=== PATIENT | male | born 1935 | race Caucasian/White ===

== ENCOUNTER → 2016-04-15 | Outpatient (CLI) | payer BC ==
[~2016-04-15] MED LIST: CHOL100010 PO; CHOL4POW14 PO; DTR5 PO; FAMO20TA11 PO; LOVA20TA4 PO; MECL1TAB42 PO; SENN-91 PO; SODI1TAB17 PO; TRAM-10 PO; TRIA37.5 PO
--- NOTE | 2016-04-15 12:41 | DIAGNOSTIC IMAGING REPORT ---
CERVICAL SPINE MRI HISTORY: Cervical pain CERVICALGIA TECHNIQUE: Multiplanar multisequence MRI of the cervical spine was performed without the use of contrast. COMPARISON STUDY: None. FINDINGS: Significant degenerative intervertebral disc change primarily at C4-C5 and C5-C7. Signal characteristics of the cervical cord in the sagittal images appear unremarkable. C2-C3: No significant central canal or neural foraminal narrowing. C3-C4: Minimal broad-based disc bulge. Mild osteophytic narrowing of the neuroforamina bilaterally. C4-C5: Broad-based bulging disc combined with moderate posterior osteophytic formation. Mild impact anterior cervical cord. Moderate narrowing of the neuroforamina bilaterally C5-C6: Broad-based bulging disc with no significant impact upon the cervical cord. Moderate osteophytic narrowing of the neuroforamina bilaterally C6-C7: Minimal broad-based disc bulge again with no significant impact upon the cervical cord. Moderate narrowing left neuroforamina. C7-T1: No significant central canal or neural foraminal narrowing. IMPRESSION: 1. Moderate to significant degenerative disc change primarily from C4 through C6. 2. Multilevel bulging disc findings with mild posterior osteophytic reaction. Impact upon the cervical cord is minimal to mild 3. Moderate osteophytic narrowing of multiple neural foramina bilaterally.. 4. No evidence for major disc herniation or significant component of spinal stenosis Electronically signed by: Mt Heck M.D. 04/15/2016 12:40 PM Dictated Date/Time: 04/15/2016 12:36 PM
== END | disposition home or self-care (01) ==
LOC: C.MRIBC 11:38
PROVIDERS: ATTEND Anesthesiology
DX: M54.2 Cervicalgia (principal); M48.02 Spinal stenosis, cervical region; M50.321 Other cervical disc degeneration at C4-C5 level; M50.322 Other cervical disc degeneration at C5-C6 level

== ENCOUNTER → 2016-04-28 | Outpatient (CLI) | payer BC ==
[~2016-04-28] MED LIST changes: -SENN-91 PO
[2016-04-28 13:48] LABS: ALT/SGPT 28 U/L (12-78); BLOOD UREA NITROGEN 21 mg/dl (7-18); BUN/CREATININE RATIO 17.3 (10-20); CALCIUM 9.3 mg/dl (8.5-10.1); CARBON DIOXIDE 21 mmol/L (21-32); CHLORIDE 107 mmol/L (98-107); CHOLESTEROL 188 mg/dl (0-200); GLUCOSE 119 mg/dl (70-99); POTASSIUM 3.9 mmol/L (3.5-5.1); SODIUM 140 mmol/L (136-145); TRIGLYCERIDES 119 mg/dl (0-150); VERY LOW DENSITY LIPOPROT CALC 24 mg/dl
[2016-04-28 13:52] LABS: ALB/GLOB RATIO 1.1 (0.9-2); ALKALINE PHOSPHATASE 78 U/L (45-117); AST/SGOT 18 U/L (15-37); CHOLESTEROL/HDL RATIO 2.4; HDL CHOLESTEROL 78 mg/dl; LDL CHOLESTEROL CALCULATED 86 mg/dl
[2016-04-28 14:10] LABS: ESTIMATED AVERAGE GLUCOSE 131 mg/dl; HA1C FLAG Normal (Normal)
== END | disposition home or self-care (01) ==
LOC: C.LABMFLN 08:34
PROVIDERS: ATTEND Family Medicine
DX: I10 Essential (primary) hypertension (principal); E78.5 Hyperlipidemia, unspecified; R73.03 Prediabetes; R73.09 Other abnormal glucose

== ENCOUNTER → 2016-04-29 | Outpatient (CLI) | payer BC ==
[~2016-04-29] MED LIST changes: +REGADENOSON 0.4 MG/5 ML SYR ONE
--- NOTE | 2016-04-29 14:12 | MYOCARDIAL PERFUSION SCAN ---
ONE-DAY NUCLEAR MEDICINE TECHNETIUM-99M CARDIOLITE MYOCARDIAL PERFUSION SCAN CLINICAL HISTORY: The patient has a history of fatigue and exertional dyspnea. Baseline EKG is abnormal. COMPARISON: None. TECHNIQUE: For the stress portion of the study, 32.0 mCi of Technetium 99 m Cardiolite IV was injected at 11:45 a.m. on 04/29/2016. Thirty minutes following the injection, imaging of the heart was performed in multiple projection. For the rest portion of the study, 11.0 mCi of Technetium 99 m Cardiolite was injected IV at 9:45 a.m. One hour following the injection, imaging of the heart was performed in the same projections. For the stress portion of the study, 0.4 mg of Lexiscan was injected intravenously as per protocol. The patient tolerated the procedure well. He did not experience chest discomfort nor EKG changes over the baseline abnormality. FINDINGS: The short axis, vertical long axis, and horizontal long axis images were reviewed in detail. There is no evidence of a prior myocardial infarction or stress induced myocardial ischemia. Tracer uptake is normal at both stress and rest. The left ventricle demonstrates normal systolic function without segmental wall motion abnormalities. An estimated left ventricular ejection fraction is 68%. IMPRESSION: 1. No scintigraphic evidence of a myocardial infarction or stress induced myocardial ischemia. 2. No Lexiscan induced chest pain. 3. No Lexiscan induced EKG changes. 4. Normal left ventricular systolic function with an ejection fraction of 68%. There are no wall motion abnormalities.
== END | disposition home or self-care (01) ==
LOC: C.NUCL 08:43
PROVIDERS: ATTEND Family Medicine
DX: R07.89 Other chest pain (principal)

== ENCOUNTER → 2016-09-18 | Outpatient (CLI) | payer BC ==
[~2016-09-18] MED LIST changes: -REGADENOSON 0.4 MG/5 ML SYR ONE
[2016-09-18 17:54] LABS: BASO % 0.4 %; BASO ABS # 0.04 K/uL (0-0.2); COMPLETE YES; EOS % 5.2 %; IG% 0.2 %; LYMPH % 15.9 %; LYMPH ABS # 1.66 K/uL (1.2-3.4); MEAN CELL VOLUME 91.3 fL (80-100); MEAN CORPUSCULAR HEMOGLOBIN 30.1 pg (25-34); MEAN CORPUSCULAR HGB CONC 32.9 g/dl (32-36); MEAN PLATELET VOLUME 11.1 fL (7.4-10.4); MONO % 14.8 %; NEUT % 63.5 %; PLATELET COUNT 225 K/uL (130-400); RED BLOOD COUNT 4.49 M/uL (4.7-6.1); WHITE BLOOD COUNT 10.41 K/uL (4.8-10.8)
== END | disposition home or self-care (01) ==
LOC: C.LABMFLN 16:13
PROVIDERS: ATTEND Family Medicine
DX: K92.1 Melena (principal)

== ENCOUNTER → 2016-11-14 | Outpatient (CLI) | payer BC ==
[2016-11-14 17:56] LABS: ALT/SGPT 32 U/L (12-78); AST/SGOT 26 U/L (15-37); BLOOD UREA NITROGEN 28 mg/dl (7-18); BUN/CREATININE RATIO 21.6 (10-20); CALCIUM 9.5 mg/dl (8.5-10.1); CARBON DIOXIDE 24 mmol/L (21-32); CHLORIDE 107 mmol/L (98-107); GLUCOSE 94 mg/dl (70-99); POTASSIUM 3.8 mmol/L (3.5-5.1); SODIUM 140 mmol/L (136-145)
[2016-11-14 17:59] LABS: BASO % 0.2 %; BASO ABS # 0.02 K/uL (0-0.2); COMPLETE YES; EOS % 6.6 %; IG% 0.2 %; LYMPH % 16.9 %; LYMPH ABS # 1.91 K/uL (1.2-3.4); MEAN CELL VOLUME 91.1 fL (80-100); MEAN CORPUSCULAR HEMOGLOBIN 29.7 pg (25-34); MEAN CORPUSCULAR HGB CONC 32.6 g/dl (32-36); MEAN PLATELET VOLUME 10.8 fL (7.4-10.4); MONO % 14.6 %; NEUT % 61.5 %; PLATELET COUNT 277 K/uL (130-400); RED BLOOD COUNT 4.72 M/uL (4.7-6.1); WHITE BLOOD COUNT 11.27 K/uL (4.8-10.8)
[2016-11-14 18:07] LABS: ALB/GLOB RATIO 1.2 (0.9-2); ALKALINE PHOSPHATASE 85 U/L (45-117)
[2016-11-14 18:08] LABS: URINE APPEARANCE CLEAR (CLEAR); URINE BILIRUBIN NEG (NEG); URINE COLOR YELLOW; URINE NITRITE NEG (NEG); URINE SPECIFIC GRAVITY 1.019 (1.000-1.030); UROBILINOGEN NEG (NEG)
[2016-11-14 18:21] LABS: MANUAL MICROSCOPIC REQUIRED? NO; REVIEW REQ? NO
== END | disposition home or self-care (01) ==
LOC: C.LABMFLN 12:06
PROVIDERS: ATTEND Family Medicine
DX: R41.3 Other amnesia (principal)

== ENCOUNTER → 2016-11-17 | Outpatient (CLI) | payer BC ==
[2016-11-17 14:03] LABS: ALT/SGPT 33 U/L (12-78); AST/SGOT 26 U/L (15-37); BLOOD UREA NITROGEN 26 mg/dl (7-18); BUN/CREATININE RATIO 21.7 (10-20); CALCIUM 9.7 mg/dl (8.5-10.1); CARBON DIOXIDE 20 mmol/L (21-32); CHLORIDE 109 mmol/L (98-107); CHOLESTEROL 170 mg/dl (0-200); GLUCOSE 128 mg/dl (70-99); POTASSIUM 3.7 mmol/L (3.5-5.1); SODIUM 140 mmol/L (136-145)
[2016-11-17 14:07] LABS: CHOLESTEROL/HDL RATIO 2.5; HDL CHOLESTEROL 68 mg/dl; LDL CHOLESTEROL CALCULATED 80 mg/dl; TRIGLYCERIDES 112 mg/dl (0-150); VERY LOW DENSITY LIPOPROT CALC 22 mg/dl
[2016-11-18 06:06] LABS: ESTIMATED AVERAGE GLUCOSE 131 mg/dl; HA1C FLAG Normal (Normal)
== END | disposition home or self-care (01) ==
LOC: C.LABMFLN 08:27
PROVIDERS: ATTEND Family Medicine
DX: I10 Essential (primary) hypertension (principal); E78.5 Hyperlipidemia, unspecified; R73.03 Prediabetes

== ENCOUNTER → 2016-11-25 | Outpatient (CLI) | payer BC ==
--- NOTE | 2016-11-25 15:57 | DIAGNOSTIC IMAGING REPORT ---
ORBITS FOR MRI CLINICAL HISTORY: 81 years-old Male presenting with R41.3 Memory [id number]. TECHNIQUE: 3 views of the orbits were obtained. COMPARISON: None. FINDINGS: No radiopaque foreign body projects over the orbits. Bony orbits grossly intact. Paranasal sinuses grossly clear. Visualized portion of the calvarium intact. IMPRESSION: No intraorbital metallic foreign body to preclude MRI exam. Electronically signed by: Ck Calderon M.D. 11/25/2016 3:56 PM Dictated Date/Time: 11/25/2016 3:55 PM
--- NOTE | 2016-11-25 16:50 | DIAGNOSTIC IMAGING REPORT ---
MRI OF THE BRAIN WITHOUT IV CONTRAST CLINICAL HISTORY: Memory loss. Change in mental status. Dizziness. COMPARISON STUDY: No priors. TECHNIQUE: MRI of the brain was performed utilizing various T1 and T2-weighted sequences in the axial, sagittal, and coronal planes. IV contrast was not administered for this examination. FINDINGS: Brain parenchyma: There are age-related involutional changes noting moderate patchy subcortical and periventricular microangiopathic disease. There is no hemorrhage or mass effect. There is no restricted diffusion to suggest acute ischemia. Galvan-white matter differentiation is preserved. No extra-axial fluid collection is seen. The cerebellar tonsils are normal in configuration. Ventricles, sulci, and cisterns: Prominent secondary to involutional change. Pituitary and sella: Unremarkable. Intracranial vasculature: Normal flow voids are maintained at the skull base. Orbits: The bony orbits are grossly intact. Orbital contents are normal in appearance noting bilateral ocular lens implants. Sinuses and mastoids: Clear. Calvarium: Unremarkable. Cervical cord: Partially visualized cervical spinal cord is normal in morphology and signal intensity. IMPRESSION: No acute intracranial abnormality. Electronically signed by: Deuce Gallardo M.D. 11/25/2016 4:49 PM Dictated Date/Time: 11/25/2016 4:47 PM
== END | disposition home or self-care (01) ==
LOC: C.RAD 15:03
PROVIDERS: ATTEND Family Medicine
DX: R41.3 Other amnesia (principal)

== ENCOUNTER → 2017-02-09 | Outpatient (CLI) | payer BC ==
[2017-02-09 12:29] LABS: BASO % 0.6 %; BASO ABS # 0.05 K/uL (0-0.2); COMPLETE YES; HEMATOCRIT 39.4 % (42-52); IG% 0.2 %; LYMPH % 19.1 %; LYMPH ABS # 1.69 K/uL (1.2-3.4); MEAN CELL VOLUME 92.1 fL (80-100); MEAN CORPUSCULAR HEMOGLOBIN 30.8 pg (25-34); MEAN CORPUSCULAR HGB CONC 33.5 g/dl (32-36); MEAN PLATELET VOLUME 10.8 fL (7.4-10.4); MONO % 14.2 %; NEUT % 57.9 %; PLATELET COUNT 246 K/uL (130-400); RED BLOOD COUNT 4.28 M/uL (4.7-6.1); WHITE BLOOD COUNT 8.85 K/uL (4.8-10.8)
[2017-02-09 13:31] LABS: THYROID STIMULATING HORMONE 7.06 uIu/ml (0.300-4.500)
== END | disposition home or self-care (01) ==
LOC: C.LABMFLN 08:45
PROVIDERS: ATTEND Family Medicine
DX: D72.829 Elevated white blood cell count, unspecified (principal); R94.6 Abnormal results of thyroid function studies

== ENCOUNTER → 2017-02-18 | Outpatient (CLI) | payer BC ==
[~2017-02-18] MED LIST changes: +AMOX1TAB43 PO; +CHOL200010 PO; +LEVO50TA6 PO; +LPR25 PO; +MEMA1TAB4 PO; +MVC20 PO; +NAPR-1161 PO; +PRLSR20 PO; +XPNINS INH; +ZLF/100 PO
== END | disposition home or self-care (01) ==
LOC: C.LABMFLN 10:40
PROVIDERS: ATTEND Physician Assistant
DX: J02.9 Acute pharyngitis, unspecified (principal)

== ENCOUNTER 2017-05-29 18:52 | Inpatient (IN) | payer BC, OTHER ==
[~2017-05-29] VITALS: Ht 180.3 cm; Wt 98.6 kg
[~2017-05-29 18:52] MED LIST changes: -AMOX1TAB43 PO; -CHOL200010 PO; -LEVO50TA6 PO; -LPR25 PO; -MEMA1TAB4 PO; -MVC20 PO; -NAPR-1161 PO; -PRLSR20 PO; -XPNINS INH; -ZLF/100 PO
[2017-05-29] MEDS ORDERED: ALBUT/IPRATROP 3MG/0.5MG NEB 3 ML VIAL INH ONE (19:30)
--- NOTE | 2017-05-29 19:38 | EMERGENCY ROOM VISIT NOTE ---
History Report prepared by Bret: Theo Beverly Under the Supervision of: Dr. Dany Reese M.D. First contact with patient: 19:23 Chief Complaint: RESPIRATORY PROBLEMS Stated Complaint: BAD COLD, FEVER 103, LOW O2- REFERRED History of Present Illness The patient is an 82 year old male who presents to the Emergency Room with complaints of a worsening cough beginning two weeks ago. The patient states his cough was constant for the past two weeks and recently became painful. He reports he was evaluated by his PCP and was told to come here. The patient notes he is also severely short of breath and his symptoms worsen upon exertion. He states he already takes water pills and has not missed a dose of his medication. The patient reports he developed a fever of 103 degrees today. Source of History: patient Onset: two weeks ago Quality: other (cough) Timing: worsening Modifying Factors (Worsening): exertion Associated Symptoms: + fevers (103), + SOB Review of Systems See HPI for pertinent positives & negatives. A total of 10 systems reviewed and were otherwise negative. Past Medical & Surgical Medical Problems: (1) Depression (2) HTN (hypertension) (3) Hyperlipidemia Family History Cancer Social History Smoking Status: Never Smoker Smokeless Tobacco Use: No Alcohol Use: none Marital Status: Occupation Status: retired Current/Historical Medications Scheduled Cholecalciferol (Vitamin D), 2,000 UNITS PO DAILY Levothyroxine Sodium (Levothyroxine Sodium), 50 MCG PO DAILY Lovastatin (Lovastatin), 20 MG PO DAILY Memantine HCl (Memantine HCl), 10 MG PO BID Omeprazole (Prilosec), 20 MG PO BID Oxybutynin Chloride (Oxybutynin Chloride), 5 MG PO DAILY Sertraline HCl (Sertraline HCl), 100 MG PO DAILY Scheduled PRN Cholestyramine Light (Questran Light), 1 PACK PO DAILY PRN for Meclizine Hcl (Meclizine Hcl), 25 MG PO TID PRN for Dizziness or Vertigo Naproxen Sodium (Naproxen Sodium Ds), 550 MG PO BID PRN for Pain Allergies Coded Allergies: Hydrocodone (Verified Adverse Reaction, Unknown, HALLUCINATIONS, 05/18/14) Physical Exam Vital Signs Date Time Temp Pulse Resp B/P (MAP) Pulse Ox O2 Delivery O2 Flow Rate FiO2 05/29/17 23:09 128 05/29/17 23:06 134 28 99/64 94 Nasal Cannula 3.0 05/29/17 22:05 123 31 93 05/29/17 22:01 145/77 05/29/17 21:05 98 27 95 05/29/17 21:00 94 29 95 Nebulizer 05/29/17 20:41 149/63 05/29/17 20:38 95 Mask 5.0 05/29/17 20:30 109 21 97 Nebulizer 05/29/17 20:24 91 27 93 Room Air 05/29/17 20:23 92 Room Air 05/29/17 19:49 92 05/29/17 19:17 36.9 96 24 151/70 90 Room Air Physical Exam GENERAL: Awake, alert, well-appearing, in no acute distress HENT: Normocephalic, atraumatic. Oropharynx unremarkable. EYES: Normal conjunctiva. Sclera non-icteric. NECK: Supple. No nuchal rigidity. FROM. No JVD. RESPIRATORY: Rales at the bases bilaterally. CARDIAC: Regular rate, normal rhythm. Extremities warm and well perfused. Pulses equal. ABDOMEN: Soft, non-distended. No tenderness to palpation. No rebound or guarding. No masses. RECTAL: Deferred. MUSCULOSKELETAL: Chest examination reveals no tenderness. The back is symmetrical on inspection without obvious abnormality. There is no CVA tenderness to palpation. No joint edema. LOWER EXTREMITIES: Calves are equal size bilaterally and non-tender. No edema. No discoloration. NEURO: Normal sensorium. No sensory or motor deficits noted. SKIN: No rash or jaundice noted. Medical Decision & Procedures ER Provider Diagnostic Interpretation: X-ray results as stated below per interpretation by me and the radiologist: CHEST ONE VIEW PORTABLE CLINICAL HISTORY: Sepsis COMPARISON STUDY: April 24, 2014 FINDINGS: The heart is enlarged. There is left lower lobe pulmonary consolidation with an associated left pleural effusion. There is mild central vascular prominence. Postsurgical changes are present within the spine.[ IMPRESSION: Left lower lobe pulmonary consolidation with an associated pleural effusion Electronically signed by: Armando Santos M.D. 05/29/2017 8:00 PM Dictated Date/Time: 05/29/2017 7:59 PM Laboratory Results 05/29/17 20:31 Red Blood Count 4.15, Mean Corpuscular Volume 89.9, Mean Corpuscular Hemoglobin 31.6, Mean Corpuscular Hemoglobin Concent 35.1, Mean Platelet Volume 11.5, Neutrophils (%) (Auto) 89.2, Lymphocytes (%) (Auto) 2.1, Monocytes (%) (Auto) 7.2, Eosinophils (%) (Auto) 0.2, Basophils (%) (Auto) 0.1, Neutrophils # (Auto) 31.42, Lymphocytes # (Auto) 0.74, Monocytes # (Auto) 2.52, Eosinophils # (Auto) 0.07, Basophils # (Auto) 0.03 05/29/17 20:31 Test 05/29/17 20:01 05/29/17 20:31 05/29/17 20:34 Influenza Type A Antigen Neg for Influ A (NEG) Influenza Type B Antigen Neg for Influ B (NEG) White Blood Count 35.22 K/uL (4.8-10.8) Red Blood Count 4.15 M/uL (4.7-6.1) Hemoglobin 13.1 g/dL (14.0-18.0) Hematocrit 37.3 % (42-52) Mean Corpuscular Volume 89.9 fL (80-100) Mean Corpuscular Hemoglobin 31.6 pg (25-34) Mean Corpuscular Hemoglobin Concent 35.1 g/dl (32-36) Platelet Count 260 K/uL (130-400) Mean Platelet Volume 11.5 fL (7.4-10.4) Neutrophils (%) (Auto) 89.2 % Lymphocytes (%) (Auto) 2.1 % Monocytes (%) (Auto) 7.2 % Eosinophils (%) (Auto) 0.2 % Basophils (%) (Auto) 0.1 % Neutrophils # (Auto) 31.42 K/uL (1.4-6.5) Lymphocytes # (Auto) 0.74 K/uL (1.2-3.4) Monocytes # (Auto) 2.52 K/uL (0.11-0.59) Eosinophils # (Auto) 0.07 K/uL (0-0.5) Basophils # (Auto) 0.03 K/uL (0-0.2) RDW Standard Deviation 49.1 fL (36.4-46.3) RDW Coefficient of Variation 14.9 % (11.5-14.5) Immature Granulocyte % (Auto) 1.2 % Immature Granulocyte # (Auto) 0.44 K/uL (0.00-0.02) Echinocytes 1+ Acanthocytes 1+ Prothrombin Time 11.9 SECONDS (9.0-12.0) Prothromb Time International Ratio 1.1 (0.9-1.1) Activated Partial Thromboplast Time 40.1 SECONDS (21.0-31.0) Partial Thromboplastin Ratio 1.5 Anion Gap 9.0 mmol/L (3-11) Est Creatinine Clear Calc Drug Dose 32.1 ml/min Estimated GFR () 33.5 Estimated GFR (Non- 28.9 BUN/Creatinine Ratio 29.9 (10-20) Calcium Level 8.8 mg/dl (8.5-10.1) Total Bilirubin 1.1 mg/dl (0.2-1) Aspartate Amino Transf (AST/SGOT) 20 U/L (15-37) Alanine Aminotransferase (ALT/SGPT) 18 U/L (12-78) Alkaline Phosphatase 132 U/L (45-117) Total Creatine Kinase 35 U/L (39-308) Creatine Kinase MB 0.7 ng/ml (0.5-3.6) Creatine Kinase MB Ratio 2.0 (0-3.0) Troponin I < 0.015 ng/ml (0-0.045) Total Protein 6.9 gm/dl (6.4-8.2) Albumin 2.6 gm/dl (3.4-5.0) Globulin 4.3 gm/dl (2.5-4.0) Albumin/Globulin Ratio 0.6 (0.9-2) Bedside Lactic Acid Venous 1.02 mmol/L (0.90-1.70) Labs reviewed by ED physician. Medications Administered Medications (Trade) Dose Ordered Sig/Estuardo Route Start Time Stop Time Status Last Admin Dose Admin Albuterol/ Ipratropium (Duoneb) 12 ml ONE ONCE INH 05/29/17 19:30 05/29/17 19:31 DC 05/29/17 19:30 12 ML Piperacillin Sod/ Tazobactam Sod (Zosyn Iv) 4.5 gm NOW STAT IV 05/29/17 20:19 05/29/17 20:21 DC 05/29/17 20:19 4.5 GM Levofloxacin (Levaquin / D5W) 750 mg NOW ONCE IV 05/29/17 20:30 05/29/17 20:31 DC 05/29/17 21:07 750 MG Vancomycin HCl 2000 mg/Sodium Chloride 540 ml @ 200 mls/hr NOW STAT IV 05/29/17 23:36 05/30/17 02:17 05/29/17 23:54 200 MLS/HR ECG Per My Interpretation Indication: SOB/dyspnea Rate (beats per minute): 90 Rhythm: normal sinus Findings: RBBB (Incomplete), other (No ST elevation or depression) ED Course 1734: Past medical records reviewed. The patient was evaluated in room A02. A complete history and physical examination was performed. 0: Ordered Duoneb 12ml INH 2018: Ordered Zosyn Iv 4.5gm IV 2030: Ordered Levofloxacin 750mg IV 2125: Upon reexamination the patient is resting comfortably. I discussed results and treatment plan with the patient. He verbalizes agreement and understanding. The patient will be evaluated for further management. 2147: I spoke with Dr. Stoddard from the [facility] Hospitalist Service. The patient will be evaluated for further management. Medical Decision Etiologies such as infections, reactive airway disease, pneumonia, pneumothorax , COPD, CHF, cardiac ischemia, pulmonary embolism, musculoskeletal, gastrointestinal, as well as others were entertained. This is an 82-year-old male who presents the emergency department complaining of hypoxia. She was he was sent in by his primary care physician. Patient has pneumonia on chest x-ray and has a very large elevation in his white blood cell count. Due to previous surgery a fungal culture was obtained along with blood cultures. The patient was started on broad-spectrum antibiotics and sent for CAT scan of the chest and spine. I did discuss the case with the hospitalist service who agreed to admit the patient. Patient and family were in agreement with the treatment plan. Medication Reconcilliation Current Medication List: was personally reviewed by me Blood Pressure Screening Patient's blood pressure: Normal blood pressure Blood pressure disposition: Did not require urgent referral Consults Time Called: 2125 Consulting Physician: Dr. Stoddard from the [facility] Hospitalist Service Returned Call: [address] Stoddard from the [facility] Hospitalist Service. The patient will be evaluated for further management. Impression Primary Impression: Hypoxia Additional Impression: PNA (pneumonia) Scribe Attestation The scribe's documentation has been prepared under my direction and personally reviewed by me in its entirety. I confirm that the note above accurately reflects all work, treatment, procedures, and medical decision making performed by me. Departure Information Dispostion Being Evaluated By Hospitalist Deuce Rios M.D. (PCP) Patient Instructions My [facility] Problem Qualifiers Additional Impression: PNA (pneumonia) Pneumonia type: due to unspecified organism Laterality: unspecified laterality Lung location: unspecified part of lung Qualified Codes: J18.9 - Pneumonia, unspecified organism
--- NOTE | 2017-05-29 20:02 | DIAGNOSTIC IMAGING REPORT ---
CHEST ONE VIEW PORTABLE CLINICAL HISTORY: Sepsis COMPARISON STUDY: April 24, 2014 FINDINGS: The heart is enlarged. There is left lower lobe pulmonary consolidation with an associated left pleural effusion. There is mild central vascular prominence. Postsurgical changes are present within the spine.[ IMPRESSION: Left lower lobe pulmonary consolidation with an associated pleural effusion Electronically signed by: Armando Santos M.D. 05/29/2017 8:00 PM Dictated Date/Time: 05/29/2017 7:59 PM
[2017-05-29] MEDS ORDERED: PIPERACILLIN/TAZOBACTAM 4.5 GM/100ML D5W IV STA (20:19)
[2017-05-29 20:24] VITALS: PULSE 91; O2SAT 93
[2017-05-29 20:28] LABS: INFLUENZA B ANTIGEN Neg for Influ B (NEG)
[2017-05-29] MEDS ORDERED: LEVAQUIN 750MG / 150ML D5W IV ONE (20:30)
[2017-05-29 21:16] LABS: HEMATOCRIT 37.3 % (42-52); HEMOGLOBIN 13.1 g/dL (14.0-18.0); MEAN CELL VOLUME 89.9 fL (80-100); MEAN CORPUSCULAR HEMOGLOBIN 31.6 pg (25-34); MEAN CORPUSCULAR HGB CONC 35.1 g/dl (32-36); MEAN PLATELET VOLUME 11.5 fL (7.4-10.4); PLATELET COUNT 260 K/uL (130-400); RED CELL DISTRIBUTION WIDTH CV 14.9 % (11.5-14.5); RED CELL DISTRIBUTION WIDTH SD 49.1 fL (36.4-46.3); WHITE BLOOD COUNT 35.22 K/uL (4.8-10.8)
[2017-05-29 21:17] LABS: INR 1.1 (0.9-1.1); PTT PATIENT 40.1 SECONDS (21.0-31.0)
[2017-05-29 21:19] LABS: ALBUMIN 2.6 gm/dl (3.4-5.0); ALT/SGPT 18 U/L (12-78); AST/SGOT 20 U/L (15-37); BLOOD UREA NITROGEN 62 mg/dl (7-18); CALCIUM 8.8 mg/dl (8.5-10.1); CARBON DIOXIDE 22 mmol/L (21-32); CREATININE 2.06 mg/dl (0.60-1.40); GLUCOSE 157 mg/dl (70-99); POTASSIUM 3.6 mmol/L (3.5-5.1); SODIUM 140 mmol/L (136-145)
[2017-05-29 21:24] LABS: ALKALINE PHOSPHATASE 132 U/L (45-117); CKMB 0.7 ng/ml (0.5-3.6); TOTAL PROTEIN 6.9 gm/dl (6.4-8.2)
[2017-05-29 21:25] LABS: BASO % 0.1 %; BASO ABS # 0.03 K/uL (0-0.2); EOS % 0.2 %; EOS ABS # 0.07 K/uL (0-0.5); IG# 0.44 K/uL (0.00-0.02); LYMPH % 2.1 %; LYMPH ABS # 0.74 K/uL (1.2-3.4); MONO % 7.2 %; MONO ABS # 2.52 K/uL (0.11-0.59); NEUT % 89.2 %; NEUT ABS # 31.42 K/uL (1.4-6.5)
[2017-05-29] MEDS ORDERED: MEMA1TAB4 PO (22:42)
[2017-05-29] MEDS ORDERED: LEVO50TA6 PO (22:42)
[2017-05-29] MEDS ORDERED: ZLF/100 PO (22:42)
[2017-05-29] MEDS ORDERED: CHOL200010 PO (22:42)
[2017-05-29] MEDS ORDERED: MVC20 PO (22:42)
[2017-05-29] MEDS ORDERED: NAPR-1161 PO (22:42)
[2017-05-29] MEDS ORDERED: PRLSR20 PO (22:42)
[2017-05-29] MEDS ORDERED: DTR5 PO (22:42)
--- NOTE | 2017-05-29 22:46 | DIAGNOSTIC IMAGING REPORT ---
(CHEST) THORAX WITHOUT CLINICAL HISTORY: Left-sided chest pain. Abnormal chest x-ray. COMPARISON STUDY: Chest x-ray dated 05/29/2017 CT DOSE: TECHNIQUE: CT of the thorax was performed from the thoracic inlet to the lung bases. Images are reviewed in the axial, sagittal, and coronal planes. IV contrast was not administered for this examination. A dose lowering technique was utilized adhering to the principles of ALARA. FINDINGS: Thyroid: There is a 5 mm left lobe thyroid nodule. Thoracic aorta: The thoracic aorta is normal in course and caliber, noting standard 3 vessel arch anatomy. Heart: The heart is normal in size and configuration, without pericardial effusion. Lungs and pleural spaces: There is dense left lower lobe pulmonary consolidation, suspicious for pneumonia. There is associated small left pleural effusion. There are minimal dependent atelectatic changes within the right lower lobe. There is moderate respiratory motion artifact. Mediastinum: Mediastinal lymph nodes are the upper limits of normal in size. Vivien: Evaluation is difficult due to the lack of intravenous contrast. There is narrowing of the left lower lobe bronchus. A central mass or adenopathy cannot be excluded. Short-term follow-up subsequent antibiotic therapy is recommended. Axilla: Clear. Upper abdomen: Partially visualized upper abdominal viscera is within normal limits. Skeletal structures: Postsurgical changes are present within the spine. IMPRESSION: 1. Dense left lower lobe consolidation with air bronchograms, consistent with pneumonia 2. Small left pleural effusion with areas of loculated fluid superiorly 3. Prominent left hilum with narrowing of the left lower lobe bronchus. A central mass cannot be excluded. Follow-up imaging subsequent antibiotic therapy is recommended. If a repeat CT scan is performed, this should be obtained with intravenous contrast. Electronically signed by: Armando Santos M.D. 05/29/2017 10:45 PM Dictated Date/Time: 05/29/2017 10:40 PM
--- NOTE | 2017-05-29 22:52 | DIAGNOSTIC IMAGING REPORT ---
CT LUMBAR SPINE WITHOUT CT DOSE: 1186.85 mGy.cm CLINICAL HISTORY: Back pain status post spinal surgery TECHNIQUE: Helical images were acquired in transverse plane. Reformatted sagittal and coronal images were reviewed. A dose lowering technique was utilized adhering to the principles of ALARA. CONTRAST: No contrast was administered COMPARISON STUDY: Postmyelogram study performed in 2006 FINDINGS: L1-2 level: There are postsurgical changes of a discectomy and interbody fusion. There is a posterior laminectomy defect. There is no foraminal narrowing. There is no significant spinal stenosis L2-3 level: There is a circumferential disc bulge present. There is disc narrowing. There is no significant spinal stenosis. There is no significant foraminal narrowing L3-4 level: There are postsurgical changes of a discectomy and interbody fusion. Posterior laminectomy changes are evident. There is no significant foraminal stenosis. There is no significant spinal stenosis L4-5 level: There is a posterior laminectomy defect. There is no significant spinal stenosis. There is mild bilateral foraminal narrowing. L5-S1 level: There are postsurgical changes of a discectomy and interbody fusion. There is a posterior laminectomy. There is mild bilateral foraminal narrowing. There is no significant spinal stenosis. There are postsurgical changes of a posterior spinal fusion with pedicle screw fixation. Pedicle screws are visualized at the S1 L5 L3 L2 L1 and T12 levels. The study is limited from a technical standpoint due to artifact from the spinal hardware. Old L4 pedicle screw tracks are visualized IMPRESSION: 1. Extensive postsurgical changes present within the lumbar spine 2. No acute fractures 3. No evidence of significant spinal stenosis 4. Mild bilateral foraminal narrowing at the L4-5, and L5-S1 levels. 5. Probable cholelithiasis Electronically signed by: Armando Santos M.D. 05/29/2017 10:51 PM Dictated Date/Time: 05/29/2017 10:46 PM
[2017-05-29] MEDS ORDERED: VANCOMYCIN IV 1,000 MG in SODIUM CHLORIDE 0.9% 250ML 250 ML IV STA (23:16)
[2017-05-29] MEDS ORDERED: VANCOMYCIN CONSULT ACTIVE PRN (23:30)
[2017-05-29] MEDS ORDERED: VANCOMYCIN IV 2,000 MG in SODIUM CHLORIDE 0.9% 500ML 500 ML IV STA (23:36)
[2017-05-29] MEDS ORDERED: POLYETHYLENE (MIRALAX) 17 GM PACK PO PRN (23:45)
[2017-05-29] MEDS ORDERED: ALUMINUM/MAGNESIUM/SIMETH (MAALOX MAX) 30 ML UDC PO PRN (23:45)
[2017-05-29] MEDS ORDERED: MAGNESIUM HYDROXIDE SUSP 30 ML UDC PO PRN (23:45)
[2017-05-29] MEDS ORDERED: ONDANSETRON INJ 2 MG/ML 2 ML VIAL IV PRN (23:45)
--- NOTE | 2017-05-29 23:48 | History and Physical ---
History & Physical Date & Time of Service: May 29, 2017 at 23:48 Chief Complaint: Bad Cold, Fever 103, Low O2- Referred Primary Care Physician: Deuce Ferreira M.D. History of Present Illness Source: patient, hospital records, friend 89 yo M with 3 wk history of productive cough without hemoptysis , subjective fever, chills, SOB weakness, lightheadedness, headache. He denies rhinorrhea or sore throat. He went to PCP Dr. Ferreira today in [facility] and was advised to come to Emergency Department for further evaluation. He denies N/V, abdominal pain, diarrhea, urinary symptoms. He tried multiple days of cold/ flu over the counter medication without any relief. he did receive the Flu vaccine this season. Past Medical/Surgical History Medical Problems: (1) Depression (2) HTN (hypertension) (3) Hyperlipidemia (4) Lumbar stenosis with neurogenic claudication Family History Cancer Social History Smoking Status: Never Smoker Smokeless Tobacco Use: No Alcohol Use: none Drug Use: none Marital Status: Occupational Status: retired Immunizations History of Influenza Vaccine: Yes History of Tetanus Vaccine?: Yes History of Pneumococcal: Yes History of Hepatitis B Vaccine: No Allergies Coded Allergies: Hydrocodone (Verified Adverse Reaction, Unknown, HALLUCINATIONS, 05/18/14) Home Medications Scheduled Cholecalciferol (Vitamin D), 2,000 UNITS PO DAILY Levothyroxine Sodium (Levothyroxine Sodium), 50 MCG PO DAILY Lovastatin (Lovastatin), 20 MG PO DAILY Memantine HCl (Memantine HCl), 10 MG PO BID Omeprazole (Prilosec), 20 MG PO BID Oxybutynin Chloride (Oxybutynin Chloride), 5 MG PO DAILY Sertraline HCl (Sertraline HCl), 100 MG PO DAILY Scheduled PRN Cholestyramine Light (Questran Light), 1 PACK PO DAILY PRN for Meclizine Hcl (Meclizine Hcl), 25 MG PO TID PRN for Dizziness or Vertigo Naproxen Sodium (Naproxen Sodium Ds), 550 MG PO BID PRN for Pain Review of Systems Constitutional: + fever, + chills, + weakness Respiratory: + cough, + sputum, + shortness of breath Cardiovascular: No chest pain Abdomen: No pain, No nausea, No vomiting Genitourinary - Male: No hematuria, No dysuria, No urinary frequency Neurologic: No numbness/tingling, No vertigo Integumentary: No rash, No itch Physical Exam Vital Signs Date Time Temp Pulse Resp B/P (MAP) Pulse Ox O2 Delivery O2 Flow Rate FiO2 05/29/17 23:09 128 05/29/17 23:06 134 28 99/64 94 Nasal Cannula 3.0 05/29/17 22:05 123 31 93 05/29/17 22:01 145/77 05/29/17 21:05 98 27 95 05/29/17 21:00 94 29 95 Nebulizer 05/29/17 20:41 149/63 05/29/17 20:38 95 Mask 5.0 05/29/17 20:30 109 21 97 Nebulizer 05/29/17 20:24 91 27 93 Room Air 05/29/17 20:23 92 Room Air 05/29/17 19:49 92 05/29/17 19:17 36.9 96 24 151/70 90 Room Air General Appearance: WD/WN, no apparent distress Head: normocephalic, atraumatic Eyes: normal inspection, PERRL, EOMI Neck: supple, no adenopathy, trachea midline Respiratory/Chest: chest non-tender, no respiratory distress, no accessory muscle use, + crackles, + wheezing Cardiovascular: regular rate, rhythm, no edema, no murmur, normal peripheral pulses Abdomen/GI: normal bowel sounds, non tender, soft Back: normal inspection, normal range of motion Extremities/Musculoskelatal: no calf tenderness, no pedal edema Neurologic/Psych: alert, normal mood/affect Skin: normal color, warm/dry Diagnostics Laboratory Results Results Past 24 Hours Test 05/29/17 20:01 05/29/17 20:31 05/29/17 20:34 Range/Units Influenza Type A Antigen Neg for Influ A NEG Influenza Type B Antigen Neg for Influ B NEG White Blood Count 35.22 4.8-10.8 K/uL Red Blood Count 4.15 4.7-6.1 M/uL Hemoglobin 13.1 14.0-18.0 g/dL Hematocrit 37.3 42-52 % Mean Corpuscular Volume 89.9 80-100 fL Mean Corpuscular Hemoglobin 31.6 25-34 pg Mean Corpuscular Hemoglobin Concent 35.1 32-36 g/dl Platelet Count 260 130-400 K/uL Mean Platelet Volume 11.5 7.4-10.4 fL Neutrophils (%) (Auto) 89.2 % Lymphocytes (%) (Auto) 2.1 % Monocytes (%) (Auto) 7.2 % Eosinophils (%) (Auto) 0.2 % Basophils (%) (Auto) 0.1 % Neutrophils # (Auto) 31.42 1.4-6.5 K/uL Lymphocytes # (Auto) 0.74 1.2-3.4 K/uL Monocytes # (Auto) 2.52 0.11-0.59 K/uL Eosinophils # (Auto) 0.07 0-0.5 K/uL Basophils # (Auto) 0.03 0-0.2 K/uL RDW Standard Deviation 49.1 36.4-46.3 fL RDW Coefficient of Variation 14.9 11.5-14.5 % Immature Granulocyte % (Auto) 1.2 % Immature Granulocyte # (Auto) 0.44 0.00-0.02 K/uL Echinocytes 1+ Acanthocytes 1+ Prothrombin Time 11.9 9.0-12.0 SECONDS Prothromb Time International Ratio 1.1 0.9-1.1 Activated Partial Thromboplast Time 40.1 21.0-31.0 SECONDS Partial Thromboplastin Ratio 1.5 Sodium Level 140 136-145 mmol/L Potassium Level 3.6 3.5-5.1 mmol/L Chloride Level 109 98-107 mmol/L Carbon Dioxide Level 22 21-32 mmol/L Anion Gap 9.0 3-11 mmol/L Blood Urea Nitrogen 62 7-18 mg/dl Creatinine 2.06 0.60-1.40 mg/dl Est Creatinine Clear Calc Drug Dose 32.1 ml/min Estimated GFR () 33.5 Estimated GFR (Non- 28.9 BUN/Creatinine Ratio 29.9 10-20 Random Glucose 157 70-99 mg/dl Calcium Level 8.8 8.5-10.1 mg/dl Total Bilirubin 1.1 0.2-1 mg/dl Aspartate Amino Transf (AST/SGOT) 20 15-37 U/L Alanine Aminotransferase (ALT/SGPT) 18 12-78 U/L Alkaline Phosphatase 132 45-117 U/L Total Creatine Kinase 35 39-308 U/L Creatine Kinase MB 0.7 0.5-3.6 ng/ml Creatine Kinase MB Ratio 2.0 0-3.0 Troponin I < 0.015 0-0.045 ng/ml Total Protein 6.9 6.4-8.2 gm/dl Albumin 2.6 3.4-5.0 gm/dl Globulin 4.3 2.5-4.0 gm/dl Albumin/Globulin Ratio 0.6 0.9-2 Bedside Lactic Acid Venous 1.02 0.90-1.70 mmol/L Microbiology Results 05/29/17 Fungal Smear, Ordered Pending 05/29/17 Fungal Culture, Ordered Pending 05/29/17 Blood Culture, Received Pending 05/29/17 Blood Culture, Received Pending Diagnostic Radiology CHEST ONE VIEW PORTABLE CLINICAL HISTORY: Sepsis COMPARISON STUDY: April 24, 2014 FINDINGS: The heart is enlarged. There is left lower lobe pulmonary consolidation with an associated left pleural effusion. There is mild central vascular prominence. Postsurgical changes are present within the spine.[ IMPRESSION: Left lower lobe pulmonary consolidation with an associated pleural effusion (CHEST) THORAX WITHOUT CLINICAL HISTORY: Left-sided chest pain. Abnormal chest x-ray. COMPARISON STUDY: Chest x-ray dated 05/29/2017 CT DOSE: TECHNIQUE: CT of the thorax was performed from the thoracic inlet to the lung bases. Images are reviewed in the axial, sagittal, and coronal planes. IV contrast was not administered for this examination. A dose lowering technique was utilized adhering to the principles of ALARA. FINDINGS: Thyroid: There is a 5 mm left lobe thyroid nodule. Thoracic aorta: The thoracic aorta is normal in course and caliber, noting standard 3 vessel arch anatomy. Heart: The heart is normal in size and configuration, without pericardial effusion. Lungs and pleural spaces: There is dense left lower lobe pulmonary consolidation, suspicious for pneumonia. There is associated small left pleural effusion. There are minimal dependent atelectatic changes within the right lower lobe. There is moderate respiratory motion artifact. Mediastinum: Mediastinal lymph nodes are the upper limits of normal in size. Vivien: Evaluation is difficult due to the lack of intravenous contrast. There is narrowing of the left lower lobe bronchus. A central mass or adenopathy cannot be excluded. Short-term follow-up subsequent antibiotic therapy is recommended. Axilla: Clear. Upper abdomen: Partially visualized upper abdominal viscera is within normal limits. Skeletal structures: Postsurgical changes are present within the spine. IMPRESSION: 1. Dense left lower lobe consolidation with air bronchograms, consistent with pneumonia 2. Small left pleural effusion with areas of loculated fluid superiorly 3. Prominent left hilum with narrowing of the left lower lobe bronchus. A central mass cannot be excluded. Follow-up imaging subsequent antibiotic therapy is recommended. If a repeat CT scan is performed, this should be obtained with intravenous contrast. (CHEST) THORAX WITHOUT CLINICAL HISTORY: Left-sided chest pain. Abnormal chest x-ray. COMPARISON STUDY: Chest x-ray dated 05/29/2017 CT DOSE: TECHNIQUE: CT of the thorax was performed from the thoracic inlet to the lung bases. Images are reviewed in the axial, sagittal, and coronal planes. IV contrast was not administered for this examination. A dose lowering technique was utilized adhering to the principles of ALARA. FINDINGS: Thyroid: There is a 5 mm left lobe thyroid nodule. Thoracic aorta: The thoracic aorta is normal in course and caliber, noting standard 3 vessel arch anatomy. Heart: The heart is normal in size and configuration, without pericardial effusion. Lungs and pleural spaces: There is dense left lower lobe pulmonary consolidation, suspicious for pneumonia. There is associated small left pleural effusion. There are minimal dependent atelectatic changes within the right lower lobe. There is moderate respiratory motion artifact. Mediastinum: Mediastinal lymph nodes are the upper limits of normal in size. Vivien: Evaluation is difficult due to the lack of intravenous contrast. There is narrowing of the left lower lobe bronchus. A central mass or adenopathy cannot be excluded. Short-term follow-up subsequent antibiotic therapy is recommended. Axilla: Clear. Upper abdomen: Partially visualized upper abdominal viscera is within normal limits. Skeletal structures: Postsurgical changes are present within the spine. IMPRESSION: 1. Dense left lower lobe consolidation with air bronchograms, consistent with pneumonia 2. Small left pleural effusion with areas of loculated fluid superiorly 3. Prominent left hilum with narrowing of the left lower lobe bronchus. A central mass cannot be excluded. Follow-up imaging subsequent antibiotic therapy is recommended. If a repeat CT scan is performed, this should be obtained with intravenous contrast. [~ rep ct add3]] CT LUMBAR SPINE WITHOUT CT DOSE: 1186.85 mGy.cm CLINICAL HISTORY: Back pain status post spinal surgery TECHNIQUE: Helical images were acquired in transverse plane. Reformatted sagittal and coronal images were reviewed. A dose lowering technique was utilized adhering to the principles of ALARA. CONTRAST: No contrast was administered COMPARISON STUDY: Postmyelogram study performed in 2006 FINDINGS: L1-2 level: There are postsurgical changes of a discectomy and interbody fusion. There is a posterior laminectomy defect. There is no foraminal narrowing. There is no significant spinal stenosis L2-3 level: There is a circumferential disc bulge present. There is disc narrowing. There is no significant spinal stenosis. There is no significant foraminal narrowing L3-4 level: There are postsurgical changes of a discectomy and interbody fusion. Posterior laminectomy changes are evident. There is no significant foraminal stenosis. There is no significant spinal stenosis L4-5 level: There is a posterior laminectomy defect. There is no significant spinal stenosis. There is mild bilateral foraminal narrowing. L5-S1 level: There are postsurgical changes of a discectomy and interbody fusion. There is a posterior laminectomy. There is mild bilateral foraminal narrowing. There is no significant spinal stenosis. There are postsurgical changes of a posterior spinal fusion with pedicle screw fixation. Pedicle screws are visualized at the S1 L5 L3 L2 L1 and T12 levels. The study is limited from a technical standpoint due to artifact from the spinal hardware. Old L4 pedicle screw tracks are visualized IMPRESSION: 1. Extensive postsurgical changes present within the lumbar spine 2. No acute fractures 3. No evidence of significant spinal stenosis 4. Mild bilateral foraminal narrowing at the L4-5, and L5-S1 levels. 5. Probable cholelithiasis Impression Assessment and Plan 82 yo M presenting with 3 wk history of cough, CXR, CT Chest consistent with LLL Pneumonia LLL Pneumonia -afebrile, Leukocytosis ( WBC Ct 35) CXR, CT Chest consistent with LLL Pneumonia -Tachypneic -Start vancomycin, Zosyn, Levaquin - IV Solumedrol 40 q8 -Xopenex Atrovent nebs -Sputum Gram stain cx -Blood cx pending -Guaifenesin DVT ppx: Lovenox Hypothyroidism -Synthroid Dementia - Memantine GERD -Protonix HLD - Lovastatin Code status: FULL No Mech Ventilation Acute respiratory failure with hypoxia/left lower lobe pneumonia-- Vancomycin IV per pharmacokinetic monitoring Zosyn 3.375 mg IV every 8 hours Levofloxacin 500 mg IV every 24 hours Xopenex/Atrovent nebulizers every 6 Nydegger hours while awake and every 2 hours when necessary. Solu-Medrol 40 mg IV every 8 hours Guaifenesin extended release 600 mg by mouth twice a day Nasal cannula oxygen titrate to keep pulse ox greater than or equal to 92% Sputum Gram stain and culture. Other medications as above Advanced Directives Existing Advance Directive: Yes Existing Living Will: Yes Existing Power of Wicker Worker: No Resuscitation Status VTE Prophylaxis Will order VTE Prophylaxis: Yes Note Total Time: Critical Care 30 - 74 minutes Resident Tracking Resident Involvement: Resident Care Provided Care Provided: Adult Hospital Medicine
[2017-05-30] VITALS (10 sets, daily range): BP systolic 135–157; BP diastolic 66–86; PULSE 88–109; TEMP 36.4–36.9; O2SAT 91–96; Ht 180.3 cm; Wt 98.6 kg
[2017-05-30] MEDS: METHYLPREDNISOLONE IV 40 MG in SYRINGE 0 ML IV SCH ×3 (01:52→18:24)
[2017-05-30] MEDS: IPRATROPIUM BROMIDE NEB SOLN 0.02% 2.5 ML VIAL INH SCH ×4 (03:00→19:07)
[2017-05-30] MEDS: LEVALBUTEROL 0.63MG/3 ML NEB INH SCH ×4 (03:00→19:07)
[2017-05-30] MEDS ORDERED: LEVALBUTEROL/IPRATROPIUM NEB INH SCH (03:00)
[2017-05-30] MEDS ORDERED: VANCOMYCIN IV 1,000 MG in SODIUM CHLORIDE 0.9% 250ML 250 ML IV STA (05:16)
[2017-05-30] MEDS ORDERED: PIPERACILL/TAZOBAC CONSULT ACTIVE PRN (05:30)
[2017-05-30] MEDS ORDERED: LEVOFLOXACIN / D5W 500 MG in PREMIXED IN D5W 100 ML IV SCH (05:30)
[2017-05-30] MEDS ORDERED: LEVOFLOXACIN CONSULT ACTIVE PRN (05:30)
[2017-05-30] MEDS ORDERED: VANCOMYCIN CONSULT ACTIVE PRN (05:30)
[2017-05-30] MEDS ORDERED: PIPERACILL/TAZOBAC IV 3.375 GM in NSS 100 ML IV ONE (05:30)
[2017-05-30] MEDS ORDERED: PIPERACILL/TAZOBAC IV 3.375 GM in DEXTROSE 5% 100ML 100 ML IV SCH (06:00)
[2017-05-30 08:26] LABS: HEMATOCRIT 32.8 % (42-52); HEMOGLOBIN 11.4 g/dL (14.0-18.0); MEAN CELL VOLUME 89.6 fL (80-100); MEAN CORPUSCULAR HEMOGLOBIN 31.1 pg (25-34); MEAN CORPUSCULAR HGB CONC 34.8 g/dl (32-36); MEAN PLATELET VOLUME 10.9 fL (7.4-10.4); PLATELET COUNT 282 K/uL (130-400); RED CELL DISTRIBUTION WIDTH SD 49.4 fL (36.4-46.3)
[2017-05-30 08:44] LABS: BASO % 0.1 %; BASO ABS # 0.03 K/uL (0-0.2); IG# 0.57 K/uL (0.00-0.02); LYMPH % 1.5 %; LYMPH ABS # 0.57 K/uL (1.2-3.4); MONO % 3.1 %; MONO ABS # 1.19 K/uL (0.11-0.59); NEUT % 93.8 %; NEUT ABS # 36.54 K/uL (1.4-6.5)
[2017-05-30 08:48] LABS: CALCIUM 9.3 mg/dl (8.5-10.1); CREATININE 1.62 mg/dl (0.60-1.40); POTASSIUM 3.8 mmol/L (3.5-5.1)
--- NOTE | 2017-05-30 09:31 | Family Medicine Progress Note ---
Progress Note Date of Service May 30, 2017. Subjective Pt evaluation today including: conversation w/ patient, chart review, lab review Found patient sitting up in the bed, conversational in near-full sentences but has a rattling voice and cough. Says that he overall feels a bit better than yesterday. Says his chest hurts if he coughs a lot, but denies otherwise. Only other current c/o pain is related to his chronic chest pain. No other acute patient concerns. Constitutional: No fever, No chills Respiratory: + cough, + shortness of breath Cardiovascular: + chest pain (with cough), No edema Abdomen: No pain, No nausea, No vomiting Medications Current Inpatient Medications Medications (Trade) Dose Ordered Sig/Estuardo Route Start Time Stop Time Status Last Admin Dose Admin Miscellaneous Information (Consult) 1 ea UD PRN N/A 05/29/17 23:30 06/28/17 23:29 Enoxaparin Sodium (Lovenox Inj) 40 mg Q24H SQ 05/30/17 09:00 06/29/17 08:59 Acetaminophen (Tylenol Tab) 650 mg Q4H PRN PO 05/29/17 23:45 06/28/17 23:44 Al Hydrox/Mg Hydrox/Simethicone (Maalox Max Susp) 15 ml Q4H PRN PO 05/29/17 23:45 06/28/17 23:44 Magnesium Hydroxide (Milk Of Magnesia Susp) 30 ml Q6H PRN PO 05/29/17 23:45 06/28/17 23:44 Polyethylene (Miralax Powder Packet) 17 gm DAILY PRN PO 05/29/17 23:45 06/28/17 23:44 Ondansetron HCl (Zofran Inj) 4 mg Q6H PRN IV 05/29/17 23:45 06/28/17 23:44 Guaifenesin (Organidin Nr Tab) 600 mg BID PO 05/30/17 09:00 06/29/17 08:59 Methylprednisolone Sodium Succinate 40 mg/Syringe 0.64 ml @ 1.5 mls/min Q8H IV 05/30/17 02:00 06/29/17 01:59 05/30/17 01:52 1.5 MLS/MIN Ipratropium Gans (Atrovent 0.02% 0.5MG/2.5ML Neb) 0.5 mg Q6R INH 05/30/17 03:00 06/29/17 02:59 05/30/17 07:25 0.5 MG Levalbuterol (Xopenex 0.63 Mg/ 3 Ml Neb) 0.63 mg Q6R INH 05/30/17 03:00 06/29/17 02:59 05/30/17 07:25 0.63 MG Miscellaneous Information (Consult) 1 ea UD PRN N/A 05/30/17 05:30 06/29/17 05:29 Piperacillin Sod/ Tazobactam Sod 3.375 gm/Sodium Chloride 115 ml @ 28.75 mls/ hr Q8H IV 05/30/17 10:00 06/06/17 09:59 Levofloxacin (Consult) 1 ea UD PRN N/A 05/30/17 05:30 06/29/17 05:29 Levofloxacin 750 mg/Prmx 150 ml @ 100 mls/hr Q48H IV 05/31/17 21:00 06/05/17 23:59 Levothyroxine Sodium (Synthroid Tab) 50 mcg DAILYBB PO 05/30/17 08:00 06/29/17 07:59 Lovastatin (Mevacor Tab) 20 mg DAILY PO 05/30/17 09:00 06/29/17 08:59 Memantine (Namenda Tab) 10 mg BID PO 05/30/17 09:00 06/29/17 08:59 Oxybutynin Chloride (Ditropan Tab) 5 mg DAILY PO 05/30/17 09:00 06/29/17 08:59 Sertraline HCl (Zoloft Tab) 100 mg DAILY PO 05/30/17 09:00 06/29/17 08:59 Objective Vital Signs Date Time Temp Pulse Resp B/P (MAP) Pulse Ox O2 Delivery O2 Flow Rate FiO2 05/30/17 07:54 36.4 104 20 138/72 (94) 93 Nasal Cannula 2.0 05/30/17 07:25 103 18 96 Nasal Cannula 2.0 05/30/17 04:23 Nasal Cannula 2.0 05/30/17 04:23 36.4 109 20 141/70 (93) 94 Nasal Cannula 2.0 05/30/17 03:56 89 19 96 Nasal Cannula 05/30/17 01:00 36.6 109 22 149/82 93 Nasal Cannula 2.0 05/30/17 00:22 36.7 120 26 128/86 94 Nasal Cannula 3.0 05/29/17 23:09 128 05/29/17 23:06 134 28 99/64 94 Nasal Cannula 3.0 05/29/17 22:05 123 31 93 05/29/17 22:01 145/77 05/29/17 21:05 98 27 95 05/29/17 21:00 94 29 95 Nebulizer 05/29/17 20:41 149/63 05/29/17 20:38 95 Mask 5.0 05/29/17 20:30 109 21 97 Nebulizer 05/29/17 20:24 91 27 93 Room Air 05/29/17 20:23 92 Room Air 05/29/17 19:49 92 05/29/17 19:17 36.9 96 24 151/70 90 Room Air Physical Exam Notes: General Appearance: Awake, alert & oriented, comfortable in general but has an ongoing rattling cough, NAD. CV: +S1S2 regular tachycardia, no murmur. Pulm: Rales at bilateral bases. + NC in place. Abdomen: +BS, soft, non-tender, non-distended. Extremities: No pedal edema or calf tenderness. Moving all extremities naturally and easily. Neuro: No gross neuro deficits. Lines: PIV. Laboratory Results 05/30/17 08:07 Red Blood Count 3.66, Mean Corpuscular Volume 89.6, Mean Corpuscular Hemoglobin 31.1, Mean Corpuscular Hemoglobin Concent 34.8, Mean Platelet Volume 10.9, Neutrophils (%) (Auto) 93.8, Lymphocytes (%) (Auto) 1.5, Monocytes (%) (Auto) 3.1, Eosinophils (%) (Auto) 0.0, Basophils (%) (Auto) 0.1, Neutrophils # (Auto) 36.54, Lymphocytes # (Auto) 0.57, Monocytes # (Auto) 1.19, Eosinophils # (Auto) 0.00, Basophils # (Auto) 0.03 05/30/17 08:07 Test 05/29/17 20:01 05/29/17 20:31 05/29/17 20:34 05/30/17 08:07 Influenza Type A Antigen Neg for Influ A (NEG) Influenza Type B Antigen Neg for Influ B (NEG) Acanthocytes 1+ Prothrombin Time 11.9 SECONDS (9.0-12.0) Prothromb Time International Ratio 1.1 (0.9-1.1) Activated Partial Thromboplast Time 40.1 SECONDS (21.0-31.0) Partial Thromboplastin Ratio 1.5 Total Bilirubin 1.1 mg/dl (0.2-1) Aspartate Amino Transf (AST/SGOT) 20 U/L (15-37) Alanine Aminotransferase (ALT/SGPT) 18 U/L (12-78) Alkaline Phosphatase 132 U/L (45-117) Total Creatine Kinase 35 U/L (39-308) Creatine Kinase MB 0.7 ng/ml (0.5-3.6) Creatine Kinase MB Ratio 2.0 (0-3.0) Troponin I < 0.015 ng/ml (0-0.045) Total Protein 6.9 gm/dl (6.4-8.2) Albumin 2.6 gm/dl (3.4-5.0) Globulin 4.3 gm/dl (2.5-4.0) Albumin/Globulin Ratio 0.6 (0.9-2) Bedside Lactic Acid Venous 1.02 mmol/L (0.90-1.70) White Blood Count 38.90 K/uL (4.8-10.8) Red Blood Count 3.66 M/uL (4.7-6.1) Hemoglobin 11.4 g/dL (14.0-18.0) Hematocrit 32.8 % (42-52) Mean Corpuscular Volume 89.6 fL (80-100) Mean Corpuscular Hemoglobin 31.1 pg (25-34) Mean Corpuscular Hemoglobin Concent 34.8 g/dl (32-36) Platelet Count 282 K/uL (130-400) Mean Platelet Volume 10.9 fL (7.4-10.4) Neutrophils (%) (Auto) 93.8 % Lymphocytes (%) (Auto) 1.5 % Monocytes (%) (Auto) 3.1 % Eosinophils (%) (Auto) 0.0 % Basophils (%) (Auto) 0.1 % Neutrophils # (Auto) 36.54 K/uL (1.4-6.5) Lymphocytes # (Auto) 0.57 K/uL (1.2-3.4) Monocytes # (Auto) 1.19 K/uL (0.11-0.59) Eosinophils # (Auto) 0.00 K/uL (0-0.5) Basophils # (Auto) 0.03 K/uL (0-0.2) RDW Standard Deviation 49.4 fL (36.4-46.3) RDW Coefficient of Variation 15.0 % (11.5-14.5) Immature Granulocyte % (Auto) 1.5 % Immature Granulocyte # (Auto) 0.57 K/uL (0.00-0.02) Echinocytes 1+ Anion Gap 12.0 mmol/L (3-11) Est Creatinine Clear Calc Drug Dose 41.6 ml/min Estimated GFR () 44.8 Estimated GFR (Non- 38.7 BUN/Creatinine Ratio 32.2 (10-20) Calcium Level 9.3 mg/dl (8.5-10.1) Chemistry Specimen Hemolysis Assessment and Plan 89 yo male admitted late on [id number] for ongoing cough and SOB. PMH: HTN, HLD, lumbar stenosis with neurogenic claudication, depression, hypothyroidism, GERD, vertigo, ? dementia PSH: T11-S1 posterior spinal fusion in , Mohs surgery, appendectomy, herniorrhaphy. Left lower lobe pneumonia and complex parapneumonic effusion: 2-3 week history of same. CXR and CT chest concerning for LLL PNA and small pleural effusion. Influenza negative. Noted leukocytosis 35. 07Apr BCx x2 pending. 07Apr fungal studies pending. 06Apr started on vancomycin, zosyn, and levaquin in the ED. Also on atrovent q6h estuardo and xopenex q6h estuardo. On methylprednisolone 40 mg q8h. Currently okay SpO2 on 2L NC. - Will only give 24 hours of steroids. Continue antibiotics as above for now. - Pulmonology consulted (see full note). Considering need for chest tube in near future. Tachycardia: Likely related to above PNA. Improving. TnI negative. Admit EKG NSR 90 with incomplete RBBB and LAFB. Monitoring. Acute kidney injury: Current Cr 1.62 (admit Cr 2.06, comparison in late 2014 is Cr 1.1). Likely pre-renal. Ongoing medical issues: - Chronic mid-thoracic back pain: S/p T11-S1 posterior spinal fusion in . - Hypothyroidism: On home synthroid. - Hyperlipidemia: On home lovastatin. - GERD: At home on prilosec, on protonix here. - Depression: On home sertraline. - Dementia: On memantine. - ? Bladder issues: On ditropan. CT chest findings: Noted question of prominent left hilar mass. Noted probable cholelithiasis. Code status: Full code but no mechanical ventilation. Diet: Regular. DVT prophy: Lovenox q24h. PT/OT: Deferred. Dispo: Admit to telemetry. Resident Physician Supervision Note: I interviewed and examined the patient. Discussed with Dr. Shepherd and agree with findings and plan as documented in the note. Any exceptions or clarifications are listed here: None Documented By: Cj Alanis feeling ok still pain L lower chest vitals noted nad L lung quiet and scattered rales no rhonchi good effort pneumonia w sepsis (severe sepsis given elevation in creatinine/ARF) and hypoxia complex effusion present on admissino -abx, supportive care, fluids, possible thoracic drainage otherwise as above Resident Tracking Resident Involvement: Resident Care Provided Care Provided: Adult Hospital Medicine (inpatient)
--- NOTE | 2017-05-30 10:00 | Pharmacy Progress Note ---
Pharmacy Antibiotic Consult Date of Service: May 30, 2017. Pharmacy Dosing Scope Pharmacy is consulted to initiate vancomycin, Zosyn, and Levaquin IV dosing therapy, order appropriate labs and adjust drug dose/frequency. Subjective The patient is a 82 year old male admitted on May 30, 2017 at 00:10 with 3 wk history of productive cough without hemoptysis , subjective fever, chills, SOB weakness, lightheadedness, headache. Chest X-ray suggests LLL PNX. Objective Height (Feet): 5 Height (Inches): 11.00 Weight (Kilograms): 100.000 Lab Results (24hrs): Test 05/29/17 20:01 05/29/17 20:31 05/29/17 20:34 05/30/17 08:07 Influenza Type A Antigen Neg for Influ A (NEG) Influenza Type B Antigen Neg for Influ B (NEG) White Blood Count 35.22 K/uL (4.8-10.8) 38.90 K/uL (4.8-10.8) Red Blood Count 4.15 M/uL (4.7-6.1) 3.66 M/uL (4.7-6.1) Hemoglobin 13.1 g/dL (14.0-18.0) 11.4 g/dL (14.0-18.0) Hematocrit 37.3 % (42-52) 32.8 % (42-52) Mean Corpuscular Volume 89.9 fL (80-100) 89.6 fL (80-100) Mean Corpuscular Hemoglobin 31.6 pg (25-34) 31.1 pg (25-34) Mean Corpuscular Hemoglobin Concent 35.1 g/dl (32-36) 34.8 g/dl (32-36) Platelet Count 260 K/uL (130-400) 282 K/uL (130-400) Mean Platelet Volume 11.5 fL (7.4-10.4) 10.9 fL (7.4-10.4) Neutrophils (%) (Auto) 89.2 % 93.8 % Lymphocytes (%) (Auto) 2.1 % 1.5 % Monocytes (%) (Auto) 7.2 % 3.1 % Eosinophils (%) (Auto) 0.2 % 0.0 % Basophils (%) (Auto) 0.1 % 0.1 % Neutrophils # (Auto) 31.42 K/uL (1.4-6.5) 36.54 K/uL (1.4-6.5) Lymphocytes # (Auto) 0.74 K/uL (1.2-3.4) 0.57 K/uL (1.2-3.4) Monocytes # (Auto) 2.52 K/uL (0.11-0.59) 1.19 K/uL (0.11-0.59) Eosinophils # (Auto) 0.07 K/uL (0-0.5) 0.00 K/uL (0-0.5) Basophils # (Auto) 0.03 K/uL (0-0.2) 0.03 K/uL (0-0.2) RDW Standard Deviation 49.1 fL (36.4-46.3) 49.4 fL (36.4-46.3) RDW Coefficient of Variation 14.9 % (11.5-14.5) 15.0 % (11.5-14.5) Immature Granulocyte % (Auto) 1.2 % 1.5 % Immature Granulocyte # (Auto) 0.44 K/uL (0.00-0.02) 0.57 K/uL (0.00-0.02) Echinocytes 1+ 1+ Acanthocytes 1+ Prothrombin Time 11.9 SECONDS (9.0-12.0) Prothromb Time International Ratio 1.1 (0.9-1.1) Activated Partial Thromboplast Time 40.1 SECONDS (21.0-31.0) Partial Thromboplastin Ratio 1.5 Sodium Level 140 mmol/L (136-145) 139 mmol/L (136-145) Potassium Level 3.6 mmol/L (3.5-5.1) 3.8 mmol/L (3.5-5.1) Chloride Level 109 mmol/L (98-107) 108 mmol/L (98-107) Carbon Dioxide Level 22 mmol/L (21-32) 20 mmol/L (21-32) Anion Gap 9.0 mmol/L (3-11) 12.0 mmol/L (3-11) Blood Urea Nitrogen 62 mg/dl (7-18) 52 mg/dl (7-18) Creatinine 2.06 mg/dl (0.60-1.40) 1.62 mg/dl (0.60-1.40) Est Creatinine Clear Calc Drug Dose 32.1 ml/min 41.6 ml/min Estimated GFR () 33.5 44.8 Estimated GFR (Non- 28.9 38.7 BUN/Creatinine Ratio 29.9 (10-20) 32.2 (10-20) Random Glucose 157 mg/dl (70-99) 195 mg/dl (70-99) Calcium Level 8.8 mg/dl (8.5-10.1) 9.3 mg/dl (8.5-10.1) Total Bilirubin 1.1 mg/dl (0.2-1) Aspartate Amino Transf (AST/SGOT) 20 U/L (15-37) Alanine Aminotransferase (ALT/SGPT) 18 U/L (12-78) Alkaline Phosphatase 132 U/L (45-117) Total Creatine Kinase 35 U/L (39-308) Creatine Kinase MB 0.7 ng/ml (0.5-3.6) Creatine Kinase MB Ratio 2.0 (0-3.0) Troponin I < 0.015 ng/ml (0-0.045) Total Protein 6.9 gm/dl (6.4-8.2) Albumin 2.6 gm/dl (3.4-5.0) Globulin 4.3 gm/dl (2.5-4.0) Albumin/Globulin Ratio 0.6 (0.9-2) Bedside Lactic Acid Venous 1.02 mmol/L (0.90-1.70) Chemistry Specimen Hemolysis Micro Results: Blood cx x 2 are pending Fungal swab pending Assessment & Plan Vancomycin: Renal fx improved today (1.62ml/min down from 2.0 last night). Baseline ~1.2 so dosing may require adjustment before trough obtained. Loading dose: 2000 mg IV X 1 dose (19.5mg/kg) then: 1500 mg IV every 24 hours. Goal trough level estimate: between 15 - 20 mcg/mL. Peak and trough or random level has been ordered for: 06/01 prior to 2000 dose. Levaquin 750mg IV q 48h for CrCl 20-49ml/min. Zosyn 4.5gm x 1 in ER, then 3.375gm IV q8h extended infusion for CrCl> 20ml/min. Pharmacy will continue to follow and will adjust dose/frequency as necessary. Thank you
[2017-05-30] MEDS: ENOXAPARIN 40 MG/0.4 ML SYR SQ SCH (10:20)
[2017-05-30] MEDS: PIPERACILL/TAZOBAC IV 3.375 GM in NSS 100ML IV SCH ×2 (10:20→18:24)
[2017-05-30] MEDS: OXYBUTYNIN CHLORIDE 5 MG TAB PO SCH (10:20)
[2017-05-30] MEDS: MEMANTINE 10 MG TAB PO SCH ×2 (10:21→20:37)
[2017-05-30] MEDS: LOVASTATIN 20 MG TAB PO SCH (10:21)
[2017-05-30] MEDS: SERTRALINE HCL 100 MG TAB PO SCH (10:21)
[2017-05-30] MEDS: GUAIFENESIN 200 MG TAB PO SCH ×2 (10:21→20:36)
[2017-05-30] MEDS: LEVOTHYROXINE 50 MCG TAB PO SCH (10:21)
--- NOTE | 2017-05-30 10:25 | Pulmonary Consultation ---
History General Date of Service: May 30, 2017. Stated Complaint: Pneumonia HPI Dear Dr. Bingham: Thank you for the kind referral Mr. Doherty to pulmonary service. This is 82-year- old gentleman with history of hypertension, hyperlipidemia, lumbar stenosis, presented to the hospital with 3 weeks of not feeling well accompanied with increasing cough. The patient was seen by his primary care physician in [place]. And the patient was found to have left lower lobe pneumonia. The patient was sent to the ED where he was admitted to the hospital with diagnosis of left lower lobe pneumonia. The patient continued to have cough and not feeling well. He denies any hemoptysis, no sputum production, no orthopnea no paroxysmal nocturnal dyspnea. His level of activity has been reduced for the past 3 weeks but he denies any immobility. No chest pain was reported except when he coughs. No increased swelling in his lower extremities and no pain in his calves. He denies any travel, no recent sick contacts, he appeared very pleasant but he is bothered with a cough and inability to raise his sputum. No nausea or vomiting, he does not recall whether he had an evidence of aspiration or an event of choking, and it might have been according to him. He is non- smoker lifetime and he did not work in an industrial job. He lives with his . He never had pneumonia, does not use any inhalers, he is not on home oxygen, no weight loss was reported. The rest of his review of system was unremarkable. Review of his chest x-ray and CAT scan which I reviewed personally, revealed complex pneumonia in the left lower lobe and lingula accompanied with complex parapneumonic effusion. There is no lymphadenopathy, no cardiomegaly and minimal amount of loculated pleural effusion was noted. Leukocytosis was in the range of 35,000. Historian: patient, other (Records) Review of Systems Constitutional: denies: no symptoms, as stated in HPI, chills, diaphoresis, fever, malaise, weakness, weight gain, weight loss, other ENT: denies: no symptoms, as stated in HPI, ear pain, ear discharge, loss of hearing, tinnitus, nasal pain, nasal congestion, rhinorrhea, epistaxis, sore throat, stridor, throat swelling, mouth pain, mouth swelling, dental pain, gum swelling, other Cardiovascular: reports: chest pain Respiratory: reports: cough, shortness of breath Genitourinary - Male: denies: no symptoms, as stated in HPI, dysuria, hematuria , hesitancy, impotence, itching, penile discharge, rash, urinary frequency, urinary incontinence, urinary retention, urinary urgency, other Musculoskeletal: denies: no symptoms, as stated in HPI, arthralgias, neck pain , back pain, joint pain, joint swelling, deformity, myalgias, muscle spasms, other Integumentary: denies: no symptoms, as stated in HPI, rash, redness, warmth, itching, dryness, lesions, lumps, change in color, change in hair/nails, other Neurologic: denies: no symptoms, as stated in HPI, headache, dizziness, general weakness, focal weakness, numbness, tingling, paresthesia, pre-existing deficit, tremors, tics, vertigo, seizure, lethargy, memory loss, other Psychiatric: denies: no symptoms, as stated in HPI, anxiety, depression, suicidal ideation, homicidal ideation, visual hallucinations, auditory hallucinations, mood changes, alcohol abuse, drug abuse, other Allergic / Immunologic: denies: no symptoms, as stated in HPI, eczema, environmental allergies, frequent infections, hives, multiple food allergies, seasonal allergies, pet sensitivities, poor healing, prolonged convalescence, other Past Medical History Past Medical History: As above in the first section. Family History Cancer Social History Hx Tobacco Use In Past Year?: No Smoking Status: Unknown if Ever Smoked Marital status: Occupational Status: retired Immunizations History of Influenza Vaccine: Yes History of Tetanus Vaccine?: Yes History of Pneumococcal: Yes History of Hepatitis B Vaccine: No Allergies Coded Allergies: Hydrocodone (Verified Adverse Reaction, Unknown, HALLUCINATIONS, 05/18/14) Current Medications Reported Home Medications Medications Dose Route/Sig Max Daily Dose Days Date Category Dose Instructions Prilosec (Omeprazole) 20 Mg Capcr 20 Mg PO BID 05/29/17 Reported Sertraline HCl 100 Mg Tab 100 Mg PO DAILY 05/29/17 Reported Oxybutynin Chloride 5 Mg Tab 5 Mg PO DAILY 05/29/17 Reported Lovastatin 20 Mg Tab 20 Mg PO DAILY 05/29/17 Reported Levothyroxine Sodium 50 Mcg Tab 50 Mcg PO DAILY 05/29/17 Reported Naproxen Sodium Ds (Naproxen Sodium) 550 Mg Tab 550 Mg PO BID PRN 05/29/17 Reported Memantine HCl 10 Mg Tab 10 Mg PO BID 05/29/17 Reported Vitamin D (Cholecalciferol) 2,000 Unit Cap 2,000 Units PO DAILY 05/29/17 Reported Meclizine Hcl 25 Mg Tab 25 Mg PO TID PRN 09/10/12 Reported PRN VERTIGO Questran Light (Cholestyramine Light) 4 Gm/Dose Pow 1 Pack PO DAILY PRN 09/10/12 Reported PRN IRRITABLE BOWEL SYMPTOMS Physical Physical Exam Vital Signs: Date Time Temp Pulse Resp B/P (MAP) Pulse Ox O2 Delivery O2 Flow Rate FiO2 05/30/17 07:54 36.4 104 20 138/72 (94) 93 Nasal Cannula 2.0 05/30/17 07:25 103 18 96 Nasal Cannula 2.0 05/30/17 04:23 Nasal Cannula 2.0 05/30/17 04:23 36.4 109 20 141/70 (93) 94 Nasal Cannula 2.0 05/30/17 03:56 89 19 96 Nasal Cannula 05/30/17 01:00 36.6 109 22 149/82 93 Nasal Cannula 2.0 05/30/17 00:22 36.7 120 26 128/86 94 Nasal Cannula 3.0 05/29/17 23:09 128 05/29/17 23:06 134 28 99/64 94 Nasal Cannula 3.0 05/29/17 22:05 123 31 93 05/29/17 22:01 145/77 05/29/17 21:05 98 27 95 05/29/17 21:00 94 29 95 Nebulizer 05/29/17 20:41 149/63 05/29/17 20:38 95 Mask 5.0 05/29/17 20:30 109 21 97 Nebulizer 05/29/17 20:24 91 27 93 Room Air 05/29/17 20:23 92 Room Air 05/29/17 19:49 92 05/29/17 19:17 36.9 96 24 151/70 90 Room Air General Appearance: uncomfortable Eyes: PERRLA, EOMI ENT: NORMAL THROAT EXAM Neck: NO TENDERNESS Respiratory: other (Decreased breath sounds on the left side.) Abdomen: NON TENDER, NO MASSES Back: NO MIDLINE TENDERNESS Upper Extremities: NO EDEMA Neuro: ALERT, ORIENTED x 3, NORMAL MOTOR EXAM, other (Hard of hearing) Psychiatric: NORMAL AFFECT Diagnostics Labs Results Past 24 Hours Test 05/29/17 20:01 05/29/17 20:31 05/29/17 20:34 05/30/17 08:07 Range/Units Influenza Type A Antigen Neg for Influ A NEG Influenza Type B Antigen Neg for Influ B NEG White Blood Count 35.22 38.90 4.8-10.8 K/uL Red Blood Count 4.15 3.66 4.7-6.1 M/uL Hemoglobin 13.1 11.4 14.0-18.0 g/dL Hematocrit 37.3 32.8 42-52 % Mean Corpuscular Volume 89.9 89.6 80-100 fL Mean Corpuscular Hemoglobin 31.6 31.1 25-34 pg Mean Corpuscular Hemoglobin Concent 35.1 34.8 32-36 g/dl Platelet Count 260 282 130-400 K/uL Mean Platelet Volume 11.5 10.9 7.4-10.4 fL Neutrophils (%) (Auto) 89.2 93.8 % Lymphocytes (%) (Auto) 2.1 1.5 % Monocytes (%) (Auto) 7.2 3.1 % Eosinophils (%) (Auto) 0.2 0.0 % Basophils (%) (Auto) 0.1 0.1 % Neutrophils # (Auto) 31.42 36.54 1.4-6.5 K/uL Lymphocytes # (Auto) 0.74 0.57 1.2-3.4 K/uL Monocytes # (Auto) 2.52 1.19 0.11-0.59 K/uL Eosinophils # (Auto) 0.07 0.00 0-0.5 K/uL Basophils # (Auto) 0.03 0.03 0-0.2 K/uL RDW Standard Deviation 49.1 49.4 36.4-46.3 fL RDW Coefficient of Variation 14.9 15.0 11.5-14.5 % Immature Granulocyte % (Auto) 1.2 1.5 % Immature Granulocyte # (Auto) 0.44 0.57 0.00-0.02 K/uL Echinocytes 1+ 1+ Acanthocytes 1+ Prothrombin Time 11.9 9.0-12.0 SECONDS Prothromb Time International Ratio 1.1 0.9-1.1 Activated Partial Thromboplast Time 40.1 21.0-31.0 SECONDS Partial Thromboplastin Ratio 1.5 Sodium Level 140 139 136-145 mmol/L Potassium Level 3.6 3.8 3.5-5.1 mmol/L Chloride Level 109 108 98-107 mmol/L Carbon Dioxide Level 22 20 21-32 mmol/L Anion Gap 9.0 12.0 3-11 mmol/L Blood Urea Nitrogen 62 52 7-18 mg/dl Creatinine 2.06 1.62 0.60-1.40 mg/dl Est Creatinine Clear Calc Drug Dose 32.1 41.6 ml/min Estimated GFR () 33.5 44.8 Estimated GFR (Non- 28.9 38.7 BUN/Creatinine Ratio 29.9 32.2 10-20 Random Glucose 157 195 70-99 mg/dl Calcium Level 8.8 9.3 8.5-10.1 mg/dl Total Bilirubin 1.1 0.2-1 mg/dl Aspartate Amino Transf (AST/SGOT) 20 15-37 U/L Alanine Aminotransferase (ALT/SGPT) 18 12-78 U/L Alkaline Phosphatase 132 45-117 U/L Total Creatine Kinase 35 39-308 U/L Creatine Kinase MB 0.7 0.5-3.6 ng/ml Creatine Kinase MB Ratio 2.0 0-3.0 Troponin I < 0.015 0-0.045 ng/ml Total Protein 6.9 6.4-8.2 gm/dl Albumin 2.6 3.4-5.0 gm/dl Globulin 4.3 2.5-4.0 gm/dl Albumin/Globulin Ratio 0.6 0.9-2 Bedside Lactic Acid Venous 1.02 0.90-1.70 mmol/L Chemistry Specimen Hemolysis Microbiology Results 05/30/17 Fungal Smear, Received Pending 05/30/17 Fungal Culture, Received Pending 05/29/17 Blood Culture, Received Pending 05/29/17 Blood Culture, Received Pending Diagnostic Radiology CAT scan and chest x-ray reviewed personally as mentioned above in the first section. Labs as well. Impression Assessment and Plan 1. Severe community-acquired pneumonia. 2. Complex parapneumonic effusion. Possible empyema. 3. Cough secondary to above. Plan: 1. No need for bronchoscopy. 2. Ultrasound was done at the bedside, the amount of pleural effusion still minimal. I expected to increase to the point where a chest tube will be needed. I will reimage his chest periodically daily. 3. Continue broad-spectrum antibiotics. 4. No need for n.p.o. 5. Incentive spirometry. 6. Plan for chest tube placement was the amount of pleural effusion is adequate. Thank you, will follow.
[2017-05-30] MEDS ORDERED: VANCOMYCIN IV 1,500 MG in SODIUM CHLORIDE 0.9% 500ML 500 ML IV SCH (20:00)
[2017-05-31] VITALS (13 sets, daily range): BP systolic 121–136; BP diastolic 60–103; PULSE 82–157; TEMP 36.4–37.1; O2SAT 90–95
[2017-05-31] MEDS: LEVALBUTEROL 0.63MG/3 ML NEB INH SCH ×4 (01:53→19:15)
[2017-05-31] MEDS: IPRATROPIUM BROMIDE NEB SOLN 0.02% 2.5 ML VIAL INH SCH ×4 (01:53→19:15)
[2017-05-31] MEDS: PIPERACILL/TAZOBAC IV 3.375 GM in NSS 100ML IV SCH ×3 (01:55→17:33)
[2017-05-31] MEDS ORDERED: DILTIAZEM BOLUS / DRIP IV STA (02:50)
[2017-05-31] MEDS ORDERED: SODIUM CHLORIDE 0.9% 1000ML 1,000 ML IV SCH (03:15)
[2017-05-31] MEDS ORDERED: DILTIAZEM HCL 5 MG/ML 5 ML VIAL ONE (03:17)
[2017-05-31] MEDS: DILTIAZEM HCL INJ 125 MG in DEXTROSE 5% 100ML IV PRN ×3 (03:29→04:43)
[2017-05-31 04:41] LABS: HEMATOCRIT 31.9 % (42-52); HEMOGLOBIN 11.1 g/dL (14.0-18.0); MEAN CELL VOLUME 89.4 fL (80-100); MEAN CORPUSCULAR HEMOGLOBIN 31.1 pg (25-34); MEAN CORPUSCULAR HGB CONC 34.8 g/dl (32-36); RED CELL DISTRIBUTION WIDTH CV 15.1 % (11.5-14.5); RED CELL DISTRIBUTION WIDTH SD 49.5 fL (36.4-46.3); WHITE BLOOD COUNT 34.18 K/uL (4.8-10.8)
[2017-05-31 04:57] LABS: BASO % 0.1 %; BASO ABS # 0.02 K/uL (0-0.2); IG# 0.65 K/uL (0.00-0.02); LYMPH % 2.6 %; LYMPH ABS # 0.88 K/uL (1.2-3.4); MEAN PLATELET VOLUME 10.5 fL (7.4-10.4); MONO % 5.3 %; NEUT % 90.1 %; NEUT ABS # 30.83 K/uL (1.4-6.5); PLATELET COUNT 304 K/uL (130-400)
[2017-05-31 05:13] LABS: CREATININE 1.5 mg/dl (0.60-1.40); POTASSIUM 3.5 mmol/L (3.5-5.1)
[2017-05-31] MEDS: LEVOTHYROXINE 50 MCG TAB PO SCH (05:23)
[2017-05-31] MEDS: GUAIFENESIN 200 MG TAB PO SCH ×2 (08:22→20:06)
[2017-05-31] MEDS: OXYBUTYNIN CHLORIDE 5 MG TAB PO SCH (08:22)
[2017-05-31] MEDS: LOVASTATIN 20 MG TAB PO SCH (08:22)
[2017-05-31] MEDS: SERTRALINE HCL 100 MG TAB PO SCH (08:22)
[2017-05-31] MEDS: ENOXAPARIN 40 MG/0.4 ML SYR SQ SCH (08:22)
[2017-05-31] MEDS: MEMANTINE 10 MG TAB PO SCH ×2 (08:28→20:06)
[2017-05-31] MEDS ORDERED: MAGNESIUM SULFATE 1GM / D5W 1 GM in PREMIXED IN D5W 100 ML IV ONE (08:57)
--- NOTE | 2017-05-31 09:10 | Family Medicine Progress Note ---
Progress Note Date of Service May 31, 2017. Subjective Pt evaluation today including: conversation w/ patient Found patient sitting up in bed. Says that his breathing feels slightly improved compared to yesterday, but that he still has some mild SOB. Notes that his heart rate increased overnight, but says that he did not seem to feel it. Denies any CP or other acute chest concerns outside of his breathing. Coughing continues. No other acute patient concerns. Constitutional: No fever, No chills Respiratory: + cough, + shortness of breath Cardiovascular: No chest pain, No edema Abdomen: No pain, No nausea, No vomiting Medications Current Inpatient Medications Medications (Trade) Dose Ordered Sig/Estuardo Route Start Time Stop Time Status Last Admin Dose Admin Miscellaneous Information (Consult) 1 ea UD PRN N/A 05/29/17 23:30 06/28/17 23:29 Enoxaparin Sodium (Lovenox Inj) 40 mg Q24H SQ 05/30/17 09:00 06/29/17 08:59 05/31/17 08:22 40 MG Acetaminophen (Tylenol Tab) 650 mg Q4H PRN PO 05/29/17 23:45 06/28/17 23:44 Al Hydrox/Mg Hydrox/Simethicone (Maalox Max Susp) 15 ml Q4H PRN PO 05/29/17 23:45 06/28/17 23:44 Magnesium Hydroxide (Milk Of Magnesia Susp) 30 ml Q6H PRN PO 05/29/17 23:45 06/28/17 23:44 Polyethylene (Miralax Powder Packet) 17 gm DAILY PRN PO 05/29/17 23:45 06/28/17 23:44 Ondansetron HCl (Zofran Inj) 4 mg Q6H PRN IV 05/29/17 23:45 06/28/17 23:44 Guaifenesin (Organidin Nr Tab) 600 mg BID PO 05/30/17 09:00 06/29/17 08:59 05/31/17 08:22 600 MG Ipratropium [place] (Atrovent 0.02% 0.5MG/2.5ML Neb) 0.5 mg Q6R INH 05/30/17 03:00 06/29/17 02:59 05/31/17 01:53 0.5 MG Levalbuterol (Xopenex 0.63 Mg/ 3 Ml Neb) 0.63 mg Q6R INH 05/30/17 03:00 06/29/17 02:59 05/31/17 01:53 0.63 MG Miscellaneous Information (Consult) 1 ea UD PRN N/A 05/30/17 05:30 06/29/17 05:29 Piperacillin Sod/ Tazobactam Sod 3.375 gm/Sodium Chloride 115 ml @ 28.75 mls/ hr Q8H IV 05/30/17 10:00 06/06/17 09:59 05/31/17 01:55 28.75 MLS/HR Levofloxacin (Consult) 1 ea UD PRN N/A 05/30/17 05:30 06/29/17 05:29 Levofloxacin 750 mg/Prmx 150 ml @ 100 mls/hr Q48H IV 05/31/17 21:00 06/05/17 23:59 Levothyroxine Sodium (Synthroid Tab) 50 mcg DAILYBB PO 05/30/17 08:00 06/29/17 07:59 05/31/17 05:23 50 MCG Lovastatin (Mevacor Tab) 20 mg DAILY PO 05/30/17 09:00 06/29/17 08:59 05/31/17 08:22 20 MG Memantine (Namenda Tab) 10 mg BID PO 05/30/17 09:00 06/29/17 08:59 05/30/17 20:37 10 MG Oxybutynin Chloride (Ditropan Tab) 5 mg DAILY PO 05/30/17 09:00 06/29/17 08:59 05/31/17 08:22 5 MG Sertraline HCl (Zoloft Tab) 100 mg DAILY PO 05/30/17 09:00 06/29/17 08:59 05/31/17 08:22 100 MG Vancomycin HCl 1500 mg/Sodium Chloride 530 ml @ 200 mls/hr Q24H IV 05/30/17 20:00 06/05/17 23:00 05/30/17 20:36 200 MLS/HR Diltiazem HCl 125 mg/Dextrose 125 ml @ 5 mls/hr Q24H PRN IV 05/31/17 03:15 06/30/17 03:14 05/31/17 04:43 15 MLS/HR Sodium Chloride 1,000 ml @ 125 mls/hr Q8H IV 05/31/17 03:15 05/31/17 11:14 05/31/17 03:25 125 MLS/HR Potassium Chloride 10 meq/ Prmx 100 ml @ 100 mls/hr Q1H IV 05/31/17 09:00 05/31/17 12:59 Magnesium Sulfate 1 gm/Prmx 100 ml @ 100 mls/hr NOW ONCE IV 05/31/17 08:57 05/31/17 09:56 Objective Vital Signs Date Time Temp Pulse Resp B/P (MAP) Pulse Ox O2 Delivery O2 Flow Rate FiO2 05/31/17 08:00 Nasal Cannula 2.0 05/31/17 07:51 37.1 115 19 121/75 (90) 92 Nasal Cannula 2.0 05/31/17 06:10 132 127/76 (93) 05/31/17 04:41 138 121/82 (95) 05/31/17 04:01 143 131/78 (95) 05/31/17 03:42 157 127/103 (111) 05/31/17 03:00 Nasal Cannula 2.0 05/31/17 02:43 36.5 142 20 131/77 (95) 92 Nasal Cannula 2.0 05/31/17 01:54 90 16 93 Nasal Cannula 2.0 05/31/17 00:12 36.5 89 19 136/73 (94) 90 Room Air 05/31/17 00:00 Nasal Cannula 2.0 05/30/17 20:37 Room Air 05/30/17 19:08 36.7 88 18 144/86 (105) 96 Room Air 05/30/17 19:07 89 18 91 Room Air 05/30/17 16:00 Nasal Cannula 2.0 05/30/17 15:31 36.9 94 18 135/66 (89) 92 Nasal Cannula 2.0 05/30/17 14:16 92 18 93 Nasal Cannula 2.0 05/30/17 12:00 Nasal Cannula 2.0 05/30/17 11:44 36.4 105 21 157/86 (109) 93 Nasal Cannula 2.0 Physical Exam Notes: General Appearance: Awake, alert & oriented, comfortable in general but has an ongoing rattling cough, NAD. CV: +S1S2 irregularly irregular tachycardia, no murmur. Pulm: Rales at bilateral bases. + NC in place. Abdomen: +BS, soft, non-tender, non-distended. Extremities: No pedal edema or calf tenderness. Moving all extremities naturally and easily. Neuro: No gross neuro deficits. Lines: PIV. Laboratory Results 05/31/17 04:24 Red Blood Count 3.57, Mean Corpuscular Volume 89.4, Mean Corpuscular Hemoglobin 31.1, Mean Corpuscular Hemoglobin Concent 34.8, Mean Platelet Volume 10.5, Neutrophils (%) (Auto) 90.1, Lymphocytes (%) (Auto) 2.6, Monocytes (%) (Auto) 5.3, Eosinophils (%) (Auto) 0.0, Basophils (%) (Auto) 0.1, Neutrophils # (Auto) 30.83, Lymphocytes # (Auto) 0.88, Monocytes # (Auto) 1.80, Eosinophils # (Auto) 0.00, Basophils # (Auto) 0.02 05/31/17 04:24 Test 05/31/17 04:24 White Blood Count 34.18 K/uL (4.8-10.8) Red Blood Count 3.57 M/uL (4.7-6.1) Hemoglobin 11.1 g/dL (14.0-18.0) Hematocrit 31.9 % (42-52) Mean Corpuscular Volume 89.4 fL (80-100) Mean Corpuscular Hemoglobin 31.1 pg (25-34) Mean Corpuscular Hemoglobin Concent 34.8 g/dl (32-36) Platelet Count 304 K/uL (130-400) Mean Platelet Volume 10.5 fL (7.4-10.4) Neutrophils (%) (Auto) 90.1 % Lymphocytes (%) (Auto) 2.6 % Monocytes (%) (Auto) 5.3 % Eosinophils (%) (Auto) 0.0 % Basophils (%) (Auto) 0.1 % Neutrophils # (Auto) 30.83 K/uL (1.4-6.5) Lymphocytes # (Auto) 0.88 K/uL (1.2-3.4) Monocytes # (Auto) 1.80 K/uL (0.11-0.59) Eosinophils # (Auto) 0.00 K/uL (0-0.5) Basophils # (Auto) 0.02 K/uL (0-0.2) RDW Standard Deviation 49.5 fL (36.4-46.3) RDW Coefficient of Variation 15.1 % (11.5-14.5) Immature Granulocyte % (Auto) 1.9 % Immature Granulocyte # (Auto) 0.65 K/uL (0.00-0.02) Echinocytes 1+ Anion Gap 11.0 mmol/L (3-11) Est Creatinine Clear Calc Drug Dose 44.9 ml/min Estimated GFR () 49.2 Estimated GFR (Non- 42.4 BUN/Creatinine Ratio 36.1 (10-20) Calcium Level 9.0 mg/dl (8.5-10.1) Magnesium Level 1.9 mg/dl (1.8-2.4) Date/Time Source Procedure Growth Status 05/30/17 15:18 Nasal MRSA DNA Surveillance Screen - Final Specimen Negative for MRSA by DNA Probe Complete Assessment and Plan 89 yo male admitted late on [id number] for ongoing cough and SOB. PMH: HTN, HLD, lumbar stenosis with neurogenic claudication, depression, hypothyroidism, GERD, vertigo, ? dementia PSH: T11-S1 posterior spinal fusion in , Mohs surgery, appendectomy, herniorrhaphy. Left lower lobe pneumonia and complex parapneumonic effusion: 2-3 week history of same. CXR and CT chest concerning for LLL PNA and small pleural effusion. Influenza negative. Noted leukocytosis 35. 07Apr BCx x2 pending. 07Apr fungal studies pending. 06Apr started on vancomycin, zosyn, and levaquin in the ED. Also on atrovent q6h estuardo and xopenex q6h estuardo. On methylprednisolone 40 mg q8h. Currently okay SpO2 on 2L NC. - Will only give 24 hours of steroids. Continue antibiotics as above for now. - Pulmonology consulted (see full note). Considering need for chest tube in near future. Atrial fibrillation with RVR: On admission, noted to have some sinus tachycardia. TnI negative. Admit EKG NSR 90 with incomplete RBBB and LAFB. Early 08Apr developed new afib with RVR, started on diltiazem IV, converted to NSR around eight hours later. Cardiology consulted (see their full note). In brief, recommended conversion to PO diltiazem, electrolyte optimization, and hold on further anticoagulation for now. Echocardiogram (TTE) today noted EF 60 -65% and some mild LVH. - Started on metoprolol tartrate 12.5 mg PO BID. Patient would benefit from long-term anticoagulation once his PNA / effusion treatment has been determined. Acute kidney injury: Current Cr 1.5 (admit Cr 2.06, comparison in late 2014 is Cr 1.1). Likely is pre-renal in origin. Ongoing medical issues: - Chronic mid-thoracic back pain: S/p T11-S1 posterior spinal fusion in . - Hypothyroidism: On home synthroid. - Hyperlipidemia: On home lovastatin. - GERD: At home on prilosec, on protonix here. - Depression: On home sertraline. - Dementia: On memantine (though patient has declined doses here). - ? Bladder issues: On ditropan. CT chest findings: Noted question of prominent left hilar mass. Noted probable cholelithiasis. Code status: Full code but no mechanical ventilation. Diet: Regular. DVT prophy: Lovenox q24h. PT/OT: Deferred. Dispo: Admit to telemetry. Resident Physician Supervision Note: I interviewed and examined the patient. Discussed with Dr. Shepherd and agree with findings and plan as documented in the note. Any exceptions or clarifications are listed here: None Documented By: Cj Alanis feeling ok breathing better just not good yet vitals noted nad but gets tachypnic w accessory msucles even with eating and conversation pneumonia w sepsis (severe sepsis given elevation in creatinine/ARF) and hypoxia complex effusion present on admission -abx (stopping vanco since MRSA nares negative), supportive care, fluids, possible thoracic drainage (peripneumonic effusion not layering flat on CT chest concerning, but still not overtly loculated, continue to follow, likely to need repeat imaging in ~1-2 days) new onset afib RVR -highly likely w age and comorbidities to have PAF at home hold full anticoagulation now given his possible chest tube in the near future, but would 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
[2017-05-31] MEDS: POTASSIUM CHLR 10 MEQ / WTR 10 MEQ in PREMIXED WATER 100 ML IV SCH ×4 (09:28→12:32)
--- NOTE | 2017-05-31 10:11 | ECHOCARDIOGRAM REPORT ---
*NOTICE TO RECEIVING REPUBLICAN AGENCY This information is strictly Confidential and protected under [place] law. [place] law prohibits you from making any further disclosure of this information unless further disclosure is expressly permitted by the written consent of the person to whom it pertains or is authorized by law. A general authorization for the release of medical or other information is not sufficient for this purpose. Hospital accepts no responsibility if the information is made available to any other person, INCLUDING THE PATIENT. Interpretation Summary * Name: CINDY ANDRE Study Date: 05/31/2017 06:38 AM BP: 121/82 mmHg * Patient Location: [id number].2E\[id number]\E208\S\1 HR: 122 * : 1935 (M/d/yyyy) Gender: Male Height: 71 in * Age: 82 yrs Ethnicity: CA Weight: 220 lb * Ordering Physician: Abraham Bingham * Referring Physician: Deuce Ferreira * Performed By: Josh Manrique RDCS * * Reason For Study: A-fib * BSA: 2.2 m2 * -- Conclusions -- * No prior study available for comparison. * The left ventricle is normal in size. * There is mild concentric left ventricular hypertrophy. * Focal thickening of the basal septum with no evidence of left ventricular outflow obstruction. * The left ventricular wall motion is normal. * Left ventricular systolic function is normal. * Ejection Fraction = 60-65%. * The right ventricle is normal in size and function. * There is mild mitral annular calcification. * There is trace mitral regurgitation. * The inferior vena cava is moderately dilated. Procedure Details * A complete two-dimensional transthoracic echocardiogram was performed (2D, M-mode, Doppler and color flow Doppler). * The study was technically adequate. Left Ventricle * The left ventricle is normal in size. * There is mild concentric left ventricular hypertrophy. * Focal thickening of the basal septum with no evidence of left ventricular outflow obstruction. * Left ventricular systolic function is normal. * Ejection Fraction = 60-65%. * The left ventricular wall motion is normal. Right Ventricle * The right ventricle is normal size. * The right ventricle is normal in size and function. * There is normal right ventricular wall thickness. Atria * The left atrium is moderately dilated. * Right atrial size is normal. * The interatrial septum is intact with no evidence for an atrial septal defect. Mitral Valve * There is mild mitral annular calcification. * There is no mitral valve stenosis. * There is trace mitral regurgitation. Tricuspid Valve * The tricuspid valve is normal in structure and function. * Significant tricuspid regurgitation is absent. Aortic Valve * The aortic valve is trileaflet. * The aortic valve opens well. * There is no significant aortic regurgitation. Pulmonic Valve * The pulmonic valve is not well visualized. * There is no significant pulmonary regurgitation. Great Vessels * The aortic root is normal size. * No obvious dissection could be visualized. * The pulmonary artery is not well visualized, but is probably normal size. Pericardium/Pleural * There is no pericardial effusion. Right Ventricle * The right ventricular wall motion is normal. Great Vessels * The inferior vena cava is moderately dilated. MMode 2D Measurements and Calculations IVSd 1.4 cm IVSs 2.0 cm LVIDd 4.4 cm LVIDs 2.8 cm LVPWd 1.4 cm LVPWs 2.0 cm IVS/LVPW 10 FS 35.7 % EDV(Teich) 88.1 ml ESV(Teich) 30.5 ml EF(Teich) 65.4 % EDV(cubed) 85.6 ml ESV(cubed) 22.8 ml EF(cubed) 73.4 % % IVS thick 41.5 % % LVPW thick 47.6 % LV mass(C)d 237.2 grams LV mass(C)dI 108.0 grams/m\S\2 LV mass(C)s 247.9 grams LV mass(C)sI 112.9 grams/m\S\2 SV(Teich) 57.6 ml SI(Teich) 26.2 ml/m\S\2 SV(cubed) 62.9 ml SI(cubed) 28.6 ml/m\S\2 EPSS 0.78 cm Ao root diam 3.7 cm Ao root area 10.6 cm\S\2 ACS 2.0 cm LA dimension 4.0 cm asc Aorta Diam 3.9 cm LA/Ao 1.1 LVOT diam 2.2 cm LVOT area 3.7 cm\S\2 LVAd ap4 25.6 cm\S\2 LVLd ap4 7.8 cm EDV(MOD-sp4) 66.5 ml EDV(sp4-el) 71.3 ml LVAs ap4 15.7 cm\S\2 LVLs ap4 6.3 cm ESV(MOD-sp4) 31.0 ml ESV(sp4-el) 33.1 ml EF(MOD-sp4) 53.4 % EF(sp4-el) 53.6 % LVAd ap2 21.0 cm\S\2 LVLd ap2 7.1 cm EDV(MOD-sp2) 48.7 ml EDV(sp2-el) 52.3 ml LVAs ap2 13.4 cm\S\2 LVLs ap2 6.3 cm ESV(MOD-sp2) 22.6 ml ESV(sp2-el) 24.2 ml EF(MOD-sp2) 53.5 % EF(sp2-el) 53.6 % LVLd %diff -9.51 % EDV(MOD-bp) 58.3 ml LVLs %diff -0.26 % ESV(MOD-bp) 26.6 ml EF(MOD-bp) 54.3 % SV(MOD-sp4) 35.5 ml SI(MOD-sp4) 16.2 ml/m\S\2 SV(MOD-sp2) 26.0 ml SI(MOD-sp2) 11.8 ml/m\S\2 SV(MOD-bp) 31.7 ml SI(MOD-bp) 14.4 ml/m\S\2 SV(sp4-el) 38.2 ml SI(sp4-el) 17.4 ml/m\S\2 SV(sp2-el) 28.0 ml SI(sp2-el) 12.8 ml/m\S\2 Doppler Measurements and Calculations MV E max kvng 110.3 cm/sec MV dec time 0.18 sec Ao V2 max 115.6 cm/sec Ao max PG 5.3 mmHg Ao max PG (full) 1.9 mmHg INDRA(V,A) 3.0 cm\S\2 INDRA(V,D) 3.0 cm\S\2 LV V1 max PG 3.5 mmHg LV V1 max 93.1 cm/sec PA V2 max 89.7 cm/sec PA max PG 3.2 mmHg
--- NOTE | 2017-05-31 13:02 | Cardiology Consultation ---
Cardiology Consultation Date of Service May 31, 2017. Cardiology Consultation CARDIOLOGY CONSULTATION DATE OF CONSULTATION: May 31, 2017 REFERRING PHYSICIAN: Abraham Bingham MD REASON FOR CONSULT: New onset atrial fibrillation with rapid ventricular response. HISTORY OF PRESENT ILLNESS: 82-year-old man with history of dementia and hypertension, no prior cardiac history, who was admitted 05/30/2017. Evaluation by Dr. Amaya suggest a complex pneumonia which may require a chest tube at some point. Overnight, the patient developed paroxysmal atrial fibrillation with rapid ventricular response lasting approximately 6 hours before reverting to sinus rhythm this morning. The patient notes a generally nonproductive cough, he denies chest pain at any time. During the tachydysrhythmia overnight, he did not note palpitations, lightheadedness, or any other symptoms. He feels fairly good this morning. MEDICATIONS: Diltiazem infusion overnight for rate control of his atrial fibrillation Enoxaparin 40 mg daily Guaifenesin Atrovent may have Xopenex neb Levofloxacin Lovastatin Magnesium hydroxide Namenda ditropan Zosyn IV potassium chloride Sertraline Vancomycin ALLERGIES: Hydrocodone PAST MEDICAL HISTORY: Dementia Chronic diarrhea GERD Dyslipidemia Hypertension Hypothyroidism Pre diabetes Thoracic compression fracture Zenker's diverticulum Depression PAST SURGICAL HISTORY: Lumbar spinal surgery Repair of Zenker's diverticulum SOCIAL HISTORY: . Never smoked. No alcohol. Retired. FAMILY HISTORY: Noncontributory given advanced age REVIEW OF SYSTEMS: Generally unremarkable. No chronic cardiopulmonary complaints. He did complain of blood in stool last summer, but hemoccults were negative. Colonoscopy was scheduled but not yet pursued. PHYSICAL EXAMINATION: No distress, appeared fairly comfortable. Vitals: Afebrile throughout his stay. BP 124/84, pulse 88 and regular, respirations 20 but unlabored. Skin: No unusual lesions or ecchymosis. HEENT: Unremarkable. Neck: Jugular venous pulse at the clavicle at 90, no carotid bruits. Lungs: Decreased breath sounds lower left lung field, generally clear with no wheezing or crackles. No accessory muscle use, abdominal paradox, or nasal flaring. Cardiac: Regular rhythm with normal S1 and S2. No obvious murmur or gallop. Abdomen: Benign. Extremities: Nontender without edema. Intact peripheral pulses. Neurologic: Engaging affect but seems to lack insight,, nonfocal DATA: Initial ECG showed sinus rhythm with left anterior fascicular block and nonspecific interventricular conduction delay, rate 90 bpm. Subsequent ECG showed atrial fibrillation with rapid ventricular response and minor ST T wave rate related changes. ECG this morning again showed sinus rhythm at 81 ppm, no significant ST abnormalities. Chest CT with left lower lobe consolidation and small left pleural effusion. Prominent left hilum. CT of the spine showed postsurgical changes. Chest x-ray was similar to CT of the chest. White count today was 34.18 with a stable hemoglobin 11.1 and a normal platelet count. Normal baseline coagulation studies. Potassium 3.5, magnesium 1.9, other electrolytes normal, BUN 54, creatinine 1.5 (52/1.62 yesterday). Cardiac enzymes x1 negative. Echocardiogram today showed normal left ventricular systolic function (EF 60-65 %), with mild LVH most prominent in the septum, trivial valvular disease. No regional wall motion abnormalities. Unremarkable right heart. IMPRESSION: 1. New onset proximal atrial fibrillation with rapid ventricular response, reverted to sinus rhythm this morning. 2. No prior cardiac history. 3. Left lower lobe pneumonia. 4, History of hypertension, normotensive currently. 5. Apparent dementia, mild DISCUSSION: Patient with no significant cardiac history developed paroxysmal atrial fibrillation with rapid ventricular response in the context of hospital admission for left lower lobe pneumonia. Fortunately, he was asymptomatic despite significant tachycardia, suggesting a low likelihood of concurrent myocardial ischemia/obstructive coronary disease. Could switch from IV to oral diltiazem, initially at low dose since despite his apparent history of hypertension he is not on vasoactive medication routine ( 120 milligram total daily dose, could then be converted to long-acting agent upon discharge). Would at least temporarily add oral potassium and magnesium supplements to ideally achieve potassium greater than or equal to 4.0 and magnesium greater than or equal to 2.0. Would hold on immediate anticoagulation beyond his low-dose enoxaparin, since he has returned to sinus rhythm and is low risk for any thromboembolic event as well as given the possibility he will require chest tube. Since his only episode of atrial fibrillation occurred in the context of hyperadrenergic state with borderline electrolytes, he may not require long-term anticoagulation. If he or caregivers are capable of reliably dosing medication and long-term anticoagulation is felt appropriate, could use Eliquis 2.5 mg b.i.d. (since his creatinine is greater than 1.5 and he is greater than 80 years of age, reduced dose is recommended). Thank you for this consultation, will follow along with you.
--- NOTE | 2017-05-31 16:20 | Pulmonology Progress Note ---
Pulmonary Progress Note Date of Service May 31, 2017. Attending Dr. Amaya Subjective The patient is clinically better, however he continued to have dry cough, no chest pain reported, no increased shortness of breath. He had a new onset A. fib which has been rate controlled. Objective Physical exam on 05/31/2017, the patient is very pleasant, not in any apparent distress, vital signs are stable, no fever, diminished breath sounds mainly on the left, abdomen is benign, no edema. Ultrasound was done at the bedside which revealed small amount of loculated pleural effusion medial to the scapula , his WBC slightly down. Assessment & Plan 1. Severe community-acquired pneumonia. 2. Complex parapneumonic effusion. 3. New onset A. fib. Plan: 1. Continue current antibiotics until further cultures are returned. 2. The pleural effusion is not amenable to thoracentesis or chest tube placement at this point. 3. Perform ultrasound daily on the left chest cavity. 4. At some point the patient will need either drainage or chest tube placement. 5. If the above is not feasible, thoracic surgery consult for VATS for complex parapneumonic effusion. 6. Treatment of A. fib as you are doing. Thank you, will follow. Data Medications: Current Inpatient Medications Medications (Trade) Dose Ordered Sig/Estuardo Route Start Time Stop Time Status Last Admin Dose Admin Miscellaneous Information (Consult) 1 ea UD PRN N/A 05/29/17 23:30 06/28/17 23:29 Enoxaparin Sodium (Lovenox Inj) 40 mg Q24H SQ 05/30/17 09:00 06/29/17 08:59 05/31/17 08:22 40 MG Acetaminophen (Tylenol Tab) 650 mg Q4H PRN PO 05/29/17 23:45 06/28/17 23:44 Al Hydrox/Mg Hydrox/Simethicone (Maalox Max Susp) 15 ml Q4H PRN PO 05/29/17 23:45 06/28/17 23:44 Magnesium Hydroxide (Milk Of Magnesia Susp) 30 ml Q6H PRN PO 05/29/17 23:45 06/28/17 23:44 Polyethylene (Miralax Powder Packet) 17 gm DAILY PRN PO 05/29/17 23:45 06/28/17 23:44 Ondansetron HCl (Zofran Inj) 4 mg Q6H PRN IV 05/29/17 23:45 06/28/17 23:44 Guaifenesin (Organidin Nr Tab) 600 mg BID PO 05/30/17 09:00 06/29/17 08:59 05/31/17 08:22 600 MG Ipratropium [place] (Atrovent 0.02% 0.5MG/2.5ML Neb) 0.5 mg Q6R INH 05/30/17 03:00 06/29/17 02:59 05/31/17 14:20 0.5 MG Levalbuterol (Xopenex 0.63 Mg/ 3 Ml Neb) 0.63 mg Q6R INH 05/30/17 03:00 06/29/17 02:59 05/31/17 14:20 0.63 MG Miscellaneous Information (Consult) 1 ea UD PRN N/A 05/30/17 05:30 06/29/17 05:29 Piperacillin Sod/ Tazobactam Sod 3.375 gm/Sodium Chloride 115 ml @ 28.75 mls/ hr Q8H IV 05/30/17 10:00 06/06/17 09:59 05/31/17 09:28 28.75 MLS/HR Levofloxacin (Consult) 1 ea UD PRN N/A 05/30/17 05:30 06/29/17 05:29 Levofloxacin 750 mg/Prmx 150 ml @ 100 mls/hr Q48H IV 05/31/17 21:00 06/05/17 23:59 Levothyroxine Sodium (Synthroid Tab) 50 mcg DAILYBB PO 05/30/17 08:00 06/29/17 07:59 05/31/17 05:23 50 MCG Lovastatin (Mevacor Tab) 20 mg DAILY PO 05/30/17 09:00 06/29/17 08:59 05/31/17 08:22 20 MG Memantine (Namenda Tab) 10 mg BID PO 05/30/17 09:00 06/29/17 08:59 05/30/17 20:37 10 MG Oxybutynin Chloride (Ditropan Tab) 5 mg DAILY PO 05/30/17 09:00 06/29/17 08:59 05/31/17 08:22 5 MG Sertraline HCl (Zoloft Tab) 100 mg DAILY PO 05/30/17 09:00 06/29/17 08:59 05/31/17 08:22 100 MG Vancomycin HCl 1500 mg/Sodium Chloride 530 ml @ 200 mls/hr Q24H IV 05/30/17 20:00 06/05/17 23:00 05/30/17 20:36 200 MLS/HR Diltiazem HCl 125 mg/Dextrose 125 ml @ 5 mls/hr Q24H PRN IV 05/31/17 03:15 06/30/17 03:14 05/31/17 04:43 15 MLS/HR I & O: 24-Hour Column 06/01/17 07:59 Intake Total 1496 ml Output Total 425 ml Balance 1071 ml Vital Signs: Date Time Temp Pulse Resp B/P (MAP) Pulse Ox O2 Delivery O2 Flow Rate FiO2 05/31/17 16:00 Nasal Cannula 2.0 05/31/17 14:20 82 16 93 Nasal Cannula 2.0 05/31/17 12:00 Nasal Cannula 2.0 05/31/17 11:42 36.4 88 20 124/85 (98) 92 Nasal Cannula 2.0 05/31/17 08:00 Nasal Cannula 2.0 05/31/17 07:51 37.1 115 19 121/75 (90) 92 Nasal Cannula 2.0 05/31/17 06:10 132 127/76 (93) 05/31/17 04:41 138 121/82 (95) 05/31/17 04:01 143 131/78 (95) 05/31/17 03:42 157 127/103 (111) 05/31/17 03:00 Nasal Cannula 2.0 05/31/17 02:43 36.5 142 20 131/77 (95) 92 Nasal Cannula 2.0 05/31/17 01:54 90 16 93 Nasal Cannula 2.0 05/31/17 00:12 36.5 89 19 136/73 (94) 90 Room Air 05/31/17 00:00 Nasal Cannula 2.0 05/30/17 20:37 Room Air 05/30/17 19:08 36.7 88 18 144/86 (105) 96 Room Air 05/30/17 19:07 89 18 91 Room Air Laboratory Results: Last 24 Hours Test 05/31/17 04:24 White Blood Count 34.18 K/uL Red Blood Count 3.57 M/uL Hemoglobin 11.1 g/dL Hematocrit 31.9 % Mean Corpuscular Volume 89.4 fL Mean Corpuscular Hemoglobin 31.1 pg Mean Corpuscular Hemoglobin Concent 34.8 g/dl Platelet Count 304 K/uL Mean Platelet Volume 10.5 fL Neutrophils (%) (Auto) 90.1 % Lymphocytes (%) (Auto) 2.6 % Monocytes (%) (Auto) 5.3 % Eosinophils (%) (Auto) 0.0 % Basophils (%) (Auto) 0.1 % Neutrophils # (Auto) 30.83 K/uL Lymphocytes # (Auto) 0.88 K/uL Monocytes # (Auto) 1.80 K/uL Eosinophils # (Auto) 0.00 K/uL Basophils # (Auto) 0.02 K/uL RDW Standard Deviation 49.5 fL RDW Coefficient of Variation 15.1 % Immature Granulocyte % (Auto) 1.9 % Immature Granulocyte # (Auto) 0.65 K/uL Echinocytes 1+ Sodium Level 140 mmol/L Potassium Level 3.5 mmol/L Chloride Level 110 mmol/L Carbon Dioxide Level 19 mmol/L Anion Gap 11.0 mmol/L Blood Urea Nitrogen 54 mg/dl Creatinine 1.50 mg/dl Est Creatinine Clear Calc Drug Dose 44.9 ml/min Estimated GFR () 49.2 Estimated GFR (Non- 42.4 BUN/Creatinine Ratio 36.1 Random Glucose 189 mg/dl Calcium Level 9.0 mg/dl Magnesium Level 1.9 mg/dl
[2017-05-31] MEDS: METOPROLOL TARTRATE 25 MG TAB PO SCH (20:05)
[2017-05-31] MEDS: LEVOFLOXACIN 750MG / D5W IV SCH (21:26)
[2017-06-01] VITALS (13 sets, daily range): BP systolic 119–148; BP diastolic 67–74; PULSE 75–92; TEMP 36.4–36.9; O2SAT 90–97
[2017-06-01] MEDS: PIPERACILL/TAZOBAC IV 3.375 GM in NSS 100ML IV SCH ×2 (01:44→10:08)
[2017-06-01] MEDS: LEVOTHYROXINE 50 MCG TAB PO SCH (05:26)
[2017-06-01 06:34] LABS: HEMATOCRIT 32.7 % (42-52); HEMOGLOBIN 11.2 g/dL (14.0-18.0); MEAN CELL VOLUME 89.8 fL (80-100); MEAN CORPUSCULAR HEMOGLOBIN 30.8 pg (25-34); MEAN CORPUSCULAR HGB CONC 34.3 g/dl (32-36); MEAN PLATELET VOLUME 10.3 fL (7.4-10.4); PLATELET COUNT 339 K/uL (130-400); RED CELL DISTRIBUTION WIDTH CV 15.7 % (11.5-14.5); RED CELL DISTRIBUTION WIDTH SD 51.1 fL (36.4-46.3); WHITE BLOOD COUNT 24.81 K/uL (4.8-10.8)
[2017-06-01 06:54] LABS: BASO % 0.1 %; BASO ABS # 0.03 K/uL (0-0.2); IG# 0.95 K/uL (0.00-0.02); LYMPH % 6.6 %; LYMPH ABS # 1.63 K/uL (1.2-3.4); MONO % 8.5 %; MONO ABS # 2.11 K/uL (0.11-0.59); NEUT ABS # 20.09 K/uL (1.4-6.5)
[2017-06-01 07:02] LABS: CREATININE 1.43 mg/dl (0.60-1.40)
[2017-06-01] MEDS: LEVALBUTEROL 0.63MG/3 ML NEB INH SCH ×3 (07:22→19:16)
[2017-06-01] MEDS: IPRATROPIUM BROMIDE NEB SOLN 0.02% 2.5 ML VIAL INH SCH ×3 (07:22→19:16)
[2017-06-01] MEDS: SERTRALINE HCL 100 MG TAB PO SCH (08:43)
[2017-06-01] MEDS: LOVASTATIN 20 MG TAB PO SCH (08:43)
[2017-06-01] MEDS: OXYBUTYNIN CHLORIDE 5 MG TAB PO SCH (08:43)
[2017-06-01] MEDS: METOPROLOL TARTRATE 25 MG TAB PO SCH ×2 (08:43→19:44)
[2017-06-01] MEDS: GUAIFENESIN 200 MG TAB PO SCH ×2 (08:45→19:43)
[2017-06-01] MEDS: ENOXAPARIN 40 MG/0.4 ML SYR SQ SCH (08:46)
[2017-06-01] MEDS: MEMANTINE 10 MG TAB PO SCH ×2 (08:46→19:43)
--- NOTE | 2017-06-01 09:31 | Cardiology Follow-Up ---
Cardiology Follow-Up Date of Service Jun 01, 2017. Cardiology Follow-Up SUBJECTIVE: 82-year-old man with history of dementia and hypertension, no prior cardiac history, who was admitted 05/30/2017. Evaluation by Dr. Amaya suggest a complex pneumonia which may require a chest tube at some point. Thursday night , the patient developed paroxysmal atrial fibrillation with rapid ventricular response lasting approximately 6 hours before reverting to sinus rhythm yesterday morning. The patient felt well this morning. He had no further tachydysrhythmias over the past 24 hours. He denies any chest pain, dyspnea, subjective palpitations, lightheadedness, presyncope, or syncope. PHYSICAL EXAMINATION: No distress, appeared fairly comfortable. Vitals: Afebrile throughout his stay. BP 145/74, pulse 83 and regular, respirations 16 and unlabored. Skin: No unusual lesions or ecchymosis. HEENT: Unremarkable. Neck: Jugular venous pulse just above the clavicle at 90, no carotid bruits. Lungs: Decreased breath sounds lower left lung field, generally clear with no wheezing or crackles. No accessory muscle use, abdominal paradox, or nasal flaring. Cardiac: Regular rhythm with normal S1 and S2. No obvious murmur or gallop. Abdomen: Benign. Extremities: Nontender without edema. Intact peripheral pulses. Neurologic: Engaging affect but seems to lack insight,, nonfocal DATA: White count 24.81 (declining), hemoglobin 11.2 (stable), normal platelet count. Normal electrolytes with potassium of 4.0 and magnesium 2.1. Renal function stable with BUN 54 creatinine 1.43. Echocardiogram yesterday showed normal left ventricular systolic function (EF 60 -65 %), with mild LVH most prominent in the septum, trivial valvular disease. No regional wall motion abnormalities. Unremarkable right heart. A nuclear study 1 year ago showed no myocardial ischemia. IMPRESSION: 1. New onset proximal atrial fibrillation with rapid ventricular response, reverted to sinus rhythm 24 hours ago. 2. No prior cardiac history. 3. Left lower lobe pneumonia. 4, History of hypertension, normotensive currently. 5. Apparent dementia, mild DISCUSSION: Patient with no significant cardiac history developed paroxysmal atrial fibrillation with rapid ventricular response in the context of hospital admission for left lower lobe pneumonia. Fortunately, he remained asymptomatic despite significant tachycardia, suggesting a low likelihood of concurrent myocardial ischemia/obstructive coronary disease. He was initiated on low-dose metoprolol, would recommend increasing dose to 25 mg twice daily to further reduce risk of recurrent tachycardic dysrhythmia. This will also help address his mildly elevated blood pressure. Electrolytes optimized. Volume status appears appropriate, no need for additional diuretic at this point. Would continue to hold on immediate anticoagulation beyond his low-dose enoxaparin, since he has returned to sinus rhythm and is low risk for any thromboembolic event as well as given the possibility he will require chest tube. Since his only episode of atrial fibrillation occurred in the context of hyperadrenergic state with borderline electrolytes, he may not require long- term anticoagulation. If he or caregivers are capable of reliably dosing medication and long-term anticoagulation is felt appropriate, could use Eliquis 2.5 mg b.i.d. (since his creatinine is greater than 1.5 and he is greater than 79 years of age, reduced dose is recommended). Will continue to follow along with you.
--- NOTE | 2017-06-01 10:20 | Pulmonology Progress Note ---
Pulmonary Progress Note Date of Service Jun 01, 2017. Attending Dr. Rivera Subjective Reports back and leg pain - improving. Cough present able to expectorate sputum yesterday. Denies any chest pain or pleuritic pain. Appetite is improving. Objective 82-yo male admitted through the ED from his PCPs office 05/29/2017 with 3-week history of cough, fevers, AMS, and hypoxia with work-up notable for LLL pneumonia with appearance of loculated pleural effusion. Prior records were reviewed. PMHx includes: hypertension, hyperlipidemia, GERD, hypothyroid, lumbar stenosis. CXR 05/29/17 LLL consolidation and left pleural effusion CT Chest without contrast 05/29/17: Dense LLL consolidation and appearance of loculated pleural effusion. Prominent hilum with narrowing of the LLL bronchi Patient evaluated with bedside ultrasound and effusion was not felt to be amendable to thoracentesis based on characteristics and size. He is treated with antibiotic (pip-tazo + levofloxacin), bronchodilators, and expectorant as well as rate control secondary to development of a.fib RVR 05/31/2017. Echocardiogram 05/31/17 notable for mild LVH with pEF. Today: - HD stable, afebrile, titrated to RA: 92-93% - WBC improved to 24.81 - BC: NGTD, sputum culture: pending Physical Exam: Constitutional: WDWN elderly male sitting at bedside - no acute distress HEENT: + facial symmetry. Pale conjunctive. Moist mucous membranes without oral lesions Respiratory: non-labored respirations and speaking freely. BS diminished at bases with bronchial BS on the right and abscent BS on the left with dullness to percussion CV: Regular rate and rhythm. No MRG. Warm and perfused peripherally. No clubbing or cyanosis Abdomen: Soft, Active bowel sounds MSK/Extremities: Moving and developed symmetrically. Trace LLE edema. Neurologic: Alert and oriented to person and place. Tangential speech. Hearing loss. Assessment & Plan 1. Severe community-acquired pneumonia: - Clinically improving on broad-spectrum antibiotic - continue - Obtain Video Swallow 2. Complex parapneumonic effusion: Bedside ultrasound today by Dr. Rivera for further recommendations Follow-up evaluation with ultrasound shows numerous small loculated effusions and some area of consolidation. Patient doing well at this time. Agree with above plan Data Medications: Current Inpatient Medications Medications (Trade) Dose Ordered Sig/Estuardo Route Start Time Stop Time Status Last Admin Dose Admin Enoxaparin Sodium (Lovenox Inj) 40 mg Q24H SQ 05/30/17 09:00 06/29/17 08:59 06/01/17 08:46 40 MG Acetaminophen (Tylenol Tab) 650 mg Q4H PRN PO 05/29/17 23:45 06/28/17 23:44 Al Hydrox/Mg Hydrox/Simethicone (Maalox Max Susp) 15 ml Q4H PRN PO 05/29/17 23:45 06/28/17 23:44 Magnesium Hydroxide (Milk Of Magnesia Susp) 30 ml Q6H PRN PO 05/29/17 23:45 06/28/17 23:44 Polyethylene (Miralax Powder Packet) 17 gm DAILY PRN PO 05/29/17 23:45 06/28/17 23:44 Ondansetron HCl (Zofran Inj) 4 mg Q6H PRN IV 05/29/17 23:45 06/28/17 23:44 Guaifenesin (Organidin Nr Tab) 600 mg BID PO 05/30/17 09:00 06/29/17 08:59 06/01/17 08:45 600 MG Ipratropium [place] (Atrovent 0.02% 0.5MG/2.5ML Neb) 0.5 mg Q6R INH 05/30/17 03:00 06/29/17 02:59 06/01/17 07:22 0.5 MG Levalbuterol (Xopenex 0.63 Mg/ 3 Ml Neb) 0.63 mg Q6R INH 05/30/17 03:00 06/29/17 02:59 06/01/17 07:22 0.63 MG Miscellaneous Information (Consult) 1 ea UD PRN N/A 05/30/17 05:30 06/29/17 05:29 Piperacillin Sod/ Tazobactam Sod 3.375 gm/Sodium Chloride 115 ml @ 28.75 mls/ hr Q8H IV 05/30/17 10:00 06/06/17 09:59 06/01/17 01:44 28.75 MLS/HR Levofloxacin (Consult) 1 ea UD PRN N/A 05/30/17 05:30 06/29/17 05:29 Levofloxacin 750 mg/Prmx 150 ml @ 100 mls/hr Q48H IV 05/31/17 21:00 06/05/17 23:59 05/31/17 21:26 100 MLS/HR Levothyroxine Sodium (Synthroid Tab) 50 mcg DAILYBB PO 05/30/17 08:00 06/29/17 07:59 06/01/17 05:26 50 MCG Lovastatin (Mevacor Tab) 20 mg DAILY PO 05/30/17 09:00 06/29/17 08:59 06/01/17 08:43 20 MG Memantine (Namenda Tab) 10 mg BID PO 05/30/17 09:00 06/29/17 08:59 06/01/17 08:46 10 MG Oxybutynin Chloride (Ditropan Tab) 5 mg DAILY PO 05/30/17 09:00 06/29/17 08:59 06/01/17 08:43 5 MG Sertraline HCl (Zoloft Tab) 100 mg DAILY PO 05/30/17 09:00 06/29/17 08:59 06/01/17 08:43 100 MG Diltiazem HCl 125 mg/Dextrose 125 ml @ 5 mls/hr Q24H PRN IV 05/31/17 03:15 06/30/17 03:14 05/31/17 04:43 15 MLS/HR Metoprolol Tartrate (Lopressor Tab) 12.5 mg BID PO 05/31/17 21:00 06/30/17 20:59 06/01/17 08:43 12.5 MG Vital Signs: Date Time Temp Pulse Resp B/P (MAP) Pulse Ox O2 Delivery O2 Flow Rate FiO2 06/01/17 07:56 36.5 83 16 145/74 (97) 92 Room Air 06/01/17 07:23 86 16 93 Room Air 06/01/17 04:02 36.9 77 18 136/72 (93) 92 06/01/17 04:00 Nasal Cannula 2.0 06/01/17 00:08 36.7 75 18 147/67 (93) 92 Room Air 05/31/17 23:59 Nasal Cannula 2.0 05/31/17 20:00 Nasal Cannula 2.0 05/31/17 19:15 87 16 93 Room Air 05/31/17 19:10 36.6 88 24 136/76 (96) 90 Room Air 05/31/17 16:00 Nasal Cannula 2.0 05/31/17 15:43 36.5 94 20 122/60 (80) 95 Nasal Cannula 2.0 05/31/17 14:20 82 16 93 Nasal Cannula 2.0 05/31/17 12:00 Nasal Cannula 2.0 05/31/17 11:42 36.4 88 20 124/85 (98) 92 Nasal Cannula 2.0 Laboratory Results: Last 24 Hours Test 06/01/17 06:05 White Blood Count 24.81 K/uL Red Blood Count 3.64 M/uL Hemoglobin 11.2 g/dL Hematocrit 32.7 % Mean Corpuscular Volume 89.8 fL Mean Corpuscular Hemoglobin 30.8 pg Mean Corpuscular Hemoglobin Concent 34.3 g/dl Platelet Count 339 K/uL Mean Platelet Volume 10.3 fL Neutrophils (%) (Auto) 81.0 % Lymphocytes (%) (Auto) 6.6 % Monocytes (%) (Auto) 8.5 % Eosinophils (%) (Auto) 0.0 % Basophils (%) (Auto) 0.1 % Neutrophils # (Auto) 20.09 K/uL Lymphocytes # (Auto) 1.63 K/uL Monocytes # (Auto) 2.11 K/uL Eosinophils # (Auto) 0.00 K/uL Basophils # (Auto) 0.03 K/uL RDW Standard Deviation 51.1 fL RDW Coefficient of Variation 15.7 % Immature Granulocyte % (Auto) 3.8 % Immature Granulocyte # (Auto) 0.95 K/uL Ovalocytes 1+ Echinocytes 1+ Sodium Level 140 mmol/L Potassium Level 4.0 mmol/L Chloride Level 111 mmol/L Carbon Dioxide Level 21 mmol/L Anion Gap 8.0 mmol/L Blood Urea Nitrogen 54 mg/dl Creatinine 1.43 mg/dl Est Creatinine Clear Calc Drug Dose 47.5 ml/min Estimated GFR () 52.1 Estimated GFR (Non- 45.0 BUN/Creatinine Ratio 38.0 Random Glucose 98 mg/dl Calcium Level 9.0 mg/dl Magnesium Level 2.1 mg/dl
--- NOTE | 2017-06-01 12:47 | DIAGNOSTIC IMAGING REPORT ---
VIDEO SWALLOW CLINICAL HISTORY: Cough. Pneumonia. COMPARISON STUDY: No previous studies for comparison. Fluoroscopy time: 2.4 minutes. FINDINGS: No aspiration was identified with thin liquids, nectar thick liquids, crackers with paste or pudding consistencies. There were significant residuals within the piriform sinuses and vallecula with multiple consistencies. Epiglottic inversion was diminished. Laryngeal elevation was diminished. IMPRESSION: 1. No tracheal aspiration. 2. Penetration with swallows of thin liquids. 3. Significant residuals within the piriform sinuses and vallecula with multiple consistencies. 4. Diminished epiglottic inversion and laryngeal elevation. 5. Full recommendations by speech pathology to follow. Electronically signed by: Alejandro Weaver M.D. 06/01/2017 12:46 PM Dictated Date/Time: 06/01/2017 12:43 PM
[2017-06-01] MEDS ORDERED: CEFEPIME CONSULT ACTIVE PRN (14:30)
--- NOTE | 2017-06-01 15:26 | Family Medicine Progress Note ---
Progress Note Date of Service Jun 01, 2017. Subjective Pt evaluation today including: conversation w/ patient, physical exam, chart review Pain: Reports chronic lower back pain PO Intake: Tolerating well Voiding: no voiding problems Patient resting comfortably this morning. Reports he feels "better" but is worn out from being in hospital. Denies chest pain or breathing difficulty. Constitutional: No fever, No chills Respiratory: + cough Abdomen: No pain, No nausea Musculoskeletal: No joint pain Neurologic: + memory loss All Other Systems: Reviewed and Negative Medications Current Inpatient Medications Medications (Trade) Dose Ordered Sig/Estuardo Route Start Time Stop Time Status Last Admin Dose Admin Enoxaparin Sodium (Lovenox Inj) 40 mg Q24H SQ 05/30/17 09:00 06/29/17 08:59 06/01/17 08:46 40 MG Acetaminophen (Tylenol Tab) 650 mg Q4H PRN PO 05/29/17 23:45 06/28/17 23:44 Al Hydrox/Mg Hydrox/Simethicone (Maalox Max Susp) 15 ml Q4H PRN PO 05/29/17 23:45 06/28/17 23:44 Magnesium Hydroxide (Milk Of Magnesia Susp) 30 ml Q6H PRN PO 05/29/17 23:45 06/28/17 23:44 Polyethylene (Miralax Powder Packet) 17 gm DAILY PRN PO 05/29/17 23:45 06/28/17 23:44 Ondansetron HCl (Zofran Inj) 4 mg Q6H PRN IV 05/29/17 23:45 06/28/17 23:44 Guaifenesin (Organidin Nr Tab) 600 mg BID PO 05/30/17 09:00 06/29/17 08:59 06/01/17 08:45 600 MG Ipratropium [place] (Atrovent 0.02% 0.5MG/2.5ML Neb) 0.5 mg Q6R INH 05/30/17 03:00 06/29/17 02:59 06/01/17 14:19 0.5 MG Levalbuterol (Xopenex 0.63 Mg/ 3 Ml Neb) 0.63 mg Q6R INH 05/30/17 03:00 06/29/17 02:59 06/01/17 14:19 0.63 MG Levofloxacin (Consult) 1 ea UD PRN N/A 05/30/17 05:30 06/29/17 05:29 Levofloxacin 750 mg/Prmx 150 ml @ 100 mls/hr Q48H IV 05/31/17 21:00 06/05/17 23:59 05/31/17 21:26 100 MLS/HR Levothyroxine Sodium (Synthroid Tab) 50 mcg DAILYBB PO 05/30/17 08:00 06/29/17 07:59 06/01/17 05:26 50 MCG Lovastatin (Mevacor Tab) 20 mg DAILY PO 05/30/17 09:00 06/29/17 08:59 06/01/17 08:43 20 MG Memantine (Namenda Tab) 10 mg BID PO 05/30/17 09:00 06/29/17 08:59 06/01/17 08:46 10 MG Oxybutynin Chloride (Ditropan Tab) 5 mg DAILY PO 05/30/17 09:00 06/29/17 08:59 06/01/17 08:43 5 MG Sertraline HCl (Zoloft Tab) 100 mg DAILY PO 05/30/17 09:00 06/29/17 08:59 06/01/17 08:43 100 MG Metoprolol Tartrate (Lopressor Tab) 25 mg BID PO 06/01/17 21:00 06/30/17 20:59 Cefepime HCl (Consult) 1 [facility] PRN N/A 06/01/17 14:30 07/01/17 14:29 Cefepime HCl 2000 mg/Syringe 20 ml @ 5 mls/min Q12@0600,1800 IV 06/01/17 18:00 06/08/17 17:59 Objective Vital Signs Date Time Temp Pulse Resp B/P (MAP) Pulse Ox O2 Delivery O2 Flow Rate FiO2 06/01/17 14:19 86 16 93 Room Air 06/01/17 12:00 Room Air 06/01/17 11:25 36.4 80 20 138/74 (95) 93 Room Air 06/01/17 08:00 Room Air 06/01/17 07:56 36.5 83 16 145/74 (97) 92 Room Air 06/01/17 07:23 86 16 93 Room Air 06/01/17 04:02 36.9 77 18 136/72 (93) 92 06/01/17 04:00 Nasal Cannula 2.0 06/01/17 00:08 36.7 75 18 147/67 (93) 92 Room Air 05/31/17 23:59 Nasal Cannula 2.0 05/31/17 20:00 Nasal Cannula 2.0 05/31/17 19:15 87 16 93 Room Air 05/31/17 19:10 36.6 88 24 136/76 (96) 90 Room Air 05/31/17 16:00 Nasal Cannula 2.0 05/31/17 15:43 36.5 94 20 122/60 (80) 95 Nasal Cannula 2.0 Physical Exam General Appearance: WD/WN, no apparent distress Eyes: normal inspection, PERRL, EOMI ENT: normal ENT inspection, + pertinent finding ([place]) Respiratory/Chest: chest non-tender, no respiratory distress, no accessory muscle use, + decreased breath sounds (LLL), + crackles (LLL) Cardiovascular: regular rate, rhythm, no edema Abdomen: normal bowel sounds, non tender, soft Neurologic/Psychiatric: flatwork feeder II-XII nml as tested, alert, normal mood/affect, oriented x 3 Skin: normal color, warm/dry Laboratory Results Last Resulted 06/01/17 06:05 Red Blood Count 3.64, Mean Corpuscular Volume 89.8, Mean Corpuscular Hemoglobin 30.8, Mean Corpuscular Hemoglobin Concent 34.3, Mean Platelet Volume 10.3, Neutrophils (%) (Auto) 81.0, Lymphocytes (%) (Auto) 6.6, Monocytes (%) (Auto) 8.5, Eosinophils (%) (Auto) 0.0, Basophils (%) (Auto) 0.1, Neutrophils # (Auto) 20.09, Lymphocytes # (Auto) 1.63, Monocytes # (Auto) 2.11, Eosinophils # (Auto) 0.00, Basophils # (Auto) 0.03 Last Resulted 06/01/17 06:05 Assessment and Plan 89 yo male admitted late on [id number] for ongoing cough and SOB. PMH: HTN, HLD, lumbar stenosis with neurogenic claudication, depression, hypothyroidism, GERD, vertigo, ?dementia PSH: T11-S1 posterior spinal fusion in , Mohs surgery, appendectomy, herniorrhaphy. Severe pneumonia LLL and complex parapneumonic effusion: 2-3 week history of cough and shortness of breath. CXR and CT chest concerning for LLL PNA and small pleural effusion. Influenza negative. Noted leukocytosis 24 improved from 35. BCx x2 , NGTD. 07Apr fungal studies pending. 06Apr started on vancomycin, zosyn, and levaquin in the ED. Also on atrovent q6h estuardo and xopenex q6h estuardo. 24 hours of methylprednisolone complete. Vacn DCd as neg MRSA swab. Currently on room air, breathing comfortably. 09April: switched zosyn to cefipime, continue levaquin and cefipime. - Antibiotics: continue antibiotics as above for now. - Pulmonology consulted (see full note). awaiting bedside ultrasound today Episode of Atrial fibrillation with RVR: On admission, noted to have some sinus tachycardia. Trop negative. Admit EKG NSR 90 with incomplete RBBB and LAFB. Early 08Apr developed new afib with RVR, started on diltiazem IV, converted to NSR around eight hours later. Cardiology consulted (see their full note). In brief, recommended conversion to PO diltiazem, electrolyte optimization, and hold on further anticoagulation for now. Echocardiogram (TTE) noted EF 60-65% and some mild LVH. - Started on metoprolol tartrate 12.5 mg PO BID, increased to 25 PO BID. Discussed long-term anticoagulation, deferred at this time. Recommend event monitor for afib as outpatient to decide on need for anticoagulation Acute kidney injury: Current Cr 1.43 (admit Cr 2.06, comparison in late 2014 is Cr 1.1). Likely is pre-renal in origin, continue to monitor Ongoing medical issues: - Chronic mid-thoracic back pain: S/p T11-S1 posterior spinal fusion in . - Hypothyroidism: On home synthroid. - Hyperlipidemia: On home lovastatin. - GERD: At home on prilosec, on protonix here. - Depression: On home sertraline. 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 First documented by PCP in July 2016 and forgetfulness, which worsened per notes over the next few months (pt forgetting long term friends, forgetting tasks , unaware of correct time of day. started on memantine in January 2017 after outpt labs and brain MRI negative. Has been A&O x 3 since admission) - ? Bladder issues: On ditropan. CT chest findings: Noted question of prominent left hilar mass. Noted probable cholelithiasis. Code status: Full code but no mechanical ventilation. Diet: Regular. DVT prophy: Lovenox q24h. PT/OT: Deferred. Dispo: telemetry for afib w RVR Resident Tracking Resident Involvement: Resident Care Provided Care Provided: Adult Hospital Medicine Reviewed: Pt Seen/Exam by Me History no concerns overnight. Constitutional: denies: fever Respiratory: negative: short of breath Cardiovascular: denies chest pain General Appearance: no apparent distress Respiratory: no respiratory distress, crackles (left base) Cardiovascular: regular rate, rhythm Neurologic/Psychiatric: alert, oriented x 3 Skin Characteristics: warm/dry Assessment/Plan Resident Physician Supervision Note: I independently interviewed and examined the patient and verified the auguste history and physical, reviewed labs and image studies, discussed the case with the resident Dr. Damon and agree with the findings and care plan.
[2017-06-01] MEDS: CEFEPIME IV 2,000 MG in SYRINGE 7.5 ML IV SCH (17:03)
[2017-06-01] MEDS ORDERED: VANCOMYCIN TROUGH ONE (19:30)
[2017-06-02] VITALS (9 sets, daily range): BP systolic 108–142; BP diastolic 63–69; PULSE 76–88; TEMP 36.4–36.5; O2SAT 91–96
[2017-06-02] MEDS: IPRATROPIUM BROMIDE NEB SOLN 0.02% 2.5 ML VIAL INH SCH ×4 (02:07→18:58)
[2017-06-02] MEDS: LEVALBUTEROL 0.63MG/3 ML NEB INH SCH ×4 (02:07→18:58)
[2017-06-02] MEDS: LEVOTHYROXINE 50 MCG TAB PO SCH (05:23)
[2017-06-02] MEDS: CEFEPIME IV 2,000 MG in SYRINGE 7.5 ML IV SCH ×2 (06:09→18:11)
[2017-06-02 07:07] LABS: HEMATOCRIT 34.9 % (42-52); MEAN CELL VOLUME 89.9 fL (80-100); MEAN CORPUSCULAR HEMOGLOBIN 30.9 pg (25-34); MEAN CORPUSCULAR HGB CONC 34.4 g/dl (32-36); MEAN PLATELET VOLUME 10.3 fL (7.4-10.4); PLATELET COUNT 358 K/uL (130-400); RED CELL DISTRIBUTION WIDTH CV 15.5 % (11.5-14.5); RED CELL DISTRIBUTION WIDTH SD 50.6 fL (36.4-46.3); WHITE BLOOD COUNT 16.16 K/uL (4.8-10.8)
[2017-06-02 07:39] LABS: CREATININE 1.26 mg/dl (0.60-1.40); POTASSIUM 4.2 mmol/L (3.5-5.1)
[2017-06-02] MEDS: GUAIFENESIN 200 MG TAB PO SCH ×2 (08:18→20:04)
[2017-06-02] MEDS: METOPROLOL TARTRATE 25 MG TAB PO SCH ×2 (08:18→20:03)
[2017-06-02] MEDS: LOVASTATIN 20 MG TAB PO SCH (08:18)
[2017-06-02] MEDS: SERTRALINE HCL 100 MG TAB PO SCH (08:18)
[2017-06-02] MEDS: MEMANTINE 10 MG TAB PO SCH ×2 (08:18→20:04)
[2017-06-02] MEDS: ENOXAPARIN 40 MG/0.4 ML SYR SQ SCH (08:19)
[2017-06-02] MEDS: OXYBUTYNIN CHLORIDE 5 MG TAB PO SCH (08:19)
--- NOTE | 2017-06-02 13:10 | Pulmonology Progress Note ---
Pulmonary Progress Note Date of Service Jun 02, 2017. Attending Dr. Rivera Subjective Patient doing well today notes minimal dyspnea with exertion Objective 82-yo male admitted through the ED from his PCPs office 05/29/2017 with 3-week history of cough, fevers, AMS, and hypoxia with work-up notable for LLL pneumonia with appearance of loculated pleural effusion. Prior records were reviewed. PMHx includes: hypertension, hyperlipidemia, GERD, hypothyroid, lumbar stenosis. CXR 05/29/17 LLL consolidation and left pleural effusion CT Chest without contrast 05/29/17: Dense LLL consolidation and appearance of loculated pleural effusion. Prominent hilum with narrowing of the LLL bronchi Swallow eval for 11/12/2017: No significant signs of aspiration Patient evaluated with bedside ultrasound and effusion was not felt to be amendable to thoracentesis based on characteristics and size. He is treated with antibiotic (pip-tazo + levofloxacin), bronchodilators, and expectorant as well as rate control secondary to development of a.fib RVR 05/31/2017. Echocardiogram 05/31/17 notable for mild LVH with pEF. Today: - HD stable, afebrile, titrated to RA: 92-93% - WBC improved to 24.81 - BC: NGTD, sputum culture: pending Physical Exam: Constitutional: WDWN elderly male sitting at bedside - no acute distress HEENT: + facial symmetry. Pale conjunctive. Moist mucous membranes without oral lesions Respiratory: non-labored respirations and speaking freely. BS diminished at bases with bronchial BS on the right and abscent BS on the left with dullness to percussion CV: Regular rate and rhythm. No MRG. Warm and perfused peripherally. No clubbing or cyanosis Abdomen: Soft, Active bowel sounds MSK/Extremities: Moving and developed symmetrically. Trace LLE edema. Neurologic: Alert and oriented to person and place. Tangential speech. Hearing loss. Assessment & Plan 1. Severe community-acquired pneumonia: Doing well on broad-spectrum antibiotics with defervescence of his white blood cell count. 2. Complex parapneumonic effusion: Bedside ultrasound shows diffuse loculated small pleural effusions and consolidations. Will require outpatient follow-up with [address] imaging. 3. left lower lobe nodule/hilar adenopathy: Patient has a left lower lobe nodule versus prominent hilar lymphadenopathy. This could be reactive or possibly even underlying malignancy. I do not have previous images to have a better understanding of the chronicity of this issue. I spoken to the patient and family at length and have emphasized the need for follow-up. This time pulmonary will sign off but suggest the patient have a 3-4 weeks clinical follow-up and after that 6 week follow-up status post a high- resolution CAT scan to help better define his lung parenchyma/adenopathy after the patient's inflammation/infection have resolved. Data Medications: Current Inpatient Medications Medications (Trade) Dose Ordered Sig/Estuardo Route Start Time Stop Time Status Last Admin Dose Admin Enoxaparin Sodium (Lovenox Inj) 40 mg Q24H SQ 05/30/17 09:00 06/29/17 08:59 06/02/17 08:19 40 MG Acetaminophen (Tylenol Tab) 650 mg Q4H PRN PO 05/29/17 23:45 06/28/17 23:44 Al Hydrox/Mg Hydrox/Simethicone (Maalox Max Susp) 15 ml Q4H PRN PO 05/29/17 23:45 06/28/17 23:44 Magnesium Hydroxide (Milk Of Magnesia Susp) 30 ml Q6H PRN PO 05/29/17 23:45 06/28/17 23:44 Polyethylene (Miralax Powder Packet) 17 gm DAILY PRN PO 05/29/17 23:45 06/28/17 23:44 Ondansetron HCl (Zofran Inj) 4 mg Q6H PRN IV 05/29/17 23:45 06/28/17 23:44 Guaifenesin (Organidin Nr Tab) 600 mg BID PO 05/30/17 09:00 06/29/17 08:59 06/02/17 08:18 600 MG Ipratropium [place] (Atrovent 0.02% 0.5MG/2.5ML Neb) 0.5 mg Q6R INH 05/30/17 03:00 06/29/17 02:59 06/02/17 07:13 0.5 MG Levalbuterol (Xopenex 0.63 Mg/ 3 Ml Neb) 0.63 mg Q6R INH 05/30/17 03:00 06/29/17 02:59 06/02/17 07:13 0.63 MG Levofloxacin (Consult) 1 ea UD PRN N/A 05/30/17 05:30 06/29/17 05:29 Levofloxacin 750 mg/Prmx 150 ml @ 100 mls/hr Q48H IV 05/31/17 21:00 06/05/17 23:59 05/31/17 21:26 100 MLS/HR Levothyroxine Sodium (Synthroid Tab) 50 mcg DAILYBB PO 05/30/17 08:00 06/29/17 07:59 06/02/17 05:23 50 MCG Lovastatin (Mevacor Tab) 20 mg DAILY PO 05/30/17 09:00 06/29/17 08:59 06/02/17 08:18 20 MG Memantine (Namenda Tab) 10 mg BID PO 05/30/17 09:00 06/29/17 08:59 06/02/17 08:18 10 MG Oxybutynin Chloride (Ditropan Tab) 5 mg DAILY PO 05/30/17 09:00 06/29/17 08:59 06/02/17 08:19 5 MG Sertraline HCl (Zoloft Tab) 100 mg DAILY PO 05/30/17 09:00 06/29/17 08:59 06/02/17 08:18 100 MG Metoprolol Tartrate (Lopressor Tab) 25 mg BID PO 06/01/17 20:00 06/30/17 20:59 06/02/17 08:18 25 MG Cefepime HCl (Consult) 1 UD PRN N/A 06/01/17 14:30 07/01/17 14:29 Cefepime HCl 2000 mg/Syringe 20 ml @ 5 mls/min Q12@0600,1800 IV 06/01/17 18:00 06/08/17 17:59 06/02/17 06:09 5 MLS/MIN Vital Signs: Date Time Temp Pulse Resp B/P (MAP) Pulse Ox O2 Delivery O2 Flow Rate FiO2 06/02/17 08:00 93 Room Air 06/02/17 07:49 36.5 78 20 142/69 (93) 93 Room Air 06/02/17 07:13 84 20 96 Room Air 06/02/17 02:07 79 20 93 Room Air 06/02/17 00:15 Room Air 06/01/17 23:30 93 Room Air 06/01/17 22:55 36.7 82 18 119/70 (86) 90 Room Air 06/01/17 22:46 75 90 Room Air 06/01/17 19:16 92 16 92 Room Air 06/01/17 17:52 92 148/71 (96) 93 Room Air 06/01/17 17:43 93 Room Air 06/01/17 16:00 Room Air 06/01/17 15:16 36.7 90 18 137/74 (95) 97 Room Air 06/01/17 14:19 86 16 93 Room Air Laboratory Results: Last 24 Hours Test 06/02/17 06:40 White Blood Count 16.16 K/uL Red Blood Count 3.88 M/uL Hemoglobin 12.0 g/dL Hematocrit 34.9 % Mean Corpuscular Volume 89.9 fL Mean Corpuscular Hemoglobin 30.9 pg Mean Corpuscular Hemoglobin Concent 34.4 g/dl RDW Standard Deviation 50.6 fL RDW Coefficient of Variation 15.5 % Platelet Count 358 K/uL Mean Platelet Volume 10.3 fL Sodium Level 136 mmol/L Potassium Level 4.2 mmol/L Chloride Level 108 mmol/L Carbon Dioxide Level 20 mmol/L Anion Gap 8.0 mmol/L Blood Urea Nitrogen 39 mg/dl Creatinine 1.26 mg/dl Est Creatinine Clear Calc Drug Dose 53.9 ml/min Estimated GFR () 60.7 Estimated GFR (Non- 52.4 BUN/Creatinine Ratio 31.2 Random Glucose 104 mg/dl Calcium Level 9.0 mg/dl
--- NOTE | 2017-06-02 17:05 | Cardiology Follow-Up ---
Cardiology Follow-Up Date of Service Jun 02, 2017. Cardiology Follow-Up SUBJECTIVE: 82-year-old man with history of dementia and hypertension, no prior cardiac history, who was admitted 05/30/2017. Evaluation by Dr. Amaya suggest a complex pneumonia which may require a chest tube at some point. Thursday night , the patient developed paroxysmal atrial fibrillation with rapid ventricular response lasting approximately 6 hours before reverting to sinus rhythm early Thursday morning. The patient felt well this morning. He had no further tachydysrhythmias over the past 48 hours. He denies any chest pain, dyspnea, subjective palpitations, lightheadedness, presyncope, or syncope. PHYSICAL EXAMINATION: No distress, appeared fairly comfortable. Vitals: Afebrile throughout his stay. BP 142/69, pulse 88 and regular, respirations 20 but unlabored. Skin: No unusual lesions or ecchymosis. HEENT: Unremarkable. Neck: Jugular venous pulse just above the clavicle at 90, no carotid bruits. Lungs: Decreased breath sounds lower left lung field, generally clear with no wheezing or crackles. No accessory muscle use, abdominal paradox, or nasal flaring. Cardiac: Regular rhythm with normal S1 and S2. No obvious murmur or gallop. Abdomen: Benign. Extremities: Nontender without edema. Intact peripheral pulses. Neurologic: Slightly distracted affect, nonfocal DATA: White count 16.16 (declining), hemoglobin 12.0 (stable), normal platelet count. Normal electrolytes with potassium of 4.2. Renal function improving with BUN 39 creatinine 1.6. Echocardiogram 05/31 showed normal left ventricular systolic function (EF 60-65 %) , with mild LVH most prominent in the septum, trivial valvular disease. No regional wall motion abnormalities. Unremarkable right heart. A nuclear study 1 year ago showed no myocardial ischemia. IMPRESSION: 1. New onset paroxysmal atrial fibrillation with rapid ventricular response, reverted to sinus rhythm over 48 hours ago. 2. No prior cardiac history. 3. Left lower lobe pneumonia. 4, History of hypertension, normotensive currently. 5. Apparent dementia, mild DISCUSSION: Patient with no significant cardiac history developed paroxysmal atrial fibrillation with rapid ventricular response in the context of hospital admission for left lower lobe pneumonia. Fortunately, he remained asymptomatic despite significant tachycardia, suggesting a low likelihood of concurrent myocardial ischemia/obstructive coronary disease. Current dose of metoprolol seems reasonable given his age and favorable hemodynamics. Electrolytes remain optimized. Volume status appears appropriate, no need for additional diuretic at this point. Given that possible future procedures are anticipated (chest tube placement, etc ) and given that his only episode of atrial fibrillation occurred in the context of hyperadrenergic state with borderline electrolytes, it would be reasonable to discharge him without anticoagulation. He will have multiple medical encounters in the near future to monitor for any recurrent atrial fibrillation, a decision can be made at that time as to the risk/benefit ratio chronic anticoagulation. If he requires no procedures and long-term anticoagulation is ultimately felt appropriate, could use Eliquis 2.5 mg b.i.d. (since his creatinine is greater than 1.5 and he is greater than 80 years of age , reduced dose is recommended). No active cardiac issues, please re-contact me if his clinical status should change. Thank you.
[2017-06-02] MEDS: LEVOFLOXACIN 750MG / D5W IV SCH (20:03)
[2017-06-02] MEDS: ACETAMINOPHEN 325 MG TAB PO PRN (20:07)
--- NOTE | 2017-06-02 21:40 | Family Medicine Progress Note ---
Progress Note Date of Service Jun 02, 2017. Subjective Pt evaluation today including: conversation w/ patient, conversation w/ family , physical exam Pain: Reports chronic back pain PO Intake: Tolerating well Voiding: no voiding problems Patient sitting upright eating breakfast this AM. No complaints, feels breathing is improving. Eager to leave hospital Constitutional: No fever, No chills Respiratory: + cough, + shortness of breath Musculoskeletal: + joint pain Neurologic: + memory loss All Other Systems: Reviewed and Negative Medications Current Inpatient Medications Medications (Trade) Dose Ordered Sig/Estuardo Route Start Time Stop Time Status Last Admin Dose Admin Enoxaparin Sodium (Lovenox Inj) 40 mg Q24H SQ 05/30/17 09:00 06/29/17 08:59 06/02/17 08:19 40 MG Acetaminophen (Tylenol Tab) 650 mg Q4H PRN PO 05/29/17 23:45 06/28/17 23:44 06/02/17 20:07 650 MG Al Hydrox/Mg Hydrox/Simethicone (Maalox Max Susp) 15 ml Q4H PRN PO 05/29/17 23:45 06/28/17 23:44 Magnesium Hydroxide (Milk Of Magnesia Susp) 30 ml Q6H PRN PO 05/29/17 23:45 06/28/17 23:44 Polyethylene (Miralax Powder Packet) 17 gm DAILY PRN PO 05/29/17 23:45 06/28/17 23:44 Ondansetron HCl (Zofran Inj) 4 mg Q6H PRN IV 05/29/17 23:45 06/28/17 23:44 Guaifenesin (Organidin Nr Tab) 600 mg BID PO 05/30/17 09:00 06/29/17 08:59 06/02/17 20:04 600 MG Ipratropium [place] (Atrovent 0.02% 0.5MG/2.5ML Neb) 0.5 mg Q6R INH 05/30/17 03:00 06/29/17 02:59 06/02/17 18:58 0.5 MG Levalbuterol (Xopenex 0.63 Mg/ 3 Ml Neb) 0.63 mg Q6R INH 05/30/17 03:00 06/29/17 02:59 06/02/17 18:58 0.63 MG Levofloxacin (Consult) 1 ea UD PRN N/A 05/30/17 05:30 06/29/17 05:29 Levofloxacin 750 mg/Prmx 150 ml @ 100 mls/hr Q48H IV 05/31/17 21:00 06/05/17 23:59 06/02/17 20:03 100 MLS/HR Levothyroxine Sodium (Synthroid Tab) 50 mcg DAILYBB PO 05/30/17 08:00 06/29/17 07:59 06/02/17 05:23 50 MCG Lovastatin (Mevacor Tab) 20 mg DAILY PO 05/30/17 09:00 06/29/17 08:59 06/02/17 08:18 20 MG Memantine (Namenda Tab) 10 mg BID PO 05/30/17 09:00 06/29/17 08:59 06/02/17 20:04 10 MG Oxybutynin Chloride (Ditropan Tab) 5 mg DAILY PO 05/30/17 09:00 06/29/17 08:59 06/02/17 08:19 5 MG Sertraline HCl (Zoloft Tab) 100 mg DAILY PO 05/30/17 09:00 06/29/17 08:59 06/02/17 08:18 100 MG Metoprolol Tartrate (Lopressor Tab) 25 mg BID PO 06/01/17 20:00 06/30/17 20:59 06/02/17 20:03 25 MG Cefepime HCl (Consult) 1 ea PRN N/A 06/01/17 14:30 07/01/17 14:29 Cefepime HCl 2000 mg/Syringe 20 ml @ 5 mls/min Q12@0600,1800 IV 06/01/17 18:00 06/08/17 17:59 06/02/17 18:11 5 MLS/MIN Objective Vital Signs Date Time Temp Pulse Resp B/P (MAP) Pulse Ox O2 Delivery O2 Flow Rate FiO2 06/02/17 18:58 78 20 96 Room Air 06/02/17 16:00 96 Room Air 06/02/17 15:09 88 20 96 Room Air 06/02/17 14:55 36.5 81 20 108/66 (80) 92 06/02/17 08:00 93 Room Air 06/02/17 07:49 36.5 78 20 142/69 (93) 93 Room Air 06/02/17 07:13 84 20 96 Room Air 06/02/17 02:07 79 20 93 Room Air 06/02/17 00:15 Room Air 06/01/17 23:30 93 Room Air 06/01/17 22:55 36.7 82 18 119/70 (86) 90 Room Air 06/01/17 22:46 75 90 Room Air Physical Exam General Appearance: WD/WN, no apparent distress ENT: + pertinent finding ([place]) Respiratory/Chest: no respiratory distress, no accessory muscle use, + decreased breath sounds (LLL), + crackles (LLL) Cardiovascular: regular rate, rhythm, no edema, no JVD Abdomen: non tender, soft Extremities: non-tender, normal inspection, no calf tenderness 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 PMH includes HTN, HLD, lumbar stenosis with neurogenic claudication, depression, hypothyroidism, GERD, vertigo, recent worsening forgetfulness, started on memantine. PSH: T11-S1 posterior spinal fusion in , Mohs surgery, appendectomy, herniorrhaphy. Severe pneumonia LLL and complex parapneumonic effusion: - CXR and CT chest show LLL PNA and small pleural effusion. - Leukocytosis 16 improved from 24. BCx x2 NGTD. Fungal studies NGTD. - Abx converted to be converted to oral augmentin. - Currently on room air, breathing comfortably. - Pulmonology consulted (see full note). 2-3 week pulm follow up with repeat CT scan in 6-8 weeks Episode of Atrial fibrillation with RVR: - On admission, developed new afib with RVR, started on diltiazem IV, converted to NSR - Started on metoprolol tartrate 12.5 mg PO BID, increased to 25 PO BID. - Discussed long-term anticoagulation, deferred at this time. Recommend event monitor for afib as outpatient to decide on need for anticoagulation - If anticoagulation required, eliquis 2.5 per cardio. Acute kidney injury: - Current Cr 1.26 - Likely is pre-renal in origin, continue to monitor Ongoing medical issues: - Chronic mid-thoracic back pain: S/p T11-S1 posterior spinal fusion in . - Hypothyroidism: On home synthroid. - Hyperlipidemia: On home lovastatin. - GERD: At home on prilosec, on protonix here. - Depression: On home sertraline. 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 First documented by PCP in July 2016 and forgetfulness, which worsened per notes over the next few months (pt forgetting [facility] friends, forgetting tasks , unaware of correct time of day. started on memantine in January 2017 after outpt labs and brain MRI negative. Has been A&O x 3 since admission) - ? Bladder issues: On ditropan. CT chest findings: Noted question of prominent left hilar mass. Noted probable cholelithiasis. Outpatient follow up. Code: Full code but no mechanical ventilation. DVTP: Lovenox q24h. Dispo: med/surg; to rehab tomorrow Resident Tracking Resident Involvement: Resident Care Provided Care Provided: Adult Hospital Medicine Reviewed: Pt Seen/Exam by Me History no new concerns. Constitutional: denies: fever Respiratory: negative: short of breath Cardiovascular: denies chest pain General Appearance: no apparent distress Respiratory: lungs clear, no respiratory distress Cardiovascular: regular rate, rhythm Neurologic/Psychiatric: alert Skin Characteristics: warm/dry Assessment/Plan Resident Physician Supervision Note: I independently interviewed and examined the patient and verified the auguste history and physical, reviewed labs and image studies, discussed the case with the resident Dr. Damon and agree with the findings and care plan.
[2017-06-03] VITALS (8 sets, daily range): BP systolic 112–136; BP diastolic 63–76; PULSE 74–80; TEMP 36.4–36.7; O2SAT 92–96
[2017-06-03] MEDS: IPRATROPIUM BROMIDE NEB SOLN 0.02% 2.5 ML VIAL INH SCH ×4 (02:38→19:10)
[2017-06-03] MEDS: LEVALBUTEROL 0.63MG/3 ML NEB INH SCH ×4 (02:38→19:10)
[2017-06-03] MEDS ORDERED: COUGH DROP (SUGAR FREE) LOZ 24 LOZ/1 BOX LOZ ONE (03:25)
[2017-06-03] MEDS: CEFEPIME IV 2,000 MG in SYRINGE 7.5 ML IV SCH (05:59)
[2017-06-03] MEDS: LEVOTHYROXINE 50 MCG TAB PO SCH (05:59)
[2017-06-03 07:02] LABS: HEMATOCRIT 34.4 % (42-52); HEMOGLOBIN 11.7 g/dL (14.0-18.0); MEAN CELL VOLUME 90.1 fL (80-100); MEAN CORPUSCULAR HEMOGLOBIN 30.6 pg (25-34); MEAN PLATELET VOLUME 10.4 fL (7.4-10.4); PLATELET COUNT 383 K/uL (130-400); RED CELL DISTRIBUTION WIDTH CV 15.4 % (11.5-14.5); RED CELL DISTRIBUTION WIDTH SD 50.6 fL (36.4-46.3); WHITE BLOOD COUNT 19.66 K/uL (4.8-10.8)
--- NOTE | 2017-06-03 08:01 | Discharge Instructions ---
Discharge Instructions Date of Service Jun 03, 2017. Admission Reason for Admission: Pneumonia Discharge Discharge Diagnosis / Problem: Pneumonia Discharge Goals Goal(s): Decrease discomfort, Improve disease control, Therapeutic intervention Activity Recommendations Activity Limitations: per Instructions/Follow-up section . Instructions / Follow-Up Instructions / Follow-Up 89 yo male admitted for ongoing cough and SOB, found to have severe LLL pna and complex parapneumonic effusion. PMH includes HTN, HLD, lumbar stenosis with neurogenic claudication, depression, hypothyroidism, GERD, vertigo, recent worsening forgetfulness, started on memantine. PSH: T11-S1 posterior spinal fusion in , Mohs surgery, appendectomy, herniorrhaphy. Severe pneumonia LLL and complex parapneumonic effusion: - CXR and CT chest showed LLL PNA and small pleural effusion. - Leukocytosis improved. BCx x2 NGTD. Fungal studies NGTD. - Abx converted to oral levaquin - Currently on room air, breathing comfortably. - Pulmonology consulted (see full note). 2-3 week pulm follow up with repeat CT scan in 6-8 weeks Episode of Atrial fibrillation with RVR: - On admission, developed new afib with RVR, started on diltiazem IV, converted to NSR - Started on metoprolol tartrate 12.5 mg PO BID, increased to 25 PO BID. - Discussed long-term anticoagulation, deferred at this time. Recommend event monitor for afib as outpatient to decide on need for anticoagulation - If anticoagulation required, eliquis 2.5 per cardio. Acute kidney injury: - Current Cr 1.26 - Likely is pre-renal in origin, continue to monitor Ongoing medical issues: - Chronic mid-thoracic back pain: S/p T11-S1 posterior spinal fusion in . - Hypothyroidism: On home synthroid. - Hyperlipidemia: On home lovastatin. - GERD: At home on prilosec, on protonix here. - Depression: On home sertraline. 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 First documented by PCP in July 2016 and forgetfulness, which worsened per notes over the next few months (pt forgetting custodial friends, forgetting tasks , unaware of correct time of day. started on memantine in January 2017 after outpt labs and brain MRI negative. Has been A&O x 3 since admission) - ? Bladder issues: On ditropan. CT chest findings: Noted question of prominent left hilar mass. Noted probable cholelithiasis. Outpatient follow up. Code: Full code but no mechanical ventilation. Current Hospital Diet Patient's current hospital diet: Regular Diet Discharge Diet Recommended Diet: Regular Diet Pending Studies Studies pending at discharge: no Medical Emergencies . Who to Call and When: Medical Emergencies: If at any time you feel your situation is an emergency, please call 911 immediately. . Non-Emergent Contact Non-Emergency issues call your: Primary Care Provider . . "Provider Documentation" section prepared by Shireen Damon. .
[2017-06-03] MEDS: SERTRALINE HCL 100 MG TAB PO SCH (08:02)
[2017-06-03] MEDS: MEMANTINE 10 MG TAB PO SCH ×2 (08:02→19:51)
[2017-06-03] MEDS: GUAIFENESIN 200 MG TAB PO SCH ×2 (08:02→19:51)
[2017-06-03] MEDS: LOVASTATIN 20 MG TAB PO SCH (08:02)
[2017-06-03] MEDS: OXYBUTYNIN CHLORIDE 5 MG TAB PO SCH (08:02)
[2017-06-03] MEDS: METOPROLOL TARTRATE 25 MG TAB PO SCH ×2 (08:03→19:51)
[2017-06-03] MEDS: ENOXAPARIN 40 MG/0.4 ML SYR SQ SCH (08:04)
--- NOTE | 2017-06-03 11:43 | Discharge Summary ---
Discharge Summary Date of Service Jun 09, 2017. Discharge Summary Admission Date: May 30, 2017 at 00:10 Discharge Date: Jun 03, 2017 Discharge Disposition: Rehab Principal Diagnosis: Pneumonia Problems/Secondary Diagnoses: Episode of Atrial fibrillation with RVR Acute kidney injury Chronic mid-thoracic back pain Hypothyroidism Hyperlipidemia GERD Depression Mild Dementia ? Bladder issues Immunizations: Have You Had Influenza Vaccine: Yes History of Tetanus Vaccine?: Yes History of Pneumococcal: Yes History of Hepatitis B Vaccine: No Procedures: Left thoracoscopy with partial decortication, pleurectomy and evacuation of pleural contents. Consultations: Pulm, Cardiothoracic surgery Medication Reconciliation New Medications: Amoxicillin & Pot Clavulanate (Amoxicillin/Clavulanate P) 1 Tab Tab 875 MG PO BIDM for 4 Days, #8 TAB Abx started 05/29/17 Levalbuterol (Levalbuterol HCl) 0.63 Mg/3 Ml Nebu 0.63 MG INH Q6H PRN for SOB/Wheezing for 10 Days, #120 ML Metoprolol Tartrate (Lopressor) 25 Mg Tab 25 MG PO BID for 30 Days, #60 TAB Continued Medications: Cholecalciferol (Vitamin D) 2,000 Unit Cap 2000 UNITS PO DAILY Cholestyramine Light (Questran Light) 4 Gm/Dose Pow 1 PACK PO DAILY PRN for PRN IRRITABLE BOWEL SYMPTOMS Levothyroxine Sodium (Levothyroxine Sodium) 50 Mcg Tab 50 MCG PO DAILY Lovastatin (Lovastatin) 20 Mg Tab 20 MG PO DAILY Meclizine Hcl (Meclizine Hcl) 25 Mg Tab 25 MG PO TID PRN for Dizziness or Vertigo PRN VERTIGO Memantine HCl (Memantine HCl) 10 Mg Tab 10 MG PO BID Naproxen Sodium (Naproxen Sodium Ds) 550 Mg Tab 550 MG PO BID PRN for Pain Omeprazole (Prilosec) 20 Mg Capcr 20 MG PO BID, CAP Oxybutynin Chloride (Oxybutynin Chloride) 5 Mg Tab 5 MG PO DAILY Sertraline HCl (Sertraline HCl) 100 Mg Tab 100 MG PO DAILY Discharge Exam Review of Systems: Constitutional: No fever, No chills ENT: + hearing loss Respiratory: + cough, + sputum, + dyspnea on exertion Abdomen: No nausea, No vomiting Musculoskeletal: + joint pain (back and rib pain with coughing) Neurologic: + memory loss Physical Exam: General Appearance: WD/WN, no apparent distress ENT: + pertinent finding ([place]) Respiratory/Chest: no respiratory distress, no accessory muscle use, + decreased breath sounds (LLL), + crackles (LLL) Cardiovascular: no murmur Abdomen / GI: non tender, soft Neurologic/Psychiatric: alert Hospital Course Mr Doherty was admitted for a LLL PNA with Pleural effusion. Med changes: - Antibiotics were started 05/29/17, he was transitioned to PO Augmentin on , was advised to finish 14 day course total. - Metoprolol tartrate 25mg BID started 06/01/17 for new onset atrial fibrillation Follow up: - Repeat CXR in 1 mo to ensure pneumonia resolution - CT chest findings: Noted question of prominent left hilar mass. Noted probable cholelithiasis. Outpatient follow up. 2-3 weeks outpatient visit, 6-8 week repeat scan Other problems as below: Episode of Atrial fibrillation with RVR: - On admission, developed new afib with RVR, started on diltiazem IV, converted to NSR - Started on metoprolol tartrate 12.5 mg PO BID, increased to 25 PO BID. 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 Recommend event monitor for afib as outpatient to decide on need for anticoagulation - If anticoagulation required, Eliquis 2.5mg per cardio. Acute kidney injury: Resolved - Likely was pre-renal in origin - Cr at discharge 0.93 - Chronic mid-thoracic back pain: S/p T11-S1 posterior spinal fusion in . - Hypothyroidism: On home synthroid. - Hyperlipidemia: On home lovastatin. - GERD: At home on prilosec, on protonix during admission. - Depression: On home sertraline. 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 First documented by PCP in July 2016 and forgetfulness, which worsened per notes over the next few months (pt forgetting snf friends, forgetting tasks , unaware of correct time of day. started on memantine in January 2017 after outpt labs and brain MRI negative. Has been A&O x 3 since admission) - ? Bladder issues: On ditropan. Resident Physician Supervision Note: I interviewed and examined the patient. Discussed with Dr. Damon and agree with findings and plan as documented in the note. Any exceptions or clarifications are listed here: None Documented By: Cj Alanis no new issues. initially insurance denied snf, called peer to peer, they were not working with accurate information when they denied. explained situation as far as lack of safety and they noted "i understand what you're saying but i still have to keep the denial" (amazingly, given that safety was not of their concern) but when updated PT notes were faxed then they approved snf. vitals noted nad breathing unlabored no pallor or icterus pneumonia/sepsis/loculated effusion - improving - as above stable for SNF/rehab emphasis - approved, discharge today Total Time Spent: Less than 30 minutes This includes examination of the patient, discharge planning, medication reconciliation, and communication with other providers. Discharge Instructions Please refer to the electronic Patient Visit Report (Discharge Instructions) for additional information. Follow-Up 1 week with Cardiothoracic Surgery 2-3 weeks with pulmonology outpatient 6-[address] weeks [address] chest CT Additional Copies To Deuce Ferreira M.D. Resident Tracking Resident Involvement: Resident Care Provided Care Provided: [facility] Medicine
[2017-06-03] MEDS: ACETAMINOPHEN 325 MG TAB PO PRN (12:13)
[2017-06-03 12:59] LABS: HEMATOCRIT 35.1 % (42-52); HEMOGLOBIN 12.1 g/dL (14.0-18.0); MEAN CORPUSCULAR HGB CONC 34.5 g/dl (32-36); MEAN PLATELET VOLUME 10.3 fL (7.4-10.4); PLATELET COUNT 381 K/uL (130-400); RED CELL DISTRIBUTION WIDTH CV 15.4 % (11.5-14.5); RED CELL DISTRIBUTION WIDTH SD 50.4 fL (36.4-46.3); WHITE BLOOD COUNT 20.37 K/uL (4.8-10.8)
[2017-06-03 13:17] LABS: BASO ABS # 0.01 K/uL (0-0.2); EOS % 1.1 %; EOS ABS # 0.23 K/uL (0-0.5); IG# 0.77 K/uL (0.00-0.02); LYMPH ABS # 1.23 K/uL (1.2-3.4); MONO % 7.8 %; MONO ABS # 1.58 K/uL (0.11-0.59); NEUT % 81.3 %; NEUT ABS # 16.55 K/uL (1.4-6.5)
[2017-06-03] MEDS ORDERED: KETOROLAC TROMETHAMINE 15 MG/ML VIAL IV. ONE (16:45)
--- NOTE | 2017-06-03 18:38 | DIAGNOSTIC IMAGING REPORT ---
(CHEST) THORAX WITHOUT CT DOSE: 581.66 mGycm CLINICAL HISTORY: 82 years-old Male with multifocal pneumonia, increasing WBC ?lung collapse. Follow-up study in a patient with pneumonia. TECHNIQUE: Multiaxial CT images of the chest were performed without contrast. A dose lowering technique was utilized adhering to the principles of ALARA. COMPARISON: CT chest 05/29/2017. FINDINGS: No dominant thyroid nodule. Evaluation for adenopathy is limited without use of IV contrast. No definite pathologically enlarged lymph nodes identified. Mild multichamber cardiac enlargement. Mural fibrofatty changes of the left ventricular apex suggest prior infarction. Coronary arterial disease. Moderate calcific plaquing of the thoracic aorta without aneurysm. Trace right pleural effusion with small loculated pleural effusion on the left redemonstrated. Left hemithorax pleural calcifications are also present. Multifocal consolidative opacities of the left lower lobe with central air bronchograms redemonstrated. Subsegmental consolidative opacities of the inferior segment lingula. Consolidation within left lower lobe appears similar to slightly progressed from comparison. Dependent subsegmental right basilar opacities suggest atelectasis. Interval development of groundglass opacities of the apical segment right upper lobe, image 51 series 4. Layering secretions are seen within the tracheobronchial tree. No definite central obstructing mass identified. Again, there is suggestion of mild narrowing involving the left lower lobe bronchus. Cholelithiasis. No acute process of the imaged upper abdomen. Mild bilateral gynecomastia. Posterior fusion hardware of the lower thoracic and lumbar spine, partially imaged. IMPRESSION: 1. Small loculated left pleural effusion with similar to slightly progressed consolidative opacities of the left lower lobe compatible with pneumonia. Additionally, there has been interval development of groundglass opacities of the apical segment right upper lobe suggesting additional site of pneumonia. 2. Trace right pleural effusion. 3. Pleural calcifications about the left hemithorax. 4. Cardiomegaly without overt pulmonary edema. 5. Cholelithiasis. Electronically signed by: Mohamud Elizabeth M.D. 06/03/2017 6:36 PM Dictated Date/Time: 06/03/2017 6:28 PM
--- NOTE | 2017-06-03 18:38 | Pulmonology Progress Note ---
Pulmonary Progress Note Date of Service Jun 03, 2017. Attending Dr. Rivera Subjective Patient notes he is having some sputum production white to yellow in nature today as well as some pleuritic type chest pain on the left hemithorax approximately the midclavicular line just below the nipple line. Objective 82-yo male admitted through the ED from his PCPs office 05/29/2017 with 3-week history of cough, fevers, AMS, and hypoxia with work-up notable for LLL pneumonia with appearance of loculated pleural effusion. Today the patient notes some minimally productive cough and some mild pleurisy. He is able to sit up in a chair with no signs of accessory muscle use or no signs of pending respiratory insufficiency. He also denies: Fever, chills, hemoptysis, classic cardiac chest pain. Prior records were reviewed. PMHx includes: hypertension, hyperlipidemia, GERD, hypothyroid, lumbar stenosis. CXR 05/29/17 LLL consolidation and left pleural effusion CT Chest without contrast 05/29/17: Dense LLL consolidation and appearance of loculated pleural effusion. Prominent hilum with narrowing of the LLL bronchi Swallow eval for 11/12/2017: No significant signs of aspiration CT thorax 06/03/2017: Signs of increasing left lower lobe pleural effusion, final read pending Patient evaluated with bedside ultrasound and effusion was not felt to be amendable to thoracentesis based on characteristics and size. He is treated with antibiotic (pip-tazo + levofloxacin), bronchodilators, and expectorant as well as rate control secondary to development of a.fib RVR 05/31/2017. Echocardiogram 05/31/17 notable for mild LVH with pEF. Today: - SaO2RA: 92-96% - WBC 20K Physical Exam: Constitutional: WDWN elderly male sitting at bedside - no acute distress HEENT: + facial symmetry. Pale conjunctive. Moist mucous membranes without oral lesions Respiratory: No signs of accessory muscle use, decreased breath sounds with dullness to percussion and rhonchi lung left hemithorax especially at the base CV: Regular rate and rhythm. No MRG. Warm and perfused peripherally. No clubbing or cyanosis Abdomen: Soft, Active bowel sounds MSK/Extremities: Moving and developed symmetrically. 1+ pitting edema Neurologic: Alert and oriented to person and place. Tangential speech. Hearing loss. Assessment & Plan 82-year-old male admitted with severe community-acquired pneumonia/sepsis 1. Severe community-acquired pneumonia: Patient is slowly progressing but notably having some increased sputum production and a mild increase in his total white blood cell count. At this time with continue on the Levaquin and continue to hold the cefepime and monitor the patient. 2. Complex parapneumonic effusion: CT performed 06/03/2017 appears to have increased pleural effusion. Will perform bedside ultrasound examination if increased effusion is noted and a good window was available then move forward with thoracentesis for evaluation of empyema versus parapneumonic effusion. 3. left lower lobe nodule/hilar adenopathy: Patient has a left lower lobe nodule versus prominent hilar lymphadenopathy. This could be reactive or possibly even underlying malignancy. I do not have previous images to have a better understanding of the chronicity of this issue. I spoken to the patient and family at length and have emphasized the need for follow-up. Data Medications: Current Inpatient Medications Medications (Trade) Dose Ordered Sig/Estuardo Route Start Time Stop Time Status Last Admin Dose Admin Enoxaparin Sodium (Lovenox Inj) 40 mg Q24H SQ 05/30/17 09:00 06/29/17 08:59 06/03/17 08:04 40 MG Acetaminophen (Tylenol Tab) 650 mg Q4H PRN PO 05/29/17 23:45 06/28/17 23:44 06/03/17 12:13 650 MG Al Hydrox/Mg Hydrox/Simethicone (Maalox Max Susp) 15 ml Q4H PRN PO 05/29/17 23:45 06/28/17 23:44 Magnesium Hydroxide (Milk Of Magnesia Susp) 30 ml Q6H PRN PO 05/29/17 23:45 06/28/17 23:44 Polyethylene (Miralax Powder Packet) 17 gm DAILY PRN PO 05/29/17 23:45 06/28/17 23:44 Ondansetron HCl (Zofran Inj) 4 mg Q6H PRN IV 05/29/17 23:45 06/28/17 23:44 Guaifenesin (Organidin Nr Tab) 600 mg BID PO 05/30/17 09:00 06/29/17 08:59 06/03/17 08:02 600 MG Ipratropium [place] (Atrovent 0.02% 0.5MG/2.5ML Neb) 0.5 mg Q6R INH 05/30/17 03:00 06/29/17 02:59 06/03/17 14:19 0.5 MG Levalbuterol (Xopenex 0.63 Mg/ 3 Ml Neb) 0.63 mg Q6R INH 05/30/17 03:00 06/29/17 02:59 06/03/17 14:19 0.63 MG Levofloxacin (Consult) 1 ea UD PRN N/A 05/30/17 05:30 06/29/17 05:29 Levofloxacin 750 mg/Prmx 150 ml @ 100 mls/hr Q48H IV 05/31/17 21:00 06/05/17 23:59 06/02/17 20:03 100 MLS/HR Levothyroxine Sodium (Synthroid Tab) 50 mcg DAILYBB PO 05/30/17 08:00 06/29/17 07:59 06/03/17 05:59 50 MCG Lovastatin (Mevacor Tab) 20 mg DAILY PO 05/30/17 09:00 06/29/17 08:59 06/03/17 08:02 20 MG Memantine (Namenda Tab) 10 mg BID PO 05/30/17 09:00 06/29/17 08:59 06/03/17 08:02 10 MG Oxybutynin Chloride (Ditropan Tab) 5 mg DAILY PO 05/30/17 09:00 06/29/17 08:59 06/03/17 08:02 5 MG Sertraline HCl (Zoloft Tab) 100 mg DAILY PO 05/30/17 09:00 06/29/17 08:59 06/03/17 08:02 100 MG Metoprolol Tartrate (Lopressor Tab) 25 mg BID PO 06/01/17 20:00 06/30/17 20:59 06/03/17 08:03 25 MG I & O: 24-Hour Column 06/04/17 08:00 Intake Total 450 ml Balance 450 ml Vital Signs: Date Time Temp Pulse Resp B/P (MAP) Pulse Ox O2 Delivery O2 Flow Rate FiO2 06/03/17 16:08 36.4 76 18 112/63 (79) 92 Room Air 06/03/17 16:00 93 Room Air 06/03/17 08:00 93 Room Air 06/03/17 07:34 75 18 93 Room Air 06/03/17 07:33 36.7 74 18 136/75 (95) 93 Room Air 06/03/17 00:25 96 Room Air 06/02/17 22:36 36.4 76 20 115/63 (80) 91 Room Air 06/02/17 18:58 78 20 96 Room Air Laboratory Results: Last 24 Hours Test 06/03/17 06:41 06/03/17 12:51 White Blood Count 19.66 K/uL 20.37 K/uL Red Blood Count 3.82 M/uL 3.90 M/uL Hemoglobin 11.7 g/dL 12.1 g/dL Hematocrit 34.4 % 35.1 % Mean Corpuscular Volume 90.1 fL 90.0 fL Mean Corpuscular Hemoglobin 30.6 pg 31.0 pg Mean Corpuscular Hemoglobin Concent 34.0 g/dl 34.5 g/dl RDW Standard Deviation 50.6 fL 50.4 fL RDW Coefficient of Variation 15.4 % 15.4 % Platelet Count 383 K/uL 381 K/uL Mean Platelet Volume 10.4 fL 10.3 fL Neutrophils (%) (Auto) 81.3 % Lymphocytes (%) (Auto) 6.0 % Monocytes (%) (Auto) 7.8 % Eosinophils (%) (Auto) 1.1 % Basophils (%) (Auto) 0.0 % Neutrophils # (Auto) 16.55 K/uL Lymphocytes # (Auto) 1.23 K/uL Monocytes # (Auto) 1.58 K/uL Eosinophils # (Auto) 0.23 K/uL Basophils # (Auto) 0.01 K/uL Immature Granulocyte % (Auto) 3.8 % Immature Granulocyte # (Auto) 0.77 K/uL Ovalocytes 1+ Echinocytes 1+
[2017-06-03] MEDS ORDERED: KETOROLAC TROMETHAMINE 15 MG/ML VIAL ONE (19:35)
--- NOTE | 2017-06-03 20:19 | Family Medicine Progress Note ---
Progress Note Date of Service Jun 03, 2017. Subjective Pt evaluation today including: conversation w/ patient, conversation w/ family , physical exam Pain: Moderate pleruitic left sided rib pain PO Intake: Tolerating well Voiding: no voiding problems Patient eager to be transported to rehab. Reports increasing left sided pleuritic chest/rib pain with coughing. concerned about him participating in rehab with pain. Constitutional: No fever, No chills ENT: + hearing loss Respiratory: + cough, + shortness of breath Cardiovascular: + chest pain (chest wall/pleuritic left sided pain) Abdomen: No pain, No nausea, No vomiting Neurologic: + memory loss All Other Systems: Reviewed and Negative Medications Current Inpatient Medications Medications (Trade) Dose Ordered Sig/Estuardo Route Start Time Stop Time Status Last Admin Dose Admin Enoxaparin Sodium (Lovenox Inj) 40 mg Q24H SQ 05/30/17 09:00 06/29/17 08:59 06/03/17 08:04 40 MG Acetaminophen (Tylenol Tab) 650 mg Q4H PRN PO 05/29/17 23:45 06/28/17 23:44 06/03/17 12:13 650 MG Al Hydrox/Mg Hydrox/Simethicone (Maalox Max Susp) 15 ml Q4H PRN PO 05/29/17 23:45 06/28/17 23:44 Magnesium Hydroxide (Milk Of Magnesia Susp) 30 ml Q6H PRN PO 05/29/17 23:45 06/28/17 23:44 Polyethylene (Miralax Powder Packet) 17 gm DAILY PRN PO 05/29/17 23:45 06/28/17 23:44 Ondansetron HCl (Zofran Inj) 4 mg Q6H PRN IV 05/29/17 23:45 06/28/17 23:44 Guaifenesin (Organidin Nr Tab) 600 mg BID PO 05/30/17 09:00 06/29/17 08:59 06/03/17 19:51 600 MG Ipratropium [place] (Atrovent 0.02% 0.5MG/2.5ML Neb) 0.5 mg Q6R INH 05/30/17 03:00 06/29/17 02:59 06/03/17 19:10 0.5 MG Levalbuterol (Xopenex 0.63 Mg/ 3 Ml Neb) 0.63 mg Q6R INH 05/30/17 03:00 06/29/17 02:59 06/03/17 19:10 0.63 MG Levofloxacin (Consult) 1 ea UD PRN N/A 05/30/17 05:30 06/29/17 05:29 Levofloxacin 750 mg/Prmx 150 ml @ 100 mls/hr Q48H IV 05/31/17 21:00 06/05/17 23:59 06/02/17 20:03 100 MLS/HR Levothyroxine Sodium (Synthroid Tab) 50 mcg DAILYBB PO 05/30/17 08:00 06/29/17 07:59 06/03/17 05:59 50 MCG Lovastatin (Mevacor Tab) 20 mg DAILY PO 05/30/17 09:00 06/29/17 08:59 06/03/17 08:02 20 MG Memantine (Namenda Tab) 10 mg BID PO 05/30/17 09:00 06/29/17 08:59 06/03/17 19:51 10 MG Oxybutynin Chloride (Ditropan Tab) 5 mg DAILY PO 05/30/17 09:00 06/29/17 08:59 06/03/17 08:02 5 MG Sertraline HCl (Zoloft Tab) 100 mg DAILY PO 05/30/17 09:00 06/29/17 08:59 06/03/17 08:02 100 MG Metoprolol Tartrate (Lopressor Tab) 25 mg BID PO 06/01/17 20:00 06/30/17 20:59 06/03/17 19:51 25 MG Objective Vital Signs Date Time Temp Pulse Resp B/P (MAP) Pulse Ox O2 Delivery O2 Flow Rate FiO2 06/03/17 19:10 80 16 92 Room Air 06/03/17 16:08 36.4 76 18 112/63 (79) 92 Room Air 06/03/17 16:00 93 Room Air 06/03/17 08:00 93 Room Air 06/03/17 07:34 75 18 93 Room Air 06/03/17 07:33 36.7 74 18 136/75 (95) 93 Room Air 06/03/17 00:25 96 Room Air 06/02/17 22:36 36.4 76 20 115/63 (80) 91 Room Air Physical Exam General Appearance: WD/WN, no apparent distress Eyes: PERRL ENT: + pertinent finding ([place]) Respiratory/Chest: no accessory muscle use, + decreased breath sounds (LLL), + crackles (LLL) Cardiovascular: regular rate, rhythm, no edema, no murmur Abdomen: normal bowel sounds, non tender, soft Extremities: non-tender, normal inspection, no pedal edema Neurologic/Psychiatric: no motor/sensory deficits, alert, normal mood/affect Skin: normal color Laboratory Results Last Resulted 06/03/17 12:51 Red Blood Count 3.90, Mean Corpuscular Volume 90.0, Mean Corpuscular Hemoglobin 31.0, Mean Corpuscular Hemoglobin Concent 34.5, Mean Platelet Volume 10.3, Neutrophils (%) (Auto) 81.3, Lymphocytes (%) (Auto) 6.0, Monocytes (%) (Auto) 7.8, Eosinophils (%) (Auto) 1.1, Basophils (%) (Auto) 0.0, Neutrophils # (Auto) 16.55, Lymphocytes # (Auto) 1.23, Monocytes # (Auto) 1.58, Eosinophils # (Auto) 0.23, Basophils # (Auto) 0.01 Last Resulted 06/02/17 06:40 Assessment and Plan 89 yo male admitted for ongoing cough and SOB, found to have severe LLL pna and complex parapneumonic effusion. PMH includes HTN, HLD, lumbar stenosis with neurogenic claudication, depression, hypothyroidism, GERD, vertigo, recent worsening forgetfulness, started on memantine. PSH: T11-S1 posterior spinal fusion in , Mohs surgery, appendectomy, herniorrhaphy. Severe pneumonia LLL and complex parapneumonic effusion: - CXR and CT chest show LLL PNA and small pleural effusion. - Leukocytosis overall improved. BCx x2 NGTD. Fungal studies NGTD. - Abx converted to oral augmentin. - Currently on room air - Reporting increased pleuritic pain, requiring one time dose of 15 mg toradol. Unable to be discharged today due to level of pain. - Repeat CT showed some progression of effusion. Continue on antibiotics, reassess tomorrow. - Pulmonology consulted (see full note). 2-3 week pulm follow up with repeat CT scan in 6-8 weeks Episode of Atrial fibrillation with RVR: - On admission, developed new afib with RVR, started on diltiazem IV, converted to NSR - Started on metoprolol tartrate 12.5 mg PO BID, increased to 25 PO BID. - Discussed long-term anticoagulation, deferred at this time. Recommend event monitor for afib as outpatient to decide on need for anticoagulation - If anticoagulation required, eliquis 2.5 per cardio. Acute kidney injury: Resolved - Current Cr 1.26 - Likely is pre-renal in origin, continue to monitor Ongoing medical issues: - Chronic mid-thoracic back pain: S/p T11-S1 posterior spinal fusion in . - Hypothyroidism: On home synthroid. - Hyperlipidemia: On home lovastatin. - GERD: At home on prilosec, on protonix here. - Depression: On home sertraline. 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 First documented by PCP in July 2016 and forgetfulness, which worsened per notes over the next few months (pt forgetting [facility] friends, forgetting tasks , unaware of correct time of day. started on memantine in January 2017 after outpt labs and brain MRI negative. Has been A&O x 3 since admission) - ? Bladder issues: On ditropan. CT chest findings: Noted question of prominent left hilar mass. Noted probable cholelithiasis. Outpatient follow up. Code: Full code but no mechanical ventilation. DVTP: Lovenox q24h. Dispo: med/surg; to rehab tomorrow Resident Tracking Resident Involvement: Resident Care Provided Care Provided: Adult Hospital Medicine Reviewed: Pt Seen/Exam by Me History coughing more since am. left side chest hurting as well. Constitutional: denies: fever Respiratory: positive: cough, negative: short of breath Cardiovascular: denies chest pain General Appearance: no apparent distress Respiratory: no respiratory distress, decreased breath sounds (left base) Cardiovascular: regular rate, rhythm Neurologic/Psychiatric: alert, oriented x 3 Assessment/Plan Resident Physician Supervision Note: I independently interviewed and examined the patient and verified the auguste history and physical, reviewed labs and image studies, discussed the case with the resident Dr. Damon and agree with the findings and care plan.
[2017-06-04] VITALS (8 sets, daily range): BP systolic 106–133; BP diastolic 63–73; PULSE 68–80; TEMP 36.5–36.7; O2SAT 92–95
[2017-06-04] MEDS: IPRATROPIUM BROMIDE NEB SOLN 0.02% 2.5 ML VIAL INH SCH ×4 (01:42→19:10)
[2017-06-04] MEDS: LEVALBUTEROL 0.63MG/3 ML NEB INH SCH ×4 (01:42→19:10)
[2017-06-04] MEDS: ACETAMINOPHEN 325 MG TAB PO PRN ×4 (02:02→20:26)
[2017-06-04] MEDS: LEVOTHYROXINE 50 MCG TAB PO SCH (06:14)
[2017-06-04 06:50] LABS: BASO % 0.2 %; BASO ABS # 0.04 K/uL (0-0.2); EOS % 1.6 %; EOS ABS # 0.35 K/uL (0-0.5); HEMATOCRIT 34.6 % (42-52); HEMOGLOBIN 11.8 g/dL (14.0-18.0); IG# 0.76 K/uL (0.00-0.02); LYMPH % 5.8 %; LYMPH ABS # 1.24 K/uL (1.2-3.4); MEAN CELL VOLUME 91.3 fL (80-100); MEAN CORPUSCULAR HEMOGLOBIN 31.1 pg (25-34); MEAN CORPUSCULAR HGB CONC 34.1 g/dl (32-36); MEAN PLATELET VOLUME 10.5 fL (7.4-10.4); MONO % 7.6 %; MONO ABS # 1.61 K/uL (0.11-0.59); NEUT % 81.2 %; NEUT ABS # 17.32 K/uL (1.4-6.5); PLATELET COUNT 406 K/uL (130-400); RED CELL DISTRIBUTION WIDTH CV 15.4 % (11.5-14.5); RED CELL DISTRIBUTION WIDTH SD 51.9 fL (36.4-46.3); WHITE BLOOD COUNT 21.32 K/uL (4.8-10.8)
[2017-06-04 07:20] LABS: CALCIUM 8.4 mg/dl (8.5-10.1); CREATININE 1.14 mg/dl (0.60-1.40); POTASSIUM 3.8 mmol/L (3.5-5.1)
[2017-06-04] MEDS: LOVASTATIN 20 MG TAB PO SCH (09:02)
[2017-06-04] MEDS: SERTRALINE HCL 100 MG TAB PO SCH (09:02)
[2017-06-04] MEDS: OXYBUTYNIN CHLORIDE 5 MG TAB PO SCH (09:02)
[2017-06-04] MEDS: MEMANTINE 10 MG TAB PO SCH ×2 (09:02→20:27)
[2017-06-04] MEDS: GUAIFENESIN 200 MG TAB PO SCH ×2 (09:02→20:26)
[2017-06-04] MEDS: METOPROLOL TARTRATE 25 MG TAB PO SCH ×2 (09:02→20:28)
[2017-06-04] MEDS: ENOXAPARIN 40 MG/0.4 ML SYR SQ SCH (09:02)
[2017-06-04] MEDS ORDERED: PIPERACILL/TAZOBAC CONSULT ACTIVE PRN (09:30)
[2017-06-04] MEDS ORDERED: PIPERACILL/TAZOBAC IV 4.5 GM in NSS 100 ML IV ONE (09:45)
--- NOTE | 2017-06-04 10:33 | Pulmonology Progress Note ---
Pulmonary Progress Note Date of Service Jun 04, 2017. Attending Dr. Rivera Subjective Patient sitting up in chair moving throughout the Room with no respiratory insufficiency Objective 82-yo male admitted through the ED from his PCPs office 05/29/2017 with 3-week history of cough, fevers, AMS, and hypoxia with work-up notable for LLL pneumonia with appearance of loculated pleural effusion. Today patient continues to note some pleurisy and decreasing sputum production and denies: Fever, chills, classic cardiac chest pain, rigors or night sweats Prior records were reviewed. PMHx includes: hypertension, hyperlipidemia, GERD, hypothyroid, lumbar stenosis. CXR 05/29/17 LLL consolidation and left pleural effusion CT Chest without contrast 05/29/17: Dense LLL consolidation and appearance of loculated pleural effusion. Prominent hilum with narrowing of the LLL bronchi Swallow eval for 11/12/2017: No significant signs of aspiration CT thorax 06/03/2017: Signs of increasing left lower lobe pleural effusion, final read pending Patient evaluated with bedside ultrasound and effusion was not felt to be amendable to thoracentesis based on characteristics and size. He is treated with antibiotic (pip-tazo + levofloxacin), bronchodilators, and expectorant as well as rate control secondary to development of a.fib RVR 05/31/2017. Echocardiogram 05/31/17 notable for mild LVH with pEF. Today: - SaO2RA: 92-93% - WBC 21K Physical Exam: Constitutional: WDWN elderly male sitting at bedside - no acute distress HEENT: + facial symmetry. Pale conjunctive. Moist mucous membranes without oral lesions Respiratory: No signs of accessory muscle use, decreased breath sounds with dullness to percussion and rhonchi lung left hemithorax especially at the base CV: Regular rate and rhythm. No MRG. Warm and perfused peripherally. No clubbing or cyanosis Abdomen: Soft, Active bowel sounds MSK/Extremities: Moving and developed symmetrically. 1+ pitting edema Neurologic: Alert and oriented to person and place. Tangential speech. Hearing loss. Thoracic ultrasound: Shows multiple loculated effusion with hyperdense fluid the Assessment & Plan 82-year-old male admitted with severe community-acquired pneumonia/sepsis 1. Severe community-acquired pneumonia: At this time I believe we should consult cardiothoracic surgery and restart the patient on anaerobic coverage such as Zosyn. Do not believe continue other antibiotics is warranted at this time. 2. Complex parapneumonic effusion: Ultrasonic evaluation as well as CT of the chest performed 06/03/2017 shows increasing pleural effusion as the patient's white blood count is rising I believe CTS consultation for decortication is warranted at this time. 3. left lower lobe nodule/hilar adenopathy: Patient has a left lower lobe nodule versus prominent hilar lymphadenopathy. This could be reactive or possibly even underlying malignancy. I do not have previous images to have a better understanding of the chronicity of this issue. I spoken to the patient and family at length and have emphasized the need for follow-up. Data Medications: Current Inpatient Medications Medications (Trade) Dose Ordered Sig/Estuardo Route Start Time Stop Time Status Last Admin Dose Admin Acetaminophen (Tylenol Tab) 650 mg Q4H PRN PO 05/29/17 23:45 06/28/17 23:44 06/04/17 09:02 650 MG Al Hydrox/Mg Hydrox/Simethicone (Maalox Max Susp) 15 ml Q4H PRN PO 05/29/17 23:45 06/28/17 23:44 Magnesium Hydroxide (Milk Of Magnesia Susp) 30 ml Q6H PRN PO 05/29/17 23:45 06/28/17 23:44 Polyethylene (Miralax Powder Packet) 17 gm DAILY PRN PO 05/29/17 23:45 06/28/17 23:44 Ondansetron HCl (Zofran Inj) 4 mg Q6H PRN IV 05/29/17 23:45 06/28/17 23:44 Guaifenesin (Organidin Nr Tab) 600 mg BID PO 05/30/17 09:00 06/29/17 08:59 06/04/17 09:02 600 MG Ipratropium [place] (Atrovent 0.02% 0.5MG/2.5ML Neb) 0.5 mg Q6R INH 05/30/17 03:00 06/29/17 02:59 06/04/17 07:10 0.5 MG Levalbuterol (Xopenex 0.63 Mg/ 3 Ml Neb) 0.63 mg Q6R INH 05/30/17 03:00 06/29/17 02:59 06/04/17 07:10 0.63 MG Levofloxacin (Consult) 1 [facility] PRN N/A 05/30/17 05:30 06/29/17 05:29 Levothyroxine Sodium (Synthroid Tab) 50 mcg DAILYBB PO 05/30/17 08:00 06/29/17 07:59 06/04/17 06:14 50 MCG Lovastatin (Mevacor Tab) 20 mg DAILY PO 05/30/17 09:00 06/29/17 08:59 06/04/17 09:02 20 MG Memantine (Namenda Tab) 10 mg BID PO 05/30/17 09:00 06/29/17 08:59 06/04/17 09:02 10 MG Oxybutynin Chloride (Ditropan Tab) 5 mg DAILY PO 05/30/17 09:00 06/29/17 08:59 06/04/17 09:02 5 MG Sertraline HCl (Zoloft Tab) 100 mg DAILY PO 05/30/17 09:00 06/29/17 08:59 06/04/17 09:02 100 MG Metoprolol Tartrate (Lopressor Tab) 25 mg BID PO 06/01/17 20:00 06/30/17 20:59 06/04/17 09:02 25 MG Levofloxacin (Levaquin Tab) 750 mg Q2D PO 06/04/17 20:00 06/05/17 19:59 Miscellaneous Information (Consult) 1 [facility] PRN N/A 06/04/17 09:30 07/04/17 09:29 Piperacillin Sod/ Tazobactam Sod 3.375 gm/Sodium Chloride 115 ml @ 28.75 mls/ hr Q8H IV 06/04/17 16:00 06/11/17 15:59 Vital Signs: Date Time Temp Pulse Resp B/P (MAP) Pulse Ox O2 Delivery O2 Flow Rate FiO2 06/04/17 07:11 70 16 93 Room Air 06/04/17 06:55 36.7 70 18 133/72 (92) 92 Room Air 06/04/17 01:42 72 16 92 Room Air 06/03/17 23:59 Room Air 06/03/17 23:00 36.5 80 18 131/76 (94) 92 Room Air 06/03/17 19:10 80 16 92 Room Air 06/03/17 16:08 36.4 76 18 112/63 (79) 92 Room Air 06/03/17 16:00 93 Room Air Laboratory Results: Last 24 Hours Test 06/03/17 12:51 06/04/17 06:00 White Blood Count 20.37 K/uL 21.32 K/uL Red Blood Count 3.90 M/uL 3.79 M/uL Hemoglobin 12.1 g/dL 11.8 g/dL Hematocrit 35.1 % 34.6 % Mean Corpuscular Volume 90.0 fL 91.3 fL Mean Corpuscular Hemoglobin 31.0 pg 31.1 pg Mean Corpuscular Hemoglobin Concent 34.5 g/dl 34.1 g/dl Platelet Count 381 K/uL 406 K/uL Mean Platelet Volume 10.3 fL 10.5 fL Neutrophils (%) (Auto) 81.3 % 81.2 % Lymphocytes (%) (Auto) 6.0 % 5.8 % Monocytes (%) (Auto) 7.8 % 7.6 % Eosinophils (%) (Auto) 1.1 % 1.6 % Basophils (%) (Auto) 0.0 % 0.2 % Neutrophils # (Auto) 16.55 K/uL 17.32 K/uL Lymphocytes # (Auto) 1.23 K/uL 1.24 K/uL Monocytes # (Auto) 1.58 K/uL 1.61 K/uL Eosinophils # (Auto) 0.23 K/uL 0.35 K/uL Basophils # (Auto) 0.01 K/uL 0.04 K/uL RDW Standard Deviation 50.4 fL 51.9 fL RDW Coefficient of Variation 15.4 % 15.4 % Immature Granulocyte % (Auto) 3.8 % 3.6 % Immature Granulocyte # (Auto) 0.77 K/uL 0.76 K/uL Ovalocytes 1+ Echinocytes 1+ Sodium Level 139 mmol/L Potassium Level 3.8 mmol/L Chloride Level 109 mmol/L Carbon Dioxide Level 23 mmol/L Anion Gap 7.0 mmol/L Blood Urea Nitrogen 33 mg/dl Creatinine 1.14 mg/dl Est Creatinine Clear Calc Drug Dose 59.6 ml/min Estimated GFR () 68.5 Estimated GFR (Non- 59.1 BUN/Creatinine Ratio 28.7 Random Glucose 124 mg/dl Calcium Level 8.4 mg/dl
[2017-06-04] MEDS ORDERED: PIPERACILL/TAZOBAC IV 3.375 GM in DEXTROSE 5% 100ML 100 ML IV SCH (12:00)
--- NOTE | 2017-06-04 14:38 | SURGICAL CONSULTATION ---
DATE OF CONSULTATION: 06/04/2017 REASON FOR CONSULTATION: Complicated left pleural effusion. 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 He also had some mild dementia and hypertension. He was admitted on 05/30/2017. He was found to have a complex pneumonia and he was converted back to a sinus rhythm after several hours. He has been treated for this complex pneumonia. His white count was elevated. Initially, his white count went down from a high of 35,000 down to 16,160 on the ; however, in the last 48 hours, has climbed back up to 21,320. He has not been febrile, but his is very concerned because she states that he has not done very that he is "sliding backwards." We had a long talk about this. I reviewed his CT scan. He actually has a bit more fluid than he had when he came in on the left. He has almost complete collapse of his left lower lobe. He does have a cough, it is not productive of much sputum. Thus far, we have not grown anything from his blood cultures or his sputum. I was asked to evaluate him for drainage and management of this complicated effusion. Dr. Rivera saw him today and after a bedside ultrasound and viewing repeat CT scans, he would like me to consider a decortication. I had a long talk with the patient, his and his sister at the bedside. PAST MEDICAL HISTORY: 1. New onset atrial fibrillation, (episodic). 2. Mild dementia. 3. Gastroesophageal reflux disease. 4. Dyslipidemia. 5. Hypothyroidism. 6. Hypertension. 7. Hyperglycemia. 8. Zenker's diverticulum. 9. Depression. 10. Chronic diarrhea. 11. 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 PAST SURGICAL HISTORY: 1. L3-S1 decompression with rodding and hardware application. 2. Decompression of L1-L3 with T11-S1 posterior spinal fusion with interbody fusion, application of interbody cage and hardware removal, L3-S1. 3. Left carpal tunnel syndrome. 4. Bilateral cataract extraction with lens implant. 5. Colonoscopy. 6. Esophageal diverticulum repair, 1996. 7. Herniorrhaphy. 8. Appendectomy. 9. Left shoulder repair, 1996. MEDICATIONS ( AN OUTPATIENT): 1. Vitamin D. 2. Questran. 3. Synthroid. 4. Lovastatin. 5. Meclizine. 6. Naprosyn. 7. Namenda. 8. Omeprazole. 9. Oxybutynin. 10. Sertraline. ALLERGIES: HYDROCODONE CAUSES CONFUSION. The patient has been on antibiotics since he was admitted and this has included cefepime, Levaquin, Zosyn. SOCIAL HISTORY: The patient lives with his who is very supportive. He has never smoked cigarettes. He has never been in the . He has not used alcohol. He is of course retired reinforcing steel worker. His is very attentive. FAMILY MEDICAL HISTORY: There is a history of cancer. His 2 children and 2 grandchildren are healthy. REVIEW OF SYSTEMS: The patient is not a very good historian. He did come in with a fever of 103 and was hypoxic and very confused. He did present with a 3-week history of a productive cough. He also had some fever and chills. Denied night sweats. He denied pharyngeal symptoms. He is normally followed by Dr. Ferreira in [place]. He has had no nausea or vomiting. He does have diarrhea chronically. He denies any dysuria or hematuria. He has had mild edema of his lower legs. His walking is impaired by his lumbar stenosis. He also has pain in his back. He denies any skin breakdown. He has had no hearing or visual loss recently, but is a bit hard of hearing. He has cataracts extracted with lens implants in the past. He denies palpitations even when he had the atrial fibrillation. PHYSICAL EXAMINATION: GENERAL: This is a very nice male who appears younger than stated age. He stands 5 feet 11 inches tall and weighs 224 pounds. He is awake, alert and oriented. HEENT: His pupils are small, but contracted. His sclerae are pale, but anicteric. He has no nasolabial flattening. His teeth are in excellent repair. He has no oropharyngeal lesions. His pharynx is clear. NECK: Supple. I really do not hear any carotid bruits. He had no lymphadenopathy. LUNGS: He has decreased breath sounds in both bases with some very mild expiratory wheezing on the right with decreased breath sounds on the left. He has a well-healed incision which goes along most of his back. HEART: Currently, he has a regular rate and rhythm of his heart. I detect no significant murmur. ABDOMEN: Obese, soft, nontender with good bowel sounds. He has no surgical incisions. He has good femoral pulses. I can palpate pedal pulses. He has trace edema bilaterally with no joint effusions. NEUROLOGICAL: He can answer questions, move all extremities to command. He does appear to be a bit confused and I believe there is some lack of cognition. His is at the bedside and was quite attentive. LABORATORY DATA: I reviewed all of his labs. He came in with a creatinine of 2.06, which has now come down to 1.14 with a GFR of 68.5 mL. He was obviously dehydrated as his BUN was 62. It is now down to 33. We have not grown anything from the cultures. His CT scan shows a bit more fluid than he had a few days ago, it is complicated and loculated. ASSESSMENT AND PLAN: Possible left chest empyema/parapneumonic effusion. I had a long talk with the patient, his and his sister. I also discussed his case with Dr. Rivera. At this point, our options would be to place a tube and perhaps institute the MIST-2 protocol. However, based on the CT scan and the chronicity of his symptoms, I believe that is going to be fruitless. I believe now it would be the time to take him to the operating room. I put him on the schedule tomorrow for a left thoracoscopy, decortication and evacuation of these contents. He and his family are agreeable. We will do this tomorrow morning. We did discuss risks and benefits including bleeding, lung injury and prolonged chest tube drainage.
--- NOTE | 2017-06-04 14:45 | Anesthesiology Progress Note ---
Anesthesia Progress Note Date of Service Jun 04, 2017. Progress Notes Mr. Doherty is scheduled for VATs decortication 06/05/[address] Chew. Allergies to hydrocodone (confusion). Patient has mild dementia at baseline but AMS changes seen on admission greatly improved. He is very hard of hearing but was able to answer questions appropriately during exam. PMH sig for severe PNA, HTN, PAF, JAMSHID, hypothyroid, prediabetes, depression. No problems with previous anesthetics. Consented for GA with possible arterial monitoring. All questions answered.
[2017-06-04] MEDS: PIPERACILL/TAZOBAC IV 3.375 GM in NSS 100ML IV SCH ×2 (16:22→23:35)
--- NOTE | 2017-06-04 19:11 | Family Medicine Progress Note ---
Progress Note Date of Service Jun 04, 2017. Subjective Pt evaluation today including: conversation w/ patient, physical exam Pain: Continues to report pleuritic left sided rib pain PO Intake: Tolerating well, NPO from midnight tonight for procedure tomorrow Voiding: no voiding problems Patient feels his breathing is improved, however continues to complain of left sided pleuritic rib pain. Constitutional: No fever, No chills Respiratory: + cough, + shortness of breath, + dyspnea on exertion Cardiovascular: + chest pain (left sided pleuritic rib pain) Abdomen: No pain, No nausea, No vomiting All Other Systems: Reviewed and Negative Medications Current Inpatient Medications Medications (Trade) Dose Ordered Sig/Estuardo Route Start Time Stop Time Status Last Admin Dose Admin Acetaminophen (Tylenol Tab) 650 mg Q4H PRN PO 05/29/17 23:45 06/28/17 23:44 06/04/17 13:45 650 MG Al Hydrox/Mg Hydrox/Simethicone (Maalox Max Susp) 15 ml Q4H PRN PO 05/29/17 23:45 06/28/17 23:44 Magnesium Hydroxide (Milk Of Magnesia Susp) 30 ml Q6H PRN PO 05/29/17 23:45 06/28/17 23:44 Polyethylene (Miralax Powder Packet) 17 gm DAILY PRN PO 05/29/17 23:45 06/28/17 23:44 Ondansetron HCl (Zofran Inj) 4 mg Q6H PRN IV 05/29/17 23:45 06/28/17 23:44 Guaifenesin (Organidin Nr Tab) 600 mg BID PO 05/30/17 09:00 06/29/17 08:59 06/04/17 09:02 600 MG Ipratropium [place] (Atrovent 0.02% 0.5MG/2.5ML Neb) 0.5 mg Q6R INH 05/30/17 03:00 06/29/17 02:59 06/04/17 14:36 0.5 MG Levalbuterol (Xopenex 0.63 Mg/ 3 Ml Neb) 0.63 mg Q6R INH 05/30/17 03:00 06/29/17 02:59 06/04/17 14:36 0.63 MG Levofloxacin (Consult) 1 ea UD PRN N/A 05/30/17 05:30 06/29/17 05:29 Levothyroxine Sodium (Synthroid Tab) 50 mcg DAILYBB PO 05/30/17 08:00 06/29/17 07:59 06/04/17 06:14 50 MCG Lovastatin (Mevacor Tab) 20 mg DAILY PO 05/30/17 09:00 06/29/17 08:59 06/04/17 09:02 20 MG Memantine (Namenda Tab) 10 mg BID PO 05/30/17 09:00 06/29/17 08:59 06/04/17 09:02 10 MG Oxybutynin Chloride (Ditropan Tab) 5 mg DAILY PO 05/30/17 09:00 06/29/17 08:59 06/04/17 09:02 5 MG Sertraline HCl (Zoloft Tab) 100 mg DAILY PO 05/30/17 09:00 06/29/17 08:59 06/04/17 09:02 100 MG Metoprolol Tartrate (Lopressor Tab) 25 mg BID PO 06/01/17 20:00 06/30/17 20:59 06/04/17 09:02 25 MG Levofloxacin (Levaquin Tab) 750 mg Q2D PO 06/04/17 20:00 06/05/17 19:59 Miscellaneous Information (Consult) 1 ea UD PRN N/A 06/04/17 09:30 07/04/17 09:29 Piperacillin Sod/ Tazobactam Sod 3.375 gm/Sodium Chloride 115 ml @ 28.75 mls/ hr Q8H IV 06/04/17 16:00 06/11/17 15:59 06/04/17 16:22 28.75 MLS/HR Objective Vital Signs Date Time Temp Pulse Resp B/P (MAP) Pulse Ox O2 Delivery O2 Flow Rate FiO2 06/04/17 16:00 93 Room Air 06/04/17 14:36 71 16 92 Room Air 06/04/17 14:25 36.5 68 18 132/73 (92) 92 06/04/17 09:00 Room Air 06/04/17 07:11 70 16 93 Room Air 06/04/17 06:55 36.7 70 18 133/72 (92) 92 Room Air 06/04/17 01:42 72 16 92 Room Air 06/03/17 23:59 Room Air 06/03/17 23:00 36.5 80 18 131/76 (94) 92 Room Air 06/03/17 19:10 80 16 92 Room Air Physical Exam General Appearance: WD/WN, no apparent distress Eyes: PERRL ENT: + pertinent finding ([place]) Neck: no carotid bruits, trachea midline Respiratory/Chest: + decreased breath sounds (LLL), + crackles (LLL) Cardiovascular: regular rate, rhythm, no edema, no murmur Abdomen: normal bowel sounds, non tender, soft Extremities: no pedal edema, no calf tenderness Neurologic/Psychiatric: no motor/sensory deficits, alert, normal mood/affect, oriented x 3 Skin: normal color Laboratory Results Last Resulted 06/04/17 06:00 Red Blood Count 3.79, Mean Corpuscular Volume 91.3, Mean Corpuscular Hemoglobin 31.1, Mean Corpuscular Hemoglobin Concent 34.1, Mean Platelet Volume 10.5, Neutrophils (%) (Auto) 81.2, Lymphocytes (%) (Auto) 5.8, Monocytes (%) (Auto) 7.6, Eosinophils (%) (Auto) 1.6, Basophils (%) (Auto) 0.2, Neutrophils # (Auto) 17.32, Lymphocytes # (Auto) 1.24, Monocytes # (Auto) 1.61, Eosinophils # (Auto) 0.35, Basophils # (Auto) 0.04 Last Resulted 06/04/17 06:00 Assessment and Plan 89 yo male admitted for ongoing cough and SOB, found to have severe LLL pna and complex parapneumonic effusion. PMH includes HTN, HLD, lumbar stenosis with neurogenic claudication, depression, hypothyroidism, GERD, vertigo, recent worsening forgetfulness, started on memantine. PSH: T11-S1 posterior spinal fusion in , Mohs surgery, appendectomy, herniorrhaphy. Severe pneumonia LLL and complex parapneumonic effusion: - CXR and CT chest show LLL PNA and small pleural effusion. - Leukocytosis overall improved. BCx x2 NGTD. Fungal studies NGTD. - Repeat CT showed some progression of effusion. Continue on antibiotics, restarted zosyn - Pulmonary following. - Cardiothoracic surgery consulted for decortication tomorrow AM. NPO except meds from midnight - Currently on room air - Reporting no change to pleuritic pain Episode of Atrial fibrillation with RVR: - On admission, developed new afib with RVR, started on diltiazem IV, converted to NSR - Started on metoprolol tartrate 12.5 mg PO BID, increased to 25 PO BID. - Per cardio - exterminator termite anticoagulation not recommended. Recommend event monitor for afib as outpatient to decide on need for anticoagulation - If anticoagulation required, eliquis 2.5 per cardio. Acute kidney injury: Resolved - Current Cr 1.26 - Likely is pre-renal in origin, continue to monitor Ongoing medical issues: - Chronic mid-thoracic back pain: S/p T11-S1 posterior spinal fusion in . - Hypothyroidism: On home synthroid. - Hyperlipidemia: On home lovastatin. - GERD: At home on prilosec, on protonix here. - Depression: On home sertraline. 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 First documented by PCP in July 2016 and forgetfulness, which worsened per notes over the next few months (pt forgetting shelter friends, forgetting tasks , unaware of correct time of day. started on memantine in January 2017 after outpt labs and brain MRI negative. Has been A&O x 3 since admission) - ? Bladder issues: On ditropan. CT chest findings: Noted question of prominent left hilar mass. Noted probable cholelithiasis. Outpatient follow up. 2-3 weeks outpatient visit, 6-8 week repeat scan Code: Full code but no mechanical ventilation. DVTP: Lovenox q24h. Dispo: med/surg Resident Tracking Resident Involvement: Resident Care Provided Care Provided: Adult Hospital Medicine Reviewed: Pt Seen/Exam by Me History continues with cough and having phlegm left side chest pain persists Constitutional: denies: fever Respiratory: negative: short of breath Cardiovascular: denies chest pain General Appearance: no apparent distress Respiratory: no respiratory distress, decreased breath sounds (left lower lung) Cardiovascular: regular rate, rhythm Gastrointestinal: soft Neurologic/Psychiatric: alert, oriented x 3 Skin Characteristics: warm/dry Assessment/Plan Resident Physician Supervision Note: I independently interviewed and examined the patient and verified the auguste history and physical, reviewed labs and image studies, discussed the case with the resident Dr. Damon and agree with the findings and care plan.
[2017-06-04] MEDS ORDERED: LEVOFLOXACIN 750 MG TAB PO SCH (20:00)
[2017-06-05] VITALS (20 sets, daily range): BP systolic 133–160; BP diastolic 38–87; PULSE 70–90; TEMP 36.5–36.7; O2SAT 91–100
[2017-06-05] MEDS: LEVALBUTEROL 0.63MG/3 ML NEB INH SCH ×4 (02:08→20:04)
[2017-06-05] MEDS: IPRATROPIUM BROMIDE NEB SOLN 0.02% 2.5 ML VIAL INH SCH ×4 (02:08→20:04)
[2017-06-05] MEDS: LEVOTHYROXINE 50 MCG TAB PO SCH (06:40)
[2017-06-05] MEDS: GUAIFENESIN 200 MG TAB PO SCH ×2 (08:02→20:43)
[2017-06-05] MEDS: METOPROLOL TARTRATE 25 MG TAB PO SCH ×2 (08:02→20:43)
[2017-06-05] MEDS: OXYBUTYNIN CHLORIDE 5 MG TAB PO SCH (08:02)
[2017-06-05] MEDS: SERTRALINE HCL 100 MG TAB PO SCH (08:02)
[2017-06-05] MEDS: LOVASTATIN 20 MG TAB PO SCH (08:02)
[2017-06-05] MEDS: MEMANTINE 10 MG TAB PO SCH ×2 (08:03→20:44)
[2017-06-05] MEDS: PIPERACILL/TAZOBAC IV 3.375 GM in NSS 100ML IV SCH ×2 (08:11→17:57)
[2017-06-05 08:28] LABS: BASO % 0.1 %; BASO ABS # 0.01 K/uL (0-0.2); EOS % 1.8 %; EOS ABS # 0.36 K/uL (0-0.5); HEMATOCRIT 33.6 % (42-52); HEMOGLOBIN 11.3 g/dL (14.0-18.0); IG# 0.49 K/uL (0.00-0.02); LYMPH % 4.9 %; LYMPH ABS # 0.97 K/uL (1.2-3.4); MEAN CELL VOLUME 91.3 fL (80-100); MEAN CORPUSCULAR HEMOGLOBIN 30.7 pg (25-34); MEAN CORPUSCULAR HGB CONC 33.6 g/dl (32-36); MEAN PLATELET VOLUME 10.6 fL (7.4-10.4); MONO % 8.8 %; MONO ABS # 1.74 K/uL (0.11-0.59); NEUT % 81.9 %; NEUT ABS # 16.23 K/uL (1.4-6.5); PLATELET COUNT 437 K/uL (130-400); RED CELL DISTRIBUTION WIDTH CV 15.2 % (11.5-14.5)
--- NOTE | 2017-06-05 10:16 | Pulmonology Progress Note ---
Pulmonary Progress Note Date of Service Jun 05, 2017. Attending Dr. Rivera Subjective Patient has baseline without increased work of breathing but continued left flank pleuritic type pain Objective 82-yo male admitted through the ED from his PCPs office 05/29/2017 with 3-week history of cough, fevers, AMS, and hypoxia with work-up notable for LLL pneumonia with appearance of loculated pleural effusion. Today the patient sitting up showing no signs of respiratory insufficiency and has minimal mucus production he also denies: Fever, chills, classic cardiac chest pain, rigors or night sweats Prior records were reviewed. PMHx includes: hypertension, hyperlipidemia, GERD, hypothyroid, lumbar stenosis. CXR 05/29/17 LLL consolidation and left pleural effusion CT Chest without contrast 05/29/17: Dense LLL consolidation and appearance of loculated pleural effusion. Prominent hilum with narrowing of the LLL bronchi Swallow eval for 11/12/2017: No significant signs of aspiration CT thorax 06/03/2017: Signs of increasing left lower lobe pleural effusion, final read pending Patient evaluated with bedside ultrasound and effusion was not felt to be amendable to thoracentesis based on characteristics and size. He is treated with antibiotic (pip-tazo + levofloxacin), bronchodilators, and expectorant as well as rate control secondary to development of a.fib RVR 05/31/2017. Echocardiogram 05/31/17 notable for mild LVH with pEF. Today: - SaO2RA: 92-94% - WBC 21K Physical Exam: Constitutional: WDWN elderly male sitting at bedside - no acute distress HEENT: + facial symmetry. Pale conjunctive. Moist mucous membranes without oral lesions Respiratory: No signs of accessory muscle use, decreased breath sounds with dullness to percussion and rhonchi lung left hemithorax especially at the base CV: Regular rate and rhythm. No MRG. Warm and perfused peripherally. No clubbing or cyanosis Abdomen: Soft, Active bowel sounds MSK/Extremities: Moving and developed symmetrically. 1+ pitting edema Neurologic: Alert and oriented to person and place. Tangential speech. Hearing loss. Thoracic ultrasound: Shows multiple loculated effusion with hyperdense fluid the Assessment & Plan 82-year-old male admitted with severe community-acquired pneumonia/sepsis 1. Severe community-acquired pneumonia: Patient was started on Zosyn yesterday and had a mild effervescence of its WBC count. He is to move forward with thoracic surgery thoracoscopic/decortication procedure at this time. 2. Complex parapneumonic effusion: Patient is moving forward today with thoracoscopic/decortication with Dr. Josh Nix from the thoracic surgery department. 3. left lower lobe nodule/hilar adenopathy: Patient is undergoing thoracoscopic procedure today further evaluation of this left lower lobe abnormality and possibly hilar adenopathy will be seen/cytologically evaluated. Data Medications: Current Inpatient Medications Medications (Trade) Dose Ordered Sig/Estuardo Route Start Time Stop Time Status Last Admin Dose Admin Acetaminophen (Tylenol Tab) 650 mg Q4H PRN PO 05/29/17 23:45 06/28/17 23:44 06/04/17 20:26 650 MG Al Hydrox/Mg Hydrox/Simethicone (Maalox Max Susp) 15 ml Q4H PRN PO 05/29/17 23:45 06/28/17 23:44 Magnesium Hydroxide (Milk Of Magnesia Susp) 30 ml Q6H PRN PO 05/29/17 23:45 06/28/17 23:44 Polyethylene (Miralax Powder Packet) 17 gm DAILY PRN PO 05/29/17 23:45 06/28/17 23:44 Ondansetron HCl (Zofran Inj) 4 mg Q6H PRN IV 05/29/17 23:45 06/28/17 23:44 Guaifenesin (Organidin Nr Tab) 600 mg BID PO 05/30/17 09:00 06/29/17 08:59 06/05/17 08:02 600 MG Ipratropium [place] (Atrovent 0.02% 0.5MG/2.5ML Neb) 0.5 mg Q6R INH 05/30/17 03:00 06/29/17 02:59 06/05/17 07:28 0.5 MG Levalbuterol (Xopenex 0.63 Mg/ 3 Ml Neb) 0.63 mg Q6R INH 05/30/17 03:00 06/29/17 02:59 06/05/17 07:28 0.63 MG Levothyroxine Sodium (Synthroid Tab) 50 mcg DAILYBB PO 05/30/17 08:00 06/29/17 07:59 06/05/17 06:40 50 MCG Lovastatin (Mevacor Tab) 20 mg DAILY PO 05/30/17 09:00 06/29/17 08:59 06/05/17 08:02 20 MG Memantine (Namenda Tab) 10 mg BID PO 05/30/17 09:00 06/29/17 08:59 06/05/17 08:03 10 MG Oxybutynin Chloride (Ditropan Tab) 5 mg DAILY PO 05/30/17 09:00 06/29/17 08:59 06/05/17 08:02 5 MG Sertraline HCl (Zoloft Tab) 100 mg DAILY PO 05/30/17 09:00 06/29/17 08:59 06/05/17 08:02 100 MG Metoprolol Tartrate (Lopressor Tab) 25 mg BID PO 06/01/17 20:00 06/30/17 20:59 06/05/17 08:02 25 MG Miscellaneous Information (Consult) 1 ea UD PRN N/A 06/04/17 09:30 07/04/17 09:29 Piperacillin Sod/ Tazobactam Sod 3.375 gm/Sodium Chloride 115 ml @ 28.75 mls/ hr Q8H IV 06/04/17 16:00 06/11/17 15:59 06/05/17 08:11 28.75 MLS/HR Vital Signs: Date Time Temp Pulse Resp B/P (MAP) Pulse Ox O2 Delivery O2 Flow Rate FiO2 06/05/17 09:01 Room Air 06/05/17 07:32 73 16 92 Room Air 06/05/17 06:59 36.5 77 19 134/72 (92) 94 Room Air 06/05/17 00:00 93 Room Air 06/04/17 22:47 36.5 75 22 106/63 (77) 95 Room Air 06/04/17 19:10 80 16 93 Room Air 06/04/17 16:00 93 Room Air 06/04/17 14:36 71 16 92 Room Air 06/04/17 14:25 36.5 68 18 132/73 (92) 92 Laboratory Results: Last 24 Hours Test 06/05/17 07:12 White Blood Count 19.80 K/uL Red Blood Count 3.68 M/uL Hemoglobin 11.3 g/dL Hematocrit 33.6 % Mean Corpuscular Volume 91.3 fL Mean Corpuscular Hemoglobin 30.7 pg Mean Corpuscular Hemoglobin Concent 33.6 g/dl Platelet Count 437 K/uL Mean Platelet Volume 10.6 fL Neutrophils (%) (Auto) 81.9 % Lymphocytes (%) (Auto) 4.9 % Monocytes (%) (Auto) 8.8 % Eosinophils (%) (Auto) 1.8 % Basophils (%) (Auto) 0.1 % Neutrophils # (Auto) 16.23 K/uL Lymphocytes # (Auto) 0.97 K/uL Monocytes # (Auto) 1.74 K/uL Eosinophils # (Auto) 0.36 K/uL Basophils # (Auto) 0.01 K/uL RDW Standard Deviation 51.0 fL RDW Coefficient of Variation 15.2 % Immature Granulocyte % (Auto) 2.5 % Immature Granulocyte # (Auto) 0.49 K/uL
--- NOTE | 2017-06-05 10:48 | History & Physical Bridge Note ---
H&P Re-Evaluation Bridge Note: I have examined the patient, reviewed the History & Physical and in the interval since the performance of the History & Physical I have noted the following changes of clinical significance: No changes noted
[2017-06-05] MEDS ORDERED: MoRPHine SULFATE 2 MG/ML CARP ONE (11:44)
--- NOTE | 2017-06-05 11:54 | Clinical Documentation Query ---
CLINICAL DOCUMENTATION QUERY Dr. VERA, Documentation in the clinical record on progress notes of 05/30 and 05/31 in the resident physician supervision note. It has since been removed from the documentation. In your clinical opinion is this patient being managed for: ( ) Sepsis, POA ( ) Sepsis ruled out ( ) Not Agree ( x ) Other explanation of clinical findings (Sepsis, resolved) ( ) Unable to determine (Please Define) ( ) Need to Discuss The medical record reflects the following clinical findings, treatment, and risk factors. Clinical Indicators: 82 yo male presented with severe dyspnea as well as a reported fever of 103, WBC 35.22, BUN 62, Cr 206, glucose 157 Treatment: IV vancomycin, IV zosyn, IV levaquin, IV solumedrol, IV fluids, serial PRP's and CBC's, nebs, blood and sputum cx, O2 support Risk Factors: age, pneumonia, Please clarify and document your clinical opinion in the progress notes and discharge summary. Terms such as "probable", "suspected", "likely", "questionable", "possible", or "still to be ruled out" are acceptable. IF IN AGREEMENT, YOU MUST DOCUMENT ABOVE DIAGNOSTIC STATEMENT IN DAILY PROGRESS NOTES AND DISCHARGE SUMMARY. This document is not part of the patient's record. Thank You, Alaina Butler RN [phone]
--- NOTE | 2017-06-05 11:55 | Clinical Documentation Query ---
CLINICAL DOCUMENTATION QUERY Dr. SEGURA, Documentation in the clinical record on progress notes of 05/30 and 05/31 in the resident physician supervision note. It has since been removed from the documentation. In your clinical opinion is this patient being managed for: ( x ) Sepsis, POA ( ) Sepsis ruled out ( ) Not Agree ( ) Other explanation of clinical findings (Please Explain) ( ) Unable to determine (Please Define) ( ) Need to Discuss The medical record reflects the following clinical findings, treatment, and risk factors. Clinical Indicators: 82 yo male presented with severe dyspnea as well as a reported fever of 103, WBC 35.22, BUN 62, Cr 206, glucose 157 Treatment: IV vancomycin, IV zosyn, IV levaquin, IV solumedrol, IV fluids, serial PRP's and CBC's, nebs, blood and sputum cx, O2 support Risk Factors: age, pneumonia, Please clarify and document your clinical opinion in the progress notes and discharge summary. Terms such as "probable", "suspected", "likely", "questionable", "possible", or "still to be ruled out" are acceptable. IF IN AGREEMENT, YOU MUST DOCUMENT ABOVE DIAGNOSTIC STATEMENT IN DAILY PROGRESS NOTES AND DISCHARGE SUMMARY. This document is not part of the patient's record. Thank You, Alaina Butler RN [phone]
[2017-06-05] MEDS ORDERED: NURSING VERBAL MED ORDER ONE (12:30)
[2017-06-05] MEDS ORDERED: BUPIVACAINE LIPOSOME 1/3% 266 MG/20 ML VIAL INFIL ONE (13:33)
[2017-06-05] MEDS ORDERED: BUPIVACAINE 0.5 % 5 MG/1 ML MPF 30ML VIAL ONE (13:33)
[2017-06-05] MEDS ORDERED: PHENYLEPHRINE HCL INJ 10 MG/ML VIAL ONE (13:41)
[2017-06-05] MEDS ORDERED: FENTANYL CITRATE INJ 50 MCG/1 ML 2 ML VIAL ONE (13:41)
[2017-06-05] MEDS ORDERED: ROCURONIUM BROMIDE 10 MG/ML 5 ML VIAL IV ONE (13:41)
[2017-06-05] MEDS ORDERED: LIDOCAINE HCL 2% 2 ML VIAL (20MG/ML) ONE (13:41)
[2017-06-05] MEDS ORDERED: PROPOFOL IV EMULSION 10 MG/ML 20 ML VIAL IV ONE ×2 (13:41→14:32)
[2017-06-05] MEDS ORDERED: SODIUM CHLORIDE 0.9% PF 50 ML VIAL ONE (13:55)
[2017-06-05] MEDS ORDERED: CEFAZOLIN SOD 1 GM VIAL ONE (14:32)
[2017-06-05] MEDS ORDERED: ONDANSETRON INJ 2 MG/ML 2 ML VIAL ONE (14:56)
[2017-06-05] MEDS ORDERED: RANITIDINE HCL 25 MG/ML INJ ONE (14:56)
[2017-06-05] MEDS ORDERED: EpHEDrine SULFATE INJ 50 MG/ML AMP IV PRN (15:00)
[2017-06-05] MEDS ORDERED: ONDANSETRON INJ 2 MG/ML 2 ML VIAL IV PRN ×2 (15:00→16:45)
[2017-06-05] MEDS ORDERED: ATROPINE SULFATE 0.1 MG/ML 5ML SYR IV PRN (15:00)
[2017-06-05] MEDS ORDERED: FENTANYL CITRATE INJ 50 MCG/1 ML 2 ML VIAL IV PRN (15:00)
--- NOTE | 2017-06-05 15:00 | Progress Note ---
Progress Note Date of Service Jun 05, 2017. Progress Note Immediately prior to induction, the patient had coffee ground emesis. We did discuss the possibility of rescheduling the procedure, but as he is having significant respiratory compromise from his effusion, we elected to proceed. RSI was performed, the oropharynx and cords were clear with no evidence of aspiration. The patient received IV protonix and ~300 of dark fluid potentially tinged with old blood was suctioned from the stomach. Dr Chew' s team plans to discuss the case with primary and will likely consult GI to evaluate the patient. He does not appear to have active GI bleeding.
[2017-06-05] MEDS ORDERED: VASOPRESSIN 20 UNIT/ML VIAL ONE (15:30)
--- NOTE | 2017-06-05 16:12 | [facility] Post Operative Brief Note ---
Immediate Operative Summary Operative Date Jun 05, 2017. Pre-Operative Diagnosis Left chest empyema Post-Operative Diagnosis Same Procedure(s) Performed Left thoracoscopy, partial decortication, pleurectomy, and evacuation of pleural contents. Surgeon Dr. Chew Front Office Secretary Surgeon(s) Beau Hernandez PA-C Estimated Blood Loss 50 cc's Findings Consistent with Post-Op Diagnosis Specimens Cytology #1- Left Pleural fluid, collected at 1450 Culture #1- Left Pleural Fluid, sent routine for aerobic and anaerobic culture/sensitivity, gram stain, fungus/yeast, and acid fast bacteria Culture #2- Left pleural content, sent routine for aerobic and anaerobic culture/sensitivity, gram stain, fungus/yeast, and acid fast bacteria Culture #3- Left visceral pleura, sent routine for aerobic and anaerobic culture/sensitivity, gram stain, fungus/yeast, and acid fast bacteria Cultures #1, #2, and cytology sent from room at 1513. Culture #3 sent from room at 1527. A: Left pleural content, sent fresh B: Left parietal pleura, sent fresh C: Left pleural plaque, sent fresh D: Left visceral pleura, sent fresh Drains None (one pleurx, one 24 fr. chest tube) Anesthesia Type General Complication(s) none Disposition Disposition: Recovery Room / PACU
[2017-06-05] MEDS ORDERED: GLYCOPYRROLATE INJ 0.2 MG/ML VIAL ONE (16:24)
[2017-06-05] MEDS ORDERED: SODIUM CHLORIDE 0.9% 1000ML 1,000 ML IV SCH (16:45)
[2017-06-05] MEDS ORDERED: MoRPHine SULFATE 2 MG/ML CARP IV PRN (16:45)
[2017-06-05] MEDS ORDERED: PANTOprazole INJ 80 MG in DEXTROSE 5% 100ML IV ONE (17:00)
[2017-06-05] MEDS: ACETAMINOPHEN IV 1,000 MG in EMPTY BAG 0 ML IV SCH (17:07)
--- NOTE | 2017-06-05 17:22 | DIAGNOSTIC IMAGING REPORT ---
CHEST ONE VIEW PORTABLE CLINICAL HISTORY: 82 years-old Male presenting with decortication, postop changes. TECHNIQUE: Portable upright AP view of the chest was obtained. COMPARISON: 05/29/2017. FINDINGS: Large bore left pleural drains positioned at the left apex and left paramediastinal lung base. Extensive associated soft tissue emphysema. Prominence of the aortic contour, unchanged. Mild cardiac silhouette enlargement, unchanged. Trace fluid in the right minor fissure. Left basilar opacity decreased from prior with improved aeration of the right lung. Small left pleural effusion suspected. No left pneumothorax is apparent. Posterior thoracolumbar fusion hardware noted. Density in the left upper quadrant likely related to oral contrast administration. IMPRESSION: 1. Two left pleural drains in place. No left pneumothorax. 2. Left basilar consolidation and small left pleural effusion. Overall improved aeration of the left lung and comparison to prior. 3. Trace right pleural effusion suspected. 4. Mild cardiomegaly. Electronically signed by: Ck Calderon M.D. 06/05/2017 5:20 PM Dictated Date/Time: 06/05/2017 5:17 PM
[2017-06-05 17:34] LABS: HEMOGLOBIN 11.2 g/dL (14.0-18.0)
[2017-06-05] MEDS: PANTOprazole INJ 40 MG in DEXTROSE 5% 100ML IV SCH ×2 (17:57→22:03)
--- NOTE | 2017-06-05 18:07 | Critical Care Consultation ---
Critical Care Consultation Date of Consultation: Jun 05, 2017. Attending Physician: Lacy Sterling M.D. Reason for Consultation: Post-operative care History of Present Illness Pt here after thoracoscopy, partial decortication, pleurectomy and evacuation of pleural contents, EBL 50cc's. Contents sent for cytology and culture. Pt is resting comfortably in bed, alert to self but not place or time. Able to recall the president. Complains of some mild pain in his side chest, unable to enumerate. Cannot recall why he is here in the unit. Denies chest pain, difficulty breathing, abdominal pain, head ache, blurry vision, tenderness in his legs. Past Medical/Surgical History PAST MEDICAL HISTORY: 1. New onset atrial fibrillation, (episodic). 2. Mild dementia. 3. Gastroesophageal reflux disease. 4. Dyslipidemia. 5. Hypothyroidism. 6. Hypertension. 7. Hyperglycemia. 8. Zenker's diverticulum. 9. Depression. 10. Chronic diarrhea. 11. 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 PAST SURGICAL HISTORY: 1. L3-S1 decompression with rodding and hardware application. 2. Decompression of L1-L3 with T11-S1 posterior spinal fusion with interbody fusion, application of interbody cage and hardware removal, L3-S1. 3. Left carpal tunnel syndrome. 4. Bilateral cataract extraction with lens implant. 5. Colonoscopy. 6. Esophageal diverticulum repair, 1996. 7. Herniorrhaphy. 8. Appendectomy. 9. Left shoulder repair, 1996. 10. Thoracoscopy Family History Cancer Social History Smoking Status: Unknown if Ever Smoked Smokeless Tobacco Use: No Alcohol Use: none Drug Use: none Marital Status: Occupation Status: retired Allergies Coded Allergies: Hydrocodone (Verified Adverse Reaction, Unknown, HALLUCINATIONS, 05/18/14) Home Medications Scheduled Cholecalciferol (Vitamin D), 2,000 UNITS PO DAILY Levothyroxine Sodium (Levothyroxine Sodium), 50 MCG PO DAILY Lovastatin (Lovastatin), 20 MG PO DAILY Memantine HCl (Memantine HCl), 10 MG PO BID Omeprazole (Prilosec), 20 MG PO BID Oxybutynin Chloride (Oxybutynin Chloride), 5 MG PO DAILY Sertraline HCl (Sertraline HCl), 100 MG PO DAILY Scheduled PRN Cholestyramine Light (Questran Light), 1 PACK PO DAILY PRN for Meclizine Hcl (Meclizine Hcl), 25 MG PO TID PRN for Dizziness or Vertigo Naproxen Sodium (Naproxen Sodium Ds), 550 MG PO BID PRN for Pain Current Inpatient Medications Current Inpatient Medications Medications (Trade) Dose Ordered Sig/Estuardo Route Start Time Stop Time Status Last Admin Dose Admin Ondansetron HCl (Zofran Inj) 4 mg Q6H PRN IV 05/29/17 23:45 06/28/17 23:44 Guaifenesin (Organidin Nr Tab) 600 mg BID PO 05/30/17 09:00 06/29/17 08:59 06/05/17 08:02 600 MG Ipratropium [place] (Atrovent 0.02% 0.5MG/2.5ML Neb) 0.5 mg Q6R INH 05/30/17 03:00 06/29/17 02:59 06/05/17 07:28 0.5 MG Levalbuterol (Xopenex 0.63 Mg/ 3 Ml Neb) 0.63 mg Q6R INH 05/30/17 03:00 06/29/17 02:59 06/05/17 07:28 0.63 MG Levothyroxine Sodium (Synthroid Tab) 50 mcg DAILYBB PO 05/30/17 08:00 06/29/17 07:59 06/05/17 06:40 50 MCG Lovastatin (Mevacor Tab) 20 mg DAILY PO 05/30/17 09:00 06/29/17 08:59 06/05/17 08:02 20 MG Memantine (Namenda Tab) 10 mg BID PO 05/30/17 09:00 06/29/17 08:59 06/05/17 08:03 10 MG Oxybutynin Chloride (Ditropan Tab) 5 mg DAILY PO 05/30/17 09:00 06/29/17 08:59 06/05/17 08:02 5 MG Sertraline HCl (Zoloft Tab) 100 mg DAILY PO 05/30/17 09:00 06/29/17 08:59 06/05/17 08:02 100 MG Metoprolol Tartrate (Lopressor Tab) 25 mg BID PO 06/01/17 20:00 06/30/17 20:59 06/05/17 08:02 25 MG Miscellaneous Information (Consult) 1 ea UD PRN N/A 06/04/17 09:30 07/04/17 09:29 Piperacillin Sod/ Tazobactam Sod 3.375 gm/Sodium Chloride 115 ml @ 28.75 mls/ hr Q8H IV 06/04/17 16:00 06/11/17 15:59 06/05/17 08:11 28.75 MLS/HR Fentanyl Citrate (Fentanyl Inj) 50 mcg Q5M PRN IV 06/05/17 15:00 06/05/17 20:00 Ondansetron HCl (Zofran Inj) 4 mg ONE PRN IV 06/05/17 15:00 06/05/17 20:00 Ephedrine Sulfate (EpHEDrine SULFATE INJ) 5 mg Q5M PRN IV 06/05/17 15:00 06/05/17 20:00 Atropine Sulfate (Atropine Sulfate 0.1mg/ml Inj) 0.5 mg Q1M PRN IV 06/05/17 15:00 06/05/17 20:00 Ondansetron HCl (Zofran Inj) 4 mg Q4H PRN IV 06/05/17 16:45 07/05/17 16:44 Docusate Sodium (coLACE CAP) 100 mg BID PO 06/05/17 20:00 07/05/17 19:59 Metoclopramide HCl (Reglan Inj) 10 mg Q8 IV. 06/05/17 22:00 06/06/17 21:59 Morphine Sulfate (MoRPHine SULFATE INJ) Q1H PRN IV 06/05/17 16:45 06/19/17 16:44 Acetaminophen 1000 mg/Empty Bag 100 ml @ 400 mls/hr Q8H IV 06/05/17 17:00 07/05/17 16:59 06/05/17 17:07 400 MLS/HR Sodium Chloride 1,000 ml @ 75 mls/hr [id number] IV 06/05/17 16:45 07/05/17 16:44 Pantoprazole Sodium 40 mg/ Dextrose 100 ml @ 20 mls/hr Q5H IV 06/05/17 17:15 07/05/17 17:14 Review of Systems ROS See HPI for pertinent positives and negatives. Limited due to pt's mental status. Physical Exam Date Time Temp Pulse Resp B/P (MAP) Pulse Ox O2 Delivery O2 Flow Rate FiO2 06/05/17 17:20 36.5 67 20 160/65 97 Nasal Cannula 3 06/05/17 17:10 67 20 152/71 95 Oxymask 10 06/05/17 17:00 73 20 150/77 94 Oxymask 10 06/05/17 16:54 36.1 76 20 147/64 98 Oxymask 10 06/05/17 09:01 Room Air 06/05/17 07:32 73 16 92 Room Air 06/05/17 06:59 36.5 77 19 134/72 (92) 94 Room Air 06/05/17 00:00 93 Room Air 06/04/17 22:47 36.5 75 22 106/63 (77) 95 Room Air 06/04/17 19:10 80 16 93 Room Air GENERAL: Awake, alert to self only, well-appearing, in no distress. HENT: Normocephalic, atraumatic. EYES: Normal conjunctiva. Sclera non-icteric. NECK: Supple. FROM. No JVD. RESPIRATORY: Mild rhonchi on bases. Chest tube and dressing in tact and draining clear red fluid, at left lower posterior chest. CARDIAC: Regular rate, normal rhythm. Extremities warm and well perfused. Pulses equal. ABDOMEN: Soft, non-distended. No tenderness to palpation. No rebound or guarding. No masses. LOWER EXTREMITIES: Calves are equal size bilaterally and non-tender. No edema. No discoloration. ACCESS: 1 art RT wrist, 1 PIV right arm, 1 PIV left arm NEURO: No sensory or motor deficits noted. CN II-XII grossly in tact. PSYCH: pleasantly demented. Cooperative. SKIN: No rash or jaundice noted. Laboratory Results Last 24 Hours Test 06/05/17 07:12 06/05/17 17:25 White Blood Count 19.80 K/uL Red Blood Count 3.68 M/uL Hemoglobin 11.3 g/dL 11.2 g/dL Hematocrit 33.6 % 33.0 % Mean Corpuscular Volume 91.3 fL Mean Corpuscular Hemoglobin 30.7 pg Mean Corpuscular Hemoglobin Concent 33.6 g/dl Platelet Count 437 K/uL Mean Platelet Volume 10.6 fL Neutrophils (%) (Auto) 81.9 % Lymphocytes (%) (Auto) 4.9 % Monocytes (%) (Auto) 8.8 % Eosinophils (%) (Auto) 1.8 % Basophils (%) (Auto) 0.1 % Neutrophils # (Auto) 16.23 K/uL Lymphocytes # (Auto) 0.97 K/uL Monocytes # (Auto) 1.74 K/uL Eosinophils # (Auto) 0.36 K/uL Basophils # (Auto) 0.01 K/uL RDW Standard Deviation 51.0 fL RDW Coefficient of Variation 15.2 % Immature Granulocyte % (Auto) 2.5 % Immature Granulocyte # (Auto) 0.49 K/uL Arterial Blood pH 7.37 Arterial Blood Partial Pressure CO2 37 mmHg Arterial Blood Partial Pressure O2 76 mm/Hg Arterial Blood HCO3 21 mmol/L Arterial Blood Oxygen Saturation 93.2 % Arterial Blood Base Excess -3.8 mEq/L Arterial Blood Gas Delivery 3 LITERS O2 Antoine Test Assessment & Plan (1) Hypoxia (2) PNA (pneumonia) (3) Lumbar stenosis with neurogenic claudication (4) Depression (5) Hyperlipidemia (6) HTN (hypertension) Reason Critically Ill: 82-year-old male with a significant past medical history of complicated community acquired pneumonia requiring thoracoscopy and evacuation of empyema. PMH sig for new onset atrial fibrillation, dementia, hyperglycemia, zenker's diverticulum, chronic diarrhea. Neuro - [facility] ICU: POSITIVE Mild dementia, continue namenda. Cardiac - Hemodynamically stable BP Continue Lopressor 25mg tab PO BID Respiratory - Atrovent and Xopenex q6 S/p thoracoscopy - Fentanyl 50 mcg q 5min IV prn pain ordered for today . Tylenol 1000mg IV q8 97 on 3L NC. GI - advance as tolerated s/p anesthesia - AHA diet Pantoprazole running RENAL/LYTES - No significant electrolyte derangement. Cardiographer 1.5, trending down. Continue fluids NSS @ 75 ml/hr Replace lytes as needed. - Harrison in place, clear yellow urine. +2.7 L as of now. Follow. No concerns at this time. ENDO - Cont levothyroxine 50 mcg daily HEME - Stable H&H. ID - Zosyn IV running. Monitor fever curve. LINES/IV ACCESS - PIVs intact. DVT PROPHYLAXIS - SCD's Thank you for allowing us to be part of this patient's care. Please refer to Dr. Case's documentation for any further recommendations. Resident Physician Supervision Note: Dr. William Rivas was resident physician during care of patient. I separately evaluated patient and did history and exam. I discussed the case with the resident and generally agree with the findings and plan. Status post thoracotomy with decortication. ICU monitoring for postoperative respiratory insufficiency, and possible postoperative A. fib, history of paroxysmal A. fib recently diagnosed. Additionally there was concern for possible hematemesis, some coffee grounds were suctioned immediately preceding extubation. He is already started on a PPI infusion. Continue ICU monitoring for possible gastrointestinal hemorrhage. Documented By: Floyd Case DO Resident Tracking Resident Involvement: Resident Care Provided Care Provided: Adult [facility] Medicine
--- NOTE | 2017-06-05 18:28 | Family Medicine Progress Note ---
Progress Note Date of Service Jun 05, 2017. Subjective Pt evaluation today including: conversation w/ patient, physical exam Pain: Continues to report left rib pleuritic pain PO Intake: NPO from midnight for procedure today Voiding: no voiding problems Patient states he feels about the same. Reports some anxiousness about procedure today. Constitutional: No fever, No chills ENT: + hearing loss Respiratory: + cough, + sputum, + shortness of breath, + problem reported ( Pleuritic chest pain left side) Abdomen: No pain, No nausea, No vomiting Neurologic: + memory loss All Other Systems: Reviewed and Negative Medications Current Inpatient Medications Medications (Trade) Dose Ordered Sig/Estuardo Route Start Time Stop Time Status Last Admin Dose Admin Ondansetron HCl (Zofran Inj) 4 mg Q6H PRN IV 05/29/17 23:45 06/28/17 23:44 Guaifenesin (Organidin Nr Tab) 600 mg BID PO 05/30/17 09:00 06/29/17 08:59 06/05/17 08:02 600 MG Ipratropium [place] (Atrovent 0.02% 0.5MG/2.5ML Neb) 0.5 mg Q6R INH 05/30/17 03:00 06/29/17 02:59 06/05/17 07:28 0.5 MG Levalbuterol (Xopenex 0.63 Mg/ 3 Ml Neb) 0.63 mg Q6R INH 05/30/17 03:00 06/29/17 02:59 06/05/17 07:28 0.63 MG Levothyroxine Sodium (Synthroid Tab) 50 mcg DAILYBB PO 05/30/17 08:00 06/29/17 07:59 06/05/17 06:40 50 MCG Lovastatin (Mevacor Tab) 20 mg DAILY PO 05/30/17 09:00 06/29/17 08:59 06/05/17 08:02 20 MG Memantine (Namenda Tab) 10 mg BID PO 05/30/17 09:00 06/29/17 08:59 06/05/17 08:03 10 MG Oxybutynin Chloride (Ditropan Tab) 5 mg DAILY PO 05/30/17 09:00 06/29/17 08:59 06/05/17 08:02 5 MG Sertraline HCl (Zoloft Tab) 100 mg DAILY PO 05/30/17 09:00 06/29/17 08:59 06/05/17 08:02 100 MG Metoprolol Tartrate (Lopressor Tab) 25 mg BID PO 06/01/17 20:00 06/30/17 20:59 06/05/17 08:02 25 MG Miscellaneous Information (Consult) 1 ea UD PRN N/A 06/04/17 09:30 07/04/17 09:29 Piperacillin Sod/ Tazobactam Sod 3.375 gm/Sodium Chloride 115 ml @ 28.75 mls/ hr Q8H IV 06/04/17 16:00 06/11/17 15:59 06/05/17 17:57 28.75 MLS/HR Fentanyl Citrate (Fentanyl Inj) 50 mcg Q5M PRN IV 06/05/17 15:00 06/05/17 20:00 Ondansetron HCl (Zofran Inj) 4 mg ONE PRN IV 06/05/17 15:00 06/05/17 20:00 Ephedrine Sulfate (EpHEDrine SULFATE INJ) 5 mg Q5M PRN IV 06/05/17 15:00 06/05/17 20:00 Atropine Sulfate (Atropine Sulfate 0.1mg/ml Inj) 0.5 mg Q1M PRN IV 06/05/17 15:00 06/05/17 20:00 Ondansetron HCl (Zofran Inj) 4 mg Q4H PRN IV 06/05/17 16:45 07/05/17 16:44 Docusate Sodium (coLACE CAP) 100 mg BID PO 06/05/17 20:00 07/05/17 19:59 Metoclopramide HCl (Reglan Inj) 10 mg Q8 IV. 06/05/17 22:00 06/06/17 21:59 Morphine Sulfate (MoRPHine SULFATE INJ) Q1H PRN IV 06/05/17 16:45 06/19/17 16:44 Acetaminophen 1000 mg/Empty Bag 100 ml @ 400 mls/hr Q8H IV 06/05/17 17:00 07/05/17 16:59 06/05/17 17:07 400 MLS/HR Sodium Chloride 1,000 ml @ 75 mls/hr [id number] IV 06/05/17 16:45 07/05/17 16:44 06/05/17 17:57 75 MLS/HR Pantoprazole Sodium 40 mg/ Dextrose 100 ml @ 20 mls/hr Q5H IV 06/05/17 17:15 07/05/17 17:14 06/05/17 17:57 20 MLS/HR Objective Vital Signs Date Time Temp Pulse Resp B/P (MAP) Pulse Ox O2 Delivery O2 Flow Rate FiO2 06/05/17 17:35 73 18 153/73 97 Nasal Cannula 3 06/05/17 17:20 36.5 67 20 160/65 97 Nasal Cannula 3 06/05/17 17:10 67 20 152/71 95 Oxymask 10 06/05/17 17:00 73 20 150/77 94 Oxymask 10 06/05/17 16:54 36.1 76 20 147/64 98 Oxymask 10 06/05/17 09:01 Room Air 06/05/17 07:32 73 16 92 Room Air 06/05/17 06:59 36.5 77 19 134/72 (92) 94 Room Air 06/05/17 00:00 93 Room Air 06/04/17 22:47 36.5 75 22 106/63 (77) 95 Room Air 06/04/17 19:10 80 16 93 Room Air Physical Exam General Appearance: WD/WN, no apparent distress Eyes: PERRL ENT: + pertinent finding ([place]) Neck: no JVD, no carotid bruits, trachea midline Respiratory/Chest: no respiratory distress, + decreased breath sounds (LLL), + crackles (LLL) Cardiovascular: regular rate, rhythm, no edema, no murmur Abdomen: normal bowel sounds, non tender, soft Extremities: non-tender, normal inspection, no pedal edema, no calf tenderness Neurologic/Psychiatric: electronics supervisor II-XII nml as tested, no motor/sensory deficits, alert, normal mood/affect Skin: normal color Laboratory Results Last Resulted 06/05/17 07:12 Red Blood Count 3.68, Mean Corpuscular Volume 91.3, Mean Corpuscular Hemoglobin 30.7, Mean Corpuscular Hemoglobin Concent 33.6, Mean Platelet Volume 10.6, Neutrophils (%) (Auto) 81.9, Lymphocytes (%) (Auto) 4.9, Monocytes (%) (Auto) 8.8, Eosinophils (%) (Auto) 1.8, Basophils (%) (Auto) 0.1, Neutrophils # (Auto) 16.23, Lymphocytes # (Auto) 0.97, Monocytes # (Auto) 1.74, Eosinophils # (Auto) 0.36, Basophils # (Auto) 0.01 06/05/17 17:25 Last Resulted 06/04/17 06:00 Assessment and Plan 89 yo male admitted for ongoing cough and SOB, found to have severe LLL pna and complex parapneumonic effusion. PMH includes HTN, HLD, lumbar stenosis with neurogenic claudication, depression, hypothyroidism, GERD, vertigo, recent worsening forgetfulness, started on memantine. PSH: T11-S1 posterior spinal fusion in , Mohs surgery, appendectomy, herniorrhaphy. Sepsis POA Severe pneumonia LLL and complex parapneumonic effusion: - CXR and CT chest show LLL PNA and pleural effusion. - Leukocytosis overall improved. BCx x2 NGTD. Fungal studies NGTD. - Repeat CT showed some progression of effusion. Continue on antibiotics, restarted zosyn - Pulmonary following, Cardiothoracic surgery consulted for decortication today. NPO except meds - Currently on room air - Reporting no change to pleuritic pain Episode of Atrial fibrillation with RVR: - On admission, developed new afib with RVR, started on diltiazem IV, converted to NSR - Started on metoprolol tartrate 12.5 mg PO BID, increased to 25 PO BID. - Per cardio - senior care anticoagulation not recommended. Recommend event monitor for afib as outpatient to decide on need for anticoagulation - If anticoagulation required, eliquis 2.5 per cardio. Acute kidney injury: Resolved - Most recent Cr 1.14 - Likely was pre-renal in origin, continue to monitor Ongoing medical issues: - Chronic mid-thoracic back pain: S/p T11-S1 posterior spinal fusion in . - Hypothyroidism: On home synthroid. - Hyperlipidemia: On home lovastatin. - GERD: At home on prilosec, on protonix here. - Depression: On home sertraline. 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 First documented by PCP in July 2016 and forgetfulness, which worsened per notes over the next few months (pt forgetting half-way friends, forgetting tasks , unaware of correct time of day. started on memantine in January 2017 after outpt labs and brain MRI negative. Has been A&O x 3 since admission) - ? Bladder issues: On ditropan. CT chest findings: Noted question of prominent left hilar mass. Noted probable cholelithiasis. Outpatient follow up. 2-3 weeks outpatient visit, 6-8 week repeat scan Code: Full code but no mechanical ventilation. DVTP: Lovenox q24h. Dispo: ICU post-operatively Resident Tracking Resident Involvement: Resident Care Provided Care Provided: Adult [facility] Medicine Reviewed: Pt Seen/Exam by Me History continuing to have a lot of in left lower chest Constitutional: denies: fever Respiratory: positive: cough, negative: short of breath Cardiovascular: reports chest pain General Appearance: moderate distress Respiratory: no respiratory distress, decreased breath sounds (left lower lung) Cardiovascular: regular rate, rhythm Gastrointestinal: soft Neurologic/Psychiatric: alert, oriented x 3 Skin Characteristics: warm/dry Assessment/Plan Resident Physician Supervision Note: I independently interviewed and examined the patient and verified the auguste history and physical, reviewed labs and image studies, discussed the case with the resident Dr. Damon and agree with the findings and care plan.
--- NOTE | 2017-06-05 19:02 | Anesthesiology Progress Note ---
Anesthesia Post Op Note Date & Time Jun 05, 2017 at 19:01 Vital Signs Pain Intensity: 0 Vital Signs Past 12 Hours Date Time Temp Pulse Resp B/P (MAP) Pulse Ox O2 Delivery O2 Flow Rate FiO2 06/05/17 18:31 70 25 157/48 (84) 95 06/05/17 18:30 73 25 157/47 (83) 96 06/05/17 18:16 83 30 157/54 (88) 97 06/05/17 18:16 83 30 157/54 (88) 97 06/05/17 18:15 71 28 153/51 (85) 100 06/05/17 18:15 71 28 153/51 (85) 100 06/05/17 18:01 76 28 156/53 (87) 95 06/05/17 18:00 76 28 160/51 (87) 06/05/17 17:47 73 153/87 (109) 94 06/05/17 17:45 36.7 06/05/17 17:45 36.7 75 24 153/87 (109) 96 Nasal Cannula 2.0 159/50 (86) 06/05/17 17:35 73 18 153/73 97 Nasal Cannula 3 06/05/17 17:20 36.5 67 20 160/65 97 Nasal Cannula 3 06/05/17 17:10 67 20 152/71 95 Oxymask 10 06/05/17 17:00 73 20 150/77 94 Oxymask 10 06/05/17 16:54 36.1 76 20 147/64 98 Oxymask 10 06/05/17 09:01 Room Air 06/05/17 07:32 73 16 92 Room Air Notes Mental Status: alert / awake / arousable, participated in evaluation Pt Amnestic to Procedure: Yes Nausea / Vomiting: adequately controlled Pain: adequately controlled Airway Patency, RR, SpO2: stable & adequate BP & HR: stable & adequate Hydration State: stable & adequate Anesthetic Complications: no major complications apparent Pt is critical and transferred to ICU as planned.
[2017-06-05] MEDS: DOCUSATE SODIUM 100 MG CAP PO SCH (20:43)
[2017-06-05] MEDS: METOCLOPRAMIDE HCL INJ 5 MG/ML 2 ML VIAL IV. SCH (22:03)
[2017-06-06] VITALS (19 sets, daily range): BP systolic 83–160; BP diastolic 36–81; PULSE 69–92; TEMP 36.6–36.9; O2SAT 87–97
[2017-06-06] MEDS: PIPERACILL/TAZOBAC IV 3.375 GM in NSS 100ML IV SCH ×3 (00:50→19:32)
[2017-06-06] MEDS: ACETAMINOPHEN IV 1,000 MG in EMPTY BAG 0 ML IV SCH ×2 (00:51→07:23)
--- NOTE | 2017-06-06 01:02 | OPERATIVE REPORT ---
DATE OF OPERATION: 06/05/2017 PREOPERATIVE DIAGNOSIS: Left empyema. POSTOPERATIVE DIAGNOSIS: Left empyema. PROCEDURE: Left thoracoscopy with partial decortication, pleurectomy and evacuation of pleural contents. SURGEON: Josh duran MD CUSTOMER ORDERS CLERK: CHANO Rosario ( David was present for the entire case and closed the skin incisions at the end and was instrumental in holding the camera). ANESTHESIA: General anesthesia with endotracheal intubation using single lumen tube. SPECIFICS OF PROCEDURE: This is an 82-year-old male who has been sick for several days and presented with a parapneumonic effusion and this did not get better, in fact worsened. He was symptomatic and his white count was elevated despite antibiotics. We evaluated this with 2 CAT scans and an ultrasound and felt that with the nature of the pleural effusion that simply draining it would not be helpful. For this reason, I elected to proceed with a thoracoscopy. I had a long discussion with the patient and his . On 06/05/2017, the patient was brought to the operating room and underwent uncomplicated left thoracoscopy. He did have a complicated effusion which was broken up. I removed all this with the thoracoscope, 3 separate incisions, a 12 mm and two 5 mm incisions. We also performed a decortication of just the lower lobe and did a pleurectomy. He had benign-appearing plaques of his parietal pleura and the patient does have a history of asbestos exposure, so we biopsied this. We also removed all the pleural contents. He tolerated it well. We did do an Exparel block. PROCEDURE DETAIL: Patient was brought to the operating room and laid in supine position. General anesthesia induced and endotracheal intubation was performed with a single lumen tube. He was then placed in the right lateral decubitus position, his left chest prepped and draped in usual sterile fashion. Prophylactic antibiotics were given and appropriate timeout was called. A 5-mm scope was then placed at the tip of the left scapula. Upon entering it could be seen that there was a complicated effusion. A 5 mm trocar was placed anterior to the latissimus dorsi at about the fourth interspace. About the eighth interspace, more anterior, a 12 mm port was placed. Through these, we drained about 500 mL of fluid which was a turbid yellow fluid, which was sent for culture. I then put a Ray-Miels through the 12 mm port and we broke up multiple loculations posterior and anterior superiorly. We then peeled these off the pleural cavity wall. There was a thickened plaque which was grasped and peeled off, a large portion removed and sent to the lab. Also the fluid had been collected and 2 separate sterile collections were made, 1 for culture and 1 for cytology and sent to the lab. We meticulously took down the pleural peel that was on the left lower lobe as well as all the pleural contents. After we had done this for quite some time actually 266 mg of Exparel in 20 mL of solution was mixed with 30 mL 0.5% bupivacaine and then mixed with 150 mL of normal saline. This was then used to inject not only each of the incision sites, but also did an intercostal block from the 2nd-11th rib. This was done intrathoracically under thoracoscopic guidance. A PleurX catheter was brought through a separate stab wound and put through the posterior incision and placed posteriorly and inferiorly. The 24-Australian straight chest tube was placed through the 12 mm port and directed anteriorly. This was held in place with silk suture. A 4-0 Monocryl was used to close the skin incisions. The patient tolerated it well. Of one particular note is the patient had multiple PACs, has a history of atrial fibrillation which was when he presented here to the hospital for several hours a few days ago. The other problem is we put an OG tube and got about 354 mL of a dark colored fluid. We are going to remove this as we did not drain anymore during the case. He tolerated the procedure well with negligible blood loss. I attest to the content of the Intraoperative Record and any orders documented therein. Any exception s are noted below.
[2017-06-06] MEDS: LEVALBUTEROL 0.63MG/3 ML NEB INH SCH ×4 (03:03→20:38)
[2017-06-06] MEDS: IPRATROPIUM BROMIDE NEB SOLN 0.02% 2.5 ML VIAL INH SCH ×4 (03:03→20:38)
[2017-06-06] MEDS: PANTOprazole INJ 40 MG in DEXTROSE 5% 100ML IV SCH (03:49)
[2017-06-06] MEDS: LEVOTHYROXINE 50 MCG TAB PO SCH (06:02)
[2017-06-06] MEDS: METOCLOPRAMIDE HCL INJ 5 MG/ML 2 ML VIAL IV. SCH ×2 (06:02→13:37)
[2017-06-06 06:41] LABS: HEMATOCRIT 31.1 % (42-52); HEMOGLOBIN 10.5 g/dL (14.0-18.0); MEAN CELL VOLUME 92.3 fL (80-100); MEAN CORPUSCULAR HEMOGLOBIN 31.2 pg (25-34); MEAN CORPUSCULAR HGB CONC 33.8 g/dl (32-36); MEAN PLATELET VOLUME 10.5 fL (7.4-10.4); PLATELET COUNT 430 K/uL (130-400); RED CELL DISTRIBUTION WIDTH CV 15.3 % (11.5-14.5); WHITE BLOOD COUNT 25.55 K/uL (4.8-10.8)
[2017-06-06 07:05] LABS: BASO ABS # 0.01 K/uL (0-0.2); EOS % 0.2 %; EOS ABS # 0.05 K/uL (0-0.5); IG# 0.26 K/uL (0.00-0.02); LYMPH % 3.8 %; LYMPH ABS # 0.96 K/uL (1.2-3.4); MONO % 9.5 %; MONO ABS # 2.42 K/uL (0.11-0.59); NEUT % 85.5 %; NEUT ABS # 21.85 K/uL (1.4-6.5)
--- NOTE | 2017-06-06 07:13 | DIAGNOSTIC IMAGING REPORT ---
CHEST ONE VIEW PORTABLE CLINICAL HISTORY: decortication PNEUMONIA COMPARISON STUDY: 06/05/2017 FINDINGS: The heart remains enlarged. There are 2 left-sided chest tubes present. There is no significant pneumothorax. There is left-sided subcutaneous emphysema. The right lung appears generally clear. There is persistent left lower lobe atelectasis/consolidation.[ IMPRESSION: Stable findings. Persistent left lower lobe atelectasis/consolidation. No pneumothorax. Persistent subcutaneous emphysema on the left. Electronically signed by: Armando Santos M.D. 06/06/2017 7:12 AM Dictated Date/Time: 06/06/2017 7:11 AM
[2017-06-06 07:16] LABS: CALCIUM 8.1 mg/dl (8.5-10.1); CREATININE 1.09 mg/dl (0.60-1.40); PHOSPHORUS 2.8 mg/dl (2.5-4.9)
[2017-06-06] MEDS: DOCUSATE SODIUM 100 MG CAP PO SCH ×2 (07:18→21:02)
[2017-06-06] MEDS: LOVASTATIN 20 MG TAB PO SCH (07:19)
[2017-06-06] MEDS: GUAIFENESIN 200 MG TAB PO SCH ×2 (07:19→21:02)
[2017-06-06] MEDS: MEMANTINE 10 MG TAB PO SCH ×2 (07:19→21:02)
[2017-06-06] MEDS: OXYBUTYNIN CHLORIDE 5 MG TAB PO SCH (07:19)
[2017-06-06] MEDS: SERTRALINE HCL 100 MG TAB PO SCH (07:20)
[2017-06-06] MEDS: METOPROLOL TARTRATE 25 MG TAB PO SCH ×2 (07:20→21:02)
[2017-06-06] MEDS ORDERED: MECLIZINE HCL 25 MG TAB PO PRN (08:30)
[2017-06-06] MEDS: PANTOprazole INJ 40 MG in SYRINGE 0 ML IV SCH ×2 (09:00→20:31)
--- NOTE | 2017-06-06 09:02 | SURGERY PROGRESS NOTE ---
DATE: 06/06/2017 Mr. Doherty is an 82-year-old male that underwent decortication and drainage of left empyema yesterday. He looks good. He is sitting up in the chair. He is on 2 liters with good saturations. He has just finished a house diet. His labs look good. I think his x-ray looks good. There is some atelectasis with some mild opacities in the left base, but otherwise I think he looks good. We are going to transfer him to regular floor. He has been stable from a rhythm standpoint.
--- NOTE | 2017-06-06 12:22 | Family Medicine Progress Note ---
Progress Note Date of Service Jun 06, 2017. Subjective Pt evaluation today including: conversation w/ patient, physical exam, chart review, lab review Patient reports improved breathing following procedure. Constitutional: No fever, No chills Respiratory: + cough, No sputum, No wheezing, No shortness of breath, No dyspnea on exertion Cardiovascular: No chest pain, No edema, No palpitations Abdomen: No pain, No nausea, No vomiting Male : No dysuria Objective Vital Signs Date Time Temp Pulse Resp B/P (MAP) Pulse Ox O2 Delivery O2 Flow Rate FiO2 06/06/17 15:00 82 16 94 Nasal Cannula 2.0 06/06/17 10:10 36.9 71 18 137/64 (88) 96 Nasal Cannula 2.0 06/06/17 09:37 36.8 75 24 96 2.0 06/06/17 08:00 36.8 75 24 160/65 (96) 96 Nasal Cannula 2.0 154/53 (86) 06/06/17 08:00 Nasal Cannula 2.0 06/06/17 07:32 84 16 95 Nasal Cannula 2.0 06/06/17 06:00 71 24 (68) 94 92/46 06/06/17 06:00 71 24 160/74 (102) 94 Nasal Cannula 2.0 06/06/17 05:00 71 22 (62) 95 83/44 06/06/17 04:00 36.7 69 23 130/40 (70) 87 Nasal Cannula 2.0 06/06/17 04:00 Nasal Cannula 2.0 06/06/17 04:00 69 23 (68) 87 130/40 06/06/17 03:37 73 21 89/47 (61) 95 06/06/17 03:03 78 16 94 Nasal Cannula 2.0 06/06/17 03:00 74 23 (62) 93 85/44 06/06/17 02:00 71 25 (62) 94 118/36 06/06/17 02:00 71 25 118/36 (63) 94 Nasal Cannula 2.0 06/06/17 01:37 71 24 121/40 (67) 95 06/06/17 01:00 75 24 (67) 127/40 06/06/17 00:01 75 26 154/81 (76) 97 133/43 06/06/17 00:01 36.9 75 26 133/43 (73) 97 Nasal Cannula 2.0 06/05/17 23:59 Nasal Cannula 2.0 06/05/17 23:37 75 21 133/42 (72) 91 Nasal Cannula 2.0 06/05/17 23:00 72 24 (67) 134/38 06/05/17 22:00 79 25 (72) 97 139/42 06/05/17 21:37 79 23 144/43 (76) 95 Nasal Cannula 2.0 06/05/17 21:00 78 26 (78) 97 151/46 06/05/17 20:04 88 16 96 Nasal Cannula 2.0 06/05/17 20:00 Nasal Cannula 2.0 06/05/17 20:00 75 22 (77) 97 147/47 06/05/17 19:37 90 23 137/66 (89) 95 06/05/17 19:00 88 19 (74) 144/46 06/05/17 18:31 70 25 157/48 (84) 95 06/05/17 18:30 73 25 157/47 (83) 96 06/05/17 18:16 83 30 157/54 (88) 97 06/05/17 18:16 83 30 157/54 (88) 97 06/05/17 18:15 71 28 153/51 (85) 100 06/05/17 18:15 71 28 153/51 (85) 100 06/05/17 18:01 76 28 156/53 (87) 95 06/05/17 18:00 76 28 160/51 (87) 06/05/17 17:47 73 153/87 (109) 94 06/05/17 17:45 36.7 06/05/17 17:45 36.7 75 24 153/87 (109) 96 Nasal Cannula 2.0 159/50 (86) 06/05/17 17:35 73 18 153/73 97 Nasal Cannula 3 06/05/17 17:20 36.5 67 20 160/65 97 Nasal Cannula 3 06/05/17 17:10 67 20 152/71 95 Oxymask 10 06/05/17 17:00 73 20 150/77 94 Oxymask 10 06/05/17 16:54 36.1 76 20 147/64 98 Oxymask 10 Physical Exam General Appearance: WD/WN, no apparent distress Eyes: normal inspection ENT: pharynx normal Neck: supple, no adenopathy Respiratory/Chest: chest non-tender, no respiratory distress, no accessory muscle use, + decreased breath sounds (left base), + crackles (left base), + pertinent finding (Left side chest tube in place) Cardiovascular: regular rate, rhythm, no edema, no murmur Abdomen: normal bowel sounds, non tender, soft Neurologic/Psychiatric: alert, normal mood/affect, oriented x 3 Skin: normal color, warm/dry, no rash Laboratory Results 06/06/17 06:02 Red Blood Count 3.37, Mean Corpuscular Volume 92.3, Mean Corpuscular Hemoglobin 31.2, Mean Corpuscular Hemoglobin Concent 33.8, Mean Platelet Volume 10.5, Neutrophils (%) (Auto) 85.5, Lymphocytes (%) (Auto) 3.8, Monocytes (%) (Auto) 9.5, Eosinophils (%) (Auto) 0.2, Basophils (%) (Auto) 0.0, Neutrophils # (Auto) 21.85, Lymphocytes # (Auto) 0.96, Monocytes # (Auto) 2.42, Eosinophils # (Auto) 0.05, Basophils # (Auto) 0.01 06/06/17 06:02 Test 06/05/17 17:25 06/06/17 06:02 06/06/17 06:06 Arterial Blood pH 7.37 (7.35-7.45) Arterial Blood Partial Pressure CO2 37 mmHg (35-46) Arterial Blood Partial Pressure O2 76 mm/Hg (80-95) Arterial Blood HCO3 21 mmol/L (19-24) Arterial Blood Oxygen Saturation 93.2 % (90-95) Arterial Blood Base Excess -3.8 mEq/L (-9-1.8) Arterial Blood Gas Delivery 3 LITERS O2 Antoine Test (POS) White Blood Count 25.55 K/uL (4.8-10.8) Red Blood Count 3.37 M/uL (4.7-6.1) Hemoglobin 10.5 g/dL (14.0-18.0) Hematocrit 31.1 % (42-52) Mean Corpuscular Volume 92.3 fL (80-100) Mean Corpuscular Hemoglobin 31.2 pg (25-34) Mean Corpuscular Hemoglobin Concent 33.8 g/dl (32-36) Platelet Count 430 K/uL (130-400) Mean Platelet Volume 10.5 fL (7.4-10.4) Neutrophils (%) (Auto) 85.5 % Lymphocytes (%) (Auto) 3.8 % Monocytes (%) (Auto) 9.5 % Eosinophils (%) (Auto) 0.2 % Basophils (%) (Auto) 0.0 % Neutrophils # (Auto) 21.85 K/uL (1.4-6.5) Lymphocytes # (Auto) 0.96 K/uL (1.2-3.4) Monocytes # (Auto) 2.42 K/uL (0.11-0.59) Eosinophils # (Auto) 0.05 K/uL (0-0.5) Basophils # (Auto) 0.01 K/uL (0-0.2) RDW Standard Deviation 52.0 fL (36.4-46.3) RDW Coefficient of Variation 15.3 % (11.5-14.5) Immature Granulocyte % (Auto) 1.0 % Immature Granulocyte # (Auto) 0.26 K/uL (0.00-0.02) Anion Gap 5.0 mmol/L (3-11) Est Creatinine Clear Calc Drug Dose 61.4 ml/min Estimated GFR () 72.4 Estimated GFR (Non- 62.4 BUN/Creatinine Ratio 27.5 (10-20) Calcium Level 8.1 mg/dl (8.5-10.1) Phosphorus Level 2.8 mg/dl (2.5-4.9) Magnesium Level 2.0 mg/dl (1.8-2.4) Bedside Glucose 129 mg/dl (70-99) Date/Time Source Procedure Growth Status 06/05/17 18:00 Nasal MRSA DNA Surveillance Screen - Final Specimen Negative for MRSA by DNA Probe Complete Assessment and Plan 89 yo male admitted for ongoing cough and SOB, found to have severe LLL pna and complex parapneumonic effusion. PMH includes HTN, HLD, lumbar stenosis with neurogenic claudication, depression, hypothyroidism, GERD, vertigo, recent worsening forgetfulness, started on memantine. PSH: T11-S1 posterior spinal fusion in , Mohs surgery, appendectomy, herniorrhaphy. 06/06 Is doing well following decortication procedure yesterday and was transferred to a regular medical floor. Sepsis POA Severe pneumonia LLL and complex parapneumonic effusion: -CXR and CT chest show LLL PNA and pleural effusion. -Leukocytosis overall improved. BCx x2 NGTD. Fungal studies NGTD. -Repeat CT showed some progression of effusion. -Pulmonary following, Cardiothoracic surgery consulted for decortication today. NPO except meds -Currently on room air -Reporting no change to pleuritic pain -Continue Zosyn Episode of Atrial fibrillation with RVR: - On admission, developed new afib with RVR, started on diltiazem IV, converted to NSR - Started on metoprolol tartrate 12.5 mg PO BID, increased to 25 PO BID. 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 Recommend event monitor for afib as outpatient to decide on need for anticoagulation - If anticoagulation required, eliquis 2.5 per cardio. Acute kidney injury: Resolved - Likely was pre-renal in origin, continue to monitor Ongoing medical issues: - Chronic mid-thoracic back pain: S/p T11-S1 posterior spinal fusion in . - Hypothyroidism: On home synthroid. - Hyperlipidemia: On home lovastatin. - GERD: At home on prilosec, on protonix here. - Depression: On home sertraline. 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 First documented by PCP in July 2016 and forgetfulness, which worsened per notes over the next few months (pt forgetting [facility] friends, forgetting tasks , unaware of correct time of day. started on memantine in January 2017 after outpt labs and brain MRI negative. Has been A&O x 3 since admission) - ? Bladder issues: On ditropan. CT chest findings: Noted question of prominent left hilar mass. Noted probable cholelithiasis. Outpatient follow up. 2-3 weeks outpatient visit, 6-8 week repeat scan Code: Full code but no mechanical ventilation. DVTP: Lovenox q24h. Dispo: Cont. IV abx on medical floor Reviewed: Pt Seen/Exam by Me History left side chest pain resolved after putting chest tube Constitutional: denies: fever Respiratory: negative: short of breath Cardiovascular: denies chest pain Gastrointestinal/Abdominal: negative: abdominal pain General Appearance: no apparent distress Respiratory: no respiratory distress, decreased breath sounds (left lower lung) , other (chest tube in place) Gastrointestinal: soft Neurologic/Psychiatric: alert, oriented x 3 Skin Characteristics: warm/dry Assessment/Plan Resident Physician Supervision Note: I independently interviewed and examined the patient and verified the auguste history and physical, reviewed labs and image studies, discussed the case with the resident Dr. Rivas and agree with the findings and care plan.
--- NOTE | 2017-06-06 13:30 | DIAGNOSTIC IMAGING REPORT ---
CHEST ONE VIEW PORTABLE CLINICAL HISTORY: empyema COMPARISON STUDY: 06/06/2017 FINDINGS: The heart remains enlarged. 2 left-sided chest tubes are visualized. There is decreasing left-sided subcutaneous emphysema. There is persistent left-sided pleural thickening. There is persistent left basilar atelectasis/consolidation. There is no significant pneumothorax. There are minor right basilar atelectatic changes. There is blunting right lateral costophrenic angle. The heart is enlarged. There is mild central vascular prominence.[ IMPRESSION: 1. No change the position of 2 left-sided chest tubes. No evidence of pneumothorax 2. Slight improvement in aeration of the left lung base 3. Decreasing left-sided subcutaneous emphysema 4. Mild vascular prominence. Electronically signed by: Armando Santos M.D. 06/06/2017 1:29 PM Dictated Date/Time: 06/06/2017 1:27 PM
--- NOTE | 2017-06-06 14:13 | GASTROINTESTINAL CONSULTATION ---
DATE OF CONSULTATION: 06/06/2017 REFERRED BY: Franck MADDEN I was asked by David to consult on this gentleman for history of rectal bleeding. The patient is an 82-year-old who recently had drainage of left empyema. He has had some occasional rare red rectal bleeding, but none recently. He denies any abdominal pain. He denies any diarrhea. His hemoglobin has been stable. Therefore, at this point given the fact that he does not have any evidence of active GI bleeding and his other significant comorbid diseases going on during this hospitalization, I would just recommend a followup with his PCP and if these episodes continue, recommend an outpatient colonoscopy. This was discussed with the patient who is in agreement. MAX
[2017-06-06] MEDS ORDERED: NURSING DECISION MEDICATION ORDER SCH (23:45)
[2017-06-07] VITALS (9 sets, daily range): BP systolic 133–159; BP diastolic 63–74; PULSE 75–95; TEMP 36.6; O2SAT 92–96
[2017-06-07] MEDS: PIPERACILL/TAZOBAC IV 3.375 GM in NSS 100ML IV SCH ×4 (00:55→23:36)
[2017-06-07] MEDS: IPRATROPIUM BROMIDE NEB SOLN 0.02% 2.5 ML VIAL INH SCH ×4 (02:21→19:45)
[2017-06-07] MEDS: LEVALBUTEROL 0.63MG/3 ML NEB INH SCH ×4 (02:22→19:45)
[2017-06-07] MEDS: LEVOTHYROXINE 50 MCG TAB PO SCH (05:57)
[2017-06-07 06:03] LABS: BASO % 0.1 %; BASO ABS # 0.01 K/uL (0-0.2); EOS % 0.8 %; EOS ABS # 0.16 K/uL (0-0.5); HEMATOCRIT 30.6 % (42-52); HEMOGLOBIN 10.2 g/dL (14.0-18.0); LYMPH % 6.5 %; LYMPH ABS # 1.29 K/uL (1.2-3.4); MEAN CELL VOLUME 92.4 fL (80-100); MEAN CORPUSCULAR HEMOGLOBIN 30.8 pg (25-34); MEAN CORPUSCULAR HGB CONC 33.3 g/dl (32-36); MEAN PLATELET VOLUME 10.2 fL (7.4-10.4); MONO % 10.4 %; MONO ABS # 2.05 K/uL (0.11-0.59); NEUT % 81.7 %; NEUT ABS # 16.09 K/uL (1.4-6.5); PLATELET COUNT 397 K/uL (130-400); RED CELL DISTRIBUTION WIDTH CV 15.2 % (11.5-14.5); RED CELL DISTRIBUTION WIDTH SD 51.5 fL (36.4-46.3)
[2017-06-07 06:30] LABS: CALCIUM 8.8 mg/dl (8.5-10.1); CREATININE 1.01 mg/dl (0.60-1.40); POTASSIUM 3.6 mmol/L (3.5-5.1)
[2017-06-07] MEDS: METOPROLOL TARTRATE 25 MG TAB PO SCH ×2 (08:25→20:31)
[2017-06-07] MEDS: DOCUSATE SODIUM 100 MG CAP PO SCH ×2 (08:26→20:30)
[2017-06-07] MEDS: OXYBUTYNIN CHLORIDE 5 MG TAB PO SCH (08:26)
[2017-06-07] MEDS: LOVASTATIN 20 MG TAB PO SCH (08:26)
[2017-06-07] MEDS: GUAIFENESIN 200 MG TAB PO SCH ×2 (08:27→20:31)
[2017-06-07] MEDS: SERTRALINE HCL 100 MG TAB PO SCH (08:27)
[2017-06-07] MEDS: MEMANTINE 10 MG TAB PO SCH ×2 (08:28→20:30)
[2017-06-07] MEDS: PANTOprazole INJ 40 MG in SYRINGE 0 ML IV SCH ×2 (08:28→20:31)
--- NOTE | 2017-06-07 09:43 | Family Medicine Progress Note ---
Progress Note Date of Service Jun 07, 2017. Subjective Pt evaluation today including: conversation w/ patient, conversation w/ family , physical exam, chart review, lab review Patient is alert and oriented this am. Patient was very confused yesterday evening, but was only mildly agitated. Doing well this am, in the chair, eating breakfast. Constitutional: No fever, No chills Respiratory: + cough, No sputum, No wheezing, No shortness of breath Cardiovascular: No chest pain, No palpitations Abdomen: No pain, No nausea, No vomiting Male : No dysuria Medications Current Inpatient Medications Medications (Trade) Dose Ordered Sig/Estuardo Route Start Time Stop Time Status Last Admin Dose Admin Ondansetron HCl (Zofran Inj) 4 mg Q6H PRN IV 05/29/17 23:45 06/28/17 23:44 Guaifenesin (Organidin Nr Tab) 600 mg BID PO 05/30/17 09:00 06/29/17 08:59 06/07/17 08:27 600 MG Ipratropium [place] (Atrovent 0.02% 0.5MG/2.5ML Neb) 0.5 mg Q6R INH 05/30/17 03:00 06/29/17 02:59 06/07/17 07:37 0.5 MG Levalbuterol (Xopenex 0.63 Mg/ 3 Ml Neb) 0.63 mg Q6R INH 05/30/17 03:00 06/29/17 02:59 06/07/17 07:37 0.63 MG Levothyroxine Sodium (Synthroid Tab) 50 mcg DAILYBB PO 05/30/17 08:00 06/29/17 07:59 06/07/17 05:57 50 MCG Lovastatin (Mevacor Tab) 20 mg DAILY PO 05/30/17 09:00 06/29/17 08:59 06/07/17 08:26 20 MG Memantine (Namenda Tab) 10 mg BID PO 05/30/17 09:00 06/29/17 08:59 06/07/17 08:28 10 MG Oxybutynin Chloride (Ditropan Tab) 5 mg DAILY PO 05/30/17 09:00 06/29/17 08:59 06/07/17 08:26 5 MG Sertraline HCl (Zoloft Tab) 100 mg DAILY PO 05/30/17 09:00 06/29/17 08:59 06/07/17 08:27 100 MG Metoprolol Tartrate (Lopressor Tab) 25 mg BID PO 06/01/17 20:00 06/30/17 20:59 06/07/17 08:25 25 MG Miscellaneous Information (Consult) 1 ea UD PRN N/A 06/04/17 09:30 07/04/17 09:29 Piperacillin Sod/ Tazobactam Sod 3.375 gm/Sodium Chloride 115 ml @ 28.75 mls/ hr Q8H IV 06/04/17 16:00 06/11/17 15:59 06/07/17 08:22 28.75 MLS/HR Ondansetron HCl (Zofran Inj) 4 mg Q4H PRN IV 06/05/17 16:45 07/05/17 16:44 Docusate Sodium (coLACE CAP) 100 mg BID PO 06/05/17 20:00 07/05/17 19:59 06/07/17 08:26 100 MG Morphine Sulfate (MoRPHine SULFATE INJ) Q1H PRN IV 06/05/17 16:45 06/19/17 16:44 Meclizine HCl (Antivert Tab) 25 mg TID PRN PO 06/06/17 08:30 07/06/17 08:29 Pantoprazole Sodium 40 mg/ Syringe 10 ml @ 5 mls/min DAILY@09,21 IV 06/06/17 09:00 07/06/17 08:59 06/07/17 08:28 5 MLS/MIN Objective Vital Signs Date Time Temp Pulse Resp B/P (MAP) Pulse Ox O2 Delivery O2 Flow Rate FiO2 06/07/17 07:37 95 16 95 Nasal Cannula 2.0 06/07/17 06:59 36.6 75 16 159/63 (95) 95 Room Air 06/07/17 02:22 81 16 96 Nasal Cannula 2.0 06/07/17 01:30 75 95 Room Air 06/06/17 23:37 Nasal Cannula 2.0 06/06/17 23:04 36.6 84 18 130/74 (92) 94 Nasal Cannula 3.0 06/06/17 21:00 92 152/71 (98) 06/06/17 20:38 87 16 94 Nasal Cannula 2.0 06/06/17 15:30 Nasal Cannula 2.0 06/06/17 15:04 36.6 83 16 156/69 (98) 94 Room Air 06/06/17 15:00 82 16 94 Nasal Cannula 2.0 06/06/17 10:10 36.9 71 18 137/64 (88) 96 Nasal Cannula 2.0 06/06/17 09:37 36.8 75 24 96 2.0 Physical Exam General Appearance: WD/WN, no apparent distress Respiratory/Chest: chest non-tender, no respiratory distress, no accessory muscle use, + decreased breath sounds (bilateral bases ), + crackles (left base ) Cardiovascular: regular rate, rhythm, no murmur Abdomen: non tender, soft Extremities: non-tender, normal inspection Neurologic/Psychiatric: alert, normal mood/affect Skin: normal color, warm/dry, no rash Laboratory Results 06/07/17 05:35 Red Blood Count 3.31, Mean Corpuscular Volume 92.4, Mean Corpuscular Hemoglobin 30.8, Mean Corpuscular Hemoglobin Concent 33.3, Mean Platelet Volume 10.2, Neutrophils (%) (Auto) 81.7, Lymphocytes (%) (Auto) 6.5, Monocytes (%) (Auto) 10.4, Eosinophils (%) (Auto) 0.8, Basophils (%) (Auto) 0.1, Neutrophils # (Auto ) 16.09, Lymphocytes # (Auto) 1.29, Monocytes # (Auto) 2.05, Eosinophils # (Auto ) 0.16, Basophils # (Auto) 0.01 06/07/17 05:35 Test 06/07/17 05:35 White Blood Count 19.70 K/uL (4.8-10.8) Red Blood Count 3.31 M/uL (4.7-6.1) Hemoglobin 10.2 g/dL (14.0-18.0) Hematocrit 30.6 % (42-52) Mean Corpuscular Volume 92.4 fL (80-100) Mean Corpuscular Hemoglobin 30.8 pg (25-34) Mean Corpuscular Hemoglobin Concent 33.3 g/dl (32-36) Platelet Count 397 K/uL (130-400) Mean Platelet Volume 10.2 fL (7.4-10.4) Neutrophils (%) (Auto) 81.7 % Lymphocytes (%) (Auto) 6.5 % Monocytes (%) (Auto) 10.4 % Eosinophils (%) (Auto) 0.8 % Basophils (%) (Auto) 0.1 % Neutrophils # (Auto) 16.09 K/uL (1.4-6.5) Lymphocytes # (Auto) 1.29 K/uL (1.2-3.4) Monocytes # (Auto) 2.05 K/uL (0.11-0.59) Eosinophils # (Auto) 0.16 K/uL (0-0.5) Basophils # (Auto) 0.01 K/uL (0-0.2) RDW Standard Deviation 51.5 fL (36.4-46.3) RDW Coefficient of Variation 15.2 % (11.5-14.5) Immature Granulocyte % (Auto) 0.5 % Immature Granulocyte # (Auto) 0.10 K/uL (0.00-0.02) Anion Gap 5.0 mmol/L (3-11) Est Creatinine Clear Calc Drug Dose 66.3 ml/min Estimated GFR () 79.4 Estimated GFR (Non- 68.5 BUN/Creatinine Ratio 23.8 (10-20) Calcium Level 8.8 mg/dl (8.5-10.1) Assessment and Plan 89 yo male admitted for ongoing cough and SOB, found to have severe LLL pna and complex parapneumonic effusion. PMH includes HTN, HLD, lumbar stenosis with neurogenic claudication, depression, hypothyroidism, GERD, vertigo, recent worsening forgetfulness, started on memantine. PSH: T11-S1 posterior spinal fusion in , Mohs surgery, appendectomy, herniorrhaphy. 06/07 -Patient is doing well this am, despite confusion yesterday evening 03/27. Cont. IV abx. Discussed patient with Dr. Arroyo--condition continues to improve since decortication surgery, may remove chest tubes tomorrow. Dispo planning depending on; rehab placement, PO abx and chest tube removal. Will discuss outpatient abx therapy on attending rounds. Sepsis POA Severe pneumonia LLL and complex parapneumonic effusion -s/p Chest tube placement and removal: -CXR and CT chest show LLL PNA and pleural effusion. -Leukocytosis overall improved. BCx x2 NGTD. Fungal studies NGTD. -Pulmonary following, Cardiothoracic surgery following -Continue Zosyn Episode of Atrial fibrillation with RVR: - On admission, developed new afib with RVR, started on diltiazem IV, converted to NSR - Started on metoprolol tartrate 12.5 mg PO BID, increased to 25 PO BID. 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 Recommend event monitor for afib as outpatient to decide on need for anticoagulation - If anticoagulation required, eliquis 2.5 per cardio. Acute kidney injury: Resolved - Likely was pre-renal in origin, continue to monitor Ongoing medical issues: - Chronic mid-thoracic back pain: S/p T11-S1 posterior spinal fusion in . - Hypothyroidism: On home synthroid. - Hyperlipidemia: On home lovastatin. - GERD: At home on prilosec, on protonix here. - Depression: On home sertraline. 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 First documented by PCP in July 2016 and forgetfulness, which worsened per notes over the next few months (pt forgetting senior living friends, forgetting tasks , unaware of correct time of day. started on memantine in January 2017 after outpt labs and brain MRI negative. Has been A&O x 3 since admission) - ? Bladder issues: On ditropan. CT chest findings: Noted question of prominent left hilar mass. Noted probable cholelithiasis. Outpatient follow up. 2-3 weeks outpatient visit, 6-8 week repeat scan Code: Full code but no mechanical ventilation. DVTP: Lovenox q24h. Dispo: Cont. IV abx on medical floor Reviewed: Pt Seen/Exam by Me History feeling well this am. sitting in chair. chest tube removed Constitutional: denies: fever Respiratory: negative: short of breath Cardiovascular: denies chest pain General Appearance: no apparent distress Respiratory: no respiratory distress, decreased breath sounds (base) Cardiovascular: regular rate, rhythm Gastrointestinal: soft Neurologic/Psychiatric: alert, oriented x 3 Skin Characteristics: warm/dry Assessment/Plan Resident Physician Supervision Note: I independently interviewed and examined the patient and verified the auguste history and physical, reviewed labs and image studies, discussed the case with the resident Dr. Rivas and agree with the findings and care plan.
--- NOTE | 2017-06-07 10:11 | DIAGNOSTIC IMAGING REPORT ---
CHEST ONE VIEW PORTABLE CLINICAL HISTORY: 82 years-old Male presenting with left empyema. TECHNIQUE: Portable upright AP view of the chest was obtained. COMPARISON: 06/06/2017. FINDINGS: 2 large bore pleural drains in place on the left, one at the left apex and one at the paramediastinal left midlung. Associated soft tissue emphysema. Atherosclerosis of the mildly prominent and tortuous thoracic aorta. Cardiac silhouette moderately enlarged, unchanged. Mild pulmonary vascular prominence. Dense left mid to basilar predominant opacity. Small left pleural effusion. It is difficult to exclude a small left pneumothorax. Postsurgical changes of thoracolumbar fusion hardware. Upper abdomen normal. IMPRESSION: 1. No significant change in the left mid to basilar predominant consolidation with small left pleural fluid. 2. Two large bore pleural drains remain in place. 3. It is difficult to exclude a small left apical pneumothorax allowing for portable technique. Electronically signed by: Ck Calderon M.D. 06/07/2017 10:10 AM Dictated Date/Time: 06/07/2017 10:03 AM
--- NOTE | 2017-06-07 10:38 | SURGERY PROGRESS NOTE ---
DATE: 06/07/2017 Mr. Doherty was seen today. He looks great. He is still on oxygen at 2 L with 95%-96% saturation. He has been ambulating in the hallway. His chest tube put out very little in the last 8 hours and only 40 mL and he has no air leak. His x-ray I thought looked pretty good. He is going to have some opacity in that left base given his pneumonia; however, I thought it looked good and I removed his chest tube today. His chest tube sites are good. I think his breath sounds are better. He looks better to me. In addition, his white count appears to be falling out. It peaked at 25,550 yesterday but now is down at 19,700. He has been afebrile. I reviewed the microbiology from our multiple cultures taken in the OR and we see no organisms to date. At this point, he is subjectively better. He is objectively better. We are going to push him to walk a great deal today without his chest tube and if we do not get any drainage from his PleurX tomorrow, we will remove that also. I am quite happy with his appearance thus far.
--- NOTE | 2017-06-07 11:57 | DIAGNOSTIC IMAGING REPORT ---
CHEST 2 VIEWS ROUTINE CLINICAL HISTORY: 82 years-old Male presenting with left empyema. TECHNIQUE: PA and lateral views of the chest were obtained. COMPARISON: 06/07/2017 at 9:51 AM. FINDINGS: One of the 2 large bore pleural drains has been removed. The one that remains terminates at the paramediastinal left midlung. Atherosclerosis of the prominent and tortuous thoracic aorta. Cardiac silhouette mildly enlarged, unchanged. Slight interval improvement of bibasilar lung aeration. Persistent small right and [id number] left pleural effusions. No pneumothorax. Upper lumbar fusion hardware noted. Soft tissue emphysema along the left lateral chest wall. IMPRESSION: 1. No pneumothorax status post removal of one of the 2 large bore left pleural drains. 2. Persistent small right and [id number] left pleural effusions with slight interval improved aeration of the lung bases. Electronically signed by: Ck Calderon M.D. 06/07/2017 11:56 AM Dictated Date/Time: 06/07/2017 11:53 AM
--- NOTE | 2017-06-07 12:12 | Pulmonology Progress Note ---
Pulmonary Progress Note Date of Service Jun 07, 2017. Attending Dr. Rivera Subjective Patient is sitting up in a chair talking to family and friends doing well with no signs active complaints Objective 82-yo male admitted through the ED from his PCPs office 05/29/2017 with 3-week history of cough, fevers, AMS, and hypoxia with work-up notable for LLL pneumonia with appearance of loculated pleural effusion. Today the patient is sitting in a chair having conversation with family friend with no signs of respiratory insufficiency. He does note some mild mucus production but he notes it is easier to expectorated sputum at this time. Prior records were reviewed. PMHx includes: hypertension, hyperlipidemia, GERD, hypothyroid, lumbar stenosis. Today: - SaO2RA: 95-96% 2 liters nasal cannula - WBC 20K Physical Exam: Constitutional: Doing well sitting up in bed no signs of distress HEENT: + facial symmetry. Pale conjunctive. Moist mucous membranes without oral lesions Respiratory: Some rhonchorous breath sounds but minimal at the left base with well-healed surgical ports CV: Regular rate and rhythm. No MRG. Warm and perfused peripherally. No clubbing or cyanosis Abdomen: Soft, Active bowel sounds MSK/Extremities: Moving and developed symmetrically. 1+ pitting edema Neurologic: Alert and oriented to person and place. Tangential speech. Hearing loss. Thoracic ultrasound: Shows multiple loculated effusion with hyperdense fluid the Today microbiologic and pathologic analysis negative and/or pending final results after left lower lobe decortication Assessment & Plan 82-year-old male admitted with severe community-acquired pneumonia/sepsis 1. Severe CAP: Patient underwent surgical decortication and is recovering well. Suggest a 14 day course of antibiotics can switch to Augmentin at this time. 2. Complex parapneumonic effusion: Awaiting surgical pathologic and microbiologic analysis 3. left lower lobe nodule/hilar adenopathy: Surgical evaluation lymph nodes suggested no definitive finding at this time follow-up can be performed as an outpatient 4. Discharge: At this time I suggest the patient be discharged to rehab/ senior living facility value as it is close family's home and I do not believe the patient's family can properly help him rehab at this time Pulmonary will sign off thank you very much Data Medications: Current Inpatient Medications Medications (Trade) Dose Ordered Sig/Estuardo Route Start Time Stop Time Status Last Admin Dose Admin Ondansetron HCl (Zofran Inj) 4 mg Q6H PRN IV 05/29/17 23:45 06/28/17 23:44 Guaifenesin (Organidin Nr Tab) 600 mg BID PO 05/30/17 09:00 06/29/17 08:59 06/07/17 08:27 600 MG Ipratropium [place] (Atrovent 0.02% 0.5MG/2.5ML Neb) 0.5 mg Q6R INH 05/30/17 03:00 06/29/17 02:59 06/07/17 07:37 0.5 MG Levalbuterol (Xopenex 0.63 Mg/ 3 Ml Neb) 0.63 mg Q6R INH 05/30/17 03:00 06/29/17 02:59 06/07/17 07:37 0.63 MG Levothyroxine Sodium (Synthroid Tab) 50 mcg DAILYBB PO 05/30/17 08:00 06/29/17 07:59 06/07/17 05:57 50 MCG Lovastatin (Mevacor Tab) 20 mg DAILY PO 05/30/17 09:00 06/29/17 08:59 06/07/17 08:26 20 MG Memantine (Namenda Tab) 10 mg BID PO 05/30/17 09:00 06/29/17 08:59 06/07/17 08:28 10 MG Oxybutynin Chloride (Ditropan Tab) 5 mg DAILY PO 05/30/17 09:00 06/29/17 08:59 06/07/17 08:26 5 MG Sertraline HCl (Zoloft Tab) 100 mg DAILY PO 05/30/17 09:00 06/29/17 08:59 06/07/17 08:27 100 MG Metoprolol Tartrate (Lopressor Tab) 25 mg BID PO 06/01/17 20:00 06/30/17 20:59 06/07/17 08:25 25 MG Miscellaneous Information (Consult) 1 ea UD PRN N/A 06/04/17 09:30 07/04/17 09:29 Piperacillin Sod/ Tazobactam Sod 3.375 gm/Sodium Chloride 115 ml @ 28.75 mls/ hr Q8H IV 06/04/17 16:00 06/11/17 15:59 06/07/17 08:22 28.75 MLS/HR Ondansetron HCl (Zofran Inj) 4 mg Q4H PRN IV 06/05/17 16:45 07/05/17 16:44 Docusate Sodium (coLACE CAP) 100 mg BID PO 06/05/17 20:00 07/05/17 19:59 06/07/17 08:26 100 MG Morphine Sulfate (MoRPHine SULFATE INJ) Q1H PRN IV 06/05/17 16:45 06/19/17 16:44 Meclizine HCl (Antivert Tab) 25 mg TID PRN PO 06/06/17 08:30 07/06/17 08:29 Pantoprazole Sodium 40 mg/ Syringe 10 ml @ 5 mls/min DAILY@ IV 06/06/17 09:00 07/06/17 08:59 06/07/17 08:28 5 MLS/MIN Vital Signs: Date Time Temp Pulse Resp B/P (MAP) Pulse Ox O2 Delivery O2 Flow Rate FiO2 06/07/17 08:00 Nasal Cannula 2.0 06/07/17 07:37 95 16 95 Nasal Cannula 2.0 06/07/17 06:59 36.6 75 16 159/63 (95) 95 Room Air 06/07/17 02:22 81 16 96 Nasal Cannula 2.0 06/07/17 01:30 75 95 Room Air 06/06/17 23:37 Nasal Cannula 2.0 06/06/17 23:04 36.6 84 18 130/74 (92) 94 Nasal Cannula 3.0 06/06/17 21:00 92 152/71 (98) 06/06/17 20:38 87 16 94 Nasal Cannula 2.0 06/06/17 15:30 Nasal Cannula 2.0 06/06/17 15:04 36.6 83 16 156/69 (98) 94 Room Air 06/06/17 15:00 82 16 94 Nasal Cannula 2.0 Laboratory Results: Last 24 Hours Test 06/07/17 05:35 White Blood Count 19.70 K/uL Red Blood Count 3.31 M/uL Hemoglobin 10.2 g/dL Hematocrit 30.6 % Mean Corpuscular Volume 92.4 fL Mean Corpuscular Hemoglobin 30.8 pg Mean Corpuscular Hemoglobin Concent 33.3 g/dl Platelet Count 397 K/uL Mean Platelet Volume 10.2 fL Neutrophils (%) (Auto) 81.7 % Lymphocytes (%) (Auto) 6.5 % Monocytes (%) (Auto) 10.4 % Eosinophils (%) (Auto) 0.8 % Basophils (%) (Auto) 0.1 % Neutrophils # (Auto) 16.09 K/uL Lymphocytes # (Auto) 1.29 K/uL Monocytes # (Auto) 2.05 K/uL Eosinophils # (Auto) 0.16 K/uL Basophils # (Auto) 0.01 K/uL RDW Standard Deviation 51.5 fL RDW Coefficient of Variation 15.2 % Immature Granulocyte % (Auto) 0.5 % Immature Granulocyte # (Auto) 0.10 K/uL Sodium Level 138 mmol/L Potassium Level 3.6 mmol/L Chloride Level 109 mmol/L Carbon Dioxide Level 24 mmol/L Anion Gap 5.0 mmol/L Blood Urea Nitrogen 24 mg/dl Creatinine 1.01 mg/dl Est Creatinine Clear Calc Drug Dose 66.3 ml/min Estimated GFR () 79.4 Estimated GFR (Non- 68.5 BUN/Creatinine Ratio 23.8 Random Glucose 121 mg/dl Calcium Level 8.8 mg/dl
--- NOTE | 2017-06-07 23:44 | Progress Note ---
Post ICU Progress Note Date & Time Jun 07, 2017 at 23:30 Vital Signs Vital Signs Past 12 Hours Date Time Temp Pulse Resp B/P (MAP) Pulse Ox O2 Delivery O2 Flow Rate FiO2 06/07/17 22:48 36.6 86 18 133/74 (93) 94 Nasal Cannula 2.0 06/07/17 20:28 88 147/66 (93) 06/07/17 19:47 86 16 92 Nasal Cannula 2.0 06/07/17 16:45 Nasal Cannula 2.0 06/07/17 15:00 36.6 78 18 150/67 (94) 94 Nasal Cannula 2.0 06/07/17 14:52 79 16 94 Nasal Cannula 2.0 Notes Mental Status: alert / awake (Patient was resting in bed upon my arrival, awoke easily did state that his hearing aids were not in.), participated in evaluation Nausea / Vomiting: adequately controlled Pain: adequately controlled Airway Patency, RR, SpO2: stable & adequate (2 L nasal cannula) BP & HR: stable & adequate Sridhar Doherty is an 82-year-old gentleman who was admitted to [facility] on May 29 for fever and hypoxia referred by his family practitioner and then later on 06/06 to the ICU status post thoracoscopy and partial decortication and pleurectomy with evacuation of pleural contents by Dr. Chew on June 05, 2017. Patient had been transferred to the ICU status post the operation secondary to concern for respiratory insufficiency, possible postoperative atrial fibrillation, as well as hematemesis with coffee-ground emesis after extubation. Respiratory status improved and did not require intubation. Patient did not undergo invasive monitoring, central arterial line placement. However patient did have a chest tube status post surgery which was removed prior to my examination today on 06/07. His Pleurx remains in place. Patient was transferred from the ICU the following day without complication. Upon my evaluation today I find him resting in bed. He was easy to awake and communicate with though he did tell me that he was hard of hearing and that his hearing aids had been eaten by the dog prior to arrival at the hospital. Patient was in good spirits on 2 L nasal cannula with adequate saturations. He did not complain of shortness of breath chest pain or continued hematemesis. Patient is ambulating in the hallways each shift. Does state that he continues to have some mild throat pain from the intubation during surgery and therefore has not had much of an appetite. He was encouraged to ask nursing for soft foods such as Jell-O and cold foods such as ice cream. No new findings on physical exam at this time patient has stabilized from a cardio pulmonary standpoint. While I am not currently aware of discharge plans I would concur with pulmonology the patient is likely to be discharged to a rehab/fci facility based on his condition. Consider outpatient follow up in 1 to 2 weeks with: Dr. Deuce Ferreira Repeat imaging needed: Per Dr. Chew Follow up cultures: Multiple aspects from surgery still pending. Will defer to Dr. Chew for follow up Critical care will sign off this time. Thank you for including us in the care of this patient; reviewed progress notes, labs, and inpatient medication list. Level One inpatient billing Thank you for including us in the care of this patient. Please review Dr. Floyd Case's addendum for further recommendations. Continue current management Additional recommendations: OT is already consulted, defer to them to assist casemanagement for placement on discharge Please feel free to reconsult as needed Consults & Procedures Consultants: Thoracic surgery: Dr. Josh Chew Pulmonary: Dr. Humza Rivera Gastroenterology: Dr. Rohan Rose Cardiology: Dr. Efrain Irene Procedures: Left thoracoscopy with partial decortication, pleurectomy and evacuation of pleural contents. June 05, 2017
[2017-06-08] MEDS: LEVALBUTEROL 0.63MG/3 ML NEB INH SCH ×2 (02:08→07:30)
[2017-06-08] MEDS: IPRATROPIUM BROMIDE NEB SOLN 0.02% 2.5 ML VIAL INH SCH ×2 (02:08→07:29)
[2017-06-08 02:10] VITALS: PULSE 80; O2SAT 94
[2017-06-08 05:21] LABS: BASO % 0.1 %; BASO ABS # 0.01 K/uL (0-0.2); EOS % 1.4 %; EOS ABS # 0.17 K/uL (0-0.5); HEMATOCRIT 29.5 % (42-52); HEMOGLOBIN 9.8 g/dL (14.0-18.0); IG# 0.07 K/uL (0.00-0.02); LYMPH % 10.5 %; MEAN CELL VOLUME 92.5 fL (80-100); MEAN CORPUSCULAR HEMOGLOBIN 30.7 pg (25-34); MEAN CORPUSCULAR HGB CONC 33.2 g/dl (32-36); MONO % 12.1 %; NEUT % 75.3 %; NEUT ABS # 9.34 K/uL (1.4-6.5); PLATELET COUNT 393 K/uL (130-400); RED CELL DISTRIBUTION WIDTH CV 14.8 % (11.5-14.5); WHITE BLOOD COUNT 12.39 K/uL (4.8-10.8)
[2017-06-08] MEDS: LEVOTHYROXINE 50 MCG TAB PO SCH (05:27)
[2017-06-08 05:50] LABS: CALCIUM 8.2 mg/dl (8.5-10.1); CREATININE 0.93 mg/dl (0.60-1.40); POTASSIUM 3.6 mmol/L (3.5-5.1)
--- NOTE | 2017-06-08 06:47 | Family Medicine Progress Note ---
Progress Note Date of Service Jun 08, 2017. Subjective Pt evaluation today including: conversation w/ patient, physical exam Pain: Reports some discomfort at site of prio chest tubes, but improving PO Intake: Tolerating well Voiding: no voiding problems Patient reports he is feeling overall a lot better compared to last week prior to decortication procedure. He is eager to leave hospital and attend rehabilitation with ultimate goal of returning home. Constitutional: No fever, No chills ENT: + hearing loss Respiratory: + cough, + sputum, + shortness of breath Abdomen: No pain, No nausea, No vomiting Musculoskeletal: + joint pain Neurologic: + memory loss All Other Systems: Reviewed and Negative Medications Current Inpatient Medications Medications (Trade) Dose Ordered Sig/Estuardo Route Start Time Stop Time Status Last Admin Dose Admin Ondansetron HCl (Zofran Inj) 4 mg Q6H PRN IV 05/29/17 23:45 06/28/17 23:44 Guaifenesin (Organidin Nr Tab) 600 mg BID PO 05/30/17 09:00 06/29/17 08:59 06/07/17 20:31 600 MG Ipratropium [place] (Atrovent 0.02% 0.5MG/2.5ML Neb) 0.5 mg Q6R INH 05/30/17 03:00 06/29/17 02:59 06/08/17 02:08 0.5 MG Levalbuterol (Xopenex 0.63 Mg/ 3 Ml Neb) 0.63 mg Q6R INH 05/30/17 03:00 06/29/17 02:59 06/08/17 02:08 0.63 MG Levothyroxine Sodium (Synthroid Tab) 50 mcg DAILYBB PO 05/30/17 08:00 06/29/17 07:59 06/08/17 05:27 50 MCG Lovastatin (Mevacor Tab) 20 mg DAILY PO 05/30/17 09:00 06/29/17 08:59 06/07/17 08:26 20 MG Memantine (Namenda Tab) 10 mg BID PO 05/30/17 09:00 06/29/17 08:59 06/07/17 20:30 10 MG Oxybutynin Chloride (Ditropan Tab) 5 mg DAILY PO 05/30/17 09:00 06/29/17 08:59 06/07/17 08:26 5 MG Sertraline HCl (Zoloft Tab) 100 mg DAILY PO 05/30/17 09:00 06/29/17 08:59 06/07/17 08:27 100 MG Metoprolol Tartrate (Lopressor Tab) 25 mg BID PO 06/01/17 20:00 06/30/17 20:59 06/07/17 20:31 25 MG Miscellaneous Information (Consult) 1 ea UD PRN N/A 06/04/17 09:30 07/04/17 09:29 Piperacillin Sod/ Tazobactam Sod 3.375 gm/Sodium Chloride 115 ml @ 28.75 mls/ hr Q8H IV 06/04/17 16:00 06/11/17 15:59 06/07/17 23:36 28.75 MLS/HR Ondansetron HCl (Zofran Inj) 4 mg Q4H PRN IV 06/05/17 16:45 07/05/17 16:44 Docusate Sodium (coLACE CAP) 100 mg BID PO 06/05/17 20:00 07/05/17 19:59 06/07/17 20:30 100 MG Morphine Sulfate (MoRPHine SULFATE INJ) Q1H PRN IV 06/05/17 16:45 06/19/17 16:44 Meclizine HCl (Antivert Tab) 25 mg TID PRN PO 06/06/17 08:30 07/06/17 08:29 Pantoprazole Sodium 40 mg/ Syringe 10 ml @ 5 mls/min DAILY@09,21 IV 06/06/17 09:00 07/06/17 08:59 06/07/17 20:31 5 MLS/MIN Objective Vital Signs Date Time Temp Pulse Resp B/P (MAP) Pulse Ox O2 Delivery O2 Flow Rate FiO2 06/08/17 02:10 80 18 94 Nasal Cannula 2.0 06/07/17 23:30 Nasal Cannula 2.0 06/07/17 22:48 36.6 86 18 133/74 (93) 94 Nasal Cannula 2.0 06/07/17 20:28 88 147/66 (93) 06/07/17 19:47 86 16 92 Nasal Cannula 2.0 06/07/17 16:45 Nasal Cannula 2.0 06/07/17 15:00 36.6 78 18 150/67 (94) 94 Nasal Cannula 2.0 06/07/17 14:52 79 16 94 Nasal Cannula 2.0 06/07/17 08:00 Nasal Cannula 2.0 06/07/17 07:37 95 16 95 Nasal Cannula 2.0 06/07/17 06:59 36.6 75 16 159/63 (95) 95 Room Air Physical Exam General Appearance: WD/WN, no apparent distress Eyes: PERRL, EOMI ENT: + pertinent finding (TULALIP) Respiratory/Chest: chest non-tender, no respiratory distress, no accessory muscle use, + decreased breath sounds (LLL), + crackles Cardiovascular: regular rate, rhythm, no edema (trace bilaterally), no JVD, no murmur Abdomen: normal bowel sounds, non tender, soft Extremities: normal range of motion, normal inspection, no calf tenderness Neurologic/Psychiatric: alert, normal mood/affect Skin: normal color, warm/dry Laboratory Results Date Time Temp Pulse Resp B/P (MAP) Pulse Ox O2 Delivery O2 Flow Rate FiO2 06/08/17 02:10 80 18 94 Nasal Cannula 2.0 06/07/17 23:30 Nasal Cannula 2.0 06/07/17 22:48 36.6 86 18 133/74 (93) 94 Nasal Cannula 2.0 06/07/17 20:28 88 147/66 (93) 06/07/17 19:47 86 16 92 Nasal Cannula 2.0 06/07/17 16:45 Nasal Cannula 2.0 06/07/17 15:00 36.6 78 18 150/67 (94) 94 Nasal Cannula 2.0 06/07/17 14:52 79 16 94 Nasal Cannula 2.0 06/07/17 08:00 Nasal Cannula 2.0 06/07/17 07:37 95 16 95 Nasal Cannula 2.0 06/07/17 06:59 36.6 75 16 159/63 (95) 95 Room Air Assessment and Plan 89 yo male admitted for ongoing cough and SOB, found to have severe LLL pna and complex parapneumonic effusion which required decortication by cardiothoracic surgery. PMH includes HTN, HLD, lumbar stenosis with neurogenic claudication, depression, hypothyroidism, GERD, vertigo, recent worsening forgetfulness, started on memantine. PSH: T11-S1 posterior spinal fusion in , Mohs surgery, appendectomy, herniorrhaphy. Sepsis POA Severe pneumonia LLL and complex parapneumonic effusion -s/p Chest tube placement and removal -Leukocytosis overall improved. BCx x2 NGTD. Fungal studies NGTD. -Pulmonary following, Cardiothoracic surgery following -Converted IV Abx to 14 day course of augmentin 875 BID, Day 1 Episode of Atrial fibrillation with RVR: - On admission, developed new afib with RVR, started on diltiazem IV, converted to NSR - Started on metoprolol tartrate 12.5 mg PO BID, increased to 25 PO BID. - Per cardio -care home anticoagulation not recommended. Recommend event monitor for afib as outpatient to decide on need for anticoagulation - If anticoagulation required, eliquis 2.5 per cardio. Acute kidney injury: Resolved - Likely was pre-renal in origin Ongoing medical issues: - Chronic mid-thoracic back pain: S/p T11-S1 posterior spinal fusion in . - Hypothyroidism: On home synthroid. - Hyperlipidemia: On home lovastatin. - GERD: At home on prilosec, on protonix here. - Depression: On home sertraline. 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 First documented by PCP in July 2016 and forgetfulness, which worsened per notes over the next few months (pt forgetting [facility]dc friends, forgetting tasks , unaware of correct time of day. started on memantine in January 2017 after outpt labs and brain MRI negative. Has been A&O x 3 since admission) - ? Bladder issues: On ditropan. CT chest findings: Noted question of prominent left hilar mass. Noted probable cholelithiasis. Outpatient follow up. 2-3 weeks outpatient visit, 6-8 week repeat scan Code: Full code but no mechanical ventilation. DVTP: Lovenox q24h. Dispo: med/surg, hopeful discharge tomorrow to [facility] Resident Physician Supervision Note: I interviewed and examined the patient. Discussed with Dr. Damon and agree with findings and plan as documented in the note. Any exceptions or clarifications are listed here: None Documented By: Cj Alanis feeling good hoping for transfer to [facility] today vitals noted nad breathing unlabored walking w PT pneumonia/sepsis/loculated effusion - improving - as above stable for SNF/rehab emphasis - awaiting approvals Resident Tracking Resident Involvement: Resident Care Provided Care Provided: Adult [facility] Medicine
[2017-06-08 07:01] VITALS: BP 160/74; PULSE 80; TEMP 36.4; O2SAT 94
[2017-06-08 07:33] VITALS: PULSE 64; O2SAT 98
[2017-06-08] MEDS: DOCUSATE SODIUM 100 MG CAP PO SCH ×2 (08:37→21:13)
[2017-06-08] MEDS: AMOXICILLIN/CLAVULANATE TAB 875 MG TAB PO SCH ×2 (08:37→18:07)
[2017-06-08] MEDS: LOVASTATIN 20 MG TAB PO SCH (08:38)
[2017-06-08] MEDS: OXYBUTYNIN CHLORIDE 5 MG TAB PO SCH (08:38)
[2017-06-08] MEDS: MEMANTINE 10 MG TAB PO SCH ×2 (08:38→21:13)
[2017-06-08] MEDS: GUAIFENESIN 200 MG TAB PO SCH ×2 (08:38→21:14)
[2017-06-08] MEDS: PANTOprazole INJ 40 MG in SYRINGE 0 ML IV SCH (08:39)
[2017-06-08] MEDS: SERTRALINE HCL 100 MG TAB PO SCH (08:39)
--- NOTE | 2017-06-08 09:05 | DIAGNOSTIC IMAGING REPORT ---
CHEST ONE VIEW PORTABLE CLINICAL HISTORY: tube removal dyspnea COMPARISON STUDY: 06/07/2017 FINDINGS: Interval removal of the patient is a left-sided chest tube. No postprocedural pneumothorax. Unchanging atelectatic change left base. Right lung remains clear. IMPRESSION: No significant pneumothorax post left-sided chest tube removal. Unchanging left basilar atelectatic and/or infiltrative change. The above report was generated using voice recognition software. It may contain grammatical, syntax or spelling errors. Electronically signed by: Mt Heck M.D. 06/08/2017 9:04 AM Dictated Date/Time: 06/08/2017 9:02 AM
--- NOTE | 2017-06-08 09:07 | SURGERY PROGRESS NOTE ---
DATE: 06/08/2017 Mr. Doehrty is seen today on 06/08/2017. He looks great today. He is on room air. He has been ambulating in the hallway. He is tolerating a diet. He has been afebrile. He is on room air with good saturations today. We got almost nothing out of his PleurX today so that was removed. His x-ray from yesterday I thought looked quite good. We have grown nothing from our intraoperative cultures. This was probably a sterile empyema. At this point, I would allow him to be discharged from a surgical standpoint, but I will leave that up to his professor of history and infectious disease physicians.
[2017-06-08] MEDS: METOPROLOL TARTRATE 25 MG TAB PO SCH ×2 (09:17→21:13)
--- NOTE | 2017-06-08 09:44 | Anesthesiology Progress Note ---
Anesthesia Post Op Note Date & Time Jun 08, 2017 at 09:44 Vital Signs Pain Intensity: 0.0 Vital Signs Past 12 Hours Date Time Temp Pulse Resp B/P (MAP) Pulse Ox O2 Delivery O2 Flow Rate FiO2 06/08/17 07:33 64 18 98 Nasal Cannula 2.0 06/08/17 07:30 Nasal Cannula 2.0 06/08/17 07:01 36.4 80 20 160/74 (102) 94 Nasal Cannula 2.0 06/08/17 02:10 80 18 94 Nasal Cannula 2.0 06/07/17 23:30 Nasal Cannula 2.0 06/07/17 22:48 36.6 86 18 133/74 (93) 94 Nasal Cannula 2.0 Notes Mental Status: alert / awake / arousable, participated in evaluation Pt Amnestic to Procedure: Yes Nausea / Vomiting: adequately controlled Pain: adequately controlled Airway Patency, RR, SpO2: stable & adequate BP & HR: stable & adequate Hydration State: stable & adequate Anesthetic Complications: no major complications apparent
[2017-06-08 10:28] VITALS: PULSE 97; O2SAT 92
[2017-06-08 21:11] VITALS: BP 131/70; PULSE 80
[2017-06-08] MEDS: PANTOprazole SOD 40 MG TAB PO SCH (21:13)
[2017-06-08 22:50] VITALS: BP 135/66; PULSE 80; TEMP 36.8; O2SAT 91
[2017-06-09] MEDS ORDERED: LEVALBUTEROL 0.63MG/3 ML NEB INH PRN (03:00)
[2017-06-09] MEDS ORDERED: IPRATROPIUM BROMIDE NEB SOLN 0.02% 2.5 ML VIAL INH PRN (03:00)
[2017-06-09] MEDS: LEVOTHYROXINE 50 MCG TAB PO SCH (05:59)
[2017-06-09 07:54] LABS: HEMATOCRIT 28.8 % (42-52); HEMOGLOBIN 9.8 g/dL (14.0-18.0); MEAN CELL VOLUME 91.4 fL (80-100); MEAN CORPUSCULAR HEMOGLOBIN 31.1 pg (25-34); PLATELET COUNT 398 K/uL (130-400); RED CELL DISTRIBUTION WIDTH CV 14.9 % (11.5-14.5); RED CELL DISTRIBUTION WIDTH SD 50.2 fL (36.4-46.3); WHITE BLOOD COUNT 11.28 K/uL (4.8-10.8)
[2017-06-09 08:36] VITALS: BP 142/94; PULSE 70; TEMP 36.9; O2SAT 93
[2017-06-09] MEDS: MEMANTINE 10 MG TAB PO SCH (09:08)
[2017-06-09] MEDS: DOCUSATE SODIUM 100 MG CAP PO SCH (09:08)
[2017-06-09] MEDS: AMOXICILLIN/CLAVULANATE TAB 875 MG TAB PO SCH (09:08)
[2017-06-09] MEDS: PANTOprazole SOD 40 MG TAB PO SCH (09:08)
[2017-06-09] MEDS: SERTRALINE HCL 100 MG TAB PO SCH (09:09)
[2017-06-09] MEDS: METOPROLOL TARTRATE 25 MG TAB PO SCH (09:09)
[2017-06-09] MEDS: LOVASTATIN 20 MG TAB PO SCH (09:09)
[2017-06-09] MEDS: OXYBUTYNIN CHLORIDE 5 MG TAB PO SCH (09:09)
[2017-06-09] MEDS: GUAIFENESIN 200 MG TAB PO SCH (09:09)
--- NOTE | 2017-06-09 09:20 | SURGERY PROGRESS NOTE ---
DATE: 06/09/2017 Mr. Doherty was seen today. I think he looks great. He is quite eager to leave the hospital. He remains afebrile. He is on room air with 93% sats this morning. His white count is down to 11,280 with hemoglobin of 9.8. Cultures never did grow anything. The pathology is not back yet, but this almost certainly was inflammatory. At this point, I feel quite good about him. I thought his x-ray yesterday after we removed his PleurX catheter looked quite good. I think he can be discharged on antibiotics by mouth at infectious diseases' discretion. We will see him back in the office in a week or so with an x-ray.
[2017-06-09] MEDS ORDERED: AMOX1TAB43 PO (14:31)
[2017-06-09] MEDS ORDERED: XPNINS INH (14:31)
[2017-06-09] MEDS ORDERED: LPR25 PO (14:31)
--- NOTE | 2017-06-09 14:37 | Discharge Instructions ---
Discharge Instructions Date of Service Jun 09, 2017. Admission Reason for Admission: Pneumonia Discharge Discharge Diagnosis / Problem: LLL Pneumonia Discharge Goals Goal(s): Improve disease control Activity Recommendations Activity Level: Assistance Required . Additional Information Patient informed of condition: Yes Advance Directives: Yes DNR: No (NO MECHANICAL VENTILATION) Level of Care: Skilled Communicable Disease: No Prognosis: Improving Instructions / Follow-Up Instructions / Follow-Up Mr Doherty was admitted for a LLL PNA with Pleural effusion. Med changes: - Antibiotics were started 05/29/17, he was transitioned to PO Augmentin on , was advised to finish 14 day course total. - Metoprolol tartrate 25mg BID started 06/01/17 for new onset atrial fibrillation Follow up: - Repeat CXR in 1 mo to ensure pneumonia resolution - CT chest findings: Noted question of prominent left hilar mass. Noted probable cholelithiasis. Outpatient follow up. 2-3 weeks outpatient visit, 6-8 week repeat scan Other problems as below: Episode of Atrial fibrillation with RVR: - On admission, developed new afib with RVR, started on diltiazem IV, converted to NSR - Started on metoprolol tartrate 12.5 mg PO BID, increased to 25 PO BID. - Per cardio -long term care administrator anticoagulation not recommended. Recommend event monitor for afib as outpatient to decide on need for anticoagulation - If anticoagulation required, Eliquis 2.5mg per cardio. Acute kidney injury: Resolved - Likely was pre-renal in origin - Cr at discharge 0.93 - Chronic mid-thoracic back pain: S/p T11-S1 posterior spinal fusion in . - Hypothyroidism: On home synthroid. - Hyperlipidemia: On home lovastatin. - GERD: At home on prilosec, on protonix during admission. - Depression: On home sertraline. 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 First documented by PCP in July 2016 and forgetfulness, which worsened per notes over the next few months (pt forgetting care home friends, forgetting tasks , unaware of correct time of day. started on memantine in January 2017 after outpt labs and brain MRI negative. Has been A&O x 3 since admission) - ? Bladder issues: On ditropan. Current Hospital Diet Patient's current hospital diet: AHA Diet (Heart Healthy) Discharge Diet Recommended Diet: Regular Diet Procedures Procedures Performed: Left thoracoscopy, partial decortication, pleurectomy, and evacuation of pleural contents. Pending Studies Studies pending at discharge: no Medical Emergencies . Who to Call and When: Medical Emergencies: If at any time you feel your situation is an emergency, please call 911 immediately. . Non-Emergent Contact Non-Emergency issues call your: Primary Care Provider . . "Provider Documentation" section prepared by Paris Delatorre. . Core Measure Problem Core Measures: None
[2017-06-09 15:11] VITALS: BP 142/94; PULSE 70; TEMP 36.9; O2SAT 93
[2017-06-09 16:00] VITALS: O2SAT 93
--- NOTE | 2017-06-26 10:06 | EDITING REQUIRED CODING QUERY ---
PRESENT ON ADMISSION QUERY To promote full compliance with coding requirements relating to pateint care, physician participation is requested in all cases of deer farmer uncertainty. Please assist us with the question(s) below: Please place an X within the parenthesis (x). The following diagnosis(es) listed in this patient's medical record require physician assistance to determine if they were present on admission (POA) or not. Please advise for each diagnosis whether it was present on admission, not present on admission, or if it was clinically undetermined. 1. SEPSIS ( ) Present On Admission ( ) Not Present On Admission ( ) Clinically Undetermined I only wrote the DC instructions so am unable to change the summary Thank you Sadia Gordon *Definition of the present on admission (POA)-Present on admission is defined as present at the time the order for inpatient admission occurs. Conditions that develop during an outpatient encounter prior to a written order for inpatient admission (including emergency department, observation, or outpatient surgery) are considered present on admission.
--- NOTE | 2017-07-03 09:08 | EDITING REQUIRED CODING QUERY ---
PRESENT ON ADMISSION QUERY To promote full compliance with coding requirements relating to pateint care, physician participation is requested in all cases of eyedotter uncertainty. Please assist us with the question(s) below: Please place an X within the parenthesis (x). The following diagnosis(es) listed in this patient's medical record require physician assistance to determine if they were present on admission (POA) or not. Please advise for each diagnosis whether it was present on admission, not present on admission, or if it was clinically undetermined. 1. SEPSIS (x ) Present On Admission (documented by me on 05/30) ( ) Not Present On Admission ( ) Clinically Undetermined Thank you Sadia Gordon *Definition of the present on admission (POA)-Present on admission is defined as present at the time the order for inpatient admission occurs. Conditions that develop during an outpatient encounter prior to a written order for inpatient admission (including emergency department, observation, or outpatient surgery) are considered present on admission.
== END 2017-06-09 17:30 | DRG 853 ==
LOC: C.EDB 18:55 → C.2E 05-30 00:10 → EDBEDREQ 05-30 00:17 → ENRESERV 05-30 00:19 → C.4E 06-01 17:21 → ENRESERV 06-05 17:13 → C.MSICU 06-05 17:52 → ENRESERV 06-06 08:55 → C.MSW 06-06 10:05
PROVIDERS: ADMIT Hospitalist; ATTEND Family Medicine
PROC: 0BBP4ZX Excision of Left Pleura, Percutaneous Endoscopic Approach, Diagnostic (ICD-10-PCS; principal; 2017-06-05 12:00)
DX: A41.9 Sepsis, unspecified organism (principal); J18.9 Pneumonia, unspecified organism; J86.9 Pyothorax without fistula; N17.9 Acute kidney failure, unspecified; J90 Pleural effusion, not elsewhere classified; E03.9 Hypothyroidism, unspecified; F03.90 Unspecified dementia, unspecified severity, without behavioral disturbance, psychotic disturbance, mood disturbance, and anxiety; K21.9 Gastro-esophageal reflux disease without esophagitis; E78.5 Hyperlipidemia, unspecified; R00.0 Tachycardia, unspecified; I48.91 Unspecified atrial fibrillation; Z88.5 Allergy status to narcotic agent; I10 Essential (primary) hypertension; R73.03 Prediabetes; R59.9 Enlarged lymph nodes, unspecified; M54.6 Pain in thoracic spine; F32.9 Major depressive disorder, single episode, unspecified; I48.0 Paroxysmal atrial fibrillation

== ENCOUNTER → 2017-06-26 | Outpatient (CLI) | payer BC, OTHER ==
[~2017-06-26] MED LIST changes: +AMOX1TAB43 PO; -CHOL100010 PO; +CHOL200010 PO; -FAMO20TA11 PO; +LEVO50TA6 PO; -LOVA20TA4 PO; +LPR25 PO; +MEMA1TAB4 PO; +MVC20 PO; +NAPR-1161 PO; +PRLSR20 PO; -SODI1TAB17 PO; -TRAM-10 PO; -TRIA37.5 PO; +XPNINS INH; +ZLF/100 PO
[2017-06-26 17:58] LABS: BASO % 0.2 %; BASO ABS # 0.02 K/uL (0-0.2); EOS % 8.5 %; EOS ABS # 0.73 K/uL (0-0.5); HEMATOCRIT 34.1 % (42-52); HEMOGLOBIN 11.3 g/dL (14.0-18.0); IG# 0.02 K/uL (0.00-0.02); LYMPH % 19.6 %; LYMPH ABS # 1.68 K/uL (1.2-3.4); MEAN CELL VOLUME 93.2 fL (80-100); MEAN CORPUSCULAR HEMOGLOBIN 30.9 pg (25-34); MEAN CORPUSCULAR HGB CONC 33.1 g/dl (32-36); MEAN PLATELET VOLUME 10.8 fL (7.4-10.4); MONO % 12.8 %; NEUT % 58.7 %; NEUT ABS # 5.03 K/uL (1.4-6.5); PLATELET COUNT 279 K/uL (130-400); RED CELL DISTRIBUTION WIDTH CV 14.8 % (11.5-14.5); RED CELL DISTRIBUTION WIDTH SD 50.3 fL (36.4-46.3); WHITE BLOOD COUNT 8.58 K/uL (4.8-10.8)
[2017-06-26 18:15] LABS: BLOOD UREA NITROGEN 26 mg/dl (7-18); CALCIUM 8.8 mg/dl (8.5-10.1); CARBON DIOXIDE 25 mmol/L (21-32); CREATININE 1.16 mg/dl (0.60-1.40); GLUCOSE 98 mg/dl (70-99); POTASSIUM 4.3 mmol/L (3.5-5.1); SODIUM 140 mmol/L (136-145)
[2017-06-26 18:29] LABS: TRANSFERRIN 210 mg/dl (200-360)
== END | disposition home or self-care (01) ==
LOC: C.LABMFLN 12:45
PROVIDERS: ATTEND Family Medicine
DX: E03.9 Hypothyroidism, unspecified (principal); D64.9 Anemia, unspecified; I48.0 Paroxysmal atrial fibrillation

== ENCOUNTER 2019-01-28 09:53 | Inpatient (IN) ==
--- NOTE | 2019-01-28 10:57 | XRay Report ---
XR pelvis 1-2V routine CLINICAL HISTORY: recurrent falls COMPARISON: None. DISCUSSION: Postsurgical changes are present within the lumbar spine with evidence of spinal rodding. No acute fractures are visualized. There is no SI joint diastases. There is no symphysis diastases. IMPRESSION: No fractures or dislocations identified. Electronically signed by: Armando Santos M.D. 01/28/2019 10:56 AM
--- NOTE | 2019-01-28 11:05 | XRay Report ---
XR chest 1V portable CLINICAL HISTORY: recurrent falls COMPARISON STUDY: 06/08/2017 FINDINGS: The heart is enlarged. There is mild bilateral interstitial prominence. An element of mild pulmonary vascular congestion cannot be excluded. There is improving aeration of the left lung base. There are no large pleural effusions. Postsurgical changes are present within the thoracolumbar spine .[ IMPRESSION: 1. Cardiomegaly with equivocal mild pulmonary vascular congestion 2. Improving aeration of the left lung base Electronically signed by: Armando Santos M.D. 01/28/2019 11:03 AM
[2019-01-28] MEDS: SODIUM CHLORIDE 0.9% 500 ML IV SCH (11:15)
[2019-01-28 11:40] LABS: Basophils # (auto) 0.01 K/uL (0-0.2); Basophils % (auto) 0.1 %; Eosinophils # (auto) 0.16 K/uL (0-0.5); Eosinophils % (auto) 1.4 %; Hematocrit (blood only) 37.9 % (42-52); Hemoglobin 12.4 g/dL (14.0-18.0); Immature Granulocytes # (auto) 0.02 K/uL (0.00-0.02); Immature Granulocytes % (auto) 0.2 %; Lymphocytes # (auto) 1.59 K/uL (1.2-3.4); Lymphocytes % (auto) 14.2 %; Mean Corpuscular Hemoglobin 31.2 pg (25-34); Mean Corpuscular Hgb Conc 32.7 g/dL (32-36); Mean Corpuscular Volume 95.5 fL (80-100); Mean Platelet Volume 10.8 fL (7.4-10.4); Monocytes # (auto) 1.05 K/uL (0.11-0.59); Monocytes % (auto) 9.4 %; Neutrophils # (auto) 8.34 K/uL (1.4-6.5); Neutrophils % (auto) 74.7 %; Platelet Count 258 K/uL (130-400); RDW Coefficient of Variation 13.7 % (11.5-14.5); RDW Standard Deviation 47.8 fL (36.4-46.3); Red Blood Count 3.97 M/uL (4.7-6.1); White Blood Count 11.17 K/uL (4.8-10.8)
[2019-01-28 11:41] LABS: Appearance Urine Clear (Clear); Bacteria Urine Automated Negative (Negative); Bilirubin Urine Negative (Negative); Blood Urine Negative (Negative); Cast Urine Automated 0 /lpf (0-5); Color Urine Yellow; Glucose Urine UA Negative (Negative); Ketones Urine Negative (Negative); Leukocyte Esterase Urine Negative (Negative); Nitrite Urine Negative (Negative); Protein Urine Trace (Negative); RBC Urine Automated 0-4 /hpf (0-4); Specific Gravity Urine 1.021 (1.000-1.030); Urobilinogen Urine Negative (Negative)
--- NOTE | 2019-01-28 11:48 | CT Scan Report ---
CT head/brain wo con CT DOSE: HISTORY: Trauma. Mental status change. recurrent falls TECHNIQUE: Multiaxial CT images of the head were performed without the use of intravenous contrast. A dose lowering technique was utilized adhering to the principles of ALARA. Comparison: None. Findings: The paranasal sinuses and mastoid air cells are clear. The calvarium and skull base are int act. The ventricles and sulci are within normal limits. There is no mass, hematoma, midline shift, or acute infarct. There are findings of age-related chronic small vessel change and atrophy. Impression: No acute intracranial abnormality. Age-related change as discussed. The above report was generated using voice recognition software. It may contain grammatical, syntax or spelling errors. Electronically signed by: Mt Heck M.D. 01/28/2019 11:46 AM
--- NOTE | 2019-01-28 11:48 | CT Scan Report ---
CT OF THE CERVICAL SPINE CLINICAL HISTORY: Neck pain status post trauma COMPARISON STUDY: MRI study dated 04/15/2016 CT DOSE: TECHNIQUE: CT scan of the cervical spine was performed from the skull base to the thoracic inlet. Kelsey ges are reviewed in the axial, sagittal, and coronal planes. IV contrast was not administered for thi s examination. A dose lowering technique was utilized adhering to the principles of ALARA. FINDINGS: The visualized portions of the lung apices reveal no evidence of pneumothorax. The prevertebral soft tissues are normal. No fractures or subluxations are visualized. There are multilevel degenerative changes IMPRESSION: No evidence of acute fracture or traumatic subluxation. Electronically signed by: Armando Santos M.D. 01/28/2019 11:47 AM
[2019-01-28 11:57] LABS: Blood Urea Nitrogen 22 mg/dl (7-18); Calcium 9.7 mg/dl (8.5-10.1); Carbon Dioxide 25 mmol/L (21-32); Chloride 108 mmol/L (98-107); Est GFR (African American) 78.8; Glucose 115 mg/dl (70-99); Magnesium 1.9 mg/dl (1.8-2.4); Partial Thromboplastin Ratio 0.9; Partial Thromboplastin Time 25.4 Seconds (21.0-31.0); Potassium 3.7 mmol/L (3.5-5.1); Prothrombin Time 10.5 Seconds (9.0-12.0); Sodium 139 mmol/L (136-145)
[2019-01-28 12:00] LABS: Creatine Kinase 737 U/L (39-308)
--- NOTE | 2019-01-28 12:10 | CT Scan Report ---
ABDOMEN AND PELVIS CT WITHOUT CONTRAST CT DOSE: 2527.02 mGy.cm HISTORY: Recurrent fall with abdominal trauma TECHNIQUE: Multiaxial CT images of the abdomen and pelvis were performed without contrast. A dose lo wering technique was utilized adhering to the principles of ALARA. COMPARISON STUDY: Chest CT 06/03/2017. FINDINGS: Subsegmental consolidation of the left lung base suggest probable atelectasis. Bibasilar pleural calc ifications. And patient motion with positioning of the upper extremities limits the study. No pneumat osis or pneumoperitoneum. The imaged inferior cardiac chambers are enlarged. Mural fatty changes of t he left ventricular apex compatible with prior infarction. Coronary arterial calcifications. Mild gallbladder distention with layering cholelithiasis. No CT evidence of acute cholecystitis. Sple en and adrenal glands are unremarkable. Mild generalized pancreatic atrophy. Unenhanced liver is unre markable. Mild nonspecific bilateral perinephric stranding. Mild cortical thinning of the bilateral k idneys. No renal or ureteral calculi or obstructive uropathy. Prostate is upper limits of normal in s ize. Unremarkable urinary bladder. Density of the left inguinal Canal suggest prior hernia repair. Ca lcified plaque of the abdominal aorta without aneurysm. No adenopathy. Small hiatal hernia. No bowel obstruction or bowel wall thickening. Colonic diverticulosis without ac lower [place] diverticulitis. Moderate fecal retention. Appendix not diagnostically visualized. No secondary si gns to suggest acute appendicitis. Mild diastases recti. Gynecomastia. No acute rib fracture identifi ed. Posterior interbody bebe and screw fusion is noted at T11-S1. Remote appearing superior endplate c ompression deformity at T11. The pedicle screws partially extend through the superior endplate at T11 . Discectomy changes at L1-L2 and L3-L4. No definite evidence of hardware fracture or loosening. No a cute fracture or subluxation identified. IMPRESSION: 1. No acute intra-abdominal or intrapelvic abnormality. 2. No acute fracture. 3. Cholelithiasis without CT evidence of acute cholecystitis. 4. Extensive posterior interbody bebe and screw fusion hardware of the thoracolumbar spine. No evidenc e of hardware fracture or loosening. 5. Colonic diverticulosis. 6. Additional findings as above. Electronically signed by: Mohamud Elizabeth M.D. 01/28/2019 12:08 PM
--- NOTE | 2019-01-28 12:50 | XRay Report ---
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 No acute fracture, dislocation, avascular n ecrosis or opaque foreign body. Arterial calcifications are noted. Osteoarthritis about the knee. No large joint effusion. IMPRESSION: No acute fracture or dislocation. The above report was generated using voice recognition software. It may contain grammatical, syntax o r spelling errors. Electronically signed by: Mohamud Elizabeth M.D. 01/28/2019 12:49 PM
--- NOTE | 2019-01-28 16:48 | History & Physical Report ---
Date of Service January 28, 2019 Assessment & Plan (1) Ambulatory dysfunction: (2) Rhabdomyolysis: (3) Falling: -Admit to [facility] with telemetry -Patient with frequent falls at home x3 days in a row, and again 1 week ago -PT/OT consults, recommend SNF placement, is agreeable to this -CK elevated =737, trend with am lab -NSS at 125 continuous -Hold tramadol for now with AMS, may need to discontinue completely if pain is well controlled on tylenol alone. -WBC slightly elevated at 11K but there are currently no signs of acute infectious etiology -CT abd with moderate fecal retention, will start bowel regimen -CXR shows mild pulmonary vascular congestion, incentive spirometry to open airways as he is fairly sedentary -Fortunately there are no acute fractures on any imaging (4) Dementia: -Reorientation as needed -No history of aggressive behavior per , consider bedside sitter (5) Paroxysmal atrial fibrillation: (6) Prediabetes: -A1c = 6.0 on 11/23/2017, repeat with a.m. labs -ISS with Accu-Cheks ACHS -Patient is not on outpatient insulin or metformin (7) HTN (hypertension): -BP elevated -continue metoprolol tartrate 25 mg BID (8) Hyperlipidemia: -Continue lovastatin 20 mg HS, continue cholecystyramine-aspartame (9) Lumbar spinal stenosis: -Holding tramadol as (10) Insomnia: -Noted (11) Gait disturbance: -PT/OT consults as above (12) Anemia: -Hemoglobin 12.4, hematocrit 37.5, -Appears to be much better than baseline as in MayJune 2017 it was down around 9-10 (13) GERD without esophagitis: -Not on PPI or H2 antagonist, (14) Osteopenia: -Continue vitamin D supplementation (15) Overactive bladder: -Continue dependence -UA negative for likely signs of infection, follow urine culture (16) Thoracic compression fracture: -History of such, stable, continue Tylenol, holding tramadol (17) Vitamin D deficiency: -Continue vitamin D supplementation as above (18) DVT prophylaxis: -Teds, no anticoagulation with recent falls CODE STATUS: DNR Disposition: Patient from home, likely to remain in the hospital over the weekend, CM discharge planning for placement History of Present Illness Primary Care Provider: Deuce Ferreira MD This is an 83 yo M with PMhx of dementia, ambulatory dysfunction, HTN, HLD, paroxysmal A. fib, prediabetes, irritable bowel, lumbar spinal stenosis, osteopenia, depression, vitamin D deficiency who presents for recurrent falls. Patient's is at bedside. Patient is unable to provide history due to cognitive status. She reports that he has been found between 7:30 and 8:30 am for the last 3 days, on the floor beside his bed, undressed and confused. She reports that approximately 1.5 weeks ago the patient had a similar episode of being found on the floor bedside and EMS took them to [place] he was evaluated in the ER, not found to have any signs of infectious etiology, and was discharged home. She reports that his generalized weakness has gotten worse since being home however does not notice any acute signs of infection. She denies that he has any increased cough, congestion, abdominal complaints, bowel changes, fevers, chills or sweats. He typically walks at baseline with a cane. notes that she has been applying for placement however the process is taken a very long time. She fears that he is unsafe at home and she is not able to take care of him herself. She does pay out of pocket for a caregiver for several hr/wk, however cannot continue to do this d/t financial situation. WBC = 11 K UA appears negative for source of infection Imaging reveals no acute fractures CXR reviewed showing mild pulmonary vascular congestion CK is elevated and patient is in rhabdomyolysis Allergies Allergy/AdvReac Type Severity Reaction Status Date / Time acetaminophen [From Vicodin] Allergy Verified 01/28/19 12:02 hydrocodone AdvReac Unknown HALLUCINATI Verified 01/28/19 12:02 ONS Home Medications Home Medications Medication Instructions Recorded Confirmed Type metoprolol tartrate 25 mg tablet 25 mg PO BID #90 tab 09/02/18 01/28/19 Rx sertraline 100 mg tablet 150 mg PO HS #90 tab 09/02/18 01/28/19 Rx tramadol 50 mg tablet See Rx Instructions PO TID PRN #90 11/01/18 01/28/19 Rx tab cholestyramine-aspartame 4 gram 4 gm PO DAILY PRN ea 11/29/18 01/28/19 History oral powder for susp in a packet rivastigmine 4.6 mg/24 hour 4.6 mg TD DAILY #30 ea 11/29/18 01/28/19 Rx transdermal patch Tylenol Rapid Release Gel 500 mg PO HS 01/28/19 01/28/19 History acetaminophen [Tylenol] 325 mg PO HS 01/28/19 01/28/19 History cholecalciferol (vitamin D3) 4,000 units PO QAM 01/28/19 01/28/19 History hydrocortisone 1 appln TOP BID PRN 01/28/19 01/28/19 History lovastatin 20 mg PO HS 01/28/19 01/28/19 History memantine 0 mg PO BID 01/28/19 01/28/19 History Past Med/Surg History Medical History Adjustment disorder with other symptoms (Acute) Anemia (Acute) Back pain (Acute) Benign localized hyperplasia of prostate without urinary obstruction (Acute) Bilateral hearing loss due to cerumen impaction (Acute) Cervicalgia (Acute) Dementia (Chronic) Depression (Chronic) Empyema (Acute) Falling (Acute) Gait disturbance (Acute) GERD without esophagitis (Acute) HTN (hypertension) (Chronic) Hyperlipidemia (Chronic) Hypothyroidism (Acute) Insomnia (Acute) Irritable bowel syndrome with diarrhea (Acute) Lumbar spinal stenosis (Acute) Lumbar stenosis with neurogenic claudication (Acute) Osteopenia (Acute) Overactive bladder (Acute) Paroxysmal atrial fibrillation (Acute) Prediabetes (Acute) Thoracic compression fracture (Acute) Vitamin D deficiency (Acute) Zenkers diverticulum (Acute) Surgical History Cervical vertebral fusion History of appendectomy History of back surgery History of cataract surgery History of hernia repair Family History Daughter Ovarian cancer Diabetes Social History Preferred Language: Turkish Communication Ability: Effective Visual Impairment: Limited Hearing Ability: Hard of Hearing Show Card Writer Required: No Beliefs That Will Affect Care: None marital status: Current Living Situation: Spouse current occupational status: retired Other Information That Helps Us Care for You: Yes (needs placed) Feels Safe at Home: Yes Safety Concerns: Feels Safe At This Time Smoking Status: Never smoker Second Hand Exposure: Yes ; Hx Alcohol Use: No Hx Substance Use: Yes substance use type: painkillers and prescription drug Substance Use Type Other:: Tramadol Last Used Substance: Unknown Childhood Exposure to Second-Hand Smoke: Yes caffeine: Yes (coffee) Dental Care, Regularly: Yes Physical Activity Frequency: Does not Exercise Seatbelt Use: sometimes Sunscreen Use: No Do you think of yourself as: straight/heterosexual Review of Systems Review of Systems: Unobtainable due to cognitive status Physical Exam Physical Exam: General: awake, alert, no apparent distress, + obese Head: Normocephalic, atraumatic ENT: PERRL, EOMI, no pharyngeal exudate, mucous membranes moist Chest: Clear to auscultation, on room air, no adventitious breath sounds Cardiac: Regular rate and rhythm, no murmur, no JVD, normal peripheral pulses, good capillary refill Abdominal: NABS x 4 quadrants, soft, nondistended, nontender to palpation, no rebound, guarding or tenderness Extremities: Normal inspection, + trace peripheral edema BLE, no erythema, calfs nontender to palpation Psych: Normal mood and affect Neuro: AAO to self and is able to name his who is sitting at bedside after some prompting, no gross motor deficits, speech is clear, no peripheral sensory deficits Skin: + Dry skin, no rash or erythema Results & Data Vital Signs (Past 12 Hours) Vital Signs Temp Pulse Pulse Resp BP BP Pulse Ox 01/28/19 16:15 83 22 183/94 H 97 01/28/19 14:30 82 12 01/28/19 14:28 79 16 179/79 H 96 01/28/19 13:13 82 28 H 197/86 H 01/28/19 12:00 79 21 166/75 H 95 01/28/19 11:47 79 19 177/96 H 96 01/28/19 11:12 98 01/28/19 11:11 84 23 178/100 H 97 01/28/19 10:08 36.5 C 75 20 187/98 H 96 Diagnostic Findings ABDOMEN AND PELVIS CT WITHOUT CONTRAST CT DOSE: 2527.02 mGy.cm HISTORY: Recurrent fall with abdominal trauma TECHNIQUE: Multiaxial CT images of the abdomen and pelvis were performed without contrast. A dose lowering technique was utilized adhering to the principles of ALARA. COMPARISON STUDY: Chest CT 06/03/2017. FINDINGS: Subsegmental consolidation of the left lung base suggest probable atelectasis. Bibasilar pleural calcifications. And patient motion with positioning of the upper extremities limits the study. No pneumatosis or pneumoperitoneum. The imaged inferior cardiac chambers are enlarged. Mural fatty changes of the left ventricular apex compatible with prior infarction. Coronary arterial calcifications. Mild gallbladder distention with layering cholelithiasis. No CT evidence of acute cholecystitis. Spleen and adrenal glands are unremarkable. Mild generalized pancreatic atrophy. Unenhanced liver is unremarkable. Mild nonspecific bilateral perinephric stranding. Mild cortical thinning of the bilateral kidneys. No renal or ureteral calculi or obstructive uropathy. Prostate is upper limits of normal in size. Unremarkable urinary bladder. Density of the left inguinal Canal suggest prior hernia repair. Calcified plaque of the abdominal aorta without aneurysm. No adenopathy. Small hiatal hernia. No bowel obstruction or bowel wall thickening. Colonic diverticulosis without acute diverticulitis. Moderate fecal retention. Appendix not diagnostically visualized. No secondary signs to suggest acute appendicitis. Mild diastases recti. Gynecomastia. No acute rib fracture identified. Posterior interbody bebe and screw fusion is noted at T11-S1. Remote appearing superior endplate compression deformity at T11. The pedicle screws partially extend through the superior endplate at T11. Discectomy changes at L1-L2 and L3-L4. No definite evidence of hardware fracture or loosening. No acute fracture or subluxation identified. IMPRESSION: 1. No acute intra-abdominal or intrapelvic abnormality. 2. No acute fracture. 3. Cholelithiasis without CT evidence of acute cholecystitis. 4. Extensive posterior interbody bebe and screw fusion hardware of the thoracolumbar spine. No evidence of hardware fracture or loosening. 5. Colonic diverticulosis. 6. Additional findings as above. CT OF THE CERVICAL SPINE CLINICAL HISTORY: Neck pain status post trauma COMPARISON STUDY: MRI study dated 04/15/2016 CT DOSE: TECHNIQUE: CT scan of the cervical spine was performed from the skull base to the thoracic inlet. Images are reviewed in the axial, sagittal, and coronal planes. IV contrast was not administered for this examination. A dose lowering technique was utilized adhering to the principles of ALARA. FINDINGS: The visualized portions of the lung apices reveal no evidence of pneumothorax. The prevertebral soft tissues are normal. No fractures or subluxations are visualized. There are multilevel degenerative changes IMPRESSION: No evidence of acute fracture or traumatic subluxation. XR chest 1V portable CLINICAL HISTORY: recurrent falls COMPARISON STUDY: 06/08/2017 FINDINGS: The heart is enlarged. There is mild bilateral interstitial prominence. An element of mild pulmonary vascular congestion cannot be excluded. There is improving aeration of the left lung base. There are no large pleural effusions. Postsurgical changes are present within the thoracolumbar spine.[ IMPRESSION: 1. Cardiomegaly with equivocal mild pulmonary vascular congestion 2. Improving aeration of the left lung base CT head/brain wo con CT DOSE: HISTORY: Trauma. Mental status change. recurrent falls TECHNIQUE: Multiaxial CT images of the head were performed without the use of intravenous contrast. A dose lowering technique was utilized adhering to the principles of ALARA. Comparison: None. Findings: The paranasal sinuses and mastoid air cells are clear. The calvarium and skull base are intact. The ventricles and sulci are within normal limits. There is no mass, hematoma, midline shift, or acute infarct. There are findings of age-related chronic small vessel change and atrophy. Impression: No acute intracranial abnormality. Age-related change as discussed. XR pelvis 1-2V routine CLINICAL HISTORY: recurrent falls COMPARISON: None. DISCUSSION: Postsurgical changes are present within the lumbar spine with evidence of spinal rodding. No acute fractures are visualized. There is no SI joint diastases. There is no symphysis diastases. IMPRESSION: No fractures or dislocations identified. 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 No acute fracture, dislocation, avascular necrosis or opaque foreign body. Arterial calcifications are noted. Osteoarthritis about the knee. No large joint effusion. IMPRESSION: No acute fracture or dislocation. The above report was generated using voice recognition software. It may contain grammatical, syntax or spelling errors. ECG Additional Comments: 28-JAN-2019 10:43:41 [facility]-EDSTAT ROUTINE RETRIEVAL Sinus rhythm with Premature atrial complexes Left anterior fascicular block Abnormal ECG When compared with ECG of 018 09:43, Premature atrial complexes are now Present 25mm/s 10mm/mV 150Hz 9.0.9 12SL 241 STANISLAV: 13 Unconfirmed Vent. rate 77 BPM CA interval 186 ms QRS duration 102 ms QT/QTc 414/468 ms P-R-T axes 43 -58 48 Code Status & VTE Plan Code Status DNR-discussed with patient and his at bedside Supervising Physician Co-Signing Physician Notes PA Supervision Note: I personally saw and examined the patient. I verified all auguste points and agree with CHANO Anderson with the following exceptions and/or additions: Pt confused. Denies pain. Here as he was found down by his bed as per . Pt reports "you can't believe everything you hear." History reviewed VSS NAD, confused, awake and oriented only to person RRR no mgr CTAB no wcr Abd +BS soft NT ND Ext no edema, no TTP ove hips, shoulders, wrists, elbows, knees Neuro EOMI, moves all extremities 83 yo male here with dementia nad history as above, here for recurrent falls out of bed, cannot be cared for at home, and mild rhabdomyolysis -IVF hydration, follow CPK No evidence of infection Arrange for placement PG Care Time/CCT Total # of Minutes Spent Total Time Spent with Patient: Total time spent is greater than 50% in coordination of care (as documented) at patient's floor/unit and/or counseling patient: (1) Dementia Dementia behavioral disturbance: without behavioral disturbance Dementia type: unspecified type Qualified Code(s): F03.90 - Unspecified dementia without behavioral disturbance
--- NOTE | 2019-01-28 17:28 | Emergency Department Note ---
Entered by Peggy Villegas acting as a scribe for History of Present Illness General Chief complaint: Fall Stated complaint: fall Time Seen by Provider: 01/28/19 10:22 Source: family Limitations: other (dementia) History of Present Illness Onset (ago): day(s) (this morning) Location: lower extremity (left) Pain Consistency: + other (episode) Quality: + other (fall) Associated symptoms: + other (urinary incontinence, left side leg pain) The patient is an 83 year old male who presents to the Emergency Room with complaints of an episode of a fall occurring this morning. The patients states that the patient has a history of dementia that was diagnosed 4 years ago. She states that over the last 3 days though it appears to be getting worse. She states that each morning she wakes up and finds him lying on the floor, but he has no idea what happened. She states that she took him to [place] [facility] and they discharged him home, but it has continued. She states that she is nervous that she cannot provide the proper care because of it anymore. She states that she found him on the floor again this morning and thinks that he laid there for 45 minutes to an hour. She reports that she then called for assistance to transport him here that took an hour. She states that he has a small scratch on his right leg from this mornings fall and has been complaining of left upper leg pain on the side. She notes that she is unsure if his dementia is actually getting worse or if he has a UTI as he has been incontinent. The patients denies the use of blood thinners and hitting his head. HPI and ROS are limited secondary to dementia. Home Medications Home Medications Medication Instructions Recorded Confirmed Type metoprolol tartrate 25 mg tablet 25 mg PO BID #90 tab 09/02/18 01/28/19 Rx sertraline 100 mg tablet 150 mg PO HS #90 tab 09/02/18 01/28/19 Rx tramadol 50 mg tablet See Rx Instructions PO TID PRN #90 11/01/18 01/28/19 Rx tab cholestyramine-aspartame 4 gram 4 gm PO DAILY PRN ea 11/29/18 01/28/19 History oral powder for susp in a packet rivastigmine 4.6 mg/24 hour 4.6 mg TD DAILY #30 ea 11/29/18 01/28/19 Rx transdermal patch Tylenol Rapid Release Gel 500 mg PO HS 01/28/19 01/28/19 History acetaminophen [Tylenol] 325 mg PO HS 01/28/19 01/28/19 History cholecalciferol (vitamin D3) 4,000 units PO QAM 01/28/19 01/28/19 History hydrocortisone 1 appln TOP BID PRN 01/28/19 01/28/19 History lovastatin 20 mg PO HS 01/28/19 01/28/19 History memantine 0 mg PO BID 01/28/19 01/28/19 History Allergies Allergy/AdvReac Type Severity Reaction Status Date / Time acetaminophen [From Vicodin] Allergy Verified 01/28/19 12:02 hydrocodone AdvReac Unknown HALLUCINATI Verified 01/28/19 12:02 ONS Past Med/Surg History Medical History Adjustment disorder with other symptoms (Acute) Anemia (Acute) Back pain (Acute) Benign localized hyperplasia of prostate without urinary obstruction (Acute) Bilateral hearing loss due to cerumen impaction (Acute) Cervicalgia (Acute) Dementia (Chronic) Depression (Chronic) Empyema (Acute) Falling (Acute) Gait disturbance (Acute) GERD without esophagitis (Acute) HTN (hypertension) (Chronic) Hyperlipidemia (Chronic) Hypothyroidism (Acute) Insomnia (Acute) Irritable bowel syndrome with diarrhea (Acute) Lumbar spinal stenosis (Acute) Lumbar stenosis with neurogenic claudication (Acute) Osteopenia (Acute) Overactive bladder (Acute) Paroxysmal atrial fibrillation (Acute) Prediabetes (Acute) Thoracic compression fracture (Acute) Vitamin D deficiency (Acute) Zenkers diverticulum (Acute) Surgical History Cervical vertebral fusion History of appendectomy History of back surgery History of cataract surgery History of hernia repair Family History Daughter Ovarian cancer Diabetes Social History Preferred Language: Kinyarwanda Communication Ability: Effective Visual Impairment: Limited Hearing Ability: Hard of Hearing 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 marital status: Current Living Situation: Spouse current occupational status: retired Feels Safe at Home: Yes Smoking Status: Never smoker Second Hand Exposure: Yes ; Hx Alcohol Use: Yes Alcohol type: beer Alcohol Intake Frequency: Holidays/Special Occasions Hx Substance Use: Yes substance use type: painkillers and prescription drug Substance Use Type Other:: Tramadol Last Used Substance: Unknown Childhood Exposure to Second-Hand Smoke: Yes caffeine: Yes (coffee) Dental Care, Regularly: Yes Physical Activity Frequency: Does not Exercise Seatbelt Use: sometimes Sunscreen Use: No Do you think of yourself as: straight/heterosexual Review of Systems HPI and ROS are limited secondary to dementia. Physical Exam Vital Signs Vital Signs - 24 hr 01/28/19 10:08 01/28/19 11:11 01/28/19 11:12 Temperature 36.5 C Temperature Source Oral Pulse Rate 75 84 Pulse Rate [Right Finger] Pulse Rate from SpO2 Sensor 81 Respiratory Rate 20 23 Respiratory Effort / Characteristics Respiratory Depth Blood Pressure 187/98 H 178/100 H Blood Pressure [Right Arm] Blood Pressure Mean 127 104 Blood Pressure Mean [Right Arm] Pulse Oximetry 96 97 98 Oxygen Delivery Method Room Air Room Air Sepsis Recent Fever Within 48 Hours No Sepsis New/Unexplained Change in Mental Status No Sepsis Action Taken by Nursing No Action Required 01/28/19 11:47 01/28/19 12:00 01/28/19 13:13 Temperature Temperature Source Pulse Rate 79 79 82 Pulse Rate [Right Finger] Pulse Rate from SpO2 Sensor 78 74 Respiratory Rate 19 21 28 H Respiratory Effort / Characteristics Respiratory Depth Blood Pressure 177/96 H 166/75 H 197/86 H Blood Pressure [Right Arm] Blood Pressure Mean 138 122 152 Blood Pressure Mean [Right Arm] Pulse Oximetry 96 95 Oxygen Delivery Method Sepsis Recent Fever Within 48 Hours Sepsis New/Unexplained Change in Mental Status Sepsis Action Taken by Nursing 01/28/19 14:28 01/28/19 14:30 01/28/19 16:15 Temperature Temperature Source Pulse Rate 79 82 Pulse Rate [Right Finger] 83 Pulse Rate from SpO2 Sensor 78 Respiratory Rate 16 12 22 Respiratory Effort / Characteristics Non-Labored Respiratory Depth Normal Blood Pressure 179/79 H Blood Pressure [Right Arm] 183/94 H Blood Pressure Mean 128 Blood Pressure Mean [Right Arm] 123 Pulse Oximetry 96 97 Oxygen Delivery Method Room Air Sepsis Recent Fever Within 48 Hours Sepsis New/Unexplained Change in Mental Status Sepsis Action Taken by Nursing HENT: Exam performed. - Head: Normocephalic and atraumatic. - Right Ear: External ear normal. No mastoid tenderness. - Left Ear: External ear normal. No mastoid tenderness. - Mouth/Throat: The oropharynx is clear and moist. No trismus in the jaw. No d ental abscesses or uvula swelling. No oropharyngeal exudate or tonsillar abscesses. EYES: Conjunctivae and EOM are normal. Pupils are equal, round, and reactive to light. Right eye exhibits no discharge. Left eye exhibits no discharge. No scleral icterus. NECK: Normal range of motion. Neck supple. No JVD present. No spinous process tenderness present. No carotid bruit present. No rigidity. No tracheal deviation and normal range of motion present. No Brudzinski's sign and no Kernig's sign noted. CV: Normal rate, regular rhythm, normal heart sounds and intact distal pulses. There is no peripheral edema. Palpable radial pulses bue. PULM/CHEST: Effort normal and breath sounds normal. No respiratory distress. No stridor. He has no wheezes. He has no rales. - Chest Wall: He exhibits no tenderness. ABD: The abdomen is soft. Bowel sounds are normal. He has no distension. No mass is present. There is no tenderness. There is no rebound, no guarding, no Win's sign and no tenderness at McBurney's point. Rovsig negative. MUSC/SKEL: Normal range of motion. There is no peripheral edema, tenderness or deformity. LYMPH: No cervical adenopathy. NEURO: He is alert and at baseline mental status per his at bedside. Sensation is grossly intact. SKIN: Skin is warm and dry. He is not diaphoretic. Course Course 1025: The patient was evaluated in room B5. A complete history and physical exam was performed. 1221: The patient was medically cleared at this time. states she cannot take care of the patient at home anymore and is requesting that the patient be placed in a usp facility. He will be evaluated by Reese, the watch case polisher, for possible placement. Patient placed in observation at this time. 1531: Reese, the watch case polisher, was unable to place the patient in a usp from the ED. He will be admitted for placement. I discussed the patient's case with Lydia Rincon PA-C- [facility] [place] She will evaluate the patient for further management under Dr. Mcintosh's service. Administered Medications Sodium Chloride (Nss) 500 mls @ 75 mls/hr IV .[id number] RICKIE Stop: 02/27/19 10:29 Last Admin: 01/28/19 11:15 Dose: 75 mls/hr Documented by: [id number] Medical Decision Making Medical Records Attestation: I reviewed the patient's medical records. Home Medications Current Medication List: was personally reviewed by me Laboratory Data Attestation: I reviewed the patient's lab results. Result diagrams: 01/28/19 11:30 01/28/19 11:30 Lab Results 01/28/19 01/28/19 01/28/19 Range/Units 10:55 11:13 11:30 WBC 11.17 H (4.8-10.8) K/uL RBC 3.97 L (4.7-6.1) M/uL Hgb 12.4 L (14.0-18.0) g/dL Hct 37.9 L (42-52) % MCV 95.5 (80-100) fL MCH 31.2 (25-34) pg MCHC 32.7 (32-36) g/dL RDW Std Deviation 47.8 H (36.4-46.3) fL RDW Coeff of Deepthi 13.7 (11.5-14.5) % Plt Count 258 (130-400) K/uL MPV 10.8 H (7.4-10.4) fL Immature Gran % (Auto) 0.2 % Neut % (Auto) 74.7 % Lymph % (Auto) 14.2 % [place] % (Auto) 9.4 % Eos % (Auto) 1.4 % Baso % (Auto) 0.1 % Immature Gran # (Auto) 0.02 (0.00-0.02) K/uL Neut # (Auto) 8.34 H (1.4-6.5) K/uL Lymph # (Auto) 1.59 (1.2-3.4) K/uL Essex # (Auto) 1.05 H (0.11-0.59) K/uL Eos # (Auto) 0.16 (0-0.5) K/uL Baso # (Auto) 0.01 (0-0.2) K/uL PT (9.0-12.0) Seconds INR (0.9-1.1) APTT (21.0-31.0) Seconds PTT Ratio Sodium (136-145) mmol/L Potassium (3.5-5.1) mmol/L Chloride (98-107) mmol/L Carbon Dioxide (21-32) mmol/L Anion Gap (3-11) BUN (7-18) mg/dl Creatinine (0.6-1.4) mg/dl Est Cr Clr Drug Dosing Est GFR ( Amer) Est GFR (Non-Af Amer) BUN/Creatinine Ratio (10-20) Glucose (70-99) mg/dl POC Glucose 99 (70-99) Calcium (8.5-10.1) mg/dl Magnesium (1.8-2.4) mg/dl Total Creatine Kinase (39-308) U/L Urine Color Yellow Urine Appearance Clear (Clear) Urine pH 5.0 (4.5-7.5) Ur Specific Bradford 1.021 (1.000-1.030) Urine Protein Trace H (Negative) Urine Glucose (UA) Negative (Negative) Urine Ketones Negative (Negative) Urine Blood Negative (Negative) Urine Nitrite Negative (Negative) Urine Bilirubin Negative (Negative) Urine Urobilinogen Negative (Negative) Ur Leukocyte Esterase Negative (Negative) Urine WBC (Auto) 1-5 (0-5) /hpf Urine RBC (Auto) 0-4 (0-4) /hpf U Hyaline Cast (Auto) 0 (0-5) /lpf U Epithel Cells (Auto) 5-10 H (0-5) /lpf Urine Bacteria (Auto) Negative (Negative) 01/28/19 01/28/19 Range/Units 11:30 11:30 WBC (4.8-10.8) K/uL RBC (4.7-6.1) M/uL Hgb (14.0-18.0) g/dL Hct (42-52) % MCV (80-100) fL MCH (25-34) pg MCHC (32-36) g/dL RDW Std Deviation (36.4-46.3) fL RDW Coeff of Deepthi (11.5-14.5) % Plt Count (130-400) K/uL MPV (7.4-10.4) fL Immature Gran % (Auto) % Neut % (Auto) % Lymph % (Auto) % Essex % (Auto) % Eos % (Auto) % Baso % (Auto) % Immature Gran # (Auto) (0.00-0.02) K/uL Neut # (Auto) (1.4-6.5) K/uL Lymph # (Auto) (1.2-3.4) K/uL Essex # (Auto) (0.11-0.59) K/uL Eos # (Auto) (0-0.5) K/uL Baso # (Auto) (0-0.2) K/uL PT 10.5 (9.0-12.0) Seconds INR 1.0 (0.9-1.1) APTT 25.4 (21.0-31.0) Seconds PTT Ratio 0.9 Sodium 139 (136-145) mmol/L Potassium 3.7 (3.5-5.1) mmol/L Chloride 108 H (98-107) mmol/L Carbon Dioxide 25 (21-32) mmol/L Anion Gap 6.0 (3-11) BUN 22 H (7-18) mg/dl Creatinine 1.01 (0.6-1.4) mg/dl Est Cr Clr Drug Dosing Not Reportable Est GFR ( Amer) 78.8 Est GFR (Non-Af Amer) 68.0 BUN/Creatinine Ratio 22.0 H (10-20) Glucose 115 H (70-99) mg/dl POC Glucose (70-99) Calcium 9.7 (8.5-10.1) mg/dl Magnesium 1.9 (1.8-2.4) mg/dl Total Creatine Kinase 737 H (39-308) U/L Urine Color Urine Appearance (Clear) Urine pH (4.5-7.5) Ur Specific Bradford (1.000-1.030) Urine Protein (Negative) Urine Glucose (UA) (Negative) Urine Ketones (Negative) Urine Blood (Negative) Urine Nitrite (Negative) Urine Bilirubin (Negative) Urine Urobilinogen (Negative) Ur Leukocyte Esterase (Negative) Urine WBC (Auto) (0-5) /hpf Urine RBC (Auto) (0-4) /hpf U Hyaline Cast (Auto) (0-5) /lpf U Epithel Cells (Auto) (0-5) /lpf Urine Bacteria (Auto) (Negative) Imaging Data Radiologist's Impression: Radiology results as stated below per my review and the radiologist's interpretation: XR chest 1V portable CLINICAL HISTORY: recurrent falls COMPARISON STUDY: 06/08/2017 FINDINGS: The heart is enlarged. There is mild bilateral interstitial p rominence. An element of mild pulmonary vascular congestion cannot be excluded. There is improving aeration of the left lung base. There are no large pleural effusions. Postsurgical changes are present within the thoracolumbar spine.[ IMPRESSION: 1. Cardiomegaly with equivocal mild pulmonary vascular congestion 2. Improving aeration of the left lung base Electronically signed by: Armando Santos M.D. 01/28/2019 11:03 AM XR pelvis 1-2V routine CLINICAL HISTORY: recurrent falls COMPARISON: None. DISCUSSION: Postsurgical changes are present within the lumbar spine with evidence of spinal rodding. No acute fractures are visualized. There is no SI joint diastases. There is no symphysis diastases. IMPRESSION: No fractures or dislocations identified. Electronically signed by: Armando Santos M.D. 01/28/2019 10:56 AM 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 No acute fracture, dislocation, avascular necrosis or opaque foreign body. Arterial calcifications are noted. Osteoarthritis about the knee. No large joint effusion. IMPRESSION: No acute fracture or dislocation. The above report was generated using voice recognition software. It may contain grammatical, syntax or spelling errors. Electronically signed by: Mohamud Elizabeth M.D. 01/28/2019 12:[address] head/brain wo con CT DOSE: HISTORY: Trauma. Mental status change. recurrent falls TECHNIQUE: Multiaxial CT images of the head were performed without the use of intravenous contrast. A dose lowering technique was utilized adhering to the principles of ALARA. Comparison: None. Findings: The paranasal sinuses and mastoid air cells are clear. The calvarium and skull base are intact. The ventricles and sulci are within normal limits. There is no mass, hematoma, midline shift, or acute infarct. There are findings of age-related chronic small vessel change and atrophy. Impression: No acute intracranial abnormality. Age-related change as discussed. The above report was generated using voice recognition software. It may contain grammatical, syntax or spelling errors. Electronically signed by: Mt Heck M.D. 01/28/2019 11:[address] OF THE CERVICAL SPINE CLINICAL HISTORY: Neck pain status post trauma COMPARISON STUDY: MRI study dated 04/15/2016 CT DOSE: TECHNIQUE: CT scan of the cervical spine was performed from the skull base to the thoracic inlet. Images are reviewed in the axial, sagittal, and coronal planes. IV contrast was not administered for this examination. A dose lowering technique was utilized adhering to the principles of ALARA. FINDINGS: The visualized portions of the lung apices reveal no evidence of pneumothorax. The prevertebral soft tissues are normal. No fractures or subluxations are visualized. There are multilevel degenerative changes IMPRESSION: No evidence of acute fracture or traumatic subluxation. Electronically signed by: Armando Santos M.D. 01/28/2019 11:47 AM ABDOMEN AND PELVIS CT WITHOUT CONTRAST CT DOSE: 2527.02 mGy.cm HISTORY: Recurrent fall with abdominal trauma TECHNIQUE: Multiaxial CT images of the abdomen and pelvis were performed without contrast. A dose lowering technique was utilized adhering to the principles of ALARA. COMPARISON STUDY: Chest CT 06/03/2017. FINDINGS: Subsegmental consolidation of the left lung base suggest probable atelectasis. Bibasilar pleural calcifications. And patient motion with positioning of the upper extremities limits the study. No pneumatosis or pneumoperitoneum. The imaged inferior cardiac chambers are enlarged. Mural fatty changes of the left ventricular apex compatible with prior infarction. Coronary arterial calcifications. Mild gallbladder distention with layering cholelithiasis. No CT evidence of acute cholecystitis. Spleen and adrenal glands are unremarkable. Mild generalized pancreatic atrophy. Unenhanced liver is unremarkable. Mild nonspecific bilateral perinephric stranding. Mild cortical thinning of the bilateral kidneys. No renal or ureteral calculi or obstructive uropathy. Prostate is upper limits of normal in size. Unremarkable urinary bladder. Density of the left inguinal Canal suggest prior hernia repair. Calcified plaque of the abdominal aorta without aneurysm. No adenopathy. Small hiatal hernia. No bowel obstruction or bowel wall thickening. Colonic diverticulosis without acute diverticulitis. Moderate fecal retention. Appendix not diagnostically visualized. No secondary signs to suggest acute appendicitis. Mild diastases recti. Gynecomastia. No acute rib fracture identified. Posterior interbody bebe and screw fusion is noted at T11-S1. Remote appearing superior endplate compression deformity at T11. The pedicle screws partially extend through the superior endplate at T11. Discectomy changes at L1-L2 and L3-L4. No definite evidence of hardware fracture or loosening. No acute fracture or subluxation identified. IMPRESSION: 1. No acute intra-abdominal or intrapelvic abnormality. 2. No acute fracture. 3. Cholelithiasis without CT evidence of acute cholecystitis. 4. Extensive posterior interbody bebe and screw fusion hardware of the thoracolumbar spine. No evidence of hardware fracture or loosening. 5. Colonic diverticulosis. 6. Additional findings as above. Electronically signed by: Mohamud Elizabeth M.D. 01/28/2019 12:08 PM ECG Data Attestation: I personally reviewed and interpreted this ECG as follows: Indication: + other (nursing protocol) Rate (beats per minute): 77 Rhythm: + sinus rhythm ECG Intervals/blocks: + Normal QRS, + Normal CA and + Normal QT-c ECG ST segments: no ST depression and no ST elevation Blood Pressure Blood Pressure Findings: Elevated blood pressure Blood Pressure Disposition: Referred to patients primary care provider MDM Narrative Observation note: Indication: [facility] placement Patient, with a Family History of cancer, [place], and diabetes, was first seen at 1025 hrs and the observation time began at 1221 hrs and was necessary in order to determine usp placement and avoid unnecessary admission . Upon re- evaluation, 1531 hours of observation revealed that the patient should be admitted for usp placement due to inability to place patient in a usp from the emergency department. Disposition date and time 01/28/19 1531. Total observation time: 210 minutes Impression & Plan Ambulatory dysfunction, Dementia Discharge Plan Visit Data Chief Complaint: Fall Stated Complaint: fall ED Provider: Philip Ramirez Discharge Problem: Ambulatory dysfunction, Dementia Patient Disposition: Being Evaluated by Hospitalist Forms Stand Alone Forms: My PrePayMe Prescriptions Prescriptions: No Action tramadol 50 mg tablet See Rx Instructions PO TID PRN (Reason: pain) Qty: 90 RF: 2 cholestyramine-aspartame 4 gram powder in packet 4 gm PO DAILY PRN (Reason: Diarrhea) RF: 0 metoprolol tartrate 25 mg tablet 25 mg PO BID Qty: 90 RF: 3 sertraline 100 mg tablet 150 mg PO HS Qty: 90 RF: 3 rivastigmine 4.6 mg/24 hr patch 24 hour 4.6 mg TD DAILY Qty: 30 RF: 2 acetaminophen [Tylenol] 325 mg Tablet 325 mg PO HS RF: 0 Tylenol Rapid Release Gel 500 mg PO HS RF: 0 hydrocortisone 1 % cream 1 appln TOP BID PRN (Reason: Skin Irritation) RF: 0 lovastatin 20 mg tablet 20 mg PO HS RF: 0 memantine 10 mg tablet 0 mg PO BID RF: 0 cholecalciferol (vitamin D3) 4,000 unit capsule 4,000 units PO QAM RF: 0 Referrals Referrals: Deuce Ferreira MD [Primary Care Provider] - Discharge Problem: Dementia Qualifiers: Dementia type: unspecified type Dementia behavioral disturbance: without behavioral disturbance Qualified Code(s): F03.90 - Unspecified dementia without behavioral disturbance The scribe's documentation has been prepared under my direction and personally reviewed by me in its entirety. I confirm that the note above accurately reflects all work, treatment, procedures, and medical decision making performed by me.
[2019-01-28] MEDS ORDERED: ONDANSETRON INJ 2 MG/ML 2 ML VIAL IV PRN (19:14)
[2019-01-28] MEDS ORDERED: GLUCAGON FOR INJ 1 MG VIAL SQ PRN (19:14)
[2019-01-28] MEDS ORDERED: CARBOHYDRATES FOR HYPOGLYCEMIA PO PRN (19:14)
[2019-01-28] MEDS ORDERED: CHOLESTYRAMINE LIGHT 4 GM PKT PO PRN (19:14)
[2019-01-28] MEDS ORDERED: GLUCOSE 10 TABS/TUBE PO PRN (19:14)
[2019-01-28] MEDS ORDERED: GLUCOSE 40% GEL 15 GM TUBE PO PRN (19:14)
[2019-01-28] MEDS ORDERED: DEXTROSE 50% 50 ML SYRINGE IV PRN (19:14)
[2019-01-28] MEDS ORDERED: bisacodyL 10 MG SUPP PR PRN (19:14)
[2019-01-28] MEDS: SODIUM CHLORIDE 0.9% 1000ML 1,000 ML IV SCH (19:15)
[2019-01-28] MEDS ORDERED: HYDROCORTISONE 1% CRM 30 GM TUBE EXT PRN (20:10)
[2019-01-28] MEDS: LOVASTATIN 20 MG TAB PO SCH (21:19)
[2019-01-28] MEDS: MEMANTINE HCL 10 MG TAB PO SCH (21:19)
[2019-01-28] MEDS: METOPROLOL TARTRATE 25 MG TAB PO SCH (21:20)
[2019-01-28] MEDS: SERTRALINE HCL 50 MG TABLET PO SCH (21:20)
[2019-01-28] MEDS: INSULIN ASPART 100 UNITS/ML 3 ML PEN SC SCH (21:21)
[2019-01-28] MEDS: ACETAMINOPHEN 500 MG TAB PO SCH (21:21)
[2019-01-28] MEDS: ACETAMINOPHEN 325 MG TAB PO SCH (21:21)
[2019-01-29] MEDS: SODIUM CHLORIDE 0.9% 1000ML 1,000 ML IV SCH (03:13)
[2019-01-29 07:18] LABS: Hematocrit (blood only) 38.9 % (42-52); Hemoglobin 12.8 g/dL (14.0-18.0); Mean Corpuscular Hemoglobin 31.4 pg (25-34); Mean Corpuscular Hgb Conc 32.9 g/dL (32-36); Mean Corpuscular Volume 95.3 fL (80-100); Mean Platelet Volume 10.8 fL (7.4-10.4); Platelet Count 272 K/uL (130-400); RDW Coefficient of Variation 13.7 % (11.5-14.5); RDW Standard Deviation 47.7 fL (36.4-46.3); Red Blood Count 4.08 M/uL (4.7-6.1); White Blood Count 11.16 K/uL (4.8-10.8)
[2019-01-29 07:46] LABS: Albumin Level 3.6 gm/dl (3.4-5.0); BUN Creatinine Ratio 16.6 (10-20); Calcium 9.6 mg/dl (8.5-10.1); Creatinine Clr Calc Pharmacy 72.3 ml/min; Est GFR (African American) 87.1; Est GFR (Non-African American) 75.1; Potassium 3.6 mmol/L (3.5-5.1)
[2019-01-29 07:49] LABS: Bilirubin,Total 0.9 mg/dl (0.2-1); Globulin 3.8 gm/dl (2.5-4.0); Total Protein 7.4 gm/dl (6.4-8.2)
[2019-01-29 08:38] LABS: Estimated Average Glucose 120 mg/dl; Hemoglobin A1C 5.8 % (4.5-5.6)
[2019-01-29] MEDS: METOPROLOL TARTRATE 25 MG TAB PO SCH ×2 (08:57→20:13)
[2019-01-29] MEDS: MEMANTINE HCL 10 MG TAB PO SCH ×2 (08:57→20:13)
[2019-01-29] MEDS: CHOLECALCIFEROL 1,000 UNITS 25 MCG TAB PO SCH (08:57)
[2019-01-29] MEDS: INSULIN ASPART 100 UNITS/ML 3 ML PEN SC SCH ×4 (08:58→20:48)
[2019-01-29] MEDS ORDERED: bisacodyL 5 MG TABEC PO SCH (09:00)
[2019-01-29] MEDS ORDERED: SENNA 8.6 MG TAB PO SCH (09:00)
--- NOTE | 2019-01-29 13:34 | Hospitalist Progress Note ---
Date of Service January 29, 2019 Assessment & Plan (1) Falling: -Patient with frequent falls at home x3 days in a row prior to admission with being found on the floor sleeping next to the bed, and again 1 week prior to admission With progressively declining dementia as per outpatient notes, worsening over the last month as per -PT/OT consults, recommend SNF placement, is agreeable to this -CK elevated =737 and trended downward with IV fluids -DC IV fluids -No longer takes tramadol at home-not given here -WBC slightly elevated at 11K but there are currently no signs of acute infectious etiology, likely due to stress -CT abd with moderate fecal retention, but reports he has long history of difficulty with diarrhea-we will discontinue all bowel regimen here -Fortunately there are no acute fractures on any imaging -Await shelter facility placement (2) Ambulatory dysfunction: As above (3) Rhabdomyolysis: resolved, mild -dc IVFs (4) Dementia: -Reorientation as needed -No history of aggressive behavior per , consider bedside sitter -progressive, more rapid decline in the last monht, sees Neuro Dr. 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 fib (6) Prediabetes: -A1c = 6.0 on 11/23/2017, repeat here is pending -Continue sliding scale insulin with Accu-Cheks ACHS -Patient is not on outpatient insulin or metformin (7) HTN (hypertension): Blood pressures acceptable -continue metoprolol tartrate 25 mg BID (8) Hyperlipidemia: -Continue lovastatin 20 mg HS (9) Lumbar spinal stenosis: With history of back surgery -Tylenol as needed for back pain and at nighttime scheduled (10) Insomnia: -Noted Would not give sedatives to him given moderate to severe dementia (11) Anemia: -Hemoglobin 12.4, hematocrit 37.5, -Appears to be much better than baseline as in MayJune 2017 it was down around 9-10 around the time he was admitted for sepsis (12) GERD without esophagitis: Listed as a diagnosis but not on medication for this (13) Osteopenia: -Continue vitamin D supplementation (14) Overactive bladder: -UA negative for likely signs of infection, follow urine culture (15) Thoracic compression fracture: -History of such, stable, continue Tylenol (16) Vitamin D deficiency: -Continue vitamin D supplementation as above (17) DVT prophylaxis: -Teds, no anticoagulation with recent falls CODE STATUS: DNR Disposition: Patient from home, likely to remain in the hospital over the weekend, CM discharge planning for placement Subjective Patient confused, keeps telling me about sandwiches. Cannot answer any other questions appropriately but does deny any pain anywhere. Seems to be doing well Telemetry with normal sinus rhythm and sinus bradycardia with rates in the 50s to 80s confirms story from before that he is just been progressively declining over the last month then with 3 days in a row of being found on the floor sleeping next to the bed before she brought him in. Review of Systems Review of Systems: All systems reviewed & are unremarkable except as noted in HPI & below Physical Exam Constitutional: WD/WN, vitals as above Eyes: + anicteric sclerae ENMT: external ear and nose normal, oropharynx normal Neck: trachea midline, no thyromegaly Respiratory: normal respiratory effort, lungs clear to auscultation Cardiovascular: RRR, no murmur, no edema Chest (Breasts): Chest: normal inspection of chest Gastrointestinal (Abdomen): normal bowel sounds, soft, nontender, no hepatosplenomegaly Musculoskeletal: Extremities: extremities normal to inspection (No tenderness to palpation over all major joints); no cyanosis and no clubbing Skin: no rashes, warm and dry Neurologic: moves all extremities and awake; no focal motor deficits Psychiatric: Orientation: alert, oriented to person and cooperative; + not oriented to place and + not oriented to time Eye Contact: good eye contact Speech: normal rate/rhythm/volume of speech Thought Process: + thought process not goal directed and + thought process not linear or logical Cognition: + recent memory not intact Lymphatic: no lymphedema Results & Data Vital Signs (Past 12 Hours) Vital Signs Temp Pulse Resp BP Pulse Ox 01/29/19 11:00 36.7 C 66 20 161/78 H 96 01/29/19 07:14 36.8 C 65 20 169/84 H 97 01/29/19 05:38 36.9 C 65 18 182/96 H 97 Laboratory Results Labs reviewed, CPK trending down to 436, WBC count remains 11, basic metabolic panel otherwise unremarkable PG Care Time/CCT Total # of Minutes Spent Total Time Spent with Patient: Total time spent is greater than 50% in coordination of care (as documented) at patient's floor/unit and/or counseling patient: (1) Dementia Dementia behavioral disturbance: without behavioral disturbance Dementia type: unspecified type Qualified Code(s): F03.90 - Unspecified dementia without behavioral disturbance
[2019-01-29] MEDS ORDERED: PERFLUTREN LIPID MICROSPHERE (DEFINITY) IV ONE (15:45)
[2019-01-29] MEDS: SODIUM CHLORIDE 0.9% 500 ML IV SCH (19:07)
[2019-01-29] MEDS: ACETAMINOPHEN 500 MG TAB PO SCH (20:13)
[2019-01-29] MEDS: LOVASTATIN 20 MG TAB PO SCH (20:13)
[2019-01-29] MEDS: ACETAMINOPHEN 325 MG TAB PO SCH (20:13)
[2019-01-29] MEDS: SERTRALINE HCL 50 MG TABLET PO SCH (20:14)
[2019-01-30 06:23] LABS: Thyroid Stimulating Hormone 4.6 uIu/ml (0.300-4.500)
[2019-01-30 06:35] LABS: T4 Free Thyroxine 1.16 ng/dl (0.8-1.6)
[2019-01-30 06:44] LABS: Lyme Ab IgG w/WB Rflx Negative (Negative)
[2019-01-30 06:58] LABS: Lyme Ab IgM w/WB Rflx Positive (Negative)
[2019-01-30 08:34] LABS: Folate (Folic Acid) 6.57 ng/ml (>5.38)
[2019-01-30] MEDS: INSULIN ASPART 100 UNITS/ML 3 ML PEN SC SCH ×4 (09:08→21:43)
[2019-01-30] MEDS: MEMANTINE HCL 10 MG TAB PO SCH ×2 (09:10→20:24)
[2019-01-30] MEDS: CHOLECALCIFEROL 1,000 UNITS 25 MCG TAB PO SCH (09:10)
[2019-01-30] MEDS: METOPROLOL TARTRATE 25 MG TAB PO SCH ×2 (09:10→20:23)
--- NOTE | 2019-01-30 14:14 | Hospitalist Progress Note ---
Date of Service January 30, 2019 Assessment & Plan (1) Falling: -Patient with frequent falls at home x3 days in a row prior to admission with being found on the floor sleeping next to the bed, and again 1 week prior to admission With progressively declining dementia as per outpatient notes, worsening over the last month as per -PT/OT consults, recommend SNF placement, is agreeable to this -CK elevated =737 and trended downward with IV fluids -No longer takes tramadol at home-not given here -WBC slightly elevated at 11K but there are currently no signs of acute infectious etiology, likely due to stress -CT abd with moderate fecal retention, but reports he has long history of difficulty with diarrhea-we will discontinue all bowel regimen here -Fortunately there are no acute fractures on any imaging -With B12 deficiency as below, vitamin B1 level is pending, and Lyme disease IgM is positive as below-we will treat -Await half-way facility placement (2) Ambulatory dysfunction: As above (3) Rhabdomyolysis: resolved, mild -dc IVFs (4) Dementia: -Reorientation as needed -No history of aggressive behavior per , consider bedside sitter -progressive, more rapid decline in the last month, sees Neuro Dr. 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 daily -Lyme IgM positive, IgG negative-Western blot pending-start doxycycline x3 weeks in case this is contributing to worsening progression of disease and falls in the last month, however could be false positive -RPR-pending -TSH mildly elevated with normal free T4-follow with repeat labs in 4 to 6 weeks -Folate checked and normal (5) Paroxysmal atrial fibrillation: History of such last year during prolonged hospitalization for sepsis, in sinus rhythm here Continue metoprolol -Is not on anticoagulation likely due to lone A. fib (6) Prediabetes: -A1c = 6.0 on 11/23/2017, repeat here is pending -Continue sliding scale insulin with Accu-Cheks ACHS -Patient is not on outpatient insulin or metformin (7) HTN (hypertension): Blood pressures acceptable -continue metoprolol tartrate 25 mg BID (8) Hyperlipidemia: -Continue lovastatin 20 mg HS (9) Lumbar spinal stenosis: With history of back surgery -Tylenol as needed for back pain and at nighttime scheduled (10) Insomnia: -Noted Would not give sedatives to him given moderate to severe dementia (11) Anemia: -Hemoglobin 12.4, hematocrit 37.5, -Appears to be much better than baseline as in MayJune 2017 it was down around 9-10 around the time he was admitted for sepsis (12) GERD without esophagitis: Listed as a diagnosis but not on medication for this (13) Osteopenia: -Continue vitamin D supplementation (14) Overactive bladder: -UA negative for likely signs of infection, follow urine culture (15) Thoracic compression fracture: -History of such, stable, continue Tylenol (16) Vitamin D deficiency: -Continue vitamin D supplementation as above (17) Lyme disease: Lyme IgM positive as above, could be false positive but given recent decline, will treat with doxycycline 100 mg twice daily x21 days -Will need follow-up on Western blot after discharge Discussed care with (18) Vitamin B12 deficiency: Vitamin B12 level low here in the 200s -Treating with IM B12 while here and then convert to p.o. on discharge as above (19) DVT prophylaxis: -Teds, no anticoagulation with recent falls CODE STATUS: DNR Disposition: Patient from home, case management actively involved in finding him a dementia unit, this will not be until at least Thursday Subjective Patient has no complaints. He is sitting in a chair with a one-on-one sitter. Sitter reports that he did go for a long walk around the halls today and did well with that. He is very confused. When I asked him a question. He asks me a question back that has nothing to do with what we were discussing. When asked about pain anywhere, he does state "I have no idea about that." He is eating well and sitter reports that there are no significant problems today. I called his and discussed his condition today. Review of Systems Review of Systems: Unobtainable due to cognitive status Physical Exam Constitutional: WD/WN, vitals as above Eyes: + anicteric sclerae Neck: trachea midline, no thyromegaly Respiratory: normal respiratory effort, lungs clear to auscultation Cardiovascular: RRR, no murmur, no edema Chest (Breasts): Chest: normal inspection of chest Gastrointestinal (Abdomen): normal bowel sounds, soft, nontender, no hepatosplenomegaly Musculoskeletal: Extremities: extremities normal to inspection (No tenderness to palpation over all major joints); no cyanosis and no clubbing Skin: no rashes, warm and dry Neurologic: moves all extremities and awake; no focal motor deficits Psychiatric: Orientation: alert, oriented to person and cooperative; + not oriented to place and + not oriented to time Eye Contact: good eye contact Speech: normal rate/rhythm/volume of speech Thought Process: + thought process not goal directed and + thought process not linear or logical Cognition: + recent memory not intact Lymphatic: no lymphedema Results & Data Vital Signs (Past 12 Hours) Vital Signs Temp Pulse Resp BP Pulse Ox 01/30/19 08:18 36.5 C 73 18 185/86 H 95 Laboratory Results 01/30/19 01/30/19 01/30/19 Range/Units 16:20 11:23 07:44 POC Glucose 98 106 H 103 H (70-99) Whole Bld Vitamin B1 Vitamin B12 (211-911) pg/ml Folate (>5.38) ng/ml TSH (0.300-4.500) uIu/ml Free T4 (0.8-1.6) ng/dl RPR Lyme Disease IgG Ab (Negative) Lyme IgG (Western Blot) Lyme IgG 18 kDa Band Lyme IgG 23 kDa Band Lyme IgG 28 kDa Band Lyme IgG 30 kDa Band Lyme IgG 39 kDa Band Lyme IgG 41 kDa Band Lyme IgG 45 kDa Band Lyme IgG 58 kDa Band Lyme IgG 66 kDa Band Lyme IgG 93 kDa Band Lyme Disease IgM Ab (Negative) Lyme IgM (Western Blot) Lyme IgM 23 kDa Band Lyme IgM 39 kDa Band Lyme IgM 41 kDa Band 01/30/19 01/30/19 01/30/19 Range/Units 05:25 05:25 05:25 POC Glucose (70-99) Whole Bld Vitamin B1 Vitamin B12 (211-911) pg/ml Folate (>5.38) ng/ml TSH 4.600 H (0.300-4.500) uIu/ml Free T4 1.16 (0.8-1.6) ng/dl RPR Pending Lyme Disease IgG Ab Negative (Negative) Lyme IgG (Western Blot) Pending Lyme IgG 18 kDa Band Pending Lyme IgG 23 kDa Band Pending Lyme IgG 28 kDa Band Pending Lyme IgG 30 kDa Band Pending Lyme IgG 39 kDa Band Pending Lyme IgG 41 kDa Band Pending Lyme IgG 45 kDa Band Pending Lyme IgG 58 kDa Band Pending Lyme IgG 66 kDa Band Pending Lyme IgG 93 kDa Band Pending Lyme Disease IgM Ab Positive A (Negative) Lyme IgM (Western Blot) Pending Lyme IgM 23 kDa Band Pending Lyme IgM 39 kDa Band Pending Lyme IgM 41 kDa Band Pending 01/30/19 01/30/19 01/29/19 Range/Units 05:25 05:25 20:34 POC Glucose 102 H (70-99) Whole Bld Vitamin B1 Pending Vitamin B12 283 (211-911) pg/ml Folate 6.57 (>5.38) ng/ml TSH (0.300-4.500) uIu/ml Free T4 (0.8-1.6) ng/dl RPR Lyme Disease IgG Ab (Negative) Lyme IgG (Western Blot) Lyme IgG 18 kDa Band Lyme IgG 23 kDa Band Lyme IgG 28 kDa Band Lyme IgG 30 kDa Band Lyme IgG 39 kDa Band Lyme IgG 41 kDa Band Lyme IgG 45 kDa Band Lyme IgG 58 kDa Band Lyme IgG 66 kDa Band Lyme IgG 93 kDa Band Lyme Disease IgM Ab (Negative) Lyme IgM (Western Blot) Lyme IgM 23 kDa Band Lyme IgM 39 kDa Band Lyme IgM 41 kDa Band PG Care Time/CCT Total # of Minutes Spent Total Time Spent with Patient: Total time spent is greater than 50% in coordination of care (as documented) at patient's floor/unit and/or counseling patient: (1) Dementia Dementia behavioral disturbance: without behavioral disturbance Dementia type: unspecified type Qualified Code(s): F03.90 - Unspecified dementia without behavioral disturbance
[2019-01-30] MEDS: DOXYCYCLINE HYCLATE 100 MG CAP PO SCH ×2 (14:43→20:23)
[2019-01-30] MEDS: THIAMINE HCL 100 MG TAB PO SCH (14:44)
[2019-01-30] MEDS: CYANOCOBALAMIN 1000 MCG/ML VIAL IM SCH (14:44)
[2019-01-30] MEDS: ACETAMINOPHEN 500 MG TAB PO SCH (20:24)
[2019-01-30] MEDS: ACETAMINOPHEN 325 MG TAB PO SCH (20:24)
[2019-01-30] MEDS: LOVASTATIN 20 MG TAB PO SCH (20:24)
[2019-01-30] MEDS: SERTRALINE HCL 50 MG TABLET PO SCH (20:25)
[2019-01-31] MEDS: THIAMINE HCL 100 MG TAB PO SCH (08:17)
[2019-01-31] MEDS: DOXYCYCLINE HYCLATE 100 MG CAP PO SCH ×2 (08:17→20:06)
[2019-01-31] MEDS: MEMANTINE HCL 10 MG TAB PO SCH ×2 (08:17→20:07)
[2019-01-31] MEDS: CYANOCOBALAMIN 1000 MCG/ML VIAL IM SCH (08:18)
[2019-01-31] MEDS: CHOLECALCIFEROL 1,000 UNITS 25 MCG TAB PO SCH (08:19)
[2019-01-31] MEDS: METOPROLOL TARTRATE 25 MG TAB PO SCH ×2 (08:19→20:07)
[2019-01-31] MEDS: INSULIN ASPART 100 UNITS/ML 3 ML PEN SC SCH ×2 (08:24→12:35)
--- NOTE | 2019-01-31 10:47 | XCELERA ---
[id number] \\[id number]
--- NOTE | 2019-01-31 12:31 | Hospitalist Progress Note ---
Date of Service January 31, 2019 Assessment & Plan (1) Falling: Patient with frequent falls at home x3 days in a row prior to admission with being found on the floor sleeping next to the bed, and again 1 week prior to admission. - Likely mechanical in nature, though patient cannot really recall the falls, so it is not entirely clear. - PT/OT consults, recommend SNF placement, is agreeable to this. (2) Vitamin B12 deficiency: Vitamin B12 level low here in the 200s. -Treating with IM B12 while here and then convert to p.o. on discharge as above (3) Dementia: Very pleasant, but clearly significant as he is not sure where he is and doesn't know why he is in the hospital when informed. TSH mildly elevated with normal free T4. Folate checked and normal. - Lyme IgM positive, IgG negative - Need to follow the Western Blot - I am not convinced this is an acute Lyme infection. - Continue doxy for now (4) Paroxysmal atrial fibrillation: History of such last year during prolonged hospitalization for sepsis, in sinus rhythm here. - Continue metoprolol - Is not on anticoagulation likely due to lone A. fib (5) Prediabetes: A1c = 5.8%. - Continue sliding scale insulin with Accu-Cheks ACHS (6) HTN (hypertension): Blood pressures acceptable today at 135/75. - Continue metoprolol tartrate 25 mg BID (7) Hyperlipidemia: - Continue lovastatin 20 mg HS (8) Lumbar spinal stenosis: With history of back surgery. - Tylenol as needed for back pain and at nighttime scheduled (9) Insomnia: Noted; would not give sedatives to him given moderate to severe dementia. - Re-direction as needed (10) Anemia: Hemoglobin 12.4, hematocrit 37.5. - Appears to be much better than baseline as in May / June 2017 it was down around 9-10 around the time he was admitted for sepsis. (11) Overactive bladder: UA negative for likely signs of infection. - No present concerns when asking patient. (12) Thoracic compression fracture: History of such, stable. - Continue Tylenol (13) DVT prophylaxis: - DARCY hose; no anticoagulation with recent falls. Subjective He reports no distress today. He is in good spirits, though he is not sure where he is or why is not at home. He admits that he does not recognize anyone around him which is making him uncomfortable. Reports no fevers/chills, chest pain, shortness of breath, abdominal pain, nausea, or vomiting. Physical Exam Constitutional: WD/WN, vitals as above Eyes: EOM intact bilaterally; no conjunctival abnormality ENMT: external ear and nose normal, oropharynx normal Neck: trachea midline, no thyromegaly normal visual inspection Respiratory: normal respiratory effort, lungs clear to auscultation no respiratory distress Cardiovascular: RRR, no murmur, no edema Gastrointestinal (Abdomen): Inspection/Auscultation: abdomen normal to inspection; abdomen not distended Musculoskeletal: no cyanosis or clubbing, extremities motor strength 5/5 Skin: no rashes, warm and dry Neurologic: moves all extremities and awake Psychiatric: Orientation: alert, oriented to person and cooperative Results & Data Vital Signs (Past 12 Hours) Vital Signs Temp Pulse Resp BP Pulse Ox 01/31/19 08:00 36.4 C L 63 18 133/74 95 PG Care Time/CCT Total # of Minutes Spent Total Time Spent with Patient: Total time spent is greater than 50% in coordination of care (as documented) at patient's floor/unit and/or counseling patient: (1) Dementia Dementia behavioral disturbance: without behavioral disturbance Dementia type: unspecified type Qualified Code(s): F03.90 - Unspecified dementia without behavioral disturbance
[2019-01-31] MEDS: SERTRALINE HCL 50 MG TABLET PO SCH (20:06)
[2019-01-31] MEDS: ACETAMINOPHEN 325 MG TAB PO SCH (20:06)
[2019-01-31] MEDS: ACETAMINOPHEN 500 MG TAB PO SCH (20:07)
[2019-01-31] MEDS: LOVASTATIN 20 MG TAB PO SCH (20:07)
[2019-01-31 23:51] LABS: Rapid Plasma Reagin Nonreactive (Nonreactive)
[2019-02-01] MEDS: CYANOCOBALAMIN 1000 MCG/ML VIAL IM SCH (08:38)
[2019-02-01] MEDS: THIAMINE HCL 100 MG TAB PO SCH (08:38)
[2019-02-01] MEDS: CHOLECALCIFEROL 1,000 UNITS 25 MCG TAB PO SCH (08:38)
[2019-02-01] MEDS: METOPROLOL TARTRATE 25 MG TAB PO SCH ×2 (08:39→20:37)
[2019-02-01] MEDS: DOXYCYCLINE HYCLATE 100 MG CAP PO SCH ×2 (08:39→20:39)
[2019-02-01] MEDS: MEMANTINE HCL 10 MG TAB PO SCH ×2 (08:39→20:39)
--- NOTE | 2019-02-01 14:17 | Hospitalist Progress Note ---
Date of Service February 01, 2019 Assessment & Plan (1) Falling: Patient with frequent falls at home x3 days in a row prior to admission with being found on the floor sleeping next to the bed, and again 1 week prior to admission. - Likely mechanical in nature, though patient cannot really recall the falls, so it is not entirely clear. - PT/OT consults, recommend SNF placement, is agreeable to this. - No major changes today. No injuries noted. (2) Vitamin B12 deficiency: Vitamin B12 level low here in the 200s. -Treating with IM B12 while here and then convert to p.o. on discharge as above (3) Dementia: Very pleasant, but clearly significant as he is not sure where he is and doesn't know why he is in the hospital when informed. TSH mildly elevated with normal free T4. Folate checked and normal. - Lyme IgM positive, IgG negative - Need to follow the Western Blot - I am not convinced this is an acute Lyme infection. - Continue doxy for now - discuss with his ; she will also follow up. (4) Paroxysmal atrial fibrillation: History of such last year during prolonged hospitalization for sepsis, in sinus rhythm here. - Continue metoprolol - Is not on anticoagulation likely due to lone A. fib (5) Prediabetes: A1c = 5.8%. - Continue sliding scale insulin with Accu-Cheks ACHS - Sugars under control today. (6) HTN (hypertension): Blood pressures acceptable today at 135/75. - Continue metoprolol tartrate 25 mg BID (7) Hyperlipidemia: - Continue lovastatin 20 mg HS (8) Lumbar spinal stenosis: With history of back surgery. - Tylenol as needed for back pain and at nighttime scheduled (9) Insomnia: Noted; would not give sedatives to him given moderate to severe dementia. - Re-direction as needed (10) Anemia: Hemoglobin 12.4, hematocrit 37.5. - Appears to be much better than baseline as in May / June 2017 it was down around 9-10 around the time he was admitted for sepsis. (11) Overactive bladder: UA negative for likely signs of infection. - No present concerns when asking patient. (12) Thoracic compression fracture: History of such, stable. - Continue Tylenol (13) DVT prophylaxis: - DARCY hose; no anticoagulation with recent falls. Subjective No issues today. He remains out of sorts from not knowing where he is; however, he has no focal complaints. Reports no fevers/chills, chest pain, shortness of breath, abdominal pain, nausea, or vomiting. Physical Exam Constitutional: WD/WN, vitals as above Eyes: EOM intact bilaterally; no conjunctival abnormality ENMT: external ear and nose normal, oropharynx normal Neck: trachea midline, no thyromegaly normal visual inspection Respiratory: normal respiratory effort, lungs clear to auscultation no respiratory distress Cardiovascular: RRR, no murmur, no edema Gastrointestinal (Abdomen): Inspection/Auscultation: abdomen normal to inspection; abdomen not distended Musculoskeletal: no cyanosis or clubbing, extremities motor strength 5/5 Skin: no rashes, warm and dry Neurologic: moves all extremities and awake Psychiatric: Orientation: alert, oriented to person and cooperative Results & Data Vital Signs (Past 12 Hours) Vital Signs Temp Pulse Resp BP Pulse Ox 02/01/19 07:20 36.4 C L 63 18 165/71 H 96 PG Care Time/CCT Total # of Minutes Spent Total Time Spent with Patient: Total time spent is greater than 50% in coordin ation of care (as documented) at patient's floor/unit and/or counseling patient: (1) Dementia Dementia behavioral disturbance: without behavioral disturbance Dementia type: unspecified type Qualified Code(s): F03.90 - Unspecified dementia without behavioral disturbance
[2019-02-01] MEDS: ACETAMINOPHEN 500 MG TAB PO SCH (20:38)
[2019-02-01] MEDS: ACETAMINOPHEN 325 MG TAB PO SCH (20:38)
[2019-02-01] MEDS: LOVASTATIN 20 MG TAB PO SCH (20:39)
[2019-02-01] MEDS: SERTRALINE HCL 50 MG TABLET PO SCH (20:40)
[2019-02-02 01:14] LABS: 18KDIGG Band NON-REACTIVE; 23KDIGG Band NON-REACTIVE; 23KDIGM Band NON-REACTIVE; 28KDIGG Band NON-REACTIVE; 30KDIGG Band NON-REACTIVE; 39KDIGG Band NON-REACTIVE; 39KDIGM Band NON-REACTIVE; 41KDIGG Band REACTIVE; 41KDIGM Band NON-REACTIVE; 45KDIGG Band NON-REACTIVE; 58KDIGG Band NON-REACTIVE; 66KDIGG Band NON-REACTIVE; 93KDIGG Band NON-REACTIVE; Lyme Antibodies, WB IgG NEGATIVE (NEGATIVE); Lyme Antibodies, WB IgM NEGATIVE (NEGATIVE)
[2019-02-02] MEDS: DOXYCYCLINE HYCLATE 100 MG CAP PO SCH (08:43)
[2019-02-02] MEDS: THIAMINE HCL 100 MG TAB PO SCH (08:43)
[2019-02-02] MEDS: MEMANTINE HCL 10 MG TAB PO SCH ×2 (08:43→20:30)
[2019-02-02] MEDS: CYANOCOBALAMIN 1000 MCG/ML VIAL IM SCH (08:43)
[2019-02-02] MEDS: CHOLECALCIFEROL 1,000 UNITS 25 MCG TAB PO SCH (08:44)
[2019-02-02] MEDS: METOPROLOL TARTRATE 25 MG TAB PO SCH ×2 (08:44→20:29)
--- NOTE | 2019-02-02 15:06 | Hospitalist Progress Note ---
Date of Service February 02, 2019 Assessment & Plan (1) Falling: Patient with frequent falls at home x3 days in a row prior to admission with being found on the floor sleeping next to the bed, and again 1 week prior to admission. - Likely mechanical in nature, though patient cannot really recall the falls, so it is not entirely clear. - PT/OT consults, recommend SNF placement, is agreeable to this. - Stable at present. (2) Vitamin B12 deficiency: Vitamin B12 level low here in the 200s. -Treating with IM B12 while here and then convert to p.o. on discharge as above (3) Dementia: Very pleasant, but clearly significant as he is not sure where he is and doesn't know why he is in the hospital when informed. TSH mildly elevated with normal free T4. Folate checked and normal. - Initial Lyme testing was positive, but Western Blot only had band 41 which is non-specific to Lyme. - Stopped doxycycline on 02/02. (4) Paroxysmal atrial fibrillation: History of such last year during prolonged hospitalization for sepsis, in sinus rhythm here. - Continue metoprolol - Is not on anticoagulation likely due to lone episode of A. fib (5) Prediabetes: A1c = 5.8%. - Continue sliding scale insulin with Accu-Cheks ACHS - Sugars under control today. Will stop ACHS testing. (6) HTN (hypertension): Blood pressures higher today at 185/75. - Continue metoprolol tartrate 25 mg BID - His would like to minimze medications. Given his advanced dementia and moving toward comfort care, will not adjust at this time. (7) Hyperlipidemia: - Stopping his lovastatin at 's request. (8) Lumbar spinal stenosis: With history of back surgery. - Tylenol as needed for back pain and at nighttime scheduled (9) Insomnia: Noted; would not give sedatives to him given moderate to severe dementia. - Re-direction as needed (10) Anemia: Hemoglobin 12.4, hematocrit 37.5. - Appears to be much better than baseline as in MayJune 2017 it was down around 9-10 around the time he was admitted for sepsis. (11) Overactive bladder: UA negative for likely signs of infection. - No present concerns when asking patient. (12) Thoracic compression fracture: History of such, stable. - Continue Tylenol (13) DVT prophylaxis: - DARCY hose; no anticoagulation with recent falls. Subjective Stable today. No major complaints on my morning interview. He still does not really remember me when I introduce myself. He cannot recall where he is. Reports no fevers/chills, chest pain, shortness of breath, abdominal pain, nausea, or vomiting. Physical Exam Constitutional: WD/WN, vitals as above Eyes: EOM intact bilaterally; no conjunctival abnormality ENMT: external ear and nose normal, oropharynx normal Neck: trachea midline, no thyromegaly normal visual inspection Respiratory: normal respiratory effort, lungs clear to auscultation no respiratory distress Cardiovascular: RRR, no murmur, no edema Gastrointestinal (Abdomen): Inspection/Auscultation: abdomen normal to inspection; abdomen not distended Musculoskeletal: no cyanosis or clubbing, extremities motor strength 5/5 Skin: no rashes, warm and dry Neurologic: moves all extremities and awake Psychiatric: Orientation: alert, oriented to person and cooperative Results & Data Vital Signs (Past 12 Hours) Vital Signs Temp Pulse Resp BP Pulse Ox 02/02/19 07:31 36.8 C 56 L 18 183/79 H 96 02/02/19 04:14 36.8 C 59 L 18 174/78 H 97 PG Care Time/CCT Total # of Minutes Spent Total Time Spent with Patient: Total time spent is greater than 50% in coordination of care (as documented) at patient's floor/unit and/or counseling patient: (1) Dementia Dementia behavioral disturbance: without behavioral disturbance Dementia type: unspecified type Qualified Code(s): F03.90 - Unspecified dementia without behavioral disturbance
[2019-02-02] MEDS: SERTRALINE HCL 50 MG TABLET PO SCH (20:31)
[2019-02-02] MEDS: ACETAMINOPHEN 500 MG TAB PO SCH (20:31)
[2019-02-02] MEDS: ACETAMINOPHEN 325 MG TAB PO SCH (20:31)
[2019-02-03] MEDS: MEMANTINE HCL 10 MG TAB PO SCH ×2 (09:35→20:18)
[2019-02-03] MEDS: CYANOCOBALAMIN 1000 MCG/ML VIAL IM SCH (09:35)
[2019-02-03] MEDS: METOPROLOL TARTRATE 25 MG TAB PO SCH ×2 (09:35→20:18)
--- NOTE | 2019-02-03 15:25 | Hospitalist Progress Note ---
Date of Service February 03, 2019 Assessment & Plan (1) Falling: Patient with frequent falls at home x3 days in a row prior to admission with being found on the floor sleeping next to the bed, and again 1 week prior to admission. - Likely mechanical in nature, though patient cannot really recall the falls, so it is not entirely clear. - PT/OT consults, recommend SNF placement, is agreeable to this. - Stable at present - Awaiting bed available. (2) Vitamin B12 deficiency: Vitamin B12 level low here in the 200s. -Treating with IM B12 while here and then convert to p.o. on discharge as above (3) Dementia: Very pleasant, but clearly significant as he is not sure where he is and doesn't know why he is in the hospital when informed. TSH mildly elevated with normal free T4. Folate checked and normal. - Initial Lyme testing was positive, but Western Blot only had band 41 which is non-specific to Lyme. - Stopped doxycycline on 02/02. (4) Paroxysmal atrial fibrillation: History of such last year during prolonged hospitalization for sepsis, in sinus rhythm here. - Continue metoprolol - Is not on anticoagulation likely due to lone episode of A. fib (5) Prediabetes: A1c = 5.8%. - Continue sliding scale insulin with Accu-Cheks ACHS - Sugars under control during testing ~100. Stopped ACHS testing. (6) HTN (hypertension): Blood pressures higher today at 185/75. - Continue metoprolol tartrate 25 mg BID - His would like to minimze medications. Given his advanced dementia and moving toward comfort care, will not adjust at this time. (7) Hyperlipidemia: - Stopping his lovastatin at 's request. (8) Lumbar spinal stenosis: With history of back surgery. - Tylenol as needed for back pain and at nighttime scheduled (9) Insomnia: Noted; would not give sedatives to him given moderate to severe dementia. - Re-direction as needed (10) Anemia: Hemoglobin 12.4, hematocrit 37.5. - Appears to be much better than baseline as in MayJune 2017 it was down around 9-10 around the time he was admitted for sepsis. (11) Overactive bladder: UA negative for likely signs of infection. - No present concerns when asking patient. (12) Thoracic compression fracture: History of such, stable. - Continue Tylenol (13) DVT prophylaxis: - DARCY hose; no anticoagulation with recent falls. Subjective Stable today. No changes. Physical Exam Constitutional: WD/WN, vitals as above Eyes: EOM intact bilaterally; no conjunctival abnormality ENMT: external ear and nose normal, oropharynx normal Neck: trachea midline, no thyromegaly normal visual inspection Respiratory: normal respiratory effort, lungs clear to auscultation no respiratory distress Cardiovascular: RRR, no murmur, no edema Gastrointestinal (Abdomen): Inspection/Auscultation: abdomen normal to inspection; abdomen not distended Musculoskeletal: no cyanosis or clubbing, extremities motor strength 5/5 Skin: no rashes, warm and dry Neurologic: moves all extremities and awake Psychiatric: Orientation: alert, oriented to person and cooperative Results & Data Vital Signs (Past 12 Hours) Vital Signs Temp Pulse Resp BP BP Pulse Ox 02/03/19 14:57 36.3 C L 68 18 113/68 97 02/03/19 07:36 36.8 C 55 L 16 133/62 96 PG Care Time/CCT Total # of Minutes Spent Total Time Spent with Patient: Total time spent is greater than 50% in pantry cook rdination of care (as documented) at patient's floor/unit and/or counseling patient: (1) Dementia Dementia behavioral disturbance: without behavioral disturbance Dementia type: unspecified type Qualified Code(s): F03.90 - Unspecified dementia without behavioral disturbance
[2019-02-03] MEDS: ACETAMINOPHEN 500 MG TAB PO SCH (20:18)
[2019-02-03] MEDS: ACETAMINOPHEN 325 MG TAB PO SCH (20:18)
[2019-02-03] MEDS: SERTRALINE HCL 50 MG TABLET PO SCH (20:18)
[2019-02-03] MEDS ORDERED: POLYETHYLENE (MIRALAX) 17 GM PACK PO PRN (21:16)
[2019-02-03] MEDS ORDERED: bisacodyL 5 MG TABEC PO PRN (21:16)
[2019-02-04] MEDS: CYANOCOBALAMIN 1000 MCG/ML VIAL IM SCH (08:28)
[2019-02-04] MEDS: METOPROLOL TARTRATE 25 MG TAB PO SCH ×2 (08:28→20:05)
[2019-02-04] MEDS: MEMANTINE HCL 10 MG TAB PO SCH ×2 (08:28→20:05)
--- NOTE | 2019-02-04 13:15 | Hospitalist Progress Note ---
Date of Service February 04, 2019 Assessment & Plan (1) Falling: Patient with frequent falls at home x3 days in a row prior to admission with being found on the floor sleeping next to the bed, and again 1 week prior to admission. - Likely mechanical in nature, though patient cannot really recall the falls, so it is not entirely clear. - PT/OT consults, recommend SNF placement, is agreeable to this. - Working with PT/OT daily. Awaiting bed at SNF. (2) Vitamin B12 deficiency: Vitamin B12 level low here in the 200s. -Treating with IM B12 while here and then convert to p.o. on discharge as above. (3) Dementia: Very pleasant, but clearly significant as he is not sure where he is and doesn't know why he is in the hospital when informed. TSH mildly elevated with normal free T4. Folate checked and normal. - Initial Lyme testing was positive, but Western Blot only had band 41 which is non-specific to Lyme. - Stopped doxycycline on 02/02. (4) Paroxysmal atrial fibrillation: History of such last year during prolonged hospitalization for sepsis, in sinus rhythm here. - Continue metoprolol - Is not on anticoagulation likely due to lone episode of A. fib (5) Prediabetes: A1c = 5.8%. - Continue sliding scale insulin with Accu-Cheks ACHS - Sugars under control during testing ~100. Stopped ACHS testing. (6) HTN (hypertension): Blood pressures higher today at 185/75. - Continue metoprolol tartrate 25 mg BID - His would like to minimze medications. Given his advanced dementia and moving toward comfort care, will not adjust at this time. (7) Hyperlipidemia: - Stopping his lovastatin at 's request. (8) Lumbar spinal stenosis: With history of back surgery. - Tylenol as needed for back pain and at nighttime scheduled (9) Insomnia: Noted; would not give sedatives to him given moderate to severe dementia. - Re-direction as needed (10) Anemia: Hemoglobin 12.4, hematocrit 37.5. - Appears to be much better than baseline as in May / June 2017 it was down around 9-10 around the time he was admitted for sepsis. (11) Overactive bladder: UA negative for likely signs of infection. - No present concerns when asking patient. (12) Thoracic compression fracture: History of such, stable. - Continue Tylenol (13) DVT prophylaxis: - DARCY hose; no anticoagulation with recent falls. Subjective No changes today. He is still confused, but has no major focal complaints. Reports no fevers/chills, chest pain, shortness of breath, abdominal pain, nausea, or vomiting. Physical Exam Constitutional: WD/WN, vitals as above Eyes: EOM intact bilaterally; no conjunctival abnormality ENMT: external ear and nose normal, oropharynx normal Neck: trachea midline, no thyromegaly normal visual inspection Respiratory: normal respiratory effort, lungs clear to auscultation no respiratory distress Cardiovascular: RRR, no murmur, no edema Gastrointestinal (Abdomen): Inspection/Auscultation: abdomen normal to inspection; abdomen not distended Musculoskeletal: no cyanosis or clubbing, extremities motor strength 5/5 Skin: no rashes, warm and dry Neurologic: moves all extremities and awake Psychiatric: Orientation: alert, oriented to person and cooperative Results & Data Vital Signs (Past 12 Hours) Vital Signs Temp Pulse Resp BP Pulse Ox 02/04/19 07:17 36.5 C 61 18 156/70 H 98 PG Care Time/CCT Total # of Minutes Spent Total Time Spent with Patient: Total time spent is greater than 50% in coordination of care (as documented) at patient's floor/unit and/or counseling patient: (1) Dementia Dementia behavioral disturbance: without behavioral disturbance Dementia type: unspecified type Qualified Code(s): F03.90 - Unspecified dementia without behavioral disturbance
[2019-02-04] MEDS: DONEPEZIL HCL 5 MG TAB PO SCH (15:43)
[2019-02-04] MEDS: POLYETHYLENE (MIRALAX) 17 GM PACK PO SCH (18:03)
[2019-02-04] MEDS: ACETAMINOPHEN 325 MG TAB PO SCH (20:05)
[2019-02-04] MEDS: SERTRALINE HCL 50 MG TABLET PO SCH (20:05)
[2019-02-04] MEDS: ACETAMINOPHEN 500 MG TAB PO SCH (20:05)
[2019-02-05] MEDS: POLYETHYLENE (MIRALAX) 17 GM PACK PO SCH (07:39)
[2019-02-05] MEDS: CYANOCOBALAMIN 1000 MCG/ML VIAL IM SCH (07:39)
[2019-02-05] MEDS: METOPROLOL TARTRATE 25 MG TAB PO SCH ×2 (07:40→20:46)
[2019-02-05] MEDS: DONEPEZIL HCL 5 MG TAB PO SCH (07:40)
[2019-02-05] MEDS: MEMANTINE HCL 10 MG TAB PO SCH ×2 (07:41→20:46)
--- NOTE | 2019-02-05 14:42 | Hospitalist Progress Note ---
Date of Service February 05, 2019 Assessment & Plan (1) Falling: Patient with frequent falls at home x3 days in a row prior to admission with being found on the floor sleeping next to the bed, and again 1 week prior to admission. - Likely mechanical in nature, though patient cannot really recall the falls, so it is not entirely clear. - PT/OT consults, recommend SNF placement, is agreeable to this. - Working with PT/OT daily. Awaiting bed at SNF. (2) Vitamin B12 deficiency: Vitamin B12 level low here in the 200s. -Treating with IM B12 while here and then convert to p.o. on discharge as above. (3) Dementia: Very pleasant, but clearly significant as he is not sure where he is and doesn't know why he is in the hospital when informed. TSH mildly elevated with normal free T4. Folate checked and normal. - Initial Lyme testing was positive, but Western Blot only had band 41 which is non-specific to Lyme. - Stopped doxycycline on 02/02. (4) Paroxysmal atrial fibrillation: History of such last year during prolonged hospitalization for sepsis, in sinus rhythm here. - Continue metoprolol - Is not on anticoagulation likely due to lone episode of A. fib (5) Prediabetes: A1c = 5.8%. - Continue sliding scale insulin with Accu-Cheks ACHS - Sugars under control during testing ~100. Stopped ACHS testing. (6) HTN (hypertension): Blood pressures higher today at 145/75. - Continue metoprolol tartrate 25 mg BID - His would like to minimize medications. Given his advanced dementia and moving toward comfort care, will not adjust at this time. (7) Hyperlipidemia: - Stopping his lovastatin at 's request. (8) Lumbar spinal stenosis: With history of back surgery. - Tylenol as needed for back pain and at night-time scheduled (9) Insomnia: Noted; would not give sedatives to him given moderate to severe dementia. - Re-direction as needed (10) Anemia: Hemoglobin 12.4, hematocrit 37.5. - Appears to be much better than baseline as in May / June 2017 it was down around 9-10 around the time he was admitted for sepsis. (11) Overactive bladder: UA negative for likely signs of infection. - No present concerns when asking patient. (12) Thoracic compression fracture: History of such, stable. - Continue Tylenol (13) DVT prophylaxis: - DARCY hose; no anticoagulation with recent falls. Subjective Stable today. No complaints. He is in good spirits today. Reports no fevers/chills, chest pain, shortness of breath, abdominal pain, nausea, or vomiting. Physical Exam Constitutional: WD/WN, vitals as above Eyes: EOM intact bilaterally; no conjunctival abnormality ENMT: external ear and nose normal, oropharynx normal Neck: trachea midline, no thyromegaly normal visual inspection Respiratory: normal respiratory effort, lungs clear to auscultation no respiratory distress Cardiovascular: RRR, no murmur, no edema Gastrointestinal (Abdomen): Inspection/Auscultation: abdomen normal to inspection; abdomen not distended Musculoskeletal: no cyanosis or clubbing, extremities motor strength 5/5 Skin: no rashes, warm and dry Neurologic: moves all extremities and awake Psychiatric: Orientation: alert, oriented to person and cooperative Results & Data Vital Signs (Past 12 Hours) Vital Signs Temp Pulse Resp BP BP Pulse Ox 02/05/19 07:39 36.6 C 60 18 145/76 H 97 02/05/19 04:54 36.8 C 62 20 133/55 L 94 PG Care Time/CCT Total # of Minutes Spent Total Time Spent with Patient: Total time spent is greater than 50% in coordination of care (as documented) at patient's floor/unit and/or counseling patient: (1) Dementia Dementia behavioral disturbance: without behavioral disturbance Dementia type: unspecified type Qualified Code(s): F03.90 - Unspecified dementia without behavioral disturbance
[2019-02-05] MEDS: SERTRALINE HCL 50 MG TABLET PO SCH (20:44)
[2019-02-05] MEDS: ACETAMINOPHEN 325 MG TAB PO SCH (20:45)
[2019-02-05] MEDS: ACETAMINOPHEN 500 MG TAB PO SCH (20:45)
[2019-02-06] MEDS: POLYETHYLENE (MIRALAX) 17 GM PACK PO SCH (08:04)
[2019-02-06] MEDS: MEMANTINE HCL 10 MG TAB PO SCH ×2 (08:04→20:10)
[2019-02-06] MEDS: DONEPEZIL HCL 5 MG TAB PO SCH (08:04)
[2019-02-06] MEDS: CYANOCOBALAMIN 1000 MCG/ML VIAL IM SCH (08:04)
[2019-02-06] MEDS: METOPROLOL TARTRATE 25 MG TAB PO SCH ×2 (08:04→20:10)
--- NOTE | 2019-02-06 16:39 | Hospitalist Progress Note ---
Date of Service February 06, 2019 Assessment & Plan (1) Falling: Patient with frequent falls at home x3 days in a row prior to admission with being found on the floor sleeping next to the bed, and again 1 week prior to admission. - Likely mechanical in nature, though patient cannot really recall the falls, so it is not entirely clear. - PT/OT consults, recommend SNF placement, is agreeable to this. - Working with PT/OT daily. Awaiting bed at SNF. Hopefully tomorrow. He is doing well today, sitting in a chair. (2) Vitamin B12 deficiency: Vitamin B12 level low here in the 200s. -Treating with IM B12 while here and then convert to p.o. on discharge as above. (3) Dementia: Very pleasant, but clearly significant as he is not sure where he is and doesn't know why he is in the hospital when informed. TSH mildly elevated with normal free T4. Folate checked and normal. - Initial Lyme testing was positive, but Western Blot only had band 41 which is non-specific to Lyme. - Stopped doxycycline on 02/02. (4) Paroxysmal atrial fibrillation: History of such last year during prolonged hospitalization for sepsis, in sinus rhythm here. - Continue metoprolol - Is not on anticoagulation due to lone episode of A. fib (5) Prediabetes: A1c = 5.8%. - Continue sliding scale insulin with Accu-Cheks ACHS - Sugars under control during testing ~100. Stopped ACHS testing. (6) HTN (hypertension): Blood pressures higher today at 145/75. - Continue metoprolol tartrate 25 mg BID - His would like to minimize medications. Given his advanced dementia and moving toward comfort care, will not adjust at this time. (7) Hyperlipidemia: - Stopping his lovastatin at 's request. (8) Lumbar spinal stenosis: With history of back surgery. - Tylenol as needed for back pain and at night-time scheduled (9) Insomnia: Noted; would not give sedatives to him given moderate to severe dementia. - Re-direction as needed (10) Anemia: Hemoglobin 12.4, hematocrit 37.5. - Appears to be much better than baseline as in MayJune 2017 it was down around 9-10 around the time he was admitted for sepsis. (11) Overactive bladder: UA negative for likely signs of infection. - No present concerns when asking patient. (12) Thoracic compression fracture: History of such, stable. - Continue Tylenol (13) DVT prophylaxis: - DARCY hose; no anticoagulation with recent falls. Subjective Doing well today. As usual, has no complaints. Reports no fevers/chills, chest pain, shortness of breath, abdominal pain, nausea, or vomiting. Physical Exam Constitutional: WD/WN, vitals as above Eyes: EOM intact bilaterally; no conjunctival abnormality ENMT: external ear and nose normal, oropharynx normal Neck: trachea midline, no thyromegaly normal visual inspection Respiratory: normal respiratory effort, lungs clear to auscultation no respiratory distress Cardiovascular: RRR, no murmur, no edema Gastrointestinal (Abdomen): Inspection/Auscultation: abdomen normal to inspection; abdomen not distended Musculoskeletal: no cyanosis or clubbing, extremities motor strength 5/5 Skin: no rashes, warm and dry Neurologic: moves all extremities and awake Psychiatric: Orientation: alert, oriented to person and cooperative Results & Data Vital Signs (Past 12 Hours) Vital Signs Temp Pulse Resp BP Pulse Ox 02/06/19 15:46 36.6 C 65 18 144/81 H 97 02/06/19 07:11 36.6 C 64 18 147/73 H 96 PG Care Time/CCT Total # of Minutes Spent Total Time Spent with Patient: Total time spent is greater than 50% in coordination of care (as documented) at patient's floor/unit and/or counseling patient: (1) Dementia Dementia behavioral disturbance: without behavioral disturbance Dementia type: unspecified type Qualified Code(s): F03.90 - Unspecified dementia without behavioral disturbance
[2019-02-06] MEDS: ACETAMINOPHEN 500 MG TAB PO SCH (20:10)
[2019-02-06] MEDS: SERTRALINE HCL 50 MG TABLET PO SCH (20:10)
[2019-02-06] MEDS: ACETAMINOPHEN 325 MG TAB PO SCH (20:10)
[2019-02-07 07:13] VITALS: BP 131/58; TEMP 97.5; O2SAT 95
[2019-02-07] MEDS: MEMANTINE HCL 10 MG TAB PO SCH (08:23)
[2019-02-07] MEDS: DONEPEZIL HCL 5 MG TAB PO SCH (08:23)
[2019-02-07] MEDS: METOPROLOL TARTRATE 25 MG TAB PO SCH (08:23)
[2019-02-07] MEDS: POLYETHYLENE (MIRALAX) 17 GM PACK PO SCH (08:24)
--- NOTE | 2019-02-07 14:22 | Discharge Summary ---
Date of Service February 07, 2019 Admission HPI Per Admitting Provider This is an 83 yo M with PMhx of dementia, ambulatory dysfunction, HTN, HLD, paroxysmal A. fib, prediabetes, irritable bowel, lumbar spinal stenosis, osteopenia, depression, vitamin D deficiency who presents for recurrent falls. Patient's is at bedside. Patient is unable to provide history due to cognitive status. She reports that he has been found between 7:30 and 8:30 am for the last 3 days, on the floor beside his bed, undressed and confused. She reports that approximately 1.5 weeks ago the patient had a similar episode of being found on the floor bedside and EMS took them to [place] he was evaluated in the ER, not found to have any signs of infectious etiology, and was discharged home. She reports that his generalized weakness has gotten worse since being home however does not notice any acute signs of infection. She denies that he has any increased cough, congestion, abdominal complaints, bowel changes, fevers, chills or sweats. He typically walks at baseline with a cane. notes that she has been applying for placement however the process is taken a very long time. She fears that he is unsafe at home and she is not able to take care of him herself. She does pay out of pocket for a caregiver for several hr/wk, however cannot continue to do this d/t financial situation. WBC = 11 K UA appears negative for source of infection Imaging reveals no acute fractures CXR reviewed showing mild pulmonary vascular congestion CK is elevated and patient is in rhabdomyolysis Admission Exam Per Admitting Provider General: awake, alert, no apparent distress, + obese Head: Normocephalic, atraumatic ENT: PERRL, EOMI, no pharyngeal exudate, mucous membranes moist Chest: Clear to auscultation, on room air, no adventitious breath sounds Cardiac: Regular rate and rhythm, no murmur, no JVD, normal peripheral pulses, good capillary refill Abdominal: NABS x 4 quadrants, soft, nondistended, nontender to palpation, no rebound, guarding or tenderness Extremities: Normal inspection, + trace peripheral edema BLE, no erythema, calfs nontender to palpation Psych: Normal mood and affect Neuro: AAO to self and is able to name his who is sitting at bedside after some prompting, no gross motor deficits, speech is clear, no peripheral sensory deficits Skin: + Dry skin, no rash or erythema Principal Diagnosis Recurrent Falls, Rhabdomyolysis, Dementia Discharge Exam Constitutional: WD/WN, vitals as above Eyes: EOM intact bilaterally; no conjunctival abnormality ENMT: external ear and nose normal, oropharynx normal Neck: trachea midline, no thyromegaly normal visual inspection Respiratory: normal respiratory effort, lungs clear to auscultation no respiratory distress Cardiovascular: RRR, no murmur, no edema Gastrointestinal (Abdomen): Inspection/Auscultation: abdomen normal to inspection; abdomen not distended Musculoskeletal: no cyanosis or clubbing, extremities motor strength 5/5 Skin: no rashes, warm and dry Neurologic: moves all extremities and awake Psychiatric: Orientation: alert, oriented to person and cooperative Discharge Data Allergies Allergy/AdvReac Type Severity Reaction Status Date / Time acetaminophen [From Vicodin] Allergy Verified 01/28/19 12:02 hydrocodone AdvReac Unknown HALLUCINATI Verified 01/28/19 12:02 ONS Consultations 01/28/19 15:43 ED Decision to Admit Stat 01/28/19 19:14 Consult Case Management - Discharge Planning Routine Ordered Studies 01/28/19 10:31 CT abd pelvis wo con Stat CT cervical spine wo con Stat CT head/brain wo con Stat 01/28 Femur X-ray Pelvis X-ray CXR Hospital Course (1) Falling: * Patient with frequent falls at home x3 days in a row prior to admission with being found on the floor sleeping next to the bed, and again 1 week prior to admission. Patient admitted with elevated CPK of 737, which trended down prior to discharge. * Fall likely mechanical in nature, although patient with advanced demetia, so etiology was not entirely clear. PT/OT while inpatient, with recommendations for SNF placement with possible move towards comfort care in the future. * B12 level was found to be in the low 200s, and patient receivied B12 IM and was discharged with daily oral replacement. TSH mildly elevated with normal FT4. Folate wnl. Would recommended TFT in 4-6 weeks as outpatient * Initially thought to be positive for lyme, however western blot with non- specific findings and doxycyline was stopped on 02/02. * Patient with history of pAF, however NSR while inpatient. Patient not on anticoagulation as it was lone episode of afib while admitted for sepsis. Metoprolol was continued. (2) Vitamin B12 deficiency: * As above (3) Dementia: * As above (4) Paroxysmal atrial fibrillation: * As above (5) Prediabetes: * A1c = 5.8%. SSI while inpatient, with sugars well controlled. (6) HTN (hypertension): * Blood pressure stable at 131/58 prior to discharge. Home metoprolol tartrate 25mg BID continued (7) Hyperlipidemia: * Home lovastatin discontinued at patient's request. (8) Lumbar spinal stenosis: * history of back surgery. (9) Insomnia: * Noted; sedatives avoided given moderate-severe dementia. Re-direction used as needed. (10) Anemia: * In June 2017, hbg appeared to be around 9-10. Hgb 12.4 (11) Overactive bladder: * UA negative for signs of infection. (12) Thoracic compression fracture: * History of such, stable. (13) DVT prophylaxis: * DARCY hose while inpatient. No chemoprophylaxis given recurrent falls Patient discharged to [facility]. Total Time Total Time Spent Total Time Spent (In Minutes): 40 Discharge Plan Discharge Items Patient Disposition: Transfer Group Home Fac Reason For Visit: REQUENT FALLS Discharge Diagnosis: Recurrent falls with resulting muscle damage (Rhabdomyolysis), Vitamin B12 deficiency, Dementia Goals: You have been hospitalized for an acute medical problem. During your stay at [facility], we have made an effort to correct the problem that brought you to the hospital while keeping you as comfortable as possible. Medications were used to bring your condition under control and your discharge instructions will include directions for any medications you should take after leaving the hospital. Please make sure you see your Primary Care Provider as part of your follow up plan. Activity: Resume your previous activity Non-emergency contact: Primary Care Provider Call non-emergency contact if: you have any medication questions Follow-up/Referrals: Deuce Ferreira MD [Primary Care Provider] - Diet: Heart Healthy Addtl Attending Provider Instructions: You have been started on a medication called donepezil (Aricept) during your stay. A prescription has been sent to the pharmacy. This medication is to help with dementia. Your vitamin B12 level was found to be low during your hospitalization. You have been given B12 injections during your stay, but it is recommended that you continue to take B12 oral supplementation at discharge. Low B12 levels are associated with some numbness/tingling in your feet, and may have contributed to why multiple falls. -You may want to have your B12 level checked in a few months, but should discuss this with your primary care. Per family request, your lovastatin (cholesterol pill) has been stopped. This may improve generalized muscle aches/pains. Please follow up with your primary care provider in the next week. Please return to the emergency room if you have increased shortness of breath, chest pain, or for any other symptoms that are concerning for you. Thank you for allowing us to be a part of the healthcare team helping to care for you during your hospitalization. Take care! Pending Studies at Discharge: Yes (Vitamin B1 level, Lyme disease Western blot) Stand-Alone Forms: My [facility] Skilled Items Patient informed of condition?: Yes DNR: Yes Discharge Level of Care: Skilled Communicable Disease: No Discharge Prognosis: Stable Lines: None Urinary Catheter: No Medications and DC Order Prescriptions: New donepezil 5 mg Tablet 5 mg PO DAILY Qty: 30 RF: 0 cyanocobalamin (vitamin B-12) 1,000 mcg capsule 1,000 mcg PO DAILY Qty: 30 RF: 0 Continued cholestyramine-aspartame 4 gram powder in packet 4 gm PO DAILY PRN (Reason: Diarrhea) RF: 0 metoprolol tartrate 25 mg tablet 25 mg PO BID Qty: 90 RF: 3 sertraline 100 mg tablet 150 mg PO HS Qty: 90 RF: 3 acetaminophen [Tylenol] 325 mg Tablet 325 mg PO HS RF: 0 Tylenol Rapid Release Gel 500 mg PO HS RF: 0 hydrocortisone 1 % cream 1 appln TOP BID PRN (Reason: Skin Irritation) RF: 0 memantine 10 mg tablet 10 mg PO BID RF: 0 cholecalciferol (vitamin D3) 4,000 unit capsule 4,000 units PO QAM RF: 0 Discontinued lovastatin 20 mg tablet 20 mg PO HS RF: 0 Discharge Orders: Discharge Order (Routine); Ordered 02/07/19 Ordered By: Sandra Carrero Admission Data Admit Date/Time: 01/28/19 17:27 Attending Provider: Sandra Carrero Admit Provider: Sandra Carrero Primary Care Provider: Deuce Ferreira Other Providers: Sergei Bolivar ; Kalia Batista Other Interventions: Discharge Summary Assessment (RN) Last Done: 02/07/19 15:10 DC Date/Time DO NOT enter until pt leaves facility: 02/07/19 15:29 Supervising Physician Co-Signing Physician Notes PA Supervision Note: I personally saw and examined the patient. I verified all auguste points and agree with CHANO Mckeon with the following exceptions and/or additions: Patient has no complaints. Is pleasantly confused. VSS NAD, confused, awake and oriented only to person RRR no mgr CTAB no wcr Abd +BS soft NT ND Ext no edema Neuro EOMI, moves all extremities 83 yo male here with dementia and history as above, here for recurrent falls out of bed, cannot be cared for at home, and mild rhabdomyolysis -Rhabdomyolysis was mild and is resolved -Stable for discharge
[2019-02-07 15:12] VITALS: PULSE 63
== END 2019-02-07 15:29 | DRG 92 ==
LOC: ED 09:53 → 2N 17:27 → SUATTDRO 17:27 → 2N 18:29